=== PATIENT | female | born 1945 | race Caucasian/White ===

== ENCOUNTER 2016-08-14 18:41 | Inpatient (IN) | payer MEDICARE, MEDICAID ==
[~2016-08-14] VITALS: Ht 170.1 cm; Wt 62.3 kg
--- NOTE | ~2016-08-14 | PR ---
[place], [place] PROGRESS NOTE NAME: PRIYANKA NORTON UNIT #: [id number] ROOM: 415 DOCTOR: ANA PAULA FELICIANO MD BIRTHDATE: [birth year] DOS: SUBJECTIVE: The patient examined. The patient had the device interrogated and ICD is functioning fine. The patient is getting dobutamine setup to have 5 mcg for 4 hours 2 times a week. Her CHF appears to be well compensated. She is 100% paced. PHYSICAL EXAMINATION: NECK: Supple and normal JVD. LUNGS: Diminished breath sounds. HEART: Sounds are regular. ABDOMEN: Soft, nontender. NEUROLOGIC: Stable. LABORATORY DATA: Reviewed. Underlying rhythm is atrial fibrillation. IMPRESSION: Severe dilated cardiomyopathy, nonischemic compensated. The patient is getting dobutamine, chronic atrial fibrillation status post atrioventricular node ablation on anticoagulation. PLAN: Continue the present medications. Set up for outpatient dobutamine treatment and followup. ANA PAULA FELICIANO MD CM:PNTRANS 0809 [id number] ANA PAULA FELICIANO MD 08/18/16 0912 interface
--- NOTE | ~2016-08-14 | CON ---
[place], [place] REPORT OF CONSULTATION NAME: PRIYANKA NORTON UNIT #: [id number] ROOM: 415 DOCTOR: KIRILL DSOUZA MD BIRTHDATE: [birth year] DOS: 08/16/2016 HISTORY OF PRESENT ILLNESS: This is a 71-year-old -[place] woman whom I have known for many years. She has had severe nonischemic cardiomyopathy for well over 10 years and previous heart catheterization a couple of years ago and echocardiogram demonstrated EF between 25 and 30% and normal coronary arteries. She had a biventricular AICD implanted in 2016, which improved her functional state. She had atrial fibrillation where a ventricular rate was difficult to control. Therefore, she had AV node ablation at that time of AICD implantation. She also has COPD and quit smoking a couple of years ago. Her main complaint is that of shortness of breath at night and also some chest pain and discomfort at night with some bitter taste in the mouth. She has not had any swelling of the legs, and no loss of consciousness, AICD has not discharged. She is very anxious and quite worried because of inability to be able to do things that she wants to do. HOME MEDICATIONS: Include Xarelto, Protonix, Toprol-XL 50 mg daily, magnesium hydroxide 30 mL p.r.n., lisinopril 5 mg daily, aspirin 81 daily, simvastatin 20 mg daily. Vitamin D 2000 units daily and monthly B12 shots. PHYSICAL EXAMINATION: GENERAL: This patient who is tall, slim, somewhat apprehensive and quiet, which I think is of ramo. She is not anemic. She is not tachypneic. Temperature is normal. There is no thyromegaly, finger clubbing. VITAL SIGNS: Pulse is regular at 76, blood pressure 132/86. NECK: JVP is normal. AJR is negative. There is no carotid bruit. Parasternal heave is present. HEART: Auscultation reveals no obvious murmurs. EXTREMITIES: She has no edema in the lower extremity. RESPIRATORY: Breath sounds are mildly diminished with few adventitious sounds. DIAGNOSTIC STUDIES: An ECG showed atrial fibrillation with ventricular pacing. IMPRESSION: 1. This patient has severe cardiomyopathy, and I believe she has a low cardiac output state, which is causing exertional fatigue and perhaps resting fatigue. 2. She probably had mild cardiac decompensation, which is causing nocturnal symptoms. 3. Chronic atrial fibrillation. She had AV node ablation and is on Xarelto. 4. Hypertension. Blood pressure is little high, I think we need to bring this down little bit more. RECOMMENDATIONS: 1. The 20 mg of furosemide IV while in the hospital and then 20 mg p.o. when she goes home. 2. I think 12 hours of dobutamine treatment intravenously at the rate of 5 mcg per kilogram per minute, which should help, and we should start her on outpatient dobutamine treatment, namely 5 mcg per kilogram per minute in a 4 hour sessions twice a week. [place], [place] REPORT OF CONSULTATION NAME: PRIYANKA NORTON UNIT #: [id number] ROOM: [facility] DOCTOR: LIANNA ESPINOSA,KIRILL BIRTHDATE: [birth year] 3. I also think dose of lisinopril should be decreased because her blood pressure is not adequately controlled, and this may help her exertional symptoms. 4. The patient's condition was discussed with resident looking . KIRILL DSOUZA MD CM:CONSTR:REPORT OF CONSULTATION 1123 08/17/16 0003 interface
--- NOTE | ~2016-08-14 | PR ---
[place], [place] PROGRESS NOTE NAME: PRIYANKA NORTON UNIT #: [id number] ROOM: 415 DOCTOR: KIRILL DSOUZA MD BIRTHDATE: [birth year] DOS: 08/17/2016 SUBJECTIVE: She had the device interrogated, and AICD is functioning fine. She has not had any breathing difficulty at rest. No orthopnea or swelling of the lower extremities. She received dobutamine treatment and had no problem. OBJECTIVE: GENERAL: She looks well. VITAL SIGNS: Fine. Pulse is regular at 76, blood pressure 108/84. NECK: Normal JVP. LUNGS: Breath sounds are diminished. EXTREMITIES: No edema of the lower extremities. Monitor shows AFib with V-pacing. IMPRESSION: 1. Severe dilated cardiomyopathy, i.e., nonischemic with decompensation. She will be receiving dobutamine treatment twice a week. 2. Chronic atrial fibrillation with atrioventricular node ablation. She is on anticoagulation. She needs to have a Mediport, following which she may be discharged home, and I would love to see her in the office in 1 month. KIRILL DSOUZA MD CM:PNTRANS 1214 1402 KIRILL DSOUZA MD 08/17/16 1403 interface
[2016-08-14 18:41] VITALS: BP 166/85
[~2016-08-14 18:41] MED LIST: ACCUNEB 0.0.63 MG/3; ADVAIR 250/501 EA INH; ALBUTEROL0.09 MG/A2 IH; ANUSOL-HC25 MG R; AQUA CARE TP; ASPIRIN CHILDRE81 MG PO; ASPIRIN325 M2 PO; ASPIRIN81 M1 PO; ATARAX25 MG PO; AVPAK AZITHROM250 M1 PO; AYR NASAL GEL22 ML NAS; B12,B-12,B 12500 MC1 PO; B121000 MCG/1 IM; BACTRIM DS 8001 TA1 PO; BENADRYL25 M2 PO; BIAXIN500 MG PO; CARDIZEM CD180 MG PO; CENTRUM1 TA1 PO; CENTRUM1 TAB PO; CEPHALEXIN500 M1 PO; CHOLESTEROL MED; CIPROFLOXACIN500 MG PO; CLARITIN10 MG PO; COMPAZINE10 MG PO; CORGARD20 MG PO; COUMADIN1 MG PO; CYCLOBENZAPRINE10 MG PO; D-1000 185 MG-11 TAB PO; DELTASONE10 MG PO; DELTASONE20 M1 PO; DILTIAZEM HCL180 MG PO; DILTIAZEM HCL240 M1 PO; DILTIAZEM HYDR180 M2 PO; DILTIAZEM HYDR300 MG PO; DOXYCYLINE50 MG PO; DUONEB 3 MG/3 ML3 M1 INH; DUONEB 3ML 3 MG/3 ML INH; ELIQUIS5 M1 PO; Ecotrin325 MG PO; FLONASE 0.05% 121 EA NAS; FLONASE0.05 MG/AC NS; HYCODAN/HYDROMET5 ML PO; HYDROCODONE BIT1 T11 PO; KEFLEX500 M1 PO; KEFLEX500 MG PO; Kenalog 0.5% Cr15 GM T; LANOXIN0.125 MG PO; LEVAQUIN750 M1 PO; LEVOFLOXACIN500 MG PO; LIDEX 0.05% CRE15 GM T; LIDEX0.05% T; LIPITOR20 MG PO; LISINOPRIL2.5 MG PO; LISINOPRIL5 MG PO; MACROBID100 M1 PO; MOBIC15 MG PO; MOTRIN800 MG PO; MUCINEX600 MG PO; MULTIPLE VITAMI1 CAP PO; Metoprolol Succinate PO; NADOLOL20 MG PO; NARDIL; NARDIL PO; NARDIL15 MG PO; NASAL SPRAY 1515 ML NS; NASONEX0.05 MG/AC NS; NORCO 325 MG-51 TAB PO; PERCOCET 325 MG1 TA7 PO; PRAVACHOL20 MG PO; PREDNICOT10 MG PO; PREDNICOT20 MG PO; PREDNISONE10 MG PO; PREDNISONE20 M1 PO; PREDNISONE5 MG PO; PRILOSEC20 M2 PO; PROTONIX TR40 MG PO; PROVENTIL0.09 MG/AC IH; PT DOESN'T KNOW MEDS; SYMBICORT1 AE1 INH; TOPROL XL50 M1 PO; TRAMADOL HCL50 MG PO; TYLENOL325 M1 PO; VIBRAMYCIN100 MG PO; VICODIN ES 7501 TA1 PO; XARE20MG PO; XARELTO20 M1 PO; ZANTAC 150150 MG PO; ZITHROMAX Z PA250 MG PO; ZITHROMAX250 MG PO; ZOFRAN ODT4 MG SL; ZOFRAN4 MG PO; Zofran4 MG PO; [UNRECOGNIZED DRUG - OTHER]; [UNRECOGNIZED DRUG - REMARK]
[2016-08-14] MEDS ORDERED: NATURE'S BLEN2000 IU PO (19:00)
[2016-08-14] MEDS ORDERED: ZESTRIL2.5 MG PO (19:00)
[2016-08-14] MEDS ORDERED: NOVAPLUS V0.09 MG/Ac INH (19:02)
[2016-08-14] MEDS ORDERED: VITAMIN B11000 MCG/M IM (19:02)
[2016-08-14 19:54] LABS: BASO # 0.1 10*3/uL (0.0-0.1); BASO % 1.2 % (0.0-1.0); EOS # 0.3 10*3/uL (0.0-0.4); EOS % 4.9 % (1.0-4.0); HEMATOCRIT 36.8 % (37.0-47.0); HEMOGLOBIN 12.2 g/dl (12.0-16.0); LYMPH # 1.4 10*3/uL (1.3-4.4); LYMPH % 19.9 % (27.0-41.0); MEAN CELL VOLUME 93.9 fl (81.0-99.0); MEAN CORPUSCULAR HGB 31.1 pg (27.0-31.0); MEAN CORPUSCULAR HGB CONC 33.2 g/dl (33.0-37.0); MEAN PLATELET VOLUME 10.7 fl (9.6-12.3); MONO # 0.5 10*3/uL (0.1-1.0); MONO % 7.5 % (3.0-9.0); NEUT # 4.5 10*3/uL (2.3-7.9); NEUT % 66.2 % (47.0-73.0); PLATELET COUNT AUTOMATED 151 10*3/uL (130-400); RED BLOOD COUNT 3.92 10*6/uL (4.10-5.10); RED CELL DISTRI WIDTH 12.6 % (0-14.5); WHITE BLOOD COUNT 6.8 10*3/uL (4.8-10.8)
[2016-08-14 20:14] LABS: ALBUMIN 3.3 gm/dl (3.1-4.5); ALKALINE PHOSPHATASE 65 U/L (45-117); BILIRUBIN, TOTAL 0.3 mg/dl (0.2-1.0); BUN 7 mg/dl (7-24); CARBON DIOXIDE 27 mmol/L (21-32); CHLORIDE 106 mmol/L (98-107); CPK 58 U/L (26-192); EST GLOM FILT AFRICAN AMERICAN > 60 ml/min; GLUCOSE 97 mg/dL (65-99); LDH 176 U/L (84-246); MAGNESIUM 2.2 mg/dL (1.5-2.1); POTASSIUM 3.6 mmol/L (3.5-5.1); SGOT/AST 10 IU/L (3-35); SGPT/ALT 14 U/L (12-78); SODIUM 144 mmol/L (136-145); TOTAL PROTEIN 6.1 gm/dL (6.4-8.2)
[2016-08-14 20:16] LABS: TROPONIN I < 0.015 ng/ml (<0.045)
[2016-08-14 22:57] LABS: BILIRUBIN NEGATIVE (NEGATIVE); BLOOD NEGATIVE (NEGATIVE); CLARITY CLEAR (CLEAR); COLOR YELLOW (YELLOW); GLUCOSE NEGATIVE (NEGATIVE); KETONE NEGATIVE (NEGATIVE); LEUKO ESTERASE 1+ (NEGATIVE); NITRITE NEGATIVE (NEGATIVE); PROTEIN NEGATIVE (NEGATIVE); UROBILINOGEN 0.2 E.U./dl (0.2-1.0)
[2016-08-14 23:17] LABS: RBC 0-2 rbc/hpf (0-2); URINE REFLEX COMMENT YES (NO)
[2016-08-15 02:04] VITALS: BP 152/73
[2016-08-15 06:30] LABS: CKMB 2.2 ng/ml (0.5-3.6); CPK 70 U/L (26-192); TROPONIN I < 0.015 ng/ml (<0.045)
[2016-08-15 08:00] VITALS: BP 146/88
[2016-08-15 12:00] VITALS: BP 156/87
[2016-08-15 12:35] LABS: CKMB 1.8 ng/ml (0.5-3.6); CPK 64 U/L (26-192)
[2016-08-15 12:37] LABS: TROPONIN I < 0.015 ng/ml (<0.045)
[2016-08-15 16:00] VITALS: BP 136/75
[2016-08-15 18:11] LABS: CKMB 1.6 ng/ml (0.5-3.6); CPK 61 U/L (26-192)
[2016-08-15 18:13] LABS: TROPONIN I < 0.015 ng/ml (<0.045)
[2016-08-15 20:00] VITALS: BP 145/82
[2016-08-16] VITALS: BP 126/85
[2016-08-16 06:15] LABS: BASO # 0.1 10*3/uL (0.0-0.1); BASO % 1.5 % (0.0-1.0); EOS # 0.3 10*3/uL (0.0-0.4); HEMOGLOBIN 13.2 g/dl (12.0-16.0); LYMPH # 1.3 10*3/uL (1.3-4.4); LYMPH % 24.1 % (27.0-41.0); MEAN CELL VOLUME 93.7 fl (81.0-99.0); MEAN CORPUSCULAR HGB 30.9 pg (27.0-31.0); MEAN PLATELET VOLUME 10.5 fl (9.6-12.3); MONO # 0.4 10*3/uL (0.1-1.0); MONO % 8.3 % (3.0-9.0); NEUT # 3.2 10*3/uL (2.3-7.9); NEUT % 60.7 % (47.0-73.0); PLATELET COUNT AUTOMATED 155 10*3/uL (130-400); RED BLOOD COUNT 4.27 10*6/uL (4.10-5.10); RED CELL DISTRI WIDTH 12.5 % (0-14.5); WHITE BLOOD COUNT 5.2 10*3/uL (4.8-10.8)
[2016-08-16 06:38] LABS: BUN 9 mg/dl (7-24); CARBON DIOXIDE 27 mmol/L (21-32); CHLORIDE 105 mmol/L (98-107); EST GLOM FILT AFRICAN AMERICAN > 60 ml/min; GLUCOSE 93 mg/dL (65-99); SODIUM 144 mmol/L (136-145)
[2016-08-16 08:00] VITALS: BP 132/86
[2016-08-16 12:00] VITALS: BP 135/87
[2016-08-16 13:43] VITALS: BP 139/56
[2016-08-16 16:00] VITALS: BP 120/65
[2016-08-16 20:00] VITALS: BP 121/82
[2016-08-17] VITALS: BP 94/55
[2016-08-17 06:22] LABS: BUN 13 mg/dl (7-24); CARBON DIOXIDE 29 mmol/L (21-32); CHLORIDE 105 mmol/L (98-107); EST GLOM FILT AFRICAN AMERICAN > 60 ml/min; GLUCOSE 91 mg/dL (65-99); POTASSIUM 4.1 mmol/L (3.5-5.1); SODIUM 144 mmol/L (136-145)
[2016-08-17 08:00] VITALS: BP 108/84
[2016-08-17 16:00] VITALS: BP 139/72
[2016-08-17 20:00] VITALS: BP 121/81
[2016-08-18] VITALS: BP 125/59
[2016-08-18 08:00] VITALS: BP 110/71
[2016-08-18 09:57] VITALS: BP 114/60
[2016-08-18 12:00] VITALS: BP 113/61; BP 142/75
[2016-08-18] MEDS ORDERED: DOBUTAMINE250 MG/250 IV (13:47)
== END 2016-08-18 15:33 | disposition home or self-care (01) | DRG 392 ==
LOC: ED 18:41 → EDHOLD 22:26 → 4E 22:26
PROVIDERS: Internal Medicine; Physician Assistant
PROC: 02HV33Z Insertion of Infusion Device into Superior Vena Cava, Percutaneous Approach (ICD-10-PCS; principal; 2016-08-14)
DX: K21.9 Gastro-esophageal reflux disease without esophagitis (principal); E44.0 Moderate protein-calorie malnutrition; I42.9 Cardiomyopathy, unspecified; I48.2 Chronic atrial fibrillation; E83.41 Hypermagnesemia; J44.9 Chronic obstructive pulmonary disease, unspecified; I50.22 Chronic systolic (congestive) heart failure; I11.0 Hypertensive heart disease with heart failure; R55 Syncope and collapse; I25.118 Atherosclerotic heart disease of native coronary artery with other forms of angina pectoris; I34.1 Nonrheumatic mitral (valve) prolapse; D64.9 Anemia, unspecified; F41.9 Anxiety disorder, unspecified; Z90.710 Acquired absence of both cervix and uterus; Z90.49 Acquired absence of other specified parts of digestive tract; Z95.810 Presence of automatic (implantable) cardiac defibrillator; Z87.891 Personal history of nicotine dependence; Z82.49 Family history of ischemic heart disease and other diseases of the circulatory system; Z80.3 Family history of malignant neoplasm of breast; Z82.3 Family history of stroke; Z79.51 Long term (current) use of inhaled steroids; Z79.82 Long term (current) use of aspirin; Z79.899 Other long term (current) drug therapy; Z68.20 Body mass index [BMI] 20.0-20.9, adult

== ENCOUNTER 2016-08-22 22:28 | Emergency (ER) | payer MEDICARE, MEDICAID ==
[~2016-08-22] VITALS: Ht 175.2 cm; Wt 61.7 kg
--- NOTE | ~2016-08-22 | EKG ---
[place], [place] ELECTROCARDIOGRAM REPORT NAME: PRIYANKA NORTON UNIT #: [id number] ROOM: DOCTOR: KIRILL DSOUZA MD BIRTHDATE: [birth year] DOS: 08/22/2016 TIME: 2246 hours. Underlying rhythm is atrial fibrillation with a ventricular pacing at 77 beats per minute. KIRILL DSOUZA MD CM:EKGRPT:ELECTROCARDIOGRAM REPORT 1150 1402 KIRILL DSOUZA MD
[~2016-08-22 22:28] MED LIST changes: +DOBUTAMINE250 MG/250 IV; +NATURE'S BLEN2000 IU PO; +NOVAPLUS V0.09 MG/Ac INH; +VITAMIN B11000 MCG/M IM; +ZESTRIL2.5 MG PO
[2016-08-22 22:38] VITALS: BP 153/71
[2016-08-22 23:07] LABS: BASO # 0.1 10*3/uL (0.0-0.1); BASO % 1.1 % (0.0-1.0); EOS # 0.3 10*3/uL (0.0-0.4); EOS % 3.2 % (1.0-4.0); HEMATOCRIT 35.6 % (37.0-47.0); LYMPH # 1.5 10*3/uL (1.3-4.4); LYMPH % 19.1 % (27.0-41.0); MEAN CELL VOLUME 93.7 fl (81.0-99.0); MEAN CORPUSCULAR HGB 31.6 pg (27.0-31.0); MEAN CORPUSCULAR HGB CONC 33.7 g/dl (33.0-37.0); MEAN PLATELET VOLUME 10.9 fl (9.6-12.3); MONO # 0.7 10*3/uL (0.1-1.0); MONO % 9.2 % (3.0-9.0); NEUT # 5.3 10*3/uL (2.3-7.9); NEUT % 67.1 % (47.0-73.0); PLATELET COUNT AUTOMATED 144 10*3/uL (130-400); RED CELL DISTRI WIDTH 12.4 % (0-14.5); WHITE BLOOD COUNT 7.9 10*3/uL (4.8-10.8)
[2016-08-22 23:17] LABS: PROTHROMBIN TIME 10.4 SECONDS (9.0-12.4)
[2016-08-22 23:24] LABS: ALBUMIN 3.4 gm/dl (3.1-4.5); ALKALINE PHOSPHATASE 66 U/L (45-117); BILIRUBIN, TOTAL 0.6 mg/dl (0.2-1.0); BUN 12 mg/dl (7-24); CARBON DIOXIDE 31 mmol/L (21-32); CHLORIDE 104 mmol/L (98-107); CPK 49 U/L (26-192); EST GLOM FILT AFRICAN AMERICAN > 60 ml/min; GLUCOSE 98 mg/dL (65-99); POTASSIUM 3.4 mmol/L (3.5-5.1); SGOT/AST 12 IU/L (3-35); SGPT/ALT 15 U/L (12-78); SODIUM 145 mmol/L (136-145); TOTAL PROTEIN 6.4 gm/dL (6.4-8.2)
[2016-08-22 23:25] LABS: CKMB 1.1 ng/ml (0.5-3.6); TROPONIN I < 0.015 ng/ml (<0.045)
== END 2016-08-23 01:55 | disposition home or self-care (01) ==
LOC: ED 22:28
PROVIDERS: Emergency Medicine
DX: J98.11 Atelectasis (principal); F41.9 Anxiety disorder, unspecified; E53.8 Deficiency of other specified B group vitamins; I48.2 Chronic atrial fibrillation; J44.9 Chronic obstructive pulmonary disease, unspecified; I10 Essential (primary) hypertension; I34.1 Nonrheumatic mitral (valve) prolapse; E55.9 Vitamin D deficiency, unspecified; I50.9 Heart failure, unspecified; Z98.890 Other specified postprocedural states; Z90.49 Acquired absence of other specified parts of digestive tract; Z95.0 Presence of cardiac pacemaker; Z90.710 Acquired absence of both cervix and uterus; Z87.891 Personal history of nicotine dependence; Z79.82 Long term (current) use of aspirin; Z79.899 Other long term (current) drug therapy

== ENCOUNTER 2016-09-04 18:06 | Inpatient (IN) | payer MEDICARE, MEDICAID ==
[~2016-09-04] VITALS: Ht 167.6 cm; Wt 67.2 kg
[2016-09-04 18:10] VITALS: BP 144/79
[2016-09-04 18:37] LABS: BASO # 0.1 10*3/uL (0.0-0.1); EOS # 0.2 10*3/uL (0.0-0.4); EOS % 2.9 % (1.0-4.0); HEMATOCRIT 35.4 % (37.0-47.0); HEMOGLOBIN 11.9 g/dl (12.0-16.0); LYMPH # 1.6 10*3/uL (1.3-4.4); LYMPH % 19.6 % (27.0-41.0); MEAN CELL VOLUME 94.7 fl (81.0-99.0); MEAN CORPUSCULAR HGB 31.8 pg (27.0-31.0); MEAN CORPUSCULAR HGB CONC 33.6 g/dl (33.0-37.0); MEAN PLATELET VOLUME 10.5 fl (9.6-12.3); MONO # 0.5 10*3/uL (0.1-1.0); MONO % 6.6 % (3.0-9.0); NEUT # 5.6 10*3/uL (2.3-7.9); NEUT % 69.7 % (47.0-73.0); PLATELET COUNT AUTOMATED 189 10*3/uL (130-400); RED BLOOD COUNT 3.74 10*6/uL (4.10-5.10); RED CELL DISTRI WIDTH 12.7 % (0-14.5)
[2016-09-04 18:49] LABS: PROTHROMBIN TIME 10.1 SECONDS (9.0-12.4)
[2016-09-04 18:54] LABS: ALBUMIN 3.4 gm/dl (3.1-4.5); ALKALINE PHOSPHATASE 76 U/L (45-117); BILIRUBIN, TOTAL 0.6 mg/dl (0.2-1.0); BUN 6 mg/dl (7-24); CARBON DIOXIDE 30 mmol/L (21-32); CHLORIDE 106 mmol/L (98-107); CKMB 1.4 ng/ml (0.5-3.6); CPK 55 U/L (26-192); EST GLOM FILT AFRICAN AMERICAN > 60 ml/min; GLUCOSE 80 mg/dL (65-99); MAGNESIUM 2.2 mg/dL (1.5-2.1); POTASSIUM 3.3 mmol/L (3.5-5.1); SGOT/AST 9 IU/L (3-35); SGPT/ALT 9 U/L (12-78); SODIUM 144 mmol/L (136-145); TOTAL PROTEIN 6.5 gm/dL (6.4-8.2)
[2016-09-04 19:14] LABS: C-REACTIVE PROTEIN < 0.29 MG/DL (0-0.3); TROPONIN I < 0.015 ng/ml (<0.045)
[2016-09-04 19:21] VITALS: BP 145/88
[2016-09-04 19:45] VITALS: BP 138/86
[2016-09-05] VITALS: BP 140/80
[2016-09-05 06:13] LABS: BASO # 0.1 10*3/uL (0.0-0.1); BASO % 1.4 % (0.0-1.0); EOS # 0.4 10*3/uL (0.0-0.4); HEMATOCRIT 35.6 % (37.0-47.0); HEMOGLOBIN 11.8 g/dl (12.0-16.0); LYMPH # 1.2 10*3/uL (1.3-4.4); MEAN CELL VOLUME 95.2 fl (81.0-99.0); MEAN CORPUSCULAR HGB 31.6 pg (27.0-31.0); MEAN CORPUSCULAR HGB CONC 33.1 g/dl (33.0-37.0); MONO # 0.4 10*3/uL (0.1-1.0); MONO % 6.5 % (3.0-9.0); NEUT # 3.8 10*3/uL (2.3-7.9); NEUT % 64.8 % (47.0-73.0); PLATELET COUNT AUTOMATED 169 10*3/uL (130-400); RED BLOOD COUNT 3.74 10*6/uL (4.10-5.10); RED CELL DISTRI WIDTH 12.5 % (0-14.5); WHITE BLOOD COUNT 5.8 10*3/uL (4.8-10.8)
[2016-09-05 06:52] LABS: BUN 6 mg/dl (7-24); CARBON DIOXIDE 30 mmol/L (21-32); CHLORIDE 110 mmol/L (98-107); EST GLOM FILT AFRICAN AMERICAN > 60 ml/min; FREE T4 0.87 ng/dl (0.76-1.46); GLUCOSE 87 mg/dL (65-99); POTASSIUM 3.7 mmol/L (3.5-5.1); SODIUM 144 mmol/L (136-145)
[2016-09-05 08:00] VITALS: BP 150/90
[2016-09-05 12:00] VITALS: BP 113/75
[2016-09-05 16:00] VITALS: BP 163/72
[2016-09-05 20:00] VITALS: BP 121/62
[2016-09-06] VITALS: BP 119/82
[2016-09-06 08:00] VITALS: BP 128/88
[2016-09-06 12:00] VITALS: BP 135/79
[2016-09-06 16:00] VITALS: BP 122/98
[2016-09-06 20:00] VITALS: BP 106/46
[2016-09-07] VITALS: BP 120/90
[2016-09-07 08:00] VITALS: BP 130/82
== END 2016-09-07 12:00 | disposition home or self-care (01) | DRG 206 ==
LOC: ED 18:06 → 5E 20:09 → EDHOLD 20:09 → 5E 20:21
PROVIDERS: Emergency Medicine; Internal Medicine Hospice and Palliative Medicine
DX: M94.0 Chondrocostal junction syndrome [Tietze] (principal); I50.22 Chronic systolic (congestive) heart failure; Z99.81 Dependence on supplemental oxygen; I11.0 Hypertensive heart disease with heart failure; E87.6 Hypokalemia; E83.41 Hypermagnesemia; D72.810 Lymphocytopenia; I48.2 Chronic atrial fibrillation; F41.9 Anxiety disorder, unspecified; J44.9 Chronic obstructive pulmonary disease, unspecified; D64.9 Anemia, unspecified; I25.119 Atherosclerotic heart disease of native coronary artery with unspecified angina pectoris; Z95.0 Presence of cardiac pacemaker; Z90.710 Acquired absence of both cervix and uterus; Z90.49 Acquired absence of other specified parts of digestive tract; Z80.3 Family history of malignant neoplasm of breast; Z82.3 Family history of stroke; Z79.82 Long term (current) use of aspirin; Z79.899 Other long term (current) drug therapy

== ENCOUNTER 2016-10-10 14:20 | Emergency (ER) | payer MEDICARE ==
[~2016-10-10] VITALS: Wt 63.5 kg
--- NOTE | ~2016-10-10 | EKG ---
[place], [place] ELECTROCARDIOGRAM REPORT NAME: PRIYANKA NORTON UNIT #: [id number] ROOM: DOCTOR: KIRILL DSOUZA MD BIRTHDATE: [birth year] DOS: 10/10/2016 TIME: 1449 hours. FINDINGS: 1. Underlying rhythm is atrial fibrillation with ventricular pacing at 75 beats per minute. 2. An abnormal ECG. 3. No previous tracing is available for comparison. KIRILL DSOUZA MD CM:EKGRPT:ELECTROCARDIOGRAM REPORT 1741 1936 KIRILL DSOUZA MD
[2016-10-10 15:03] LABS: BASO % 0.9 % (0.0-1.0); EOS # 0.1 10*3/uL (0.0-0.4); EOS % 2.9 % (1.0-4.0); HEMATOCRIT 37.4 % (37.0-47.0); HEMOGLOBIN 12.3 g/dl (12.0-16.0); LYMPH # 0.8 10*3/uL (1.3-4.4); LYMPH % 18.7 % (27.0-41.0); MEAN CELL VOLUME 94.2 fl (81.0-99.0); MEAN CORPUSCULAR HGB CONC 32.9 g/dl (33.0-37.0); MONO # 0.6 10*3/uL (0.1-1.0); MONO % 12.4 % (3.0-9.0); NEUT # 2.9 10*3/uL (2.3-7.9); NEUT % 64.9 % (47.0-73.0); PLATELET COUNT AUTOMATED 137 10*3/uL (130-400); RED BLOOD COUNT 3.97 10*6/uL (4.10-5.10); RED CELL DISTRI WIDTH 13.2 % (0-14.5); WHITE BLOOD COUNT 4.5 10*3/uL (4.8-10.8)
[2016-10-10 15:12] LABS: PROTHROMBIN TIME 10.7 SECONDS (9.0-12.4)
[2016-10-10 15:21] LABS: ALBUMIN 3.3 gm/dl (3.1-4.5); ALKALINE PHOSPHATASE 79 U/L (45-117); BILIRUBIN, TOTAL 0.6 mg/dl (0.2-1.0); BUN 5 mg/dl (7-24); CARBON DIOXIDE 27 mmol/L (21-32); CHLORIDE 105 mmol/L (98-107); EST GLOM FILT AFRICAN AMERICAN > 60 ml/min; GLUCOSE 93 mg/dL (65-99); POTASSIUM 3.7 mmol/L (3.5-5.1); SGOT/AST 11 IU/L (3-35); SGPT/ALT 10 U/L (12-78); SODIUM 142 mmol/L (136-145); TOTAL PROTEIN 6.3 gm/dL (6.4-8.2)
[2016-10-10 15:23] LABS: TROPONIN I < 0.015 ng/ml (<0.045)
[2016-10-10 16:23] VITALS: BP 136/60
== END 2016-10-10 16:31 | disposition home or self-care (01) ==
LOC: ED 14:20
PROVIDERS: Student in an Organized Health Care Education/Training Program
DX: R06.02 Shortness of breath (principal); F41.9 Anxiety disorder, unspecified; I25.10 Atherosclerotic heart disease of native coronary artery without angina pectoris; J44.9 Chronic obstructive pulmonary disease, unspecified; I10 Essential (primary) hypertension; Z87.891 Personal history of nicotine dependence; Z90.49 Acquired absence of other specified parts of digestive tract; Z99.81 Dependence on supplemental oxygen; Z95.810 Presence of automatic (implantable) cardiac defibrillator; Z79.82 Long term (current) use of aspirin; Z79.899 Other long term (current) drug therapy

== ENCOUNTER 2016-10-13 11:40 | Inpatient (IN) | payer MEDICARE ==
[~2016-10-13] VITALS: Ht 175.3 cm; Wt 64.0 kg
[2016-10-13] VITALS (8 sets, daily range): BP systolic 124–154; BP diastolic 50–99
--- NOTE | ~2016-10-13 | CON ---
[place], [place] REPORT OF CONSULTATION NAME: PRIYANKA NORTON UNIT #: [id number] ROOM: 408 DOCTOR: KIRILL DSOUZA MD BIRTHDATE: [birth year] DOS: 10/13/2016 HISTORY OF PRESENT ILLNESS: This is a 71-year-old -[place] woman with a history of a nonischemic cardiomyopathy diagnosed a very long time ago, and she had a diagnostic heart catheterization a couple of years ago and at that time, she had an LV ejection fraction of 25% and an echocardiogram has had demonstrated similar LV systolic function and normal coronary arteries. She had chronic atrial fibrillation with very rapid ventricular rate, which could not be tamed. For this, she had AV node ablation and at that time, a biventricular AICD device was implanted. Because of deteriorating condition, she was started on outpatient dobutamine therapy twice a week and since then she has been much more functional. She also has significant COPD and at times has bothered her quite a bit. She has never had a cancer, stroke. Does have essential hypertension. She does not have mitral valve prolapse. The patient has been feeling unwell for the last 8-10 days. She has had a cough in the chest that rattles a lot more than usual. She has coughed away little phlegm. She has not had any chest pain except when she coughs and no palpitations. She has not had any loss of consciousness. PAST SURGICAL HISTORY: She has had prior hysterectomy, appendectomy, tonsillectomy, carpal tunnel decompression surgery. SOCIAL HISTORY: She does not smoke now nor does she drink alcoholic beverages. ALLERGIES: She is not allergic to any medications. HOME MEDICATIONS: Include aspirin, cholecalciferol, cyanocobalamin, dobutamine treatment twice a week as outpatient, lisinopril 5 mg daily, metoprolol succinate 50 mg daily, pravastatin 20 mg daily and Xarelto 20 mg daily. PHYSICAL EXAMINATION: GENERAL: This reveals a patient who is alert, oriented. She is slim, she is afebrile. When she coughs, her chest rattles a lot. Pulse is regular at 76, blood pressure 154/84. NECK: Normal JVP. AJR is negative. There is no carotid bruit. HEART: There is no cardiomegaly. No murmurs are present. EXTREMITIES: There is no edema at all in the lower extremities . LUNGS: Breath sounds are moderately diminished with a lot of rhonchi during inspiration and expiration. ABDOMEN: Supple, nontender. LABORATORY DATA: An ECG shows atrial fibrillation with ventricular pacing. Chest x-ray demonstrated no pulmonary infiltrate or pulmonary edema. Labs essentially normal. IMPRESSION: 1. This patient has significant chronic obstructive pulmonary disease, now had [place], [place] REPORT OF CONSULTATION NAME: PRIYANKA NORTON UNIT #: [id number] ROOM: [facility] DOCTOR: KIRILL DSOUZA MD BIRTHDATE: [birth year] exacerbation of this due to an acute chest infection. 2. There is no evidence of cardiac decompensation, i.e., systolic heart failure is well compensated. 3. Severe cardiomyopathy. 4. Current cardiac medications should be continued and stress should be on treating the respiratory infection. KIRILL DSOUZA MD CM:CONSTR:REPORT OF CONSULTATION 57 10/14/161955 interface
--- NOTE | ~2016-10-13 | EKG ---
[place], [place] ELECTROCARDIOGRAM REPORT NAME: PRIYANKA NORTON UNIT #: [id number] ROOM: 408 DOCTOR: KIRILL DSOUZA MD BIRTHDATE: [birth year] DOS: 10/13/2016 TIME: 1201 hours. Underlying rhythm is atrial fibrillation with a ventricular pacing at 77 beats per minute. No previous tracing is available for comparison. KIRILL DSOUZA MD CM:EKGRPT:ELECTROCARDIOGRAM REPORT 41 2140 KIRILL DSOUZA MD
[2016-10-13 12:18] LABS: BASO % 0.7 % (0.0-1.0); EOS # 0.2 10*3/uL (0.0-0.4); EOS % 3.4 % (1.0-4.0); HEMATOCRIT 39.2 % (37.0-47.0); HEMOGLOBIN 13.1 g/dl (12.0-16.0); LYMPH # 1.5 10*3/uL (1.3-4.4); LYMPH % 26.6 % (27.0-41.0); MEAN CELL VOLUME 95.4 fl (81.0-99.0); MEAN CORPUSCULAR HGB 31.9 pg (27.0-31.0); MEAN CORPUSCULAR HGB CONC 33.4 g/dl (33.0-37.0); MONO # 0.3 10*3/uL (0.1-1.0); MONO % 5.3 % (3.0-9.0); NEUT # 3.6 10*3/uL (2.3-7.9); NEUT % 63.8 % (47.0-73.0); PLATELET COUNT AUTOMATED 131 10*3/uL (130-400); RED BLOOD COUNT 4.11 10*6/uL (4.10-5.10); WHITE BLOOD COUNT 5.6 10*3/uL (4.8-10.8)
[2016-10-13 12:27] LABS: INTERNATIONAL NORM RATIO 0.9 (2.0-3.5)
[2016-10-13 12:34] LABS: ALBUMIN 3.5 gm/dl (3.1-4.5); ALKALINE PHOSPHATASE 78 U/L (45-117); BILIRUBIN, TOTAL 0.4 mg/dl (0.2-1.0); BUN 5 mg/dl (7-24); CARBON DIOXIDE 32 mmol/L (21-32); CHLORIDE 107 mmol/L (98-107); CKMB 1.9 ng/ml (0.5-3.6); CPK 85 U/L (26-192); EST GLOM FILT AFRICAN AMERICAN > 60 ml/min; GLUCOSE 99 mg/dL (65-99); POTASSIUM 3.5 mmol/L (3.5-5.1); SGOT/AST 13 IU/L (3-35); SGPT/ALT 13 U/L (12-78); SODIUM 142 mmol/L (136-145); TOTAL PROTEIN 6.9 gm/dL (6.4-8.2)
[2016-10-13 12:36] LABS: C-REACTIVE PROTEIN < 0.29 MG/DL (0-0.3); TROPONIN I < 0.015 ng/ml (<0.045)
[2016-10-13] MEDS ORDERED: ZESTRIL5 MG PO (14:57)
[2016-10-13 15:27] LABS: CPK 89 U/L (26-192); FREE T4 0.86 ng/dl (0.76-1.46)
[2016-10-13 15:28] LABS: TROPONIN I < 0.015 ng/ml (<0.045)
[2016-10-13] MEDS ORDERED: XARE20MG PO (15:32)
[2016-10-13 16:12] LABS: VITAMIN D, 25-HYDROXY 4.7 ng/mL (30-100)
[2016-10-13 16:13] LABS: FOLIC ACID 11.16 ng/mL (>5.38)
[2016-10-13 18:26] LABS: CKMB 2.4 ng/ml (0.5-3.6); CPK 104 U/L (26-192)
[2016-10-13 18:28] LABS: TROPONIN I < 0.015 ng/ml (<0.045)
[2016-10-14] VITALS: BP 111/84
[2016-10-14 06:46] LABS: HEMATOCRIT 38.6 % (37.0-47.0); HEMOGLOBIN 12.8 g/dl (12.0-16.0); MEAN CELL VOLUME 94.4 fl (81.0-99.0); MEAN CORPUSCULAR HGB 31.3 pg (27.0-31.0); MEAN CORPUSCULAR HGB CONC 33.2 g/dl (33.0-37.0); MEAN PLATELET VOLUME 11.6 fl (9.6-12.3); PLATELET COUNT AUTOMATED 151 10*3/uL (130-400); RED BLOOD COUNT 4.09 10*6/uL (4.10-5.10); RED CELL DISTRI WIDTH 12.8 % (0-14.5); WHITE BLOOD COUNT 7.2 10*3/uL (4.8-10.8)
[2016-10-14 07:11] LABS: ATYPICAL LYMPHS 1 % (0-0); EOSINOPHIL # 0.1 10*3/uL (0-0.4); EOSINOPHILS 1 % (1-4); LYMPHOCYTE # 0.4 10*3/uL (1.3-4.4); NEUTROPHIL # 6.7 10*3/uL (2.3-7.9); NEUTROPHILS 93 % (47-73); PLATELET SUFFICIENCY NORMAL (NORMAL); TOTAL CELLS COUNTED 100 #CELLS
[2016-10-14 07:26] LABS: BUN 9 mg/dl (7-24); CARBON DIOXIDE 29 mmol/L (21-32); CHLORIDE 108 mmol/L (98-107); GLUCOSE 140 mg/dL (65-99); SODIUM 141 mmol/L (136-145)
[2016-10-14 07:27] LABS: EST GLOM FILT AFRICAN AMERICAN > 60 ml/min
[2016-10-14 08:00] VITALS: BP 139/76
[2016-10-14 12:00] VITALS: BP 143/71
[2016-10-14 16:00] VITALS: BP 112/78; BP 137/48
[2016-10-14 20:00] VITALS: BP 112/59
[2016-10-15] VITALS: BP 120/58
[2016-10-15 08:00] VITALS: BP 136/76
[2016-10-15] MEDS ORDERED: DOXYCYCLINE100 M3 PO (11:32)
[2016-10-15] MEDS ORDERED: PREDNISONE10 MG PO (11:32)
[2016-10-15 12:00] VITALS: BP 129/72
== END 2016-10-15 12:21 | disposition home or self-care (01) | DRG 280 ==
LOC: ED 11:40 → EDHOLD 13:32 → 4E 13:32
PROVIDERS: Emergency Medicine; Internal Medicine Hospice and Palliative Medicine
DX: I21.3 ST elevation (STEMI) myocardial infarction of unspecified site (principal); J18.9 Pneumonia, unspecified organism; J96.11 Chronic respiratory failure with hypoxia; I11.0 Hypertensive heart disease with heart failure; I42.9 Cardiomyopathy, unspecified; D68.59 Other primary thrombophilia; J44.0 Chronic obstructive pulmonary disease with (acute) lower respiratory infection; I50.22 Chronic systolic (congestive) heart failure; J44.1 Chronic obstructive pulmonary disease with (acute) exacerbation; Z99.81 Dependence on supplemental oxygen; R07.9 Chest pain, unspecified; F41.9 Anxiety disorder, unspecified; I25.10 Atherosclerotic heart disease of native coronary artery without angina pectoris; Z95.810 Presence of automatic (implantable) cardiac defibrillator; Z82.3 Family history of stroke; I48.2 Chronic atrial fibrillation; E55.9 Vitamin D deficiency, unspecified; E53.8 Deficiency of other specified B group vitamins; L40.9 Psoriasis, unspecified

== ENCOUNTER 2016-11-21 19:36 | Inpatient (IN) | payer MEDICARE ==
[2016-11-21] VITALS (7 sets, daily range): BP systolic 107–137; BP diastolic 69–96
[~2016-11-21] VITALS: Ht 175.2 cm; Wt 65.1 kg
--- NOTE | ~2016-11-21 | CON ---
[place], [place] REPORT OF CONSULTATION NAME: PRIYANKA NORTON UNIT #: [id number] ROOM: 512 DOCTOR: KIRILL DSOUZA MD BIRTHDATE: [birth year] DOS: 11/23/2016 HISTORY OF PRESENT ILLNESS: This is a 71-year-old -[place] woman with a history of severe nonischemic cardiomyopathy. She had a heart cath done a couple of years ago and had normal coronary arteries and an EF of 25%. Subsequent echocardiogram has shown EF of around 30-35%. She had chronic atrial fibrillation with rapid ventricular rate, which could not be controlled; therefore, AV node ablation was performed and biventricular AICD was implanted. She has been doing fairly well. She was in this hospital about a month ago with some breathing problems. She does have significant COPD. On the day of this admission, she had broken into a cold sweat couple of times. At the same time had quite intense nausea along with a spinning sensation. She had to keep her head still. She has had acute vertigo in the past. Since she has been in the hospital, she has to hold on to the side rails to walk because of unsteady gait. She has not had any localized weakness. No chest pain or palpitations. She has exertional shortness of breath. No swelling of the legs. MEDICATIONS: Reviewed and are pravastatin, Xarelto, metoprolol succinate, lisinopril and dobutamine intravenously twice a week, and aspirin. PHYSICAL EXAMINATION: GENERAL: The patient is very quiet, pleasant, alert. She is not in any distress. Her complexion is fine. She is not diaphoretic. Temperature is normal. VITAL SIGNS: Pulse is irregular. NECK: JVP is normal. AJR is negative. No murmurs. RESPIRATORY: Breath sounds are mildly diminished bilaterally with a few adventitious sounds. EXTREMITIES: No edema in lower extremities. When I asked her to turn her head from side to side and look up and down, she developed vertigo. IMPRESSION: 1. This patient had episodes of acute vertigo, which caused sweating, nausea and problem with balance. 2. Nonischemic cardiomyopathy, well compensated. An echocardiogram showed ejection fraction pretty much same as previously known. 3. Chronic obstructive pulmonary disease. This is under reasonable control. From a cardiac standpoint, she may be discharged home. [place], [place] REPORT OF CONSULTATION NAME: PRIYANKA NORTON UNIT #: [id number] ROOM: 512 DOCTOR: KIRILL DSOUZA MD BIRTHDATE: [birth year] KIRILL DSOUZA MD CM:CONSTR:REPORT OF CONSULTATION 1810 11/24/16 0118 interface
--- NOTE | ~2016-11-21 | EKG ---
[place], [place] ELECTROCARDIOGRAM REPORT NAME: PRIYANKA NORTON UNIT #: [id number] ROOM: 512 DOCTOR: KIRILL DSOUZA MD BIRTHDATE: [birth year] DOS: 11/21/2016 TIME: 1938 hours. Underlying rhythm is atrial fibrillation with ventricular pacing at 77 beats per minute. An abnormal ECG. No previous tracing is available for comparison. KIRILL DSOUZA MD CM:EKGRPT:ELECTROCARDIOGRAM REPORT 1653 1747 KIRILL DSOUZA MD
--- NOTE | ~2016-11-21 | WRIGHTHP ---
[place], [place] PATIENT HISTORY AND PHYSICAL EXAM [id number] UNIT #: [id number] ROOM: 512 DOCTOR: LORETTA HILLMAN MD BIRTHDATE: [birth year] DOS: HISTORY OF PRESENT ILLNESS: The patient is a 71-year-old female who has been admitted to the hospital last night with chest pain and shortness of breath and she was feeling weak and diaphoretic. She is having these symptoms increasing gradually for the last 4-5 days and last night it became worse and she was feeling very weak and came to the Emergency Department from where she was admitted to the hospital with the chest pain and shortness of breath. The patient has a known case of ASHD, systolic congestive heart failure, COPD, pneumonitis, congestive heart failure, chronic atrial fibrillation, essential hypertension and coronary heart disease. The patient was only discharged from the hospital last month on 10/15/2016 and at that time she was admitted almost with the similar complaint and was seen by Dr. Lynch, stock handler floorperson and she had been put on dobutamine intravenous twice a week and she was feeling fairly good until she started getting little bad for the last 1 week, progressively getting worse. The patient's last chest x-ray did not show any acute cardiopulmonary problem. MEDICATIONS: The patient is supposed to be taking metoprolol 50 mg daily, pravastatin 20 mg daily, aspirin 81 mg daily, vitamin D 2000 units daily, cyanocobalamin (B12) 1000 units every month and aerosol treatment with DuoNeb every 6 hours and oxygen for her COPD and she is also taking dobutamine twice a week ____ mg IV, lisinopril 5 mg daily, Xarelto 20 mg daily. The patient is not very compliant, she had stopped taking her medication before her last admission. PAST SURGICAL HISTORY: Cardiac radiofrequency ablation, carpal tunnel repair, foot surgery, nasoplasty, hysterectomy, placement of internal cardiac defibrillation, appendectomy and tonsillectomy. SOCIAL HISTORY: The patient does not drink, does not smoke, does not use any drugs, but she is a former smoker. FAMILY HISTORY: Father at age 89 of head trauma. Mother of breast cancer. ALLERGIES: There is no known allergy. PHYSICAL EXAMINATION: GENERAL: At present, the patient is conscious, alert, does not seem to be in any distress. VITAL SIGNS: She is 5 feet 9 inches tall, weighing 143 pounds. Her temperature is 98.4, respirations 18 per minute, pulse is 75 and blood pressure is 132/81. HEENT: Unremarkable. No glandular enlargement. NECK: Trachea is central. HEART: Somewhat irregular due to atrial fibrillation. LUNGS: Having increased expiration. No crepitation. ABDOMEN: Soft. Liver and spleen not palpable. No area of tenderness. No mass palpable. EXTREMITIES: No edema of legs. CENTRAL NERVOUS SYSTEM: No neurological deficit observed. [place], [place] PATIENT HISTORY AND PHYSICAL EXAM NAME: PRIYANKA NORTON UNIT #: [id number] ROOM: 512 DOCTOR: LORETTA HILLMAN MD BIRTHDATE: [birth year] LABORATORY DATA: CK-MB and troponin level done on 3 different occasions is not showing any evidence of myocardial infarction. Her chest x-ray showed small bilateral pleural effusion with basilar atelectasis, possibly due to congestive heart failure. Comprehensive metabolic profile is fairly normal. Protime is 10.3. CBC is showing slight hypochromic anemia, otherwise no acute changes. DIAGNOSES: Atherosclerotic heart disease with congestive heart failure with chronic obstructive pulmonary disease, emphysema, history of hypoxia in the past, systolic congestive heart failure, chronic atrial fibrillation, hypertension, vitamin D deficiency. B12 deficiency, psoriasis, oxygen dependent chronic obstructive pulmonary disease, chronic respiratory failure with hypoxia and hypercoagulability state. PLAN OF TREATMENT: The patient will be started on her home medication as stated above and dictated by me and we will consult Dr. Lynch and follow his further advise. LORETTA HILLMAN MD CM:HISPHYS:PATIENT HISTORY AND PHYSICAL EXAMINATION 07 43 LORETTA HILLMAN MD 11/22/162141 interface
[~2016-11-21 19:36] MED LIST changes: +DOXYCYCLINE100 M3 PO; +ZESTRIL5 MG PO
[2016-11-21 19:59] LABS: BASO # 0.1 10*3/uL (0.0-0.1); BASO % 1.1 % (0.0-1.0); EOS # 0.2 10*3/uL (0.0-0.4); EOS % 2.9 % (1.0-4.0); HEMATOCRIT 36.6 % (37.0-47.0); HEMOGLOBIN 12.5 g/dl (12.0-16.0); LYMPH # 1.6 10*3/uL (1.3-4.4); LYMPH % 22.9 % (27.0-41.0); MEAN CELL VOLUME 94.1 fl (81.0-99.0); MEAN CORPUSCULAR HGB 32.1 pg (27.0-31.0); MEAN CORPUSCULAR HGB CONC 34.2 g/dl (33.0-37.0); MEAN PLATELET VOLUME 10.7 fl (9.6-12.3); MONO # 0.5 10*3/uL (0.1-1.0); MONO % 6.7 % (3.0-9.0); NEUT # 4.6 10*3/uL (2.3-7.9); NEUT % 66.1 % (47.0-73.0); PLATELET COUNT AUTOMATED 164 10*3/uL (130-400); RED BLOOD COUNT 3.89 10*6/uL (4.10-5.10); RED CELL DISTRI WIDTH 13.1 % (0-14.5)
[2016-11-21 20:10] LABS: PROTHROMBIN TIME 10.3 SECONDS (9.0-12.4)
[2016-11-21 20:16] LABS: ALBUMIN 3.4 gm/dl (3.1-4.5); ALKALINE PHOSPHATASE 73 U/L (45-117); BILIRUBIN, TOTAL 0.8 mg/dl (0.2-1.0); BUN 6 mg/dl (7-24); CARBON DIOXIDE 26 mmol/L (21-32); CHLORIDE 106 mmol/L (98-107); EST GLOM FILT AFRICAN AMERICAN > 60 ml/min; GLUCOSE 91 mg/dL (65-99); POTASSIUM 3.6 mmol/L (3.5-5.1); SGOT/AST 13 IU/L (3-35); SGPT/ALT 12 U/L (12-78); SODIUM 142 mmol/L (136-145); TOTAL PROTEIN 6.2 gm/dL (6.4-8.2)
[2016-11-21 20:17] LABS: TROPONIN I < 0.015 ng/ml (<0.045)
[2016-11-22] VITALS: BP 113/96
[2016-11-22 07:45] LABS: CKMB 1.5 ng/ml (0.5-3.6); CPK 62 U/L (26-192)
[2016-11-22 07:46] LABS: TROPONIN I < 0.015 ng/ml (<0.045)
[2016-11-22 08:00] VITALS: BP 132/82
[2016-11-22 12:00] VITALS: BP 122/88
[2016-11-22 13:51] LABS: CKMB 1.5 ng/ml (0.5-3.6); CPK 57 U/L (26-192)
[2016-11-22 13:53] LABS: TROPONIN I < 0.015 ng/ml (<0.045)
[2016-11-22 16:00] VITALS: BP 118/78
[2016-11-22 20:00] VITALS: BP 109/66
[2016-11-23] VITALS: BP 122/75
[2016-11-23 08:00] VITALS: BP 121/76
[2016-11-23 12:00] VITALS: BP 130/78
[2016-11-23 16:28] VITALS: BP 116/71
[2016-11-23 20:00] VITALS: BP 120/76
[2016-11-24] VITALS: BP 118/72
[2016-11-24 07:50] VITALS: BP 125/86
== END 2016-11-24 15:02 | disposition home or self-care (01) | DRG 392 ==
LOC: ED 19:36 → EDHOLD 20:42 → 5E 20:42
PROVIDERS: Emergency Medicine Emergency Medical Services; Internal Medicine
DX: K21.9 Gastro-esophageal reflux disease without esophagitis (principal); J96.11 Chronic respiratory failure with hypoxia; D68.59 Other primary thrombophilia; I11.0 Hypertensive heart disease with heart failure; J43.9 Emphysema, unspecified; I50.20 Unspecified systolic (congestive) heart failure; I42.9 Cardiomyopathy, unspecified; I25.10 Atherosclerotic heart disease of native coronary artery without angina pectoris; F41.9 Anxiety disorder, unspecified; I48.2 Chronic atrial fibrillation; E53.8 Deficiency of other specified B group vitamins; E55.9 Vitamin D deficiency, unspecified; L40.9 Psoriasis, unspecified; Z99.81 Dependence on supplemental oxygen; Z87.891 Personal history of nicotine dependence; Z87.01 Personal history of pneumonia (recurrent); Z90.710 Acquired absence of both cervix and uterus; Z95.810 Presence of automatic (implantable) cardiac defibrillator; Z82.3 Family history of stroke; Z80.3 Family history of malignant neoplasm of breast; Z83.3 Family history of diabetes mellitus; Z82.49 Family history of ischemic heart disease and other diseases of the circulatory system

== ENCOUNTER 2016-12-17 20:43 | Emergency (ER) | payer MEDICARE, MEDICAID ==
[~2016-12-17] VITALS: Ht 175.2 cm; Wt 64.9 kg
[2016-12-17 21:02] LABS: BASO # 0.1 10*3/uL (0.0-0.1); BASO % 0.8 % (0.0-1.0); EOS # 0.4 10*3/uL (0.0-0.4); EOS % 5.1 % (1.0-4.0); HEMATOCRIT 36.8 % (37.0-47.0); HEMOGLOBIN 12.6 g/dl (12.0-16.0); LYMPH # 1.4 10*3/uL (1.3-4.4); LYMPH % 19.1 % (27.0-41.0); MEAN CELL VOLUME 93.4 fl (81.0-99.0); MEAN CORPUSCULAR HGB CONC 34.2 g/dl (33.0-37.0); MEAN PLATELET VOLUME 10.7 fl (9.6-12.3); MONO # 0.5 10*3/uL (0.1-1.0); MONO % 6.9 % (3.0-9.0); NEUT # 5.1 10*3/uL (2.3-7.9); NEUT % 67.8 % (47.0-73.0); PLATELET COUNT AUTOMATED 143 10*3/uL (130-400); RED BLOOD COUNT 3.94 10*6/uL (4.10-5.10); RED CELL DISTRI WIDTH 12.7 % (0-14.5); WHITE BLOOD COUNT 7.5 10*3/uL (4.8-10.8)
[2016-12-17 21:13] LABS: PROTHROMBIN TIME 10.4 SECONDS (9.0-12.4)
[2016-12-17 21:18] LABS: ALBUMIN 3.5 gm/dl (3.1-4.5); ALKALINE PHOSPHATASE 72 U/L (45-117); BILIRUBIN, TOTAL 0.7 mg/dl (0.2-1.0); BUN 6 mg/dl (7-24); CARBON DIOXIDE 27 mmol/L (21-32); CHLORIDE 105 mmol/L (98-107); EST GLOM FILT AFRICAN AMERICAN > 60 ml/min; GLUCOSE 97 mg/dL (65-99); MAGNESIUM 1.9 mg/dL (1.5-2.1); POTASSIUM 3.3 mmol/L (3.5-5.1); SGOT/AST 12 IU/L (3-35); SGPT/ALT 9 U/L (12-78); SODIUM 141 mmol/L (136-145); TOTAL PROTEIN 6.4 gm/dL (6.4-8.2)
[2016-12-17 21:19] LABS: TROPONIN I < 0.015 ng/ml (<0.045)
[2016-12-17 21:26] VITALS: BP 137/82
== END 2016-12-18 00:29 | disposition home or self-care (01) ==
LOC: ED 20:43
PROVIDERS: Student in an Organized Health Care Education/Training Program
DX: R07.89 Other chest pain (principal); Z87.891 Personal history of nicotine dependence; Z90.49 Acquired absence of other specified parts of digestive tract; Z95.0 Presence of cardiac pacemaker; F41.9 Anxiety disorder, unspecified; I25.10 Atherosclerotic heart disease of native coronary artery without angina pectoris; J44.9 Chronic obstructive pulmonary disease, unspecified; I10 Essential (primary) hypertension; Z79.899 Other long term (current) drug therapy

== ENCOUNTER 2016-12-18 08:13 | Inpatient (IN) | payer MEDICARE, MEDICAID ==
[2016-12-18] VITALS (8 sets, daily range): BP systolic 101–172; BP diastolic 62–103
[~2016-12-18] VITALS: Ht 175.3 cm; Wt 64.6 kg
--- NOTE | ~2016-12-18 | PR ---
[place], [place] PROGRESS NOTE NAME: PRIYANKA NORTON UNIT #: [id number] ROOM: 505 DOCTOR: ANA PAULA FELICIANO MD BIRTHDATE: [birth year] DOS: SUBJECTIVE: A 24-hour events noted. The patient was seen by Dr. Lynch yesterday. The patient is sleeping comfortably. OBJECTIVE: VITAL SIGNS: Blood pressure today is 96/62, heart rate is very well controlled at 72. HEENT: Elevated JVD. Pupils are equally reactive to light and accommodation. LUNGS: Have few coarse rhonchi. HEART: Sounds are regular. ABDOMEN: Soft. NEUROLOGIC: Stable. LABORATORY DATA: Hemoglobin 12.7, hematocrit 38.2. Electrolytes are normal. Creatinine is normal. Chest x-ray done showed AICD patient. IMPRESSION: The patient with probable bronchitis, chronic obstructive pulmonary disease exacerbation, history of severe left ventricular dysfunction with automatic implantable cardioverter-defibrillator. RECOMMENDATIONS: Continue the present medications. The patient is already on inhaler, simvastatin, Xarelto, Zestril, and if needed use gentle diuresis and we will follow up. ANA PAULA FELICIANO MD CM:PNTRANS 0710 ANA PAULA FELICIANO MD 12/22/16 0837 interface
--- NOTE | ~2016-12-18 | CON ---
[place], [place] REPORT OF CONSULTATION NAME: PRIYANKA NORTON UNIT #: [id number] ROOM: 505 DOCTOR: JODIE ESPINOSAANA PAULA BIRTHDATE: [birth year] DOS: HISTORY OF PRESENT ILLNESS: I am covering for Dr. Lynch. A 71-year-old female with known history of severe cardiomyopathy with an ejection fraction of 20% with an ICD, outpatient dobutamine, with multiple hospital admissions, complaining of significant coughing and pleuritic chest discomfort. The patient states that she is coughing a lot, unable to bring anything out. No acute EKG changes suggestive of myocardial infarction or injury. Cardiac status appears to be stable, but appears to be significantly congested and not able to bring out any sputum. The patient states that she is hurting and it is more of pleuritic in nature. The patient gets outpatient dobutamine treatment twice a week. PAST MEDICAL HISTORY: Anxiety, atypical chest pain, chronic atrial fibrillation, COPD, hypercoagulable state, mitral valve prolapse, nonischemic cardiomyopathy, oxygen dependent. PAST SURGICAL HISTORY: Radiofrequency ablation, AICD, appendectomy, tonsillectomy. SOCIAL HISTORY: Does not drink alcohol. Former smoker. ALLERGIES: None. HOME MEDICATIONS: Aspirin, dobutamine, lisinopril, metoprolol, pravastatin and rivaroxaban. REVIEW OF SYSTEMS: CONSTITUTIONAL: No fever. No chills. HEENT: No visual disturbances. CARDIOVASCULAR: Has chest discomfort which is pleuritic. RESPIRATORY: Shortness of breath. GASTROINTESTINAL: No nausea. No vomiting. GENITOURINARY: No dysuria. NEUROLOGIC: No syncope. SKIN: No rashes. PHYSICAL EXAMINATION: VITAL SIGNS: Blood pressure is 140/90. HEENT: Unremarkable. NECK: Supple. No JVD. LUNGS: Diminished breath sounds. HEART: Sounds are regular. There is mild wheezing present. ABDOMEN: Soft. NEUROLOGIC: Stable. DIAGNOSTIC DATA: Intermittent paced rhythm on EKG. LABORATORY DATA: Sodium 144, potassium 3.1. INR is normal. Hemoglobin is 12.3, hematocrit 36.3. Chest x-ray showed no significant acute process. [place], [place] REPORT OF CONSULTATION NAME: PRIYANKA NORTON UNIT #: [id number] ROOM: 505 DOCTOR: ANA PAULA FELICIANO MD BIRTHDATE: [birth year] IMPRESSION: Atypical chest discomfort, severe left ventricular dysfunction, automatic implantable cardioverter-defibrillator, systolic congestive heart failure, nonischemic cardiomyopathy, chronic respiratory failure with hypoxia, hypokalemia, chronic obstructive pulmonary disease. RECOMMENDATIONS: Continue the present medications. Continue the dobutamine. Continue the LUCY inhibitors. Strict I's and O's. Use a small dose of IV diuretics if needed and we will follow up. ANA PAULA FELICIANO MD CM:CONSTR:REPORT OF CONSULTATION 0748 12/19/16 1323 interface
--- NOTE | ~2016-12-18 | EKG ---
[place], [place] ELECTROCARDIOGRAM REPORT NAME: PRIYANKA NORTON UNIT #: [id number] ROOM: 505 DOCTOR: KIRILL DSOUZA MD BIRTHDATE: [birth year] DOS: 12/18/2016 TIME: 0845 hours. Underlying rhythm is atrial fibrillation with a ventricular pacing at 75 beats per minute. An abnormal ECG. No significant change from the ECG of the previous day. TIME: 2105 hours. Underlying rhythm. Rhythm is atrial fibrillation with ventricular pacing at 75 beats per minute. An abnormal ECG. No previous tracing is available for comparison. KIRILL DSOUZA MD CM:EKGRPT:ELECTROCARDIOGRAM REPORT 1735 KIRILL DSOUZA MD
--- NOTE | ~2016-12-18 | PR ---
[place], [place] PROGRESS NOTE NAME: PRIYANKA NORTON UNIT #: [id number] ROOM: 505 DOCTOR: KIRILL DSOUZA MD BIRTHDATE: [birth year] DOS: 12/21/2016 SUBJECTIVE: She came here a few days ago with some chest pain. She has been coughing quite a bit as well. She is not expectorating much, although her chest sounds are rather harsh and pain comes and goes. She has no fever or chills. She has not walked much. OBJECTIVE: GENERAL: She looks reasonably well. Complexion is fine. VITAL SIGNS: Pulse is regular. Blood pressure is 122/79. NECK: JVP is normal. AJR is negative. CARDIOVASCULAR: Clear to auscultation. No murmurs. LUNGS: She has expiratory and inspiratory wheezes and quite a few crackles in both lungs. EXTREMITIES: No edema in the lower extremities. IMPRESSION: 1. This patient has chronic atrial fibrillation with controlled rate. 2. She has severe dilated non-ischemic cardiomyopathy and receives dobutamine treatment as outpatient twice a week. 3. Chest pain, this is noncardiac. She had normal coronary arteries 2 years ago. No new recommendations. KIRILL DSOUZA MD CM:PNTRANS 1816 99 KIRILL DSOUZA MD 12/21/16 230 interface
--- NOTE | ~2016-12-18 | PR ---
[place], [place] PROGRESS NOTE NAME: PRIYANKA NORTON UNIT #: [id number] ROOM: 505 DOCTOR: LORETTA HILLMAN MD BIRTHDATE: [birth year] DOS: The patient has been admitted to the hospital with chest pain, but she is not showing any evidence of myocardial infarction. Cardiac enzymes are normal, but she is having some cough and has history of COPD and she is getting ____ treatment right now and there is no nausea or vomiting. There is no fever or chills. The patient slept comfortably last night. The patient was seen by Dr. Roberts yesterday and according to him, the patient is having atypical chest discomfort, severe left ventricle dysfunction, automatic implantable cardio converter defibrillator systolic congestive heart failure, nonischemic cardiomyopathy, chronic respiratory failure with hypoxia, hypokalemia, chronic obstructive pulmonary disease and his recommendation is to continue patient on dobutamine, continue LUCY inhibitor and strict input and output fluid, use a small dose of IV diuretic if needed. He does not think there is any evidence of any acute myocardial infarction. Her vitamin B12 level is 190, which is slightly lower. Folic acid 7.4, which is normal. Vitamin D is 15.8, which is low. Her blood pressure 129/72, pulse 77, respirations 18, temperature 98.8, and she is already taking vitamin D, which will be increased from 2000 units to 4000 units daily and she will be started on B12 shot 1000 mg every 2 weeks. Discussion to follow. LORETTA HILLMAN MD CM:PNTRANS 8 0748 LORETTA HILLMAN MD 12/21/162051 interface
--- NOTE | ~2016-12-18 | PR ---
[place], [place] PROGRESS NOTE NAME: PRIYANKA NORTON UNIT #: [id number] ROOM: 505 DOCTOR: LORETTA HILLMAN MD BIRTHDATE: [birth year] DOS: 12/19/2016 SUBJECTIVE: The patient has been admitted to the hospital with the chest pain and shortness of breath. She is lying comfortably, does not seem to be in any distress, had a comfortable night. She has slight cough with small amount of sputum, but she does not experience any difficulty in breathing right now. The patient has past history of atypical chest pain, bilateral pleural effusions, CAD, chronic atrial fibrillation, chronic respiratory failure, COPD, essential hypertension, mitral valve prolapse, normally functioning cardiac pacemaker in position, normocytic anemia and hypoxia. The patient also has past history of cardiac radiofrequency ablation, carpal tunnel syndrome and foot surgery. The patient is feeling quite stable now, not in any distress. Her troponin level on 3 different occasions is normal. Chest x-ray does not show any acute change. There are some interstitial changes throughout both lungs, which is stable, possibly due to her cardiomyopathy and her CBC is fairly normal. Hemoglobin A1c is 5.5. OBJECTIVE: VITAL SIGNS: Blood pressure 109/63, pulse 77, respirations 20, temperature 97.9. LORETTA HILLMAN MD CM:PNTRANS [id number] [id number] LORETTA HILLMAN MD 12/19/16 1526 interface
[2016-12-18 08:41] LABS: BASO % 0.6 % (0.0-1.0); EOS # 0.2 10*3/uL (0.0-0.4); EOS % 3.8 % (1.0-4.0); HEMATOCRIT 36.3 % (37.0-47.0); HEMOGLOBIN 12.3 g/dl (12.0-16.0); LYMPH # 0.6 10*3/uL (1.3-4.4); LYMPH % 10.2 % (27.0-41.0); MEAN CELL VOLUME 95.3 fl (81.0-99.0); MEAN CORPUSCULAR HGB 32.3 pg (27.0-31.0); MEAN CORPUSCULAR HGB CONC 33.9 g/dl (33.0-37.0); MEAN PLATELET VOLUME 10.6 fl (9.6-12.3); MONO # 0.4 10*3/uL (0.1-1.0); MONO % 6.4 % (3.0-9.0); NEUT % 78.7 % (47.0-73.0); PLATELET COUNT AUTOMATED 131 10*3/uL (130-400); RED BLOOD COUNT 3.81 10*6/uL (4.10-5.10); WHITE BLOOD COUNT 6.3 10*3/uL (4.8-10.8)
[2016-12-18 08:54] LABS: PROTHROMBIN TIME 10.3 SECONDS (9.0-12.4)
[2016-12-18 08:57] LABS: BUN 6 mg/dl (7-24); CARBON DIOXIDE 28 mmol/L (21-32); CHLORIDE 108 mmol/L (98-107); EST GLOM FILT AFRICAN AMERICAN > 60 ml/min; GLUCOSE 109 mg/dL (65-99); POTASSIUM 3.1 mmol/L (3.5-5.1); SODIUM 144 mmol/L (136-145)
[2016-12-18 08:58] LABS: TROPONIN I < 0.015 ng/ml (<0.045)
[2016-12-19] VITALS: BP 109/63
[2016-12-19 06:45] LABS: BASO # 0.1 10*3/uL (0.0-0.1); BASO % 0.7 % (0.0-1.0); EOS # 0.4 10*3/uL (0.0-0.4); HEMATOCRIT 37.4 % (37.0-47.0); HEMOGLOBIN 12.5 g/dl (12.0-16.0); LYMPH # 0.8 10*3/uL (1.3-4.4); LYMPH % 11.8 % (27.0-41.0); MEAN CELL VOLUME 96.6 fl (81.0-99.0); MEAN CORPUSCULAR HGB 32.3 pg (27.0-31.0); MEAN CORPUSCULAR HGB CONC 33.4 g/dl (33.0-37.0); MEAN PLATELET VOLUME 11.4 fl (9.6-12.3); MONO # 0.5 10*3/uL (0.1-1.0); MONO % 7.3 % (3.0-9.0); NEUT # 5.2 10*3/uL (2.3-7.9); NEUT % 73.9 % (47.0-73.0); PLATELET COUNT AUTOMATED 138 10*3/uL (130-400); RED BLOOD COUNT 3.87 10*6/uL (4.10-5.10)
[2016-12-19 07:02] LABS: HEMOGLOBIN A1c 5.5 % (4.8-5.6)
[2016-12-19 07:32] LABS: VITAMIN D, 25-HYDROXY 15.8 ng/mL (30-100)
[2016-12-19 07:33] LABS: FOLIC ACID 7.47 ng/mL (>5.38)
[2016-12-19 07:37] LABS: ALBUMIN 3.1 gm/dl (3.1-4.5); BUN 8 mg/dl (7-24); CARBON DIOXIDE 27 mmol/L (21-32); CHLORIDE 108 mmol/L (98-107); CHOLESTEROL 152 mg/dL (<200); GLUCOSE 88 mg/dL (65-99); MAGNESIUM 2.2 mg/dL (1.5-2.1); SODIUM 143 mmol/L (136-145)
[2016-12-19 07:49] LABS: ALKALINE PHOSPHATASE 72 U/L (45-117); BILIRUBIN, TOTAL 0.9 mg/dl (0.2-1.0); EST GLOM FILT AFRICAN AMERICAN > 60 ml/min; HDL CHOLESTEROL 74 mg/dl (40-60); LDL CHOLESTEROL 64 mg/dL (9-159); PHOSPHOROUS 3.3 mg/dL (2.5-4.9); SGOT/AST 11 IU/L (3-35); SGPT/ALT 10 U/L (12-78); TOTAL PROTEIN 6.3 gm/dL (6.4-8.2); TRIGLYCERIDES 70 mg/dl (<150); VLDL CHOLESTEROL 14 mg/dL (6-40)
[2016-12-19 08:00] VITALS: BP 132/80
[2016-12-19 08:04] LABS: POTASSIUM 4.3 mmol/L (3.5-5.1)
[2016-12-19 12:00] VITALS: BP 129/81
[2016-12-19 16:00] VITALS: BP 116/98
[2016-12-19 20:00] VITALS: BP 134/73
[2016-12-20] VITALS: BP 129/72
[2016-12-20 08:00] VITALS: BP 130/86
[2016-12-20 12:00] VITALS: BP 129/79
[2016-12-20 16:00] VITALS: BP 142/86
[2016-12-20 20:00] VITALS: BP 159/89
[2016-12-21] VITALS: BP 112/63
[2016-12-21 08:00] VITALS: BP 123/65
[2016-12-21 12:00] VITALS: BP 113/70
[2016-12-21 16:00] VITALS: BP 122/79
[2016-12-21 20:26] VITALS: BP 122/76
[2016-12-22] VITALS: BP 96/62
[2016-12-22 06:28] LABS: BUN 13 mg/dl (7-24); CARBON DIOXIDE 31 mmol/L (21-32); CHLORIDE 104 mmol/L (98-107); EST GLOM FILT AFRICAN AMERICAN > 60 ml/min; GLUCOSE 87 mg/dL (65-99); POTASSIUM 4.3 mmol/L (3.5-5.1); SODIUM 142 mmol/L (136-145)
[2016-12-22 06:31] LABS: BASO # 0.1 10*3/uL (0.0-0.1); BASO % 1.3 % (0.0-1.0); EOS # 0.4 10*3/uL (0.0-0.4); EOS % 7.2 % (1.0-4.0); HEMATOCRIT 38.2 % (37.0-47.0); HEMOGLOBIN 12.7 g/dl (12.0-16.0); LYMPH # 1.5 10*3/uL (1.3-4.4); LYMPH % 26.4 % (27.0-41.0); MEAN CORPUSCULAR HGB 31.9 pg (27.0-31.0); MEAN CORPUSCULAR HGB CONC 33.2 g/dl (33.0-37.0); MEAN PLATELET VOLUME 11.6 fl (9.6-12.3); MONO # 0.5 10*3/uL (0.1-1.0); NEUT # 3.1 10*3/uL (2.3-7.9); NEUT % 55.9 % (47.0-73.0); PLATELET COUNT AUTOMATED 150 10*3/uL (130-400); RED BLOOD COUNT 3.98 10*6/uL (4.10-5.10); RED CELL DISTRI WIDTH 12.7 % (0-14.5); WHITE BLOOD COUNT 5.6 10*3/uL (4.8-10.8)
[2016-12-22 08:00] VITALS: BP 114/71
[2016-12-22 12:00] VITALS: BP 128/90
[2016-12-22 16:00] VITALS: BP 121/87
[2016-12-22] MEDS ORDERED: VITAMIN D5000 I3 PO (16:46)
[2016-12-22] MEDS ORDERED: VENTOLIN H0.09 MG/AC INH (16:46)
[2016-12-22] MEDS ORDERED: GOOD NEIGHBOR L10 MG PO (16:46)
[2016-12-22] MEDS ORDERED: FLUTICASON0.05 MG/AC NAS (16:46)
[2016-12-22] MEDS ORDERED: AUGMENTIN 875875 MG PO (16:46)
[2016-12-22] MEDS ORDERED: LOSARTAN POTASS25 M1 PO (16:46)
[2016-12-22] MEDS ORDERED: Isordil20 MG PO (16:57)
[2016-12-22] MEDS ORDERED: APRESOLINE25 MG PO (16:57)
== END 2016-12-22 18:48 | disposition home or self-care (01) | DRG 313 ==
LOC: ED 08:13 → 5E 09:29 → EDHOLD 09:29 → 5E 09:38
PROVIDERS: Emergency Medicine; Internal Medicine
DX: R07.89 Other chest pain (principal); I25.118 Atherosclerotic heart disease of native coronary artery with other forms of angina pectoris; J96.11 Chronic respiratory failure with hypoxia; D68.59 Other primary thrombophilia; I42.9 Cardiomyopathy, unspecified; I50.22 Chronic systolic (congestive) heart failure; I11.0 Hypertensive heart disease with heart failure; E87.8 Other disorders of electrolyte and fluid balance, not elsewhere classified; J44.1 Chronic obstructive pulmonary disease with (acute) exacerbation; I16.1 Hypertensive emergency; T88.7XXA Unspecified adverse effect of drug or medicament, initial encounter; I48.2 Chronic atrial fibrillation; J01.00 Acute maxillary sinusitis, unspecified; F41.9 Anxiety disorder, unspecified; I34.1 Nonrheumatic mitral (valve) prolapse; E53.8 Deficiency of other specified B group vitamins; L40.9 Psoriasis, unspecified; E87.6 Hypokalemia; M89.511 Osteolysis, right shoulder; R73.9 Hyperglycemia, unspecified; E83.51 Hypocalcemia; D72.825 Bandemia; Z90.49 Acquired absence of other specified parts of digestive tract; Z90.710 Acquired absence of both cervix and uterus; Z95.810 Presence of automatic (implantable) cardiac defibrillator; Z87.891 Personal history of nicotine dependence; Z99.81 Dependence on supplemental oxygen; Z82.3 Family history of stroke; Z80.3 Family history of malignant neoplasm of breast; Z79.82 Long term (current) use of aspirin; Z79.899 Other long term (current) drug therapy; Z79.2 Long term (current) use of antibiotics; Y92.89 Other specified places as the place of occurrence of the external cause

== ENCOUNTER 2017-01-01 08:18 | Emergency (ER) | payer MEDICARE, MEDICAID ==
[~2017-01-01] VITALS: Ht 175.2 cm; Wt 64.4 kg
--- NOTE | ~2017-01-01 | EKG ---
[place], [place] ELECTROCARDIOGRAM REPORT NAME: PRIYANKA NORTON UNIT #: [id number] ROOM: DOCTOR: KIRILL DSOUZA MD BIRTHDATE: [birth year] DOS: 01/01/2017 TIME: 0840 hours. Underlying rhythm is atrial fibrillation with ventricular pacing at 75 beats per minute. An abnormal ECG. No previous tracing is available for comparison. KIRILL DSOUZA MD CM:EKGRPT:ELECTROCARDIOGRAM REPORT 1731 KIRILL DSOUZA MD
[~2017-01-01 08:18] MED LIST changes: +APRESOLINE25 MG PO; +AUGMENTIN 875875 MG PO; +FLUTICASON0.05 MG/AC NAS; +GOOD NEIGHBOR L10 MG PO; +Isordil20 MG PO; +LOSARTAN POTASS25 M1 PO; +VENTOLIN H0.09 MG/AC INH; +VITAMIN D5000 I3 PO
[2017-01-01 08:23] VITALS: BP 164/96
[2017-01-01 08:43] LABS: BASO # 0.1 10*3/uL (0.0-0.1); BASO % 0.8 % (0.0-1.0); EOS # 0.3 10*3/uL (0.0-0.4); EOS % 3.7 % (1.0-4.0); HEMATOCRIT 37.9 % (37.0-47.0); HEMOGLOBIN 12.7 g/dl (12.0-16.0); LYMPH # 1.3 10*3/uL (1.3-4.4); LYMPH % 15.8 % (27.0-41.0); MEAN CORPUSCULAR HGB 31.8 pg (27.0-31.0); MEAN CORPUSCULAR HGB CONC 33.5 g/dl (33.0-37.0); MEAN PLATELET VOLUME 10.4 fl (9.6-12.3); MONO # 0.5 10*3/uL (0.1-1.0); MONO % 6.2 % (3.0-9.0); NEUT # 6.1 10*3/uL (2.3-7.9); NEUT % 73.3 % (47.0-73.0); PLATELET COUNT AUTOMATED 167 10*3/uL (130-400); RED BLOOD COUNT 3.99 10*6/uL (4.10-5.10); WHITE BLOOD COUNT 8.4 10*3/uL (4.8-10.8)
[2017-01-01 08:52] LABS: INTERNATIONAL NORM RATIO 0.9 (2.0-3.5)
[2017-01-01 08:58] LABS: ALBUMIN 3.3 gm/dl (3.1-4.5); ALKALINE PHOSPHATASE 71 U/L (45-117); BILIRUBIN, TOTAL 0.5 mg/dl (0.2-1.0); BUN 6 mg/dl (7-24); CARBON DIOXIDE 28 mmol/L (21-32); CHLORIDE 108 mmol/L (98-107); EST GLOM FILT AFRICAN AMERICAN > 60 ml/min; GLUCOSE 105 mg/dL (65-99); MAGNESIUM 2.1 mg/dL (1.5-2.1); POTASSIUM 3.7 mmol/L (3.5-5.1); SGOT/AST 13 IU/L (3-35); SGPT/ALT 13 U/L (12-78); SODIUM 141 mmol/L (136-145); TOTAL PROTEIN 6.4 gm/dL (6.4-8.2)
[2017-01-01 09:03] LABS: C-REACTIVE PROTEIN < 0.29 MG/DL (0-0.3); TROPONIN I < 0.015 ng/ml (<0.045)
[2017-01-01] MEDS ORDERED: PREDNISONE50 MG PO (11:03)
== END 2017-01-01 11:22 | disposition home or self-care (01) ==
LOC: ED 08:18
PROVIDERS: Student in an Organized Health Care Education/Training Program
DX: R05 Cough (principal); R07.89 Other chest pain; I25.10 Atherosclerotic heart disease of native coronary artery without angina pectoris; J44.9 Chronic obstructive pulmonary disease, unspecified; I10 Essential (primary) hypertension; I34.1 Nonrheumatic mitral (valve) prolapse; E55.9 Vitamin D deficiency, unspecified; Z87.891 Personal history of nicotine dependence; Z90.710 Acquired absence of both cervix and uterus; Z90.49 Acquired absence of other specified parts of digestive tract; Z98.890 Other specified postprocedural states; Z95.0 Presence of cardiac pacemaker; Z79.82 Long term (current) use of aspirin; Z79.899 Other long term (current) drug therapy

== ENCOUNTER 2017-01-08 10:09 | Inpatient (IN) | payer MEDICARE, MEDICAID ==
[~2017-01-08] VITALS: Ht 175.2 cm; Wt 65.4 kg
--- NOTE | ~2017-01-08 | CON ---
[place], [place] REPORT OF CONSULTATION NAME: PRIYANKA NORTON UNIT #: [id number] ROOM: 424 DOCTOR: JODIE ESPINOSAANA PAULA BIRTHDATE: [birth year] DOS: 01/10/2017 HISTORY OF PRESENT ILLNESS: A 71-year-old female with past history of congestive heart failure with multiple hospital admissions, apparently on outpatient dobutamine therapy because of systolic heart failure, covering for Dr. Lynch. The patient apparently did not take her outpatient treatment for few weeks and she came in with chest heaviness and tightness. The patient has been here multiple admissions for the same problems, appears to be very noncompliant. Denies any tobacco abuse, has chronic chest pressure, no obvious pain. No acute EKG changes, suggestion of myocardial injury or infarction. PAST MEDICAL HISTORY: Coronary artery, left ventricular dysfunction, chronic atrial fibrillation, hypertension, mitral valve prolapse, nonischemic cardiomyopathy, oxygen dependency, systolic heart failure. SURGICAL HISTORY: Radiofrequency ablations, nasal surgery, hysterectomy, placement of an ICD, appendectomy, tonsillectomy. SOCIAL HISTORY: Denies any alcohol or drug abuse or tobacco abuse. FAMILY HISTORY: Positive for coronary artery disease. SOCIAL HISTORY: As mentioned. ALLERGIES: None. HOME MEDICATIONS: Aspirin, dobutamine treatments, metoprolol, pravastatin, and Rivaroxaban and aspirin. REVIEW OF SYSTEMS: CONSTITUTIONAL: No fever, no chills. HEENT: Denies any visual disturbances or hearing problems. CARDIOVASCULAR: Does have chronic chest discomfort, more of a pressure type. RESPIRATORY: Does have significant chronic shortness of breath. GASTROINTESTINAL: No nausea, no vomiting. GENITOURINARY: No dysuria, hematuria. ENDOCRINE: Intact. PHYSICAL EXAMINATION: VITAL SIGNS: Blood pressure 150/90. The patient is 100% paced rhythm. NECK: Supple, elevated JVD. LUNGS: Diminished breath sounds. HEART: Sounds are regular. ABDOMEN: Soft, nontender. NEUROLOGICAL: Stable. LABORATORY DATA: Sodium 142, potassium 3.7, creatinine is normal. CPK-MB is negative. Troponin is negative. INR is 0.9. Hemoglobin 12.8, hematocrit 39. Chest x-ray shows stable cardiomegaly, no CHF. [place], [place] REPORT OF CONSULTATION NAME: PRIYANKA NORTON UNIT #: [id number] ROOM: 424 DOCTOR: ANA PAULA FELICIANO MD BIRTHDATE: [birth year] IMPRESSION: Dyspnea on exertion, noncompliance, cardiomyopathy, AICD, chronic obstructive pulmonary disease. RECOMMENDATIONS: Continue the present medications. The last ejection fraction was about 35% with moderate mitral regurgitation. Continue outpatient dobutamine as ordered by Dr. Lynch. Continue metoprolol 50 mg daily, Rivaroxaban as already ordered, aspirin, Zocor, add a very small dose of LUCY inhibitors, lisinopril 2.5 mg. If she is already not on it because her creatinine is okay and she has cardiomyopathy or an ARB, losartan 25 mg because of the chronic cough and we will follow up. ANA PAULA FELICIANO MD CM:CONSTR:REPORT OF CONSULTATION 0800 01/10/17 2349 interface
[~2017-01-08 10:09] MED LIST changes: +PREDNISONE50 MG PO
[2017-01-08 10:20] VITALS: BP 130/78
[2017-01-08 10:32] LABS: BASO # 0.1 10*3/uL (0.0-0.1); EOS # 0.3 10*3/uL (0.0-0.4); EOS % 3.7 % (1.0-4.0); HEMOGLOBIN 12.8 g/dl (12.0-16.0); LYMPH # 1.2 10*3/uL (1.3-4.4); LYMPH % 16.3 % (27.0-41.0); MEAN CELL VOLUME 96.5 fl (81.0-99.0); MEAN CORPUSCULAR HGB 31.7 pg (27.0-31.0); MEAN CORPUSCULAR HGB CONC 32.8 g/dl (33.0-37.0); MEAN PLATELET VOLUME 10.4 fl (9.6-12.3); MONO # 0.4 10*3/uL (0.1-1.0); MONO % 5.3 % (3.0-9.0); NEUT # 5.3 10*3/uL (2.3-7.9); NEUT % 73.4 % (47.0-73.0); PLATELET COUNT AUTOMATED 170 10*3/uL (130-400); RED BLOOD COUNT 4.04 10*6/uL (4.10-5.10); RED CELL DISTRI WIDTH 12.9 % (0-14.5); WHITE BLOOD COUNT 7.2 10*3/uL (4.8-10.8)
[2017-01-08 10:42] LABS: INTERNATIONAL NORM RATIO 0.9 (2.0-3.5); PROTHROMBIN TIME 9.8 SECONDS (9.0-12.4)
[2017-01-08 10:49] LABS: ALBUMIN 3.3 gm/dl (3.1-4.5); ALKALINE PHOSPHATASE 77 U/L (45-117); BILIRUBIN, TOTAL 0.3 mg/dl (0.2-1.0); BUN 7 mg/dl (7-24); C-REACTIVE PROTEIN < 0.29 MG/DL (0-0.3); CARBON DIOXIDE 29 mmol/L (21-32); CHLORIDE 107 mmol/L (98-107); CKMB 1.1 ng/ml (0.5-3.6); CPK 49 U/L (26-192); EST GLOM FILT AFRICAN AMERICAN > 60 ml/min; GLUCOSE 131 mg/dL (65-99); POTASSIUM 3.7 mmol/L (3.5-5.1); SGOT/AST 16 IU/L (3-35); SGPT/ALT 14 U/L (12-78); SODIUM 142 mmol/L (136-145); TOTAL PROTEIN 6.4 gm/dL (6.4-8.2); TROPONIN I < 0.015 ng/ml (<0.045)
[2017-01-08 12:50] VITALS: BP 136/72
[2017-01-08 14:00] VITALS: BP 157/95
[2017-01-08 16:00] VITALS: BP 154/88
[2017-01-08 20:00] VITALS: BP 127/75
[2017-01-09] VITALS: BP 115/68
[2017-01-09 06:39] LABS: BASO # 0.1 10*3/uL (0.0-0.1); BASO % 1.3 % (0.0-1.0); EOS # 0.5 10*3/uL (0.0-0.4); EOS % 7.7 % (1.0-4.0); HEMATOCRIT 42.3 % (37.0-47.0); LYMPH # 1.5 10*3/uL (1.3-4.4); LYMPH % 23.1 % (27.0-41.0); MEAN CELL VOLUME 97.2 fl (81.0-99.0); MEAN CORPUSCULAR HGB 32.2 pg (27.0-31.0); MEAN CORPUSCULAR HGB CONC 33.1 g/dl (33.0-37.0); MEAN PLATELET VOLUME 10.9 fl (9.6-12.3); MONO # 0.4 10*3/uL (0.1-1.0); MONO % 6.9 % (3.0-9.0); NEUT # 3.9 10*3/uL (2.3-7.9); NEUT % 60.8 % (47.0-73.0); PLATELET COUNT AUTOMATED 181 10*3/uL (130-400); RED BLOOD COUNT 4.35 10*6/uL (4.10-5.10); WHITE BLOOD COUNT 6.4 10*3/uL (4.8-10.8)
[2017-01-09 07:08] LABS: INTERNATIONAL NORM RATIO 0.9 (2.0-3.5); PROTHROMBIN TIME 9.9 SECONDS (9.0-12.4)
[2017-01-09 07:13] LABS: ALBUMIN 3.6 gm/dl (3.1-4.5); ALKALINE PHOSPHATASE 74 U/L (45-117); BILIRUBIN, TOTAL 0.6 mg/dl (0.2-1.0); BUN 7 mg/dl (7-24); CARBON DIOXIDE 34 mmol/L (21-32); CHLORIDE 102 mmol/L (98-107); CHOLESTEROL 205 mg/dL (<200); EST GLOM FILT AFRICAN AMERICAN > 60 ml/min; GLUCOSE 98 mg/dL (65-99); MAGNESIUM 2.1 mg/dL (1.5-2.1); PHOSPHOROUS 4.8 mg/dL (2.5-4.9); POTASSIUM 4.2 mmol/L (3.5-5.1); SGOT/AST 18 IU/L (3-35); SGPT/ALT 14 U/L (12-78); SODIUM 141 mmol/L (136-145); TOTAL PROTEIN 6.7 gm/dL (6.4-8.2); TRIGLYCERIDES 111 mg/dl (<150); VLDL CHOLESTEROL 22 mg/dL (6-40)
[2017-01-09 07:20] LABS: HDL CHOLESTEROL 84 mg/dl (40-60); LDL CHOLESTEROL 99 mg/dL (9-159)
[2017-01-09 08:00] VITALS: BP 127/80
[2017-01-09 12:00] VITALS: BP 118/71
[2017-01-09 16:00] VITALS: BP 122/84
[2017-01-09 20:00] VITALS: BP 98/83
[2017-01-10] VITALS: BP 141/84
[2017-01-10 08:00] VITALS: BP 124/70
== END 2017-01-10 10:45 | disposition home or self-care (01) | DRG 312 ==
LOC: ED 10:09 → 4E 12:59 → EDHOLD 12:59 → 4E 13:15
PROVIDERS: Emergency Medicine; Family Medicine
DX: R55 Syncope and collapse (principal); J96.11 Chronic respiratory failure with hypoxia; I42.9 Cardiomyopathy, unspecified; I11.0 Hypertensive heart disease with heart failure; I50.22 Chronic systolic (congestive) heart failure; F41.9 Anxiety disorder, unspecified; I48.2 Chronic atrial fibrillation; L40.9 Psoriasis, unspecified; I25.118 Atherosclerotic heart disease of native coronary artery with other forms of angina pectoris; D64.9 Anemia, unspecified; E55.9 Vitamin D deficiency, unspecified; R07.89 Other chest pain; J44.9 Chronic obstructive pulmonary disease, unspecified; Z95.0 Presence of cardiac pacemaker; Z99.81 Dependence on supplemental oxygen; Z90.710 Acquired absence of both cervix and uterus; Z90.49 Acquired absence of other specified parts of digestive tract; Z87.891 Personal history of nicotine dependence; Z79.899 Other long term (current) drug therapy; Z82.3 Family history of stroke; Z80.3 Family history of malignant neoplasm of breast; Z83.3 Family history of diabetes mellitus; Z82.49 Family history of ischemic heart disease and other diseases of the circulatory system; Z79.82 Long term (current) use of aspirin; Z91.14 Patient's other noncompliance with medication regimen

== ENCOUNTER 2017-02-17 17:50 | Inpatient (IN) | payer MEDICARE, MEDICAID ==
[~2017-02-17] VITALS: Ht 175.2 cm; Wt 66.8 kg
--- NOTE | ~2017-02-17 | CON ---
[place], [place] REPORT OF CONSULTATION NAME: PRIYANKA NORTON UNIT #: [id number] ROOM: 502 DOCTOR: KIRILL DSOUZA MD BIRTHDATE: [birth year] DOS: 02/19/2017 HISTORY OF PRESENT ILLNESS: This is a 71-year-old -Malag[place] woman whom I have known for a few years now. She has a nonischemic slightly dilated cardiomyopathy and diagnostic heart catheterization showed normal coronary artery disease a couple of years ago and at that time, EF was 25% and did not change significantly and she had a single chamber AICD implanted. She has chronic atrial fibrillation as well and because the rate could not be controlled, AV node was ablated at the time of biventricular AICD implantation. Recently, she had become more decompensated and a dobutamine therapy twice a week was started and apparently this had made much difference to her ability to ambulate and be somewhat less symptomatic. She has never had a stroke. She came to the hospital because of a sharp pain that went from left to right and right to the left side of the chest that would last only for a short time and she also had the left lateral pain, which she still has. When she takes a deep breath, the pains seemed to get worse. She has not had any palpitation, dizziness or loss of consciousness. She has walked in the hallways and has been feeling much better now. She has not had any PND, orthopnea, or swelling of the lower extremities. She has very little cough. PAST MEDICAL HISTORY: Severe COPD, non-dilated cardiomyopathy, chronic atrial fibrillation. PHYSICAL EXAMINATION: GENERAL: This reveals a patient who is alert and oriented. VITAL SIGNS: Pulse 76 and regular. Blood pressure 131/90. NECK: Normal JVP. AJR is negative. HEART: No murmurs are present. There is no edema in the lower extremities. Pedal pulses are palpable. : She is not tachypneic. Percussion note reveals hyperresonance bilaterally and moderately diminished breath sounds with very few adventitious sounds. DIAGNOSTIC STUDIES: An ECG shows ventricular pacing. Troponin I is normal. IMPRESSION: 1. This patient had acute chest pain and this is from the valve. She does not have any reason to believe the underlying coronary artery responsible since she had normal coronary arteries just a couple of years ago. 2. Cardiomyopathy. An echocardiogram today demonstrated an EF of 40% and normal pulmonary artery systolic pressure. 3. Chronic atrial fibrillation. She is pacing in the ventricle since she had AV node ablation. From cardiac standpoint, she may be discharged home. [place], [place] REPORT OF CONSULTATION NAME: PRIAYNKA NORTON UNIT #: [id number] ROOM: [facility] DOCTOR: KIRILL DSOUZA MD BIRTHDATE: [birth year] Thank you for this consultation. KIRILL DSOUZA MD CM:CONSTR:REPORT OF CONSULTATION 1528 02/19/17 2328 interface
--- NOTE | ~2017-02-17 | EKG ---
[place], [place] ELECTROCARDIOGRAM REPORT NAME: PRIYANKA NORTON UNIT #: [id number] ROOM: 502 DOCTOR: KIRILL DSOUZA MD BIRTHDATE: [birth year] DOS: 02/17/2017 TIME: 1846 hours. Underlying rhythm is atrial fibrillation and ventricular pacing at 77 beats per minute. An abnormal ECG. No previous tracing is available for comparison. KIRILL DSOUZA MD CM:EKGRPT:ELECTROCARDIOGRAM REPORT 1513 1549 KIRILL DSOUZA MD
[2017-02-17 18:12] VITALS: BP 148/82
[2017-02-17 19:04] LABS: BASO # 0.1 10*3/uL (0.0-0.1); EOS # 0.4 10*3/uL (0.0-0.4); EOS % 5.8 % (1.0-4.0); HEMATOCRIT 37.5 % (37.0-47.0); HEMOGLOBIN 12.6 g/dl (12.0-16.0); LYMPH # 1.5 10*3/uL (1.3-4.4); LYMPH % 24.2 % (27.0-41.0); MEAN CELL VOLUME 95.4 fl (81.0-99.0); MEAN CORPUSCULAR HGB 32.1 pg (27.0-31.0); MEAN CORPUSCULAR HGB CONC 33.6 g/dl (33.0-37.0); MONO # 0.4 10*3/uL (0.1-1.0); MONO % 6.9 % (3.0-9.0); NEUT # 3.9 10*3/uL (2.3-7.9); NEUT % 61.8 % (47.0-73.0); PLATELET COUNT AUTOMATED 147 10*3/uL (130-400); RED BLOOD COUNT 3.93 10*6/uL (4.10-5.10); RED CELL DISTRI WIDTH 12.7 % (0-14.5); WHITE BLOOD COUNT 6.2 10*3/uL (4.8-10.8)
[2017-02-17 19:24] LABS: ALBUMIN 3.5 gm/dl (3.1-4.5); ALKALINE PHOSPHATASE 68 U/L (45-117); BUN 7 mg/dl (7-24); CHLORIDE 106 mmol/L (98-107); CREATININE 0.68 mg/dL (0.55-1.02); MAGNESIUM 2.2 mg/dL (1.5-2.1); POTASSIUM 3.7 mmol/L (3.5-5.1); SGOT/AST 13 IU/L (3-35); SGPT/ALT 12 U/L (12-78); SODIUM 141 mmol/L (136-145); TOTAL PROTEIN 6.5 gm/dL (6.4-8.2)
[2017-02-17 19:26] LABS: TROPONIN I < 0.015 ng/ml (<0.045)
[2017-02-17 20:50] VITALS: BP 163/88
--- NOTE | 2017-02-17 20:50 | NUR ---
A 71YR OLD FEMALE, admitted to 5E, under the services of RUBEN Cole MD with a diagnosis of DYSPNEA ON EXERTION,CP,R/O AMI. Chief complaint is CHRONIC SOB AND CHEST DISCOMFORT. Patient arrived via stretcher from ER. Monitor applied. Initial assessment completed. Vital signs taken and recorded. RUBEN COLE MD notified of admission to the unit. Orders received. See assessment for past medical history, medications and allergies. Patient and/or family oriented to unit 5E. visitation policy reviewed. Clothing/patient valuable form completed. HERBER KEYS
[2017-02-18] VITALS: BP 140/82
--- NOTE | 2017-02-18 01:10 | NUR ---
24 HR chart check completed.
[2017-02-18 06:16] LABS: BASO # 0.1 10*3/uL (0.0-0.1); BASO % 1.4 % (0.0-1.0); EOS # 0.4 10*3/uL (0.0-0.4); EOS % 7.8 % (1.0-4.0); HEMATOCRIT 37.8 % (37.0-47.0); HEMOGLOBIN 12.7 g/dl (12.0-16.0); LYMPH # 1.2 10*3/uL (1.3-4.4); LYMPH % 23.6 % (27.0-41.0); MEAN CELL VOLUME 96.4 fl (81.0-99.0); MEAN CORPUSCULAR HGB 32.4 pg (27.0-31.0); MEAN CORPUSCULAR HGB CONC 33.6 g/dl (33.0-37.0); MEAN PLATELET VOLUME 10.8 fl (9.6-12.3); MONO # 0.3 10*3/uL (0.1-1.0); MONO % 6.4 % (3.0-9.0); NEUT # 3.1 10*3/uL (2.3-7.9); NEUT % 60.6 % (47.0-73.0); PLATELET COUNT AUTOMATED 146 10*3/uL (130-400); RED BLOOD COUNT 3.92 10*6/uL (4.10-5.10); RED CELL DISTRI WIDTH 12.6 % (0-14.5); WHITE BLOOD COUNT 5.2 10*3/uL (4.8-10.8)
[2017-02-18 06:27] LABS: ALBUMIN 3.1 gm/dl (3.1-4.5); ALKALINE PHOSPHATASE 63 U/L (45-117); BUN 7 mg/dl (7-24); CHLORIDE 109 mmol/L (98-107); CHOLESTEROL 157 mg/dL (<200); CREATININE 0.59 mg/dL (0.55-1.02); FREE T4 0.75 ng/dl (0.76-1.46); HDL CHOLESTEROL 79 mg/dl (40-60); LDL CHOLESTEROL 62 mg/dL (9-159); MAGNESIUM 2.2 mg/dL (1.5-2.1); PHOSPHOROUS 4.4 mg/dL (2.5-4.9); POTASSIUM 3.9 mmol/L (3.5-5.1); SGOT/AST 14 IU/L (3-35); SGPT/ALT 12 U/L (12-78); SODIUM 144 mmol/L (136-145); TOTAL PROTEIN 5.8 gm/dL (6.4-8.2); TRIGLYCERIDES 78 mg/dl (<150); VLDL CHOLESTEROL 16 mg/dL (6-40)
[2017-02-18 06:28] LABS: ACT PARTIAL THROMBO TIME 24.8 SECONDS (20.8-31.5)
[2017-02-18 07:31] LABS: VITAMIN D, 25-HYDROXY 19.1 ng/mL (30-100)
[2017-02-18 08:00] VITALS: BP 142/70
--- NOTE | 2017-02-18 08:00 | NUR ---
SLEEPING, AROUSES EASILY. PT ADMITS TO LEFT UPPER BREST AREA DISCOMFORT DURING RELAXATION, DENIES DISCOMFORT WITH MOVEMENT. DENIES ANY CHEST DISCOMFORT. EASY RESPIRATIONS, SKIN WARM AND DRY. CALL LIGHT SYSTEM REINFORCED. SEE SHIFT ASSESSMENT.
--- NOTE | 2017-02-18 09:00 | NUR ---
Bench Technician in to talk to patient. Patient states lives at home with alone. There are few steps in the home. Physician: zuri fregoso [facility]acy[facility] Home health services: none Patient's level of ADLs: INDEPENDENT Patient has working utilities: all working DME: Follow-up physician's appointment after d/c: patient will make her own appointment when discharge Does patient want to access PORTAL?: no Discharge plan discussed with patient, patient states she will be going back home when able and denies any home needs. ZION MELTON
--- NOTE | 2017-02-18 11:43 | NUR ---
REASSESSED PTS PAIN LEVEL. PT REPORTS 0 OF 10 PAIN AT THIS TIME.
[2017-02-18 12:00] VITALS: BP 140/84
--- NOTE | 2017-02-18 12:09 | NUR ---
TALKED TO CARMELA AT DR. DSOUZA'S OFFICE REGARDING CONSULT.
--- NOTE | 2017-02-18 15:59 | NUR ---
DR. DSOUZA NOTIFIED OF CONSULT. NO NEW ORDERS AT THIS TIME.
[2017-02-18 16:00] VITALS: BP 131/79; BP 142/74
--- NOTE | 2017-02-18 17:50 | NUR ---
PT AMBULATORY. UP WALKING HALLS.
--- NOTE | 2017-02-18 17:59 | NUR ---
PT DECLINES FLU VACCINE AT THIS TIME.
--- NOTE | 2017-02-18 19:06 | NUR ---
NO OBVIOUS CHANGES NOTED THIS SHIFT.
[2017-02-18 20:00] VITALS: BP 99/74
--- NOTE | 2017-02-18 23:53 | NUR ---
24 HR chart check completed.
[2017-02-19] VITALS: BP 128/78
[2017-02-19 04:00] VITALS: BP 132/74
[2017-02-19 06:27] LABS: BASO # 0.1 10*3/uL (0.0-0.1); BASO % 1.4 % (0.0-1.0); EOS # 0.3 10*3/uL (0.0-0.4); EOS % 6.5 % (1.0-4.0); HEMATOCRIT 38.3 % (37.0-47.0); HEMOGLOBIN 12.5 g/dl (12.0-16.0); LYMPH # 1.3 10*3/uL (1.3-4.4); LYMPH % 26.9 % (27.0-41.0); MEAN CELL VOLUME 96.2 fl (81.0-99.0); MEAN CORPUSCULAR HGB 31.4 pg (27.0-31.0); MEAN CORPUSCULAR HGB CONC 32.6 g/dl (33.0-37.0); MEAN PLATELET VOLUME 11.6 fl (9.6-12.3); MONO # 0.4 10*3/uL (0.1-1.0); MONO % 8.2 % (3.0-9.0); NEUT # 2.8 10*3/uL (2.3-7.9); NEUT % 56.8 % (47.0-73.0); PLATELET COUNT AUTOMATED 150 10*3/uL (130-400); RED BLOOD COUNT 3.98 10*6/uL (4.10-5.10); RED CELL DISTRI WIDTH 12.5 % (0-14.5); WHITE BLOOD COUNT 4.9 10*3/uL (4.8-10.8)
[2017-02-19 06:41] LABS: BUN 14 mg/dl (7-24); CHLORIDE 107 mmol/L (98-107); POTASSIUM 4.1 mmol/L (3.5-5.1); SODIUM 141 mmol/L (136-145)
[2017-02-19 08:00] VITALS: BP 108/82
--- NOTE | 2017-02-19 09:00 | NUR ---
case management visits with patient, patient denies any home needs
[2017-02-19 12:00] VITALS: BP 131/90
[2017-02-19 16:00] VITALS: BP 92/69
--- NOTE | 2017-02-19 17:53 | NUR ---
Discharge instructions reviewed with patient/family. Patient receptive and verbalizes understanding. Follow-up care arranged. Written instructions given to patient/family. ALFA QUEZADA
[2017-02-23] MEDS ORDERED: LASIX20 MG PO (11:12)
== END 2017-02-19 17:53 | disposition home or self-care (01) | DRG 313 ==
LOC: ED 17:50 → 5E 19:41 → EDHOLD 19:41 → 5E 20:17
PROVIDERS: Hospitalist; Internal Medicine; Nurse Practitioner Family; ADMIT Internal Medicine
DX: R07.89 Other chest pain (principal); I25.10 Atherosclerotic heart disease of native coronary artery without angina pectoris; J96.11 Chronic respiratory failure with hypoxia; D68.59 Other primary thrombophilia; I11.0 Hypertensive heart disease with heart failure; I50.22 Chronic systolic (congestive) heart failure; I42.0 Dilated cardiomyopathy; E87.8 Other disorders of electrolyte and fluid balance, not elsewhere classified; E53.8 Deficiency of other specified B group vitamins; E83.41 Hypermagnesemia; J44.9 Chronic obstructive pulmonary disease, unspecified; R73.03 Prediabetes; D72.810 Lymphocytopenia; I48.2 Chronic atrial fibrillation; E55.9 Vitamin D deficiency, unspecified; L40.9 Psoriasis, unspecified; E78.5 Hyperlipidemia, unspecified; I08.3 Combined rheumatic disorders of mitral, aortic and tricuspid valves; Z99.81 Dependence on supplemental oxygen; Z90.49 Acquired absence of other specified parts of digestive tract; Z95.810 Presence of automatic (implantable) cardiac defibrillator; Z90.710 Acquired absence of both cervix and uterus; Z80.3 Family history of malignant neoplasm of breast; Z82.3 Family history of stroke; Z79.82 Long term (current) use of aspirin; Z79.899 Other long term (current) drug therapy

== ENCOUNTER → 2017-02-23 | Day surgery (SDC) | payer MEDICARE, MEDICAID ==
[~2017-02-23] MED LIST changes: +LASIX20 MG PO
[2017-02-23 11:11] VITALS: BP 119/59
--- NOTE | 2017-02-23 13:59 | NUR ---
ATTEMPTS TO PUT PICC LINE IN RIGHT AND LEFT ARM UNSUCESSFUL. RIGHT PICC LINE COILED ON SELF. INTERVENTION RADIOLOGY CALLED. TO REPOSTION PICC LINE UNDER FLORO. PT INFORMED OF PLAN. JUANY MAY RN
[2017-02-23 15:35] VITALS: BP 152/90
== END | disposition home or self-care (01) ==
LOC: SDC 10:53
DX: I42.0 Dilated cardiomyopathy (principal)

== ENCOUNTER 2017-03-26 16:02 | Emergency (ER) | payer OTHER ==
[~2017-03-26] VITALS: Ht 167.6 cm; Wt 54.4 kg
--- NOTE | ~2017-03-26 | EKG ---
[place], [place] ELECTROCARDIOGRAM REPORT NAME: PRIYANKA NORTON UNIT #: [id number] ROOM: DOCTOR: KIRILL DSOUZA MD BIRTHDATE: [birth year] DOS: 03/26/2017 TIME: 1615 hours. Underlying rhythm is atrial fibrillation and ventricular pacing at 76 beats per minute. An abnormal ECG. No previous tracing is available for comparison. KIRILL DSOUZA MD CM:EKGRPT:ELECTROCARDIOGRAM REPORT 1138 1204 KIRILL DSOUZA MD
[2017-03-26 16:14] VITALS: BP 146/118
[2017-03-26 16:39] LABS: BASO # 0.1 10*3/uL (0.0-0.1); BASO % 0.9 % (0.0-1.0); EOS # 0.8 10*3/uL (0.0-0.4); EOS % 10.2 % (1.0-4.0); HEMATOCRIT 37.4 % (37.0-47.0); HEMOGLOBIN 12.4 g/dl (12.0-16.0); LYMPH # 0.9 10*3/uL (1.3-4.4); LYMPH % 12.3 % (27.0-41.0); MEAN CELL VOLUME 94.7 fl (81.0-99.0); MEAN CORPUSCULAR HGB 31.4 pg (27.0-31.0); MEAN CORPUSCULAR HGB CONC 33.2 g/dl (33.0-37.0); MEAN PLATELET VOLUME 10.8 fl (9.6-12.3); MONO # 0.5 10*3/uL (0.1-1.0); MONO % 6.3 % (3.0-9.0); NEUT # 5.3 10*3/uL (2.3-7.9); NEUT % 69.9 % (47.0-73.0); PLATELET COUNT AUTOMATED 140 10*3/uL (130-400); RED BLOOD COUNT 3.95 10*6/uL (4.10-5.10); RED CELL DISTRI WIDTH 12.7 % (0-14.5); WHITE BLOOD COUNT 7.6 10*3/uL (4.8-10.8)
[2017-03-26 16:54] VITALS: BP 136/82
--- NOTE | 2017-03-26 16:55 | NUR ---
PT UNABLE TO PRODUCE URINE SPECIMEN AT THIS TIME
[2017-03-26 16:59] LABS: ALBUMIN 3.3 gm/dl (3.1-4.5); ALKALINE PHOSPHATASE 81 U/L (45-117); BUN 6 mg/dl (7-24); CHLORIDE 103 mmol/L (98-107); CREATININE 0.65 mg/dL (0.55-1.02); POTASSIUM 3.3 mmol/L (3.5-5.1); SGOT/AST 8 IU/L (3-35); SGPT/ALT 13 U/L (12-78); SODIUM 142 mmol/L (136-145); TOTAL PROTEIN 6.6 gm/dL (6.4-8.2)
[2017-03-26 17:03] LABS: ACT PARTIAL THROMBO TIME 24.6 SECONDS (20.8-31.5)
[2017-03-26 17:06] LABS: TROPONIN I < 0.015 ng/ml (<0.045)
== END 2017-03-26 18:29 | disposition home or self-care (01) ==
LOC: ED 16:02 → EDHOLD 16:37 → 5E 16:49 → EDHOLD 16:49 → 5E 16:49 → 4E 16:58 → 5E 16:58 → ED 18:29
PROVIDERS: Emergency Medicine
DX: R06.02 Shortness of breath (principal); Z87.891 Personal history of nicotine dependence; I25.10 Atherosclerotic heart disease of native coronary artery without angina pectoris; I48.2 Chronic atrial fibrillation; I42.0 Dilated cardiomyopathy; Z95.810 Presence of automatic (implantable) cardiac defibrillator

== ENCOUNTER 2017-04-02 09:52 | Inpatient (IN) | payer OTHER ==
[~2017-04-02] VITALS: Ht 175.2 cm; Wt 64.9 kg
--- NOTE | ~2017-04-02 | CON ---
[place], [place] REPORT OF CONSULTATION NAME: PRIYANKA NORTON UNIT #: [id number] ROOM: 506 DOCTOR: KIRILL DSOUZA MD BIRTHDATE: [birth year] DOS: 04/05/2017 HISTORY OF PRESENT ILLNESS: This is a 72-year-old [place] woman who comes into the hospital very frequently. She has severe nonischemic/dilated cardiomyopathy and also has severe COPD. She does not have coronary artery disease. Heart catheterization was done a few years ago when her EF was found to be persistently very low. She has had a very low ejection fraction for over 10 years. She has not had any cardiac decompensation recently. She has chronic atrial fibrillation and the rate was rather difficult to control, therefore she had AV node ablation and a biventricular AICD device implanted. It has not discharged. Because of her weak heart, she was also given dobutamine treatment as outpatient twice a week and this has helped her quite a bit. She has never had a stroke and she quit smoking few years ago. She came to this hospital many days ago and was assessed in the Emergency Department and was discharged home only to come back a few days later because of increasing shortness of breath. She did not have any obvious chest pain or palpitations. She had no dizziness. She had slight swelling in the legs, which has since disappeared. She had been coughing without much expectoration. She has been receiving IV antibiotics and aerosol treatments for her COPD. PHYSICAL EXAMINATION: GENERAL: Reveals a patient who is alert, oriented. She has oxygen by nasal cannula. Complexion is fine. No thyromegaly, finger clubbing. There is no jaundice. VITAL SIGNS: Pulse is 76 and regular, blood pressure 142/86. NECK: JVP is normal. AJR is negative. No bruit in the neck. CARDIOVASCULAR: There is no parasternal heave present. Auscultation did not reveal any obvious murmurs and no rub was present. EXTREMITIES: She has no edema at all in the lower extremities. RESPIRATORY: She is mildly tachypneic, bilateral resonance is noted and auscultation reveals severely reduced breath sounds with very few adventitious sounds now. ABDOMEN: Supple, nontender. Liver is not enlarged. There is no abdominal bruit. LABORATORY DATA: BUN was 9, creatinine 0.58, sodium 142, potassium 4.2, hemoglobin was 11.2 g/dL. Chest x-ray did not demonstrate any acute process such as pneumonia or pulmonary edema. An echocardiogram in November and also September of this year had demonstrated an LV ejection fraction of 25% with a moderately dilated LV cavity, normal pulmonary artery systolic pressure and moderate right atrial enlargement. IMPRESSION: 1. Acute exacerbation of chronic obstructive pulmonary disease, is being treated, which has helped her enormously. 2. There is no clinical or radiographic evidence of cardiac decompensation. 3. She has severe dilated/nonischemic cardiomyopathy. 4. Chronic atrial fibrillation with biventricular pacing. [place], [place] REPORT OF CONSULTATION NAME: PRIYANKA NORTON UNIT #: [id number] ROOM: 506 DOCTOR: KIRILL DSOUZA MD BIRTHDATE: [birth year] Her cardiac medications, namely furosemide, metoprolol, Xarelto and simvastatin should be continued. I would prefer her to be on an LUCY inhibitor and a small dose of this should be attempted. I would also recommend chronic use of spironolactone 25 mg daily. I thank you for this consult. KIRILL DSOUZA MD CM:CONSTR:REPORT OF CONSULTATION 1145 04/05/17 8555 interface
--- NOTE | ~2017-04-02 | PR ---
[place], [place] PROGRESS NOTE NAME: PRIYANKA NORTON UNIT #: [id number] ROOM: 506 DOCTOR: LORETTA HILLMAN MD BIRTHDATE: [birth year] DOS: SUBJECTIVE: The patient has been admitted to hospital with COPD with emphysema, hypoxia and shortness of breath with acute bronchitis, has been slowly improving. She is still having difficulty in breathing and uses aerosol treatment many times in a day and having some cough also and otherwise she is slowly improving and there is no chest pain, no nausea, no vomiting. Her CBC yesterday showed WBC 11,400, hemoglobin 11.2, hematocrit 34.2, 1% lymphocytes, 11% neutrophils. OBJECTIVE: VITAL SIGNS: Her blood pressure is 128/66, pulse 68, respirations 18, temperature 98.4. CHEST: Few rhonchi. No crepitation. HEART: Regular. ABDOMEN: Soft. LORETTA HILLMAN MD CM:PNTRANS [id number] LORETTA HILLMAN MD 04/04/17 1629 interface
--- NOTE | ~2017-04-02 | PR ---
[place], [place] PROGRESS NOTE [id number] #: [id number] ROOM: 506 DOCTOR: LORETTA HILLMAN MD BIRTHDATE: [birth year] DOS: SUBJECTIVE: The patient has been admitted to the hospital with the chest pain, shortness of breath, and was feeling very bad when she was brought to Emergency Department and was diagnosed to be having pneumonia and the patient is feeling somewhat better today. She is breathing better. The patient has past history of aortic valve stenosis, B12 deficiency, CAD, chest pain, chronic atrial fibrillation, chronic respiratory failure with COPD and dyspnea, hypertension, hyperlipidemia, left ventricular hypertrophy, and mitral regurgitation and mitral valve prolapse. The patient is feeling better today, but still got some shortness of breath wheezing. She states she is 50% better than before. OBJECTIVE: VITAL SIGNS: Her blood pressure 120/64, pulse normal, respirations 20, temperature 97.1. LABORATORY DATA: Her CBC today showed white count 11,400; hemoglobin 11.2; hematocrit 34.2. Basic metabolic profile is essentially normal. Her chest x-ray done in the Emergency did not show any pneumonic infiltration. LORETTA HILLMAN MD CM:EVON 0821 [id number] LORETTA HILLMAN MD 04/12/17 0718 interface
--- NOTE | ~2017-04-02 | PR ---
[place], [place] PROGRESS NOTE NAME: PRIYANKA NORTON UNIT #: [id number] ROOM: 506 DOCTOR: ANA PAULA FELICIANO MD BIRTHDATE: [birth year] DOS: 04/06/2017 SUBJECTIVE: I am seeing the patient on behalf of Dr. Lynch. The patient was seen by Dr. Lynch yesterday. The patient is comfortably sleeping, hemodynamically appears to be stable. OBJECTIVE: VITAL SIGNS: Blood pressure today is 140/80. I's and O's: the patient is negative 1200. Hemodynamically much more stable. NECK: Supple, no JVD. LUNGS: Diminished breath sounds. Shortness of breath is much better. HEART: Heart sounds are regular. NEUROLOGIC: Appears to be stable. GASTROINTESTINAL: No nausea, no vomiting. IMPRESSION: Chronic obstructive pulmonary disease exacerbation with respiratory failure, chronic compensated systolic heart failure, mitral valve regurgitation, AICD, and atrial fibrillation. RECOMMENDATIONS: Continue the present care. Add a small dose of LUCY inhibitors if feasible and we will follow up. ANA PAULA FELICIANO MD CM:PNTRANS [id number] [phone] ANA PAULA FELICIANO MD 04/06/17 0532 interface
[2017-04-02 10:13] VITALS: BP 155/88
[2017-04-02 10:47] LABS: BASO # 0.1 10*3/uL (0.0-0.1); BASO % 0.9 % (0.0-1.0); EOS # 0.7 10*3/uL (0.0-0.4); EOS % 11.3 % (1.0-4.0); HEMATOCRIT 36.8 % (37.0-47.0); HEMOGLOBIN 12.1 g/dl (12.0-16.0); LYMPH # 1.3 10*3/uL (1.3-4.4); LYMPH % 19.6 % (27.0-41.0); MEAN CELL VOLUME 95.8 fl (81.0-99.0); MEAN CORPUSCULAR HGB 31.5 pg (27.0-31.0); MEAN CORPUSCULAR HGB CONC 32.9 g/dl (33.0-37.0); MEAN PLATELET VOLUME 10.6 fl (9.6-12.3); MONO # 0.4 10*3/uL (0.1-1.0); MONO % 6.3 % (3.0-9.0); NEUT % 61.6 % (47.0-73.0); PLATELET COUNT AUTOMATED 164 10*3/uL (130-400); RED BLOOD COUNT 3.84 10*6/uL (4.10-5.10); RED CELL DISTRI WIDTH 12.6 % (0-14.5); WHITE BLOOD COUNT 6.5 10*3/uL (4.8-10.8)
[2017-04-02 11:02] LABS: ALBUMIN 3.5 gm/dl (3.1-4.5); ALKALINE PHOSPHATASE 72 U/L (45-117); BUN 7 mg/dl (7-24); CHLORIDE 104 mmol/L (98-107); CREATININE 0.65 mg/dL (0.55-1.02); SGOT/AST 15 IU/L (3-35); SGPT/ALT 16 U/L (12-78); SODIUM 141 mmol/L (136-145); TOTAL PROTEIN 6.9 gm/dL (6.4-8.2)
[2017-04-02 11:07] LABS: TROPONIN I < 0.015 ng/ml (<0.045)
[2017-04-02 12:00] VITALS: BP 101/68
[2017-04-02 14:00] VITALS: BP 101/68
--- NOTE | 2017-04-02 15:27 | NUR ---
dr. keating called and notified of consult. the dr stated that the pt is fine and has no acute cardiac troubles at this time. he stated the pt is in no need of cardiac consult and to let him know if the pt's condition changes and if he would be needed.
[2017-04-02 16:00] VITALS: BP 138/52
[2017-04-02 20:00] VITALS: BP 110/58
--- NOTE | 2017-04-02 21:00 | NUR ---
RESTING IN BED WATCHING TV, NO DISTRESS NOTED. RESPIRATIONS EASY. LUNGS DIMINISHED WITH EXP WHEEZES. PULSE OX 94% RA. NON-PRODUCTIVE COUGH. TRACE BLE EDEMA. PICC LINE NOTED TO RIGHT ARM, DRESSING CHANGED AND DATED. CALL LIGHT WITHIN REACH. NO VOICED COMPLAINTS
[2017-04-03] VITALS: BP 115/85
--- NOTE | 2017-04-03 | NUR ---
SLEEPING, NO DISTRESS NOTED. RESPIRATIONS EASY. VSS. CALL LIGHT WITHIN REACH
--- NOTE | 2017-04-03 02:58 | NUR ---
CONTINUES TO SLEEP WITH NO DISTRESS NOTED. RESPIRATIONS EASY. CALL LIGHT WITHIN REACH
--- NOTE | 2017-04-03 06:00 | NUR ---
SLEPT THROUGHOUT NIGHT WITH NO DISTRESS NOTED. RESPIRATIONS EASY. CALL LIGHT WITHIN REACH. NO VOICED COMPLAINTS THIS SHIFT
[2017-04-03 06:06] LABS: HEMATOCRIT 34.2 % (37.0-47.0); HEMOGLOBIN 11.2 g/dl (12.0-16.0); MEAN CELL VOLUME 95.3 fl (81.0-99.0); MEAN CORPUSCULAR HGB 31.2 pg (27.0-31.0); MEAN CORPUSCULAR HGB CONC 32.7 g/dl (33.0-37.0); MEAN PLATELET VOLUME 11.1 fl (9.6-12.3); PLATELET COUNT AUTOMATED 158 10*3/uL (130-400); RED BLOOD COUNT 3.59 10*6/uL (4.10-5.10); RED CELL DISTRI WIDTH 12.7 % (0-14.5); WHITE BLOOD COUNT 11.4 10*3/uL (4.8-10.8)
[2017-04-03 06:32] LABS: BUN 9 mg/dl (7-24); CHLORIDE 107 mmol/L (98-107); CREATININE 0.58 mg/dL (0.55-1.02); POTASSIUM 4.2 mmol/L (3.5-5.1); SODIUM 142 mmol/L (136-145)
[2017-04-03 06:44] LABS: PLATELET SUFFICIENCY NORMAL (NORMAL); TOTAL CELLS COUNTED 100 #CELLS
[2017-04-03 08:00] VITALS: BP 120/64
[2017-04-03 12:00] VITALS: BP 129/70
[2017-04-03 16:00] VITALS: BP 126/61
[2017-04-03 20:00] VITALS: BP 127/78
--- NOTE | 2017-04-03 23:50 | NUR ---
24 HR chart check completed.
[2017-04-04] VITALS: BP 132/65
[2017-04-04 04:00] VITALS: BP 128/66
[2017-04-04 08:00] VITALS: BP 126/64
--- NOTE | 2017-04-04 08:11 | NUR ---
DR HILLMAN IN TO SEE PT.
--- NOTE | 2017-04-04 12:09 | NUR ---
AMBULATORY IN HALLS.
[2017-04-04 12:32] VITALS: BP 151/80
[2017-04-04 16:00] VITALS: BP 124/64
--- NOTE | 2017-04-04 17:30 | NUR ---
LATE ENTRY--UNABLE TO VERIFY MEDS, PHARMACY CLOSED.
[2017-04-04 20:00] VITALS: BP 138/75
--- NOTE | 2017-04-04 21:22 | NUR ---
IN BED AWAKE ALERT AND ORIENTED X3, SEEMS TO BE FORGETFUL AT TIMES. NO S/S OF DISTRESS. SEE ASSESS. WILL CONT TO MONITOR. CALL LIGHT IN REACH.
[2017-04-05] VITALS: BP 137/89
--- NOTE | 2017-04-05 | NUR ---
PATIENT RESTING IN BED. NO SXS OF DISTRESS. SHE IS ALERT AND ORIENTED X3 WITH SOME PERIODS OF FORGETFULNESS. COOPERATIVE WITH CARE. SEE ASSESSMENT. CALL LIGHT IS IN REACH. WILL MONITOR.
[2017-04-05 08:00] VITALS: BP 142/86
--- NOTE | 2017-04-05 08:00 | NUR ---
Skein Mercerizing Machine Operator in to talk to patient. Patient states lives at HOME ALONE AT [facility] with . There are 0 steps in the home. Physician: DR PAK Pharmacy: [facility] Home health services: NONE Patient's level of ADLs: INDEPENDENT Patient has working utilities: YES DME: NEB/O2 FROM [facility] Follow-up physician's appointment after d/c: PREFERS TO MAKE HWE OWN APPT Does patient want to access PORTAL?: Discharge plan HOME. LELAND GOLDMAN PT COMES TO [facility] FOR OUTPT [facility]
--- NOTE | 2017-04-05 10:52 | NUR ---
Patient resting quietly with no c/o discomfort. Respirations easy and regular. Vital signs stable. No overt distress. MARIS VANG
--- NOTE | 2017-04-05 11:35 | NUR ---
DR DSOUZA ROUNDED AND ORDERS RECIEVED.
[2017-04-05 12:00] VITALS: BP 148/86
--- NOTE | 2017-04-05 13:02 | NUR ---
PT UP AN AMBULATING HALLWAYS, TOLERATING WELL. NO S/S DISTRESS NOTED.
[2017-04-05 16:00] VITALS: BP 113/118
[2017-04-05 20:00] VITALS: BP 143/81
--- NOTE | 2017-04-05 20:30 | NUR ---
PATIENT RESTING IN BED. ALERT TO PERSON PLACE AND TIME. ARROUSES EASILY. BED IN LOWEST POSITION, CALL LIGHT IN REACH
--- NOTE | 2017-04-05 23:58 | NUR ---
24 HR chart check completed.
[2017-04-06] VITALS: BP 145/80
--- NOTE | 2017-04-06 01:03 | NUR ---
PATIENT RESTING IN BED WITH NO S/S OF DISTRESS. BED IN LOWEST POSITION, CALL AIMEE DORMAN
--- NOTE | 2017-04-06 05:55 | NUR ---
DR FELICIANO IN TO SEE PATIENT
[2017-04-06 06:40] LABS: HEMATOCRIT 38.1 % (37.0-47.0); HEMOGLOBIN 12.7 g/dl (12.0-16.0); MEAN CELL VOLUME 93.8 fl (81.0-99.0); MEAN CORPUSCULAR HGB 31.3 pg (27.0-31.0); MEAN CORPUSCULAR HGB CONC 33.3 g/dl (33.0-37.0); MEAN PLATELET VOLUME 10.9 fl (9.6-12.3); PLATELET COUNT AUTOMATED 185 10*3/uL (130-400); RED BLOOD COUNT 4.06 10*6/uL (4.10-5.10); RED CELL DISTRI WIDTH 12.4 % (0-14.5); WHITE BLOOD COUNT 12.3 10*3/uL (4.8-10.8)
[2017-04-06 06:49] LABS: BUN 16 mg/dl (7-24); CHLORIDE 104 mmol/L (98-107); CREATININE 0.56 mg/dL (0.55-1.02); POTASSIUM 3.7 mmol/L (3.5-5.1); SODIUM 141 mmol/L (136-145)
[2017-04-06 07:14] LABS: PLATELET SUFFICIENCY NORMAL (NORMAL); TOTAL CELLS COUNTED 100 #CELLS
[2017-04-06 08:00] VITALS: BP 146/80
--- NOTE | 2017-04-06 08:04 | NUR ---
Shift chart check completed.
--- NOTE | 2017-04-06 09:55 | NUR ---
PT REQUESTED PRN COUGH SYRUP, GIVEN SEE JUL.
[2017-04-06 12:00] VITALS: BP 130/66
[2017-04-06] MEDS ORDERED: AVPAK AZITHROM250 M1 PO (14:29)
[2017-04-06] MEDS ORDERED: PREDNISONE10 MG PO (14:29)
[2017-04-06] MEDS ORDERED: PRINIVIL10 MG PO (14:33)
--- NOTE | 2017-04-06 15:07 | NUR ---
Discharge instructions reviewed with patient. Patient receptive and verbalizes understanding. Follow-up care understood. Written instructions given to patient. pt understands new rx sent to pharmacy. picc line in right upper arm. flushed with heparin and sent home with picc. pt receives iv infusions two times a week. PAYAM HEARD
== END 2017-04-06 15:07 | disposition home or self-care (01) | DRG 189 ==
LOC: ED 09:52 → 5E 13:20 → EDHOLD 13:20 → 5E 13:28
PROVIDERS: Emergency Medicine; Internal Medicine; ADMIT Internal Medicine
DX: J96.21 Acute and chronic respiratory failure with hypoxia (principal); J18.9 Pneumonia, unspecified organism; D68.59 Other primary thrombophilia; I42.0 Dilated cardiomyopathy; I11.0 Hypertensive heart disease with heart failure; I42.8 Other cardiomyopathies; I50.22 Chronic systolic (congestive) heart failure; I48.2 Chronic atrial fibrillation; J44.1 Chronic obstructive pulmonary disease with (acute) exacerbation; J44.0 Chronic obstructive pulmonary disease with (acute) lower respiratory infection; E53.8 Deficiency of other specified B group vitamins; J20.9 Acute bronchitis, unspecified; E55.9 Vitamin D deficiency, unspecified; I25.10 Atherosclerotic heart disease of native coronary artery without angina pectoris; E78.5 Hyperlipidemia, unspecified; L40.9 Psoriasis, unspecified; D64.9 Anemia, unspecified; I34.0 Nonrheumatic mitral (valve) insufficiency; I34.1 Nonrheumatic mitral (valve) prolapse; R91.1 Solitary pulmonary nodule; Z86.79 Personal history of other diseases of the circulatory system; Z95.810 Presence of automatic (implantable) cardiac defibrillator; Z99.81 Dependence on supplemental oxygen; Z79.899 Other long term (current) drug therapy; Z79.01 Long term (current) use of anticoagulants; Z79.82 Long term (current) use of aspirin; Z90.710 Acquired absence of both cervix and uterus; Z90.49 Acquired absence of other specified parts of digestive tract; Z87.891 Personal history of nicotine dependence; Z82.3 Family history of stroke; Z83.3 Family history of diabetes mellitus; Z80.3 Family history of malignant neoplasm of breast; Z82.49 Family history of ischemic heart disease and other diseases of the circulatory system

== ENCOUNTER → 2017-05-27 | Outpatient (CLI) | payer OTHER ==
[~2017-05-27] MED LIST changes: +PRINIVIL10 MG PO
== END | disposition home or self-care (01) ==
LOC: PICC 05-19 01:21
DX: Z45.2 Encounter for adjustment and management of vascular access device (principal)

== ENCOUNTER → 2017-06-18 | Day surgery (SDC) | payer OTHER ==
[2017-06-17 11:21] LABS: BASO # 0.1 10*3/uL (0.0-0.1); BASO % 1.2 % (0.0-1.0); EOS # 0.5 10*3/uL (0.0-0.4); EOS % 7.4 % (1.0-4.0); HEMOGLOBIN 13.3 g/dl (12.0-16.0); LYMPH # 1.2 10*3/uL (1.3-4.4); LYMPH % 19.3 % (27.0-41.0); MEAN CELL VOLUME 93.7 fl (81.0-99.0); MEAN CORPUSCULAR HGB 31.1 pg (27.0-31.0); MEAN CORPUSCULAR HGB CONC 33.3 g/dl (33.0-37.0); MEAN PLATELET VOLUME 11.5 fl (9.6-12.3); MONO # 0.4 10*3/uL (0.1-1.0); MONO % 6.1 % (3.0-9.0); NEUT % 65.8 % (47.0-73.0); PLATELET COUNT AUTOMATED 159 10*3/uL (130-400); RED BLOOD COUNT 4.27 10*6/uL (4.10-5.10); RED CELL DISTRI WIDTH 13.2 % (0-14.5); WHITE BLOOD COUNT 6.1 10*3/uL (4.8-10.8)
[2017-06-17 11:31] LABS: ACT PARTIAL THROMBO TIME 23.9 SECONDS (20.8-31.5); INTERNATIONAL NORM RATIO 0.9 (2.0-3.5)
[2017-06-17 11:42] LABS: BUN 7 mg/dl (7-24); CHLORIDE 106 mmol/L (98-107); CREATININE 0.66 mg/dL (0.55-1.02); POTASSIUM 3.8 mmol/L (3.5-5.1); SODIUM 141 mmol/L (136-145)
[~2017-06-18] VITALS: Ht 175.2 cm; Wt 69.9 kg
--- NOTE | ~2017-06-18 | PROC NOTE ---
[place], [place] PROCEDURE NOTE NAME: PRIYANKA NORTON UNIT #: [id number] ROOM: DOCTOR: CHEPE ERNANDEZ MD BIRTHDATE: [birth year] DOS: 06/18/2017 PREOPERATIVE DIAGNOSES: Poor IV access, severe dilated cardiomegaly. POSTOPERATIVE DIAGNOSES: Poor IV access, severe dilated cardiomegaly. PROCEDURE: Right internal jugular MediPort placement. SURGEON: Chepe Ernandez MD ROOM DESIGNER: MARLENA. ANESTHESIA: MAC with local. INDICATIONS: This is a 72-year-old lady who is here for placement of a MediPort for poor IV access. Procedure and its complications were explained to the patient in detail preoperatively. Complications that were discussed included but were not limited to, bleeding, hemothorax, pneumothorax, damage to underlying vital structures and infection. She agreed to proceed. DESCRIPTION OF PROCEDURE: After identifying the patient, the patient was brought to the operating suite and laid in the supine position. After the prep, the patient was appropriately positioned, IV sedation was administered and the parts were then painted and draped in the usual sterile fashion. A time-out procedure was called. With the help of an ultrasound and Seldinger technique, the right internal jugular vein was accessed and it was confirmed on fluoroscopy. Thereafter, a pocket was created on the anterior chest wall by injecting local in the skin and the subcutaneous area in the right chest 2 cm below the right clavicle. After the pocket was created, the catheter was passed over the introducer to the site of the neck where the internal jugular vein was accessed. The sheath and the dilator were passed over the wire and the catheter was placed through the sheath into the right superior vena cava and this was confirmed to be in good position with fluoroscopy. The catheter was cut to size and the port was attached to the end of the catheter. Heparin was injected and was found to have good flow and there was good flow of blood on the other direction as well. Thereafter, the port was fixed to the underlying fascia with the help of 3-0 Prolene in an interrupted fashion. Thereafter, the subcutaneous tissue was approximated with the help of 3-0 Vicryl and the skin edges were approximated with 4-0 Vicryl in a subcuticular fashion. Neck incision also was closed with the help of a single 4-0 Vicryl stitch. Dressing was placed. Prior to this, the port was accessed again with epinephrine and was found to have good flow and also good blood return. The patient tolerated the procedure well and was taken to the recovery room in a stable fashion where a chest x-ray was ordered for confirmation of placement and to evaluate for pneumothorax. Dr. Chepe Ernandez, the attending surgeon, was present throughout the operating case. [place], [place] PROCEDURE NOTE NAME: PRIYANKA NORTON UNIT #: [id number] ROOM: DOCTOR: CHEPE ERNANDEZ MD BIRTHDATE: [birth year] Chepe Ernandez MD CM:PROCNOTE:PROCEDURE NOTE 1053 1125 CHEPE ERNANDEZ MD
[2017-06-18 08:00] VITALS: BP 137/59
[2017-06-18 10:56] VITALS: BP 103/44
[2017-06-18 11:15] VITALS: BP 118/51
[2017-06-18 11:30] VITALS: BP 123/57
[2017-06-18 11:45] VITALS: BP 128/57
[2017-06-18 12:00] VITALS: BP 127/68
== END ==
LOC: SDC 06-17 10:15
PROVIDERS: Surgery
DX: I51.7 Cardiomegaly (principal); F41.9 Anxiety disorder, unspecified; J44.9 Chronic obstructive pulmonary disease, unspecified; Z95.0 Presence of cardiac pacemaker; I48.0 Paroxysmal atrial fibrillation; Z90.710 Acquired absence of both cervix and uterus; Z90.49 Acquired absence of other specified parts of digestive tract; Z82.49 Family history of ischemic heart disease and other diseases of the circulatory system

== ENCOUNTER 2017-06-24 15:32 | Emergency (ER) | payer OTHER ==
[~2017-06-24] VITALS: Ht 175.2 cm; Wt 69.9 kg
--- NOTE | ~2017-06-24 | EKG ---
[place], [place] ELECTROCARDIOGRAM REPORT NAME: PRIYANKA NORTON UNIT #: [id number] ROOM: DOCTOR: KIRILL DSOUZA MD BIRTHDATE: [birth year] DOS: 06/24/2017 TIME: 1632 hours. Atrial fibrillation with vent, pacing at 78 beats per minute. No previous tracing is available for comparison. KIRILL DSOUZA MD CM:EKGRPT:ELECTROCARDIOGRAM REPORT 1653 2125 KIRILL DSOUZA MD
[2017-06-24 16:39] LABS: BASO # 0.1 10*3/uL (0.0-0.1); BASO % 1.4 % (0.0-1.0); EOS # 0.6 10*3/uL (0.0-0.4); EOS % 11.2 % (1.0-4.0); HEMOGLOBIN 12.7 g/dl (12.0-16.0); LYMPH # 1.2 10*3/uL (1.3-4.4); LYMPH % 21.2 % (27.0-41.0); MEAN CELL VOLUME 92.7 fl (81.0-99.0); MEAN CORPUSCULAR HGB CONC 33.4 g/dl (33.0-37.0); MEAN PLATELET VOLUME 11.4 fl (9.6-12.3); MONO # 0.4 10*3/uL (0.1-1.0); MONO % 7.1 % (3.0-9.0); NEUT # 3.3 10*3/uL (2.3-7.9); NEUT % 58.9 % (47.0-73.0); PLATELET COUNT AUTOMATED 180 10*3/uL (130-400); RED CELL DISTRI WIDTH 13.1 % (0-14.5); WHITE BLOOD COUNT 5.7 10*3/uL (4.8-10.8)
[2017-06-24 16:47] LABS: ACT PARTIAL THROMBO TIME 24.5 SECONDS (20.8-31.5); INTERNATIONAL NORM RATIO 0.9 (2.0-3.5)
[2017-06-24 16:55] LABS: ALBUMIN 3.6 gm/dl (3.1-4.5); ALKALINE PHOSPHATASE 65 U/L (45-117); BUN 6 mg/dl (7-24); CHLORIDE 107 mmol/L (98-107); POTASSIUM 3.9 mmol/L (3.5-5.1); SGOT/AST 17 IU/L (3-35); SGPT/ALT 14 U/L (12-78); SODIUM 143 mmol/L (136-145); TOTAL PROTEIN 6.7 gm/dL (6.4-8.2)
[2017-06-24 17:38] VITALS: BP 143/82
== END 2017-06-24 18:47 | disposition home or self-care (01) ==
LOC: ED 15:32
PROVIDERS: Internal Medicine
DX: R55 Syncope and collapse (principal); I25.10 Atherosclerotic heart disease of native coronary artery without angina pectoris; I48.2 Chronic atrial fibrillation; J44.9 Chronic obstructive pulmonary disease, unspecified; E78.5 Hyperlipidemia, unspecified; E78.00 Pure hypercholesterolemia, unspecified; E11.9 Type 2 diabetes mellitus without complications; I11.0 Hypertensive heart disease with heart failure; I50.9 Heart failure, unspecified; Z99.81 Dependence on supplemental oxygen; Z98.890 Other specified postprocedural states; Z90.710 Acquired absence of both cervix and uterus; Z90.49 Acquired absence of other specified parts of digestive tract; Z87.891 Personal history of nicotine dependence; Z79.82 Long term (current) use of aspirin; Z79.899 Other long term (current) drug therapy

== ENCOUNTER 2017-07-20 11:10 | Emergency (ER) | payer OTHER ==
[~2017-07-20] VITALS: Wt 68.9 kg
[2017-07-20 11:35] LABS: BASO # 0.1 10*3/uL (0.0-0.1); BASO % 0.9 % (0.0-1.0); EOS # 0.3 10*3/uL (0.0-0.4); EOS % 4.9 % (1.0-4.0); HEMATOCRIT 38.2 % (37.0-47.0); HEMOGLOBIN 12.8 g/dl (12.0-16.0); LYMPH % 17.1 % (27.0-41.0); MEAN CELL VOLUME 93.6 fl (81.0-99.0); MEAN CORPUSCULAR HGB 31.4 pg (27.0-31.0); MEAN CORPUSCULAR HGB CONC 33.5 g/dl (33.0-37.0); MEAN PLATELET VOLUME 10.6 fl (9.6-12.3); MONO # 0.4 10*3/uL (0.1-1.0); MONO % 7.2 % (3.0-9.0); NEUT # 3.9 10*3/uL (2.3-7.9); NEUT % 69.7 % (47.0-73.0); PLATELET COUNT AUTOMATED 144 10*3/uL (130-400); RED BLOOD COUNT 4.08 10*6/uL (4.10-5.10); RED CELL DISTRI WIDTH 12.8 % (0-14.5); WHITE BLOOD COUNT 5.6 10*3/uL (4.8-10.8)
[2017-07-20 11:44] LABS: ACT PARTIAL THROMBO TIME 25.1 SECONDS (20.8-31.5); INTERNATIONAL NORM RATIO 0.9 (2.0-3.5)
[2017-07-20 11:50] LABS: ALBUMIN 3.5 gm/dl (3.1-4.5); ALKALINE PHOSPHATASE 66 U/L (45-117); BUN 11 mg/dl (7-24); CHLORIDE 108 mmol/L (98-107); CREATININE 0.66 mg/dL (0.55-1.02); POTASSIUM 3.4 mmol/L (3.5-5.1); SGOT/AST 13 IU/L (3-35); SGPT/ALT 18 U/L (12-78); SODIUM 143 mmol/L (136-145); TOTAL PROTEIN 6.6 gm/dL (6.4-8.2)
[2017-07-20 11:51] LABS: TROPONIN I < 0.015 ng/ml (<0.045)
[2017-07-20 13:01] VITALS: BP 130/80
== END 2017-07-20 13:38 | disposition home or self-care (01) ==
LOC: ED 11:10
PROVIDERS: Emergency Medicine
DX: R07.89 Other chest pain (principal); Z79.899 Other long term (current) drug therapy; Z79.82 Long term (current) use of aspirin; Z87.891 Personal history of nicotine dependence

== ENCOUNTER 2017-08-09 07:58 | Inpatient (IN) | payer OTHER ==
[~2017-08-09] VITALS: Ht 175.3 cm; Wt 52.2 kg
[2017-08-09 07:58] VITALS: BP 168/92
[2017-08-09 08:14] LABS: BASO # 0.1 10*3/uL (0.0-0.1); EOS # 0.4 10*3/uL (0.0-0.4); EOS % 6.8 % (1.0-4.0); HEMATOCRIT 39.1 % (37.0-47.0); HEMOGLOBIN 13.3 g/dl (12.0-16.0); LYMPH # 0.8 10*3/uL (1.3-4.4); LYMPH % 12.4 % (27.0-41.0); MEAN CELL VOLUME 92.9 fl (81.0-99.0); MEAN CORPUSCULAR HGB 31.6 pg (27.0-31.0); MEAN PLATELET VOLUME 10.8 fl (9.6-12.3); MONO # 0.4 10*3/uL (0.1-1.0); MONO % 5.9 % (3.0-9.0); NEUT # 4.6 10*3/uL (2.3-7.9); NEUT % 73.7 % (47.0-73.0); PLATELET COUNT AUTOMATED 159 10*3/uL (130-400); RED BLOOD COUNT 4.21 10*6/uL (4.10-5.10); RED CELL DISTRI WIDTH 12.7 % (0-14.5); WHITE BLOOD COUNT 6.2 10*3/uL (4.8-10.8)
[2017-08-09 08:22] LABS: ACT PARTIAL THROMBO TIME 23.3 SECONDS (20.8-31.5); INTERNATIONAL NORM RATIO 0.9 (2.0-3.5)
[2017-08-09 08:32] LABS: ALBUMIN 3.7 gm/dl (3.1-4.5); ALKALINE PHOSPHATASE 67 U/L (45-117); BUN 10 mg/dl (7-24); CHLORIDE 105 mmol/L (98-107); CREATININE 0.67 mg/dL (0.55-1.02); SGOT/AST 13 IU/L (3-35); SGPT/ALT 18 U/L (12-78); SODIUM 139 mmol/L (136-145); TOTAL PROTEIN 6.8 gm/dL (6.4-8.2); TROPONIN I < 0.015 ng/ml (<0.045)
[2017-08-09 08:59] VITALS: BP 161/97
[2017-08-09 12:00] VITALS: BP 152/89
[2017-08-13] MEDS ORDERED: LASIX80 MG PO (09:50)
[2017-08-13] MEDS ORDERED: TOPROL XL25 MG PO (09:52)
[2017-08-13] MEDS ORDERED: LISINOPRIL2.5 MG PO (09:53)
== END 2017-08-09 16:15 | disposition short-term general hospital (02) | DRG 309 ==
LOC: ED 07:58 → EDHOLD 08:12 → 5E 08:12
PROVIDERS: Emergency Medicine
PROC: 4B02XTZ Measurement of Cardiac Defibrillator, External Approach (ICD-10-PCS; principal; 2017-08-09)
DX: T82.110A Breakdown (mechanical) of cardiac electrode, initial encounter (principal); J96.11 Chronic respiratory failure with hypoxia; D72.1 Eosinophilia; I42.0 Dilated cardiomyopathy; E83.41 Hypermagnesemia; I11.0 Hypertensive heart disease with heart failure; I50.22 Chronic systolic (congestive) heart failure; Z99.81 Dependence on supplemental oxygen; I48.2 Chronic atrial fibrillation; J44.9 Chronic obstructive pulmonary disease, unspecified; I25.5 Ischemic cardiomyopathy; I25.10 Atherosclerotic heart disease of native coronary artery without angina pectoris; E78.5 Hyperlipidemia, unspecified; L40.9 Psoriasis, unspecified; D72.9 Disorder of white blood cells, unspecified; D72.810 Lymphocytopenia; R73.9 Hyperglycemia, unspecified; E53.8 Deficiency of other specified B group vitamins; R91.1 Solitary pulmonary nodule; I34.0 Nonrheumatic mitral (valve) insufficiency; Y83.8 Other surgical procedures as the cause of abnormal reaction of the patient, or of later complication, without mention of misadventure at the time of the procedure; Z79.899 Other long term (current) drug therapy; Z79.82 Long term (current) use of aspirin; Z90.710 Acquired absence of both cervix and uterus; Z90.49 Acquired absence of other specified parts of digestive tract; Z90.89 Acquired absence of other organs; Z95.810 Presence of automatic (implantable) cardiac defibrillator; Z88.9 Allergy status to unspecified drugs, medicaments and biological substances; Z87.891 Personal history of nicotine dependence; Z82.3 Family history of stroke; Z83.3 Family history of diabetes mellitus; Z82.49 Family history of ischemic heart disease and other diseases of the circulatory system; Z80.3 Family history of malignant neoplasm of breast; Y92.89 Other specified places as the place of occurrence of the external cause

== ENCOUNTER 2017-08-27 14:03 | Inpatient (IN) | payer OTHER ==
[~2017-08-27] VITALS: Ht 175.3 cm; Wt 69.1 kg
--- NOTE | ~2017-08-27 | EKG ---
[place], [place] ELECTROCARDIOGRAM REPORT NAME: PRIYANKA NORTON UNIT #: [id number] ROOM: 404 DOCTOR: KIRILL DSOUZA MD BIRTHDATE: [birth year] DOS: 08/27/2017 TIME: 2012 hours. FINDINGS: 1. Atrial fibrillation with ventricular pacing at 76 beats per minute. 2. An abnormal ECG. 3. No significant change from an ECG done about 2 hours earlier. KIRILL DSOUZA MD CM:EKGRPT:ELECTROCARDIOGRAM REPORT 1653 1829 KIRILL DSOUZA MD
--- NOTE | ~2017-08-27 | EKG ---
[place], [place] ELECTROCARDIOGRAM REPORT NAME: PRIYANKA NORTON UNIT #: [id number] ROOM: 404 DOCTOR: KIRILL DSOUZA MD BIRTHDATE: [birth year] DOS: 08/27/2017 TIME: 1410 hours. FINDINGS: 1. Atrial fibrillation with a ventricular rate of 77 beats per minute. 2. Underlying ventricular pacing is present. 3. An abnormal ECG. 4. No previous tracing is available for comparison. KIRILL DSOUZA MD CM:EKGRPT:ELECTROCARDIOGRAM REPORT 1653 1826 KIRILL DSOUZA MD
--- NOTE | ~2017-08-27 | EKG ---
[place], [place] ELECTROCARDIOGRAM REPORT NAME: PRIYANKA NORTON UNIT #: [id number] ROOM: 404 DOCTOR: KIRILL DSOUZA MD BIRTHDATE: [birth year] DOS: 08/27/2017 TIME: 1746 hours. FINDINGS: 1. Atrial fibrillation with ventricular pacing at 77 beats per minute. 2. An abnormal ECG. 3. No significant change from an ECG done about 3 hours earlier. KIRILL DSOUZA MD CM:EKGRPT:ELECTROCARDIOGRAM REPORT 1653 1827 KIRILL DSOUZA MD
[~2017-08-27 14:03] MED LIST changes: +LASIX80 MG PO; +TOPROL XL25 MG PO
[2017-08-27 14:08] VITALS: BP 169/87
[2017-08-27] MEDS ORDERED: XARE20MG PO (14:19)
[2017-08-27 14:35] LABS: BASO # 0.1 10*3/uL (0.0-0.1); BASO % 1.4 % (0.0-1.0); EOS # 0.5 10*3/uL (0.0-0.4); EOS % 8.5 % (1.0-4.0); HEMATOCRIT 38.3 % (37.0-47.0); HEMOGLOBIN 12.8 g/dl (12.0-16.0); LYMPH # 1.2 10*3/uL (1.3-4.4); LYMPH % 19.6 % (27.0-41.0); MEAN CELL VOLUME 93.9 fl (81.0-99.0); MEAN CORPUSCULAR HGB 31.4 pg (27.0-31.0); MEAN CORPUSCULAR HGB CONC 33.4 g/dl (33.0-37.0); MONO # 0.4 10*3/uL (0.1-1.0); MONO % 7.5 % (3.0-9.0); NEUT # 3.7 10*3/uL (2.3-7.9); NEUT % 62.8 % (47.0-73.0); PLATELET COUNT AUTOMATED 149 10*3/uL (130-400); RED BLOOD COUNT 4.08 10*6/uL (4.10-5.10); RED CELL DISTRI WIDTH 12.7 % (0-14.5); WHITE BLOOD COUNT 5.9 10*3/uL (4.8-10.8)
[2017-08-27 14:37] VITALS: BP 159/86
[2017-08-27 14:46] LABS: ACT PARTIAL THROMBO TIME 22.8 SECONDS (20.8-31.5); INTERNATIONAL NORM RATIO 0.9 (2.0-3.5)
[2017-08-27 14:52] LABS: ALBUMIN 3.7 gm/dl (3.1-4.5); ALKALINE PHOSPHATASE 70 U/L (45-117); BUN 7 mg/dl (7-24); CHLORIDE 105 mmol/L (98-107); CREATININE 0.68 mg/dL (0.55-1.02); SGOT/AST 13 IU/L (3-35); SGPT/ALT 14 U/L (12-78); SODIUM 141 mmol/L (136-145); TOTAL PROTEIN 6.7 gm/dL (6.4-8.2)
[2017-08-27 14:56] LABS: TROPONIN I < 0.015 ng/ml (<0.045)
[2017-08-27 16:00] VITALS: BP 158/88
[2017-08-27 18:53] VITALS: BP 143/71
[2017-08-27 20:00] VITALS: BP 125/69
[2017-08-27 22:00] VITALS: BP 124/62
[2017-08-28] VITALS: BP 124/70
[2017-08-28 06:10] LABS: BASO # 0.1 10*3/uL (0.0-0.1); BASO % 1.1 % (0.0-1.0); EOS # 0.7 10*3/uL (0.0-0.4); EOS % 12.5 % (1.0-4.0); HEMATOCRIT 38.6 % (37.0-47.0); HEMOGLOBIN 12.5 g/dl (12.0-16.0); LYMPH % 17.8 % (27.0-41.0); MEAN CELL VOLUME 94.4 fl (81.0-99.0); MEAN CORPUSCULAR HGB 30.6 pg (27.0-31.0); MEAN CORPUSCULAR HGB CONC 32.4 g/dl (33.0-37.0); MONO # 0.3 10*3/uL (0.1-1.0); MONO % 5.8 % (3.0-9.0); NEUT # 3.3 10*3/uL (2.3-7.9); NEUT % 62.6 % (47.0-73.0); PLATELET COUNT AUTOMATED 162 10*3/uL (130-400); RED BLOOD COUNT 4.09 10*6/uL (4.10-5.10); RED CELL DISTRI WIDTH 12.9 % (0-14.5); WHITE BLOOD COUNT 5.3 10*3/uL (4.8-10.8)
[2017-08-28 06:43] LABS: ALBUMIN 3.1 gm/dl (3.1-4.5); BUN 8 mg/dl (7-24); CHLORIDE 106 mmol/L (98-107); CHOLESTEROL 153 mg/dL (<200); CREATININE 0.64 mg/dL (0.55-1.02); PHOSPHOROUS 4.2 mg/dL (2.5-4.9); POTASSIUM 4.2 mmol/L (3.5-5.1); SGOT/AST 12 IU/L (3-35); SGPT/ALT 13 U/L (12-78); SODIUM 142 mmol/L (136-145); TRIGLYCERIDES 63 mg/dl (<150); VLDL CHOLESTEROL 13 mg/dL (6-40)
[2017-08-28 06:53] LABS: ALKALINE PHOSPHATASE 66 U/L (45-117); HDL CHOLESTEROL 71 mg/dl (40-60); LDL CHOLESTEROL 69 mg/dL (9-159); TOTAL PROTEIN 5.9 gm/dL (6.4-8.2)
[2017-08-28 07:30] LABS: VITAMIN D, 25-HYDROXY 11.7 ng/mL (30-100)
[2017-08-28 08:00] VITALS: BP 123/69
[2017-08-28] MEDS ORDERED: VITAMIN D-32000 UNIT PO (11:27)
[2017-08-28 12:00] VITALS: BP 121/71
== END 2017-08-28 13:45 | disposition home or self-care (01) | DRG 313 ==
LOC: ED 14:03 → EDHOLD 14:45 → 4E 15:05
PROVIDERS: Internal Medicine Hospice and Palliative Medicine; Physician Assistant
PROC: 4B02XTZ Measurement of Cardiac Defibrillator, External Approach (ICD-10-PCS; principal; 2017-08-27)
DX: R07.9 Chest pain, unspecified (principal); I25.10 Atherosclerotic heart disease of native coronary artery without angina pectoris; J96.11 Chronic respiratory failure with hypoxia; D68.59 Other primary thrombophilia; I11.0 Hypertensive heart disease with heart failure; I50.22 Chronic systolic (congestive) heart failure; J44.9 Chronic obstructive pulmonary disease, unspecified; I42.9 Cardiomyopathy, unspecified; I48.2 Chronic atrial fibrillation; D72.810 Lymphocytopenia; R73.9 Hyperglycemia, unspecified; Z95.810 Presence of automatic (implantable) cardiac defibrillator; E53.8 Deficiency of other specified B group vitamins; E55.9 Vitamin D deficiency, unspecified; E78.5 Hyperlipidemia, unspecified; Z90.89 Acquired absence of other organs; Z79.899 Other long term (current) drug therapy; Z90.49 Acquired absence of other specified parts of digestive tract; Z90.710 Acquired absence of both cervix and uterus; Z80.3 Family history of malignant neoplasm of breast; Z82.3 Family history of stroke; Z79.52 Long term (current) use of systemic steroids

== ENCOUNTER 2017-09-06 15:17 | Emergency (ER) | payer OTHER ==
[~2017-09-06] VITALS: Wt 81.6 kg
[~2017-09-06 15:17] MED LIST changes: +VITAMIN D-32000 UNIT PO
[2017-09-06 15:25] VITALS: BP 168/83
[2017-09-06 15:52] LABS: BASO # 0.1 10*3/uL (0.0-0.1); BASO % 1.3 % (0.0-1.0); EOS # 0.5 10*3/uL (0.0-0.4); EOS % 7.5 % (1.0-4.0); HEMATOCRIT 39.7 % (37.0-47.0); HEMOGLOBIN 13.2 g/dl (12.0-16.0); LYMPH # 1.1 10*3/uL (1.3-4.4); LYMPH % 15.3 % (27.0-41.0); MEAN CELL VOLUME 92.8 fl (81.0-99.0); MEAN CORPUSCULAR HGB 30.8 pg (27.0-31.0); MEAN CORPUSCULAR HGB CONC 33.2 g/dl (33.0-37.0); MEAN PLATELET VOLUME 10.3 fl (9.6-12.3); MONO # 0.5 10*3/uL (0.1-1.0); MONO % 7.1 % (3.0-9.0); NEUT # 4.9 10*3/uL (2.3-7.9); NEUT % 68.5 % (47.0-73.0); PLATELET COUNT AUTOMATED 149 10*3/uL (130-400); RED BLOOD COUNT 4.28 10*6/uL (4.10-5.10); RED CELL DISTRI WIDTH 12.6 % (0-14.5); WHITE BLOOD COUNT 7.1 10*3/uL (4.8-10.8)
[2017-09-06 16:01] LABS: ACT PARTIAL THROMBO TIME 23.4 SECONDS (20.8-31.5); INTERNATIONAL NORM RATIO 0.9 (2.0-3.5)
[2017-09-06 16:08] LABS: ALBUMIN 3.7 gm/dl (3.1-4.5); ALKALINE PHOSPHATASE 66 U/L (45-117); BUN 8 mg/dl (7-24); CHLORIDE 106 mmol/L (98-107); CREATININE 0.66 mg/dL (0.55-1.02); POTASSIUM 3.9 mmol/L (3.5-5.1); SGOT/AST 17 IU/L (3-35); SGPT/ALT 12 U/L (12-78); SODIUM 141 mmol/L (136-145); TOTAL PROTEIN 6.7 gm/dL (6.4-8.2)
[2017-09-06 16:11] LABS: TROPONIN I < 0.015 ng/ml (<0.045)
== END 2017-09-06 18:39 | disposition home or self-care (01) ==
LOC: ED 15:17
PROVIDERS: Emergency Medicine
DX: R07.89 Other chest pain (principal); I25.10 Atherosclerotic heart disease of native coronary artery without angina pectoris; I48.2 Chronic atrial fibrillation; J44.9 Chronic obstructive pulmonary disease, unspecified; I10 Essential (primary) hypertension; E78.5 Hyperlipidemia, unspecified; Z99.81 Dependence on supplemental oxygen; Z87.891 Personal history of nicotine dependence; Z90.710 Acquired absence of both cervix and uterus; Z98.890 Other specified postprocedural states; Z90.49 Acquired absence of other specified parts of digestive tract; Z79.899 Other long term (current) drug therapy

== ENCOUNTER 2017-09-24 06:58 | Inpatient (IN) | payer OTHER ==
[~2017-09-24] VITALS: Ht 175.2 cm; Wt 68.2 kg
[2017-09-24] VITALS (8 sets, daily range): BP systolic 112–192; BP diastolic 74–96
--- NOTE | ~2017-09-24 | CON ---
[place], [place] REPORT OF CONSULTATION NAME: PRIYANKA NORTON UNIT #: [id number] ROOM: 512 DOCTOR: KIRILL DSOUZA MD BIRTHDATE: [birth year] DOS: 09/24/2017 HISTORY OF PRESENT ILLNESS: This is a 72-year-old -Mexican woman with a history of dilated cardiomyopathy with an EF that has been very low for over a decade. She has had chronic systolic heart failure with occasional exacerbation. She gets dobutamine treatment twice a week at [facility] [place]. She has chronic atrial fibrillation and had AV node ablation and an AICD was implanted in October 2015. She has significant COPD, quit smoking some time ago. She has mild carotid artery stenosis as well. Diagnostic heart catheterization in 2015 demonstrated no coronary artery disease. She has had several admissions to the hospital because of chest pain and it is almost always has been coming from the chest wall. She came to the hospital because for the last day or two, she has had some strange feeling that feels like something moving up and down in the chest, but she cannot clearly say if these are palpitations. There is no accompanying dizziness with this, but she was a little more short of breath. No loss of consciousness. She has not had any orthopnea or swelling of the lower extremities. She has no cough or fever. HOME MEDICATIONS: Have been aspirin, furosemide, lisinopril, metoprolol, spironolactone, and pravastatin and dobutamine twice a week as outpatient at the [facility] [place]. PHYSICAL EXAMINATION: GENERAL: This revealed the patient is very pleasant, alert. She is oriented. She is not tachypneic. Her complexion is normal. VITAL SIGNS: Pulse is regular at 72, blood pressure has been 98/70. NECK: JVP is normal. AJR is negative. LUNGS: There is no edema in the lower extremities. CARDIOVASCULAR: Cardiac auscultation reveals no murmurs. There is no rub. RESPIRATORY: She has oxygen on and is not tachypneic. Hyperresonance is present bilaterally and auscultation reveals at least moderately diminished breath sounds with adventitious sounds. DIAGNOSTIC DATA: Monitor shows AFib with ventricular pacing. IMPRESSION: 1. This patient has some strange feeling in the chest, which may represent some kind of dysrhythmia, but nothing has shown up on the monitor. 2. Severe nonischemic cardiomyopathy is well compensated. 3. Chronic atrial fibrillation, with atrioventricular node ablation. RECOMMENDATIONS: To interrogate the AICD device and see if there have been any dysrhythmias in the last couple of days. Otherwise same cardiac medications should be continued. I thank for this consult. [place], [place] REPORT OF CONSULTATION NAME: PRIYANKA NORTON UNIT #: [id number] ROOM: 512 DOCTOR: KIRILL DSOUZA MD BIRTHDATE: [birth year] KIRILL DSOUZA MD CM:CONSTR:REPORT OF CONSULTATION 1151 09/24/17 1704 interface
--- NOTE | ~2017-09-24 | PR ---
[place], [place] PROGRESS NOTE NAME: PRIYANKA NORTON UNIT #: [id number] ROOM: 512 DOCTOR: LORETTA HILLMAN MD BIRTHDATE: [birth year] DOS: SUBJECTIVE: The patient has been admitted to the hospital with chest pain and she is also having ASHD, hypertension, hyperlipidemia and having pacemaker in position. She is complaining of some chest pain often today and her blood pressure is also staying down, it is 90/55 today. Her temperature is 98.6, pulse 74, respirations 18 and her heart is regular. Chest is clear. Abdomen is soft, but patient is feeling sort of weak and she does not feel like going home, so we will keep her 1 day more in the hospital. LORETTA HILLMAN MD CM:PNTRANS 53 [phone] LORETTA HILLMAN MD 09/26/171958 interface
--- NOTE | ~2017-09-24 | DS ---
[place], [place] DISCHARGE SUMMARY NAME: PRIYANKA NORTON UNIT #: [id number] ROOM: 512 DOCTOR: LORETTA HILLMAN MD BIRTHDATE: [birth year] DOS: 09/25/2017 HOSPITAL COURSE: The patient has been admitted to the hospital with chest pain due to acute bronchitis with COPD with emphysema and tobacco abuse and she was treated with antibiotic and Solu-Medrol and ____ treatment. Today she is feeling fine. She denies any chest pain. No difficulty in breathing. No nausea. No vomiting. Her chest is clear. Heart is regular. Abdomen is soft. Her chest x-ray was normal and there was no evidence of any myocardial infarction. The patient is very strongly advised to stop smoking. She is being discharged on amoxicillin 500 mg every 8 hour for 1 week and Claritin 10 mg daily for 1 month and Solu-Medrol ____ 1 puff twice daily. She is very, very strongly advised to stop smoking and come to the office for followup. LORETTA HILLMAN MD CM:DISCHJOSE [id number] LORETTA HILLMAN MD 09/27/17 1534 DARCY [email or web address].R
--- NOTE | ~2017-09-24 | PR ---
[place], [place] PROGRESS NOTE NAME: PRIYANKA NORTON UNIT #: [id number] ROOM: 512 DOCTOR: KIRILL DSOUZA MD BIRTHDATE: [birth year] DOS: 09/27/2017 SUBJECTIVE: She does not have any shortness of breath and has not had any PND during hospital stay. She gets lightheaded and little off balance when she gets up and walks. AICD has not shocked. OBJECTIVE: GENERAL: She looks well. Color is fine. She is not tachypneic. Comfortable. VITAL SIGNS: Pulse is 76 and regular, blood pressure 129/81. NECK: JVP is normal. AJR is negative. LUNGS: Breath sounds are [id number] diminished with some adventitious sounds. EXTREMITIES: No edema in the lower extremities. IMPRESSION: 1. This patient has severe nonischemic cardiomyopathy that appears well compensated. She gets dobutamine treatment twice a week and is due for one tomorrow. 2. Chronic atrial fibrillation with ventricular pacing. 3. She has an AICD that has been functioning fine. 4. Chronic obstructive pulmonary disease is significant and that probably is causing exertional shortness of breath. When she goes home, she should be on a loop diuretic; I believe she was on one when she came into the hospital. KIRILL DSOUZA MD CM:PNTRANS 1713 [id number] KIRILL DSOUZA MD 09/28/17 0139 interface
--- NOTE | ~2017-09-24 | PR ---
[place], [place] PROGRESS NOTE NAME: PRIYANKA NORTON UNIT #: [id number] ROOM: 512 DOCTOR: ANA PAULA FELICIANO MD BIRTHDATE: [birth year] DOS: 09/28/2017 SUBJECTIVE: The patient examined. The patient was seen by Dr. Lynch yesterday. Appears to be hemodynamically stable. Blood pressure is stable. Heart rate is very well controlled. OBJECTIVE: VITAL SIGNS: Blood pressure is 103/70, heart rate is 77. I and O's, negative 990. NECK: Supple, no JVD. LUNGS: Clear. HEART: Sounds are regular. ABDOMEN: Soft, nontender. NEUROLOGIC: Stable. REVIEW OF SYSTEMS: A 6-8 systems reviewed. LABORATORY DATA: Reviewed, showed a hemoglobin 13 and hematocrit 39.4. Electrolytes are pending. IMPRESSION: The patient with nonischemic cardiomyopathy, chronic atrial fibrillation, automatic implantable cardioverter defibrillator, and chronic obstructive pulmonary disease. PLAN: Cardiac status appears to be stable. Continue the present care. Continue oral diuretics and will follow up. ANA PAULA FELICIANO MD CM:PNTRANS 0727 0933 ANA PAULA FELICIANO MD 09/28/17 0931 interface
--- NOTE | ~2017-09-24 | EKG ---
[place], [place] ELECTROCARDIOGRAM REPORT NAME: PRIYANKA NORTON UNIT #: [id number] ROOM: 512 DOCTOR: KIRILL DSOUZA MD BIRTHDATE: [birth year] DOS: 09/24/2017 TIME: 0710 hours. FINDINGS: 1. Underlying rhythm is atrial fibrillation and ventricular pacing at 75 beats per minute. 2. The tracing is abnormal. 3. No previous tracing is available for comparison. KIRILL DSOUZA MD CM:EKGRPT:ELECTROCARDIOGRAM REPORT 1637 1837 KIRILL DSOUZA MD
[2017-09-24 07:47] LABS: BASO # 0.1 10*3/uL (0.0-0.1); BASO % 1.2 % (0.0-1.0); EOS # 0.4 10*3/uL (0.0-0.4); EOS % 5.9 % (1.0-4.0); HEMOGLOBIN 12.6 g/dl (12.0-16.0); LYMPH # 0.8 10*3/uL (1.3-4.4); LYMPH % 13.9 % (27.0-41.0); MEAN CELL VOLUME 92.7 fl (81.0-99.0); MEAN CORPUSCULAR HGB 31.6 pg (27.0-31.0); MEAN CORPUSCULAR HGB CONC 34.1 g/dl (33.0-37.0); MEAN PLATELET VOLUME 11.1 fl (9.6-12.3); MONO # 0.4 10*3/uL (0.1-1.0); MONO % 7.2 % (3.0-9.0); NEUT # 4.3 10*3/uL (2.3-7.9); NEUT % 71.5 % (47.0-73.0); PLATELET COUNT AUTOMATED 147 10*3/uL (130-400); RED BLOOD COUNT 3.99 10*6/uL (4.10-5.10)
[2017-09-24 08:03] LABS: ALBUMIN 3.5 gm/dl (3.1-4.5); ALKALINE PHOSPHATASE 64 U/L (45-117); BUN 10 mg/dl (7-24); CHLORIDE 107 mmol/L (98-107); CREATININE 0.64 mg/dL (0.55-1.02); POTASSIUM 3.2 mmol/L (3.5-5.1); SGOT/AST 10 IU/L (3-35); SGPT/ALT 11 U/L (12-78); SODIUM 142 mmol/L (136-145); TOTAL PROTEIN 6.4 gm/dL (6.4-8.2)
[2017-09-24 08:06] LABS: TROPONIN I < 0.015 ng/ml (<0.045)
[2017-09-25 00:14] VITALS: BP 102/61
[2017-09-25 08:00] VITALS: BP 101/66
[2017-09-25 12:00] VITALS: BP 93/70
[2017-09-25 16:00] VITALS: BP 99/54
[2017-09-25 20:00] VITALS: BP 89/67
[2017-09-26] VITALS: BP 109/61
[2017-09-26 08:00] VITALS: BP 94/71
[2017-09-26 12:00] VITALS: BP 106/72
[2017-09-26 16:00] VITALS: BP 128/86
[2017-09-26 20:00] VITALS: BP 106/71
[2017-09-27] VITALS: BP 98/58
[2017-09-27 08:00] VITALS: BP 101/57
[2017-09-27 12:00] VITALS: BP 120/77
[2017-09-27 16:00] VITALS: BP 129/81
[2017-09-27 20:00] VITALS: BP 119/72
[2017-09-28] VITALS: BP 103/74
[2017-09-28 06:52] LABS: BASO # 0.1 10*3/uL (0.0-0.1); BASO % 1.3 % (0.0-1.0); EOS # 0.4 10*3/uL (0.0-0.4); EOS % 8.3 % (1.0-4.0); HEMATOCRIT 39.4 % (37.0-47.0); LYMPH # 0.9 10*3/uL (1.3-4.4); LYMPH % 18.1 % (27.0-41.0); MEAN CELL VOLUME 93.4 fl (81.0-99.0); MEAN CORPUSCULAR HGB 30.8 pg (27.0-31.0); MEAN PLATELET VOLUME 11.3 fl (9.6-12.3); MONO # 0.4 10*3/uL (0.1-1.0); MONO % 6.9 % (3.0-9.0); NEUT # 3.4 10*3/uL (2.3-7.9); NEUT % 65.2 % (47.0-73.0); PLATELET COUNT AUTOMATED 136 10*3/uL (130-400); RED BLOOD COUNT 4.22 10*6/uL (4.10-5.10); RED CELL DISTRI WIDTH 12.3 % (0-14.5); WHITE BLOOD COUNT 5.2 10*3/uL (4.8-10.8)
[2017-09-28 07:36] LABS: ALBUMIN 3.2 gm/dl (3.1-4.5); ALKALINE PHOSPHATASE 62 U/L (45-117); BUN 14 mg/dl (7-24); CHLORIDE 107 mmol/L (98-107); CREATININE 0.68 mg/dL (0.55-1.02); POTASSIUM 3.9 mmol/L (3.5-5.1); SGOT/AST 11 IU/L (3-35); SGPT/ALT 13 U/L (12-78); SODIUM 143 mmol/L (136-145); TOTAL PROTEIN 6.2 gm/dL (6.4-8.2)
[2017-09-28 08:00] VITALS: BP 108/58
== END 2017-09-28 13:02 | disposition home or self-care (01) | DRG 311 ==
LOC: ED 06:58 → 5E 09:13 → EDHOLD 09:13 → 5E 09:29
PROVIDERS: Emergency Medicine; Internal Medicine
PROC: 4B02XTZ Measurement of Cardiac Defibrillator, External Approach (ICD-10-PCS; principal; 2017-09-24)
DX: I24.8 Other forms of acute ischemic heart disease (principal); J96.11 Chronic respiratory failure with hypoxia; I42.8 Other cardiomyopathies; I50.20 Unspecified systolic (congestive) heart failure; I11.0 Hypertensive heart disease with heart failure; I48.2 Chronic atrial fibrillation; I34.1 Nonrheumatic mitral (valve) prolapse; I49.8 Other specified cardiac arrhythmias; E53.8 Deficiency of other specified B group vitamins; I25.10 Atherosclerotic heart disease of native coronary artery without angina pectoris; R73.03 Prediabetes; E55.9 Vitamin D deficiency, unspecified; J44.9 Chronic obstructive pulmonary disease, unspecified; E78.5 Hyperlipidemia, unspecified; L40.9 Psoriasis, unspecified; Z83.3 Family history of diabetes mellitus; Z86.79 Personal history of other diseases of the circulatory system; Z90.49 Acquired absence of other specified parts of digestive tract; Z95.810 Presence of automatic (implantable) cardiac defibrillator; Z79.899 Other long term (current) drug therapy; Z99.81 Dependence on supplemental oxygen; Z82.49 Family history of ischemic heart disease and other diseases of the circulatory system; Z82.3 Family history of stroke; Z80.3 Family history of malignant neoplasm of breast

== ENCOUNTER 2017-10-25 19:07 | Inpatient (IN) | payer MEDICARE, MEDICAID ==
[~2017-10-25] VITALS: Ht 175.2 cm; Wt 69.1 kg
--- NOTE | ~2017-10-25 | EKG ---
[place], [place] ELECTROCARDIOGRAM REPORT NAME: PRIYANKA NORTON UNIT #: [id number] ROOM: 403 DOCTOR: KIRILL DSOUZA MD BIRTHDATE: [birth year] DOS: 10/26/2017 TIME: 0324 hours FINDINGS: 1. Atrial fibrillation with ventricular pacing at 75 beats per minute. 2. An abnormal ECG. 3. No significant change from an ECG done about 3 hours earlier. KIRILL DSOUZA MD CM:EKGRPT:ELECTROCARDIOGRAM REPORT 1658 2216 KIRILL DSOUZA MD
--- NOTE | ~2017-10-25 | EKG ---
[place], [place] ELECTROCARDIOGRAM REPORT NAME: PRIYANKA NORTON UNIT #: [id number] ROOM: 403 DOCTOR: KIRILL DSOUZA MD BIRTHDATE: [birth year] DOS: 10/26/2017 TIME: 0038 hours FINDINGS: 1. Underlying rhythm is atrial fibrillation with ventricular pacing at 75 beats per minute. 2. An abnormal ECG. 3. No previous tracing is available for comparison. KIRILL DSOUZA MD CM:EKGRPT:ELECTROCARDIOGRAM REPORT 1658 2213 KIRILL DSOUZA MD
--- NOTE | ~2017-10-25 | PR ---
[place], [place] PROGRESS NOTE NAME: PRIYANKA NORTON UNIT #: [id number] ROOM: 403 DOCTOR: KIRILL DSOUZA MD BIRTHDATE: [birth year] DOS: 10/29/2017 SUBJECTIVE: Dr. Jeremías Sigala discussed her condition with me and the issue was since her LV ejection fraction appeared to have improved from her previous echos whether dobutamine treatment is still useful for her and we decided that we will forego this for the next 4 weeks or so until I see her in the office and if necessary, we will resume it. She feels fine now . She is lying flat without any shortness of breath. She had no PND, orthopnea. Does not have any cough. She is comfortable. OBJECTIVE: VITAL SIGNS: Pulse is 76 regular, blood pressure is 120/80. NECK: JVP is normal. AJR is negative. LUNGS: Breath sounds are fairly decent bilaterally. EXTREMITIES: No edema at all in the lower extremities. ECG has shown AFib with ventricular pacing. IMPRESSION: 1. This patient has dilated/nonischemic cardiomyopathy and this appears well compensated at this time and ejection fraction seems to have increased to about 40%. 2. Chronic atrial fibrillation. She had AV node ablation and a biventricular AICD implanted quite a while that is functioning normally. From cardiac standpoint, she may be discharged home. KIRILL DSOUZA MD CM:PNTRANS 0631 2349 KIRILL DSOUZA MD 10/29/17 2348 interface
--- NOTE | ~2017-10-25 | PR ---
[place], [place] PROGRESS NOTE NAME: PRIYANKA NORTON UNIT #: [id number] ROOM: 403 DOCTOR: KIRILL DSOUZA MD BIRTHDATE: [birth year] DOS: 10/28/2017 SUBJECTIVE: This patient has a nonischemic cardiomyopathy and has had chronic systolic heart failure and perhaps a diastolic component with it too. She has no significant coronary artery disease and does have chronic atrial fibrillation and has an AICD. She has been in and out of the hospital frequently. Previously, she has had episodes of vertigo. She was admitted to the hospital because of dizziness. Her vision went dark and she sweated a little, was nauseated, but did not pass out. She also stated when she moved her head and looked around, she would get more dizziness. She had no palpitations or chest pain. Her breathing has been as usual, i.e., exertional shortness of breath. Dr. Roberts saw her just a couple of days ago. She feels better now. She has no palpitations. Breathing is fine and has not had any dizziness. OBJECTIVE: VITAL SIGNS: Pulse is 74 regular, blood pressure has varied from 95 systolic to 134 mmHg. NECK: JVP is normal. AJR is negative. LUNGS: Breath sounds are fairly decent bilaterally with a very few adventitious sounds. EXTREMITIES: There is no edema in the lower extremities. LABORATORY DATA: Monitor shows atrial fibrillation with ventricular pacing. She had an AICD generator change recently and interrogation showed that it is functioning normally. IMPRESSION: 1. This patient had dizziness and lightheadedness. I think that it may be a component of low blood pressure and vertigo. These things have calmed down very nicely. 2. She had no dilated cardiomyopathy with chronic heart failure, which is well compensated and an echocardiogram done yesterday demonstrated an EF of about 40%, which is a little better than previously documented. She should stay on current medications and I would like to follow her in the office in the next 3-4 weeks. [place], [place] PROGRESS NOTE NAME: CHARLOTTE NORTONY UNIT #: [id number] ROOM: 403 DOCTOR: KIRILL DSOUZA MD BIRTHDATE: [birth year] KIRILL DSOUZA MD CM:PNAYLEEN 0711 1147 KIRILL DSOUZA MD 11/10/17 0751 interface
--- NOTE | ~2017-10-25 | EKG ---
[place], [place] ELECTROCARDIOGRAM REPORT NAME: PRIYANKA NORTON UNIT #: [id number] ROOM: 403 DOCTOR: KIRILL DSOUZA MD BIRTHDATE: [birth year] DOS: 10/26/2017 TIME: 0038 hours FINDINGS: 1. Atrial fibrillation with ventricular pacing at 75 beats per minute. 2. No significant change from an ECG done on the previous day. KIRILL DSOUZA MD CM:EKGRPT:ELECTROCARDIOGRAM REPORT 0558 0923 KIRILL DSOUZA MD
--- NOTE | ~2017-10-25 | EKG ---
[place], [place] ELECTROCARDIOGRAM REPORT NAME: PRIYANKA NORTON UNIT #: [id number] ROOM: 403 DOCTOR: KIRILL DSOUZA MD BIRTHDATE: [birth year] DOS: 10/26/2017 Time: 0324 hours. FINDINGS: 1. Atrial fibrillation with ventricular pacing at 75 beats per minute. 2. An abnormal ECG. 3. No significant change from an ECG done earlier in the day. KIRILL DSOUZA MD CM:EKGRPT:ELECTROCARDIOGRAM REPORT 0558 0925 KIRILL DSOUZA MD
--- NOTE | ~2017-10-25 | EKG ---
[place], [place] ELECTROCARDIOGRAM REPORT NAME: PRIYANKA NORTON UNIT #: [id number] ROOM: 403 DOCTOR: KIRILL DSOUZA MD BIRTHDATE: [birth year] DOS: 10/25/2017 TIME: 1912 hours FINDINGS: 1. Atrial fibrillation with ventricular pacing at 76 beats per minute. 2. An abnormal ECG. KIRILL DSOUZA MD CM:EKGRPT:ELECTROCARDIOGRAM REPORT 1658 2219 KIRILL DSOUZA MD
--- NOTE | ~2017-10-25 | EKG ---
[place], [place] ELECTROCARDIOGRAM REPORT NAME: PRIYANKA NORTON UNIT #: [id number] ROOM: 403 DOCTOR: KIRILL DSOUZA MD BIRTHDATE: [birth year] DOS: 10/25/2017 ECG #1. TIME: 1912 hours FINDINGS: 1. Atrial fibrillation with ventricular pacing at 76 beats per minute. 2. No previous tracing is available for comparison. KIRILL DSOUZA MD CM:EKGRPT:ELECTROCARDIOGRAM REPORT 0558 0919 KIRILL DSOUZA MD
--- NOTE | ~2017-10-25 | CON ---
[place], [place] REPORT OF CONSULTATION NAME: PRIYANKA NORTON UNIT #: [id number] ROOM: 403 DOCTOR: ANA PAULA FELICIANO MD BIRTHDATE: [birth year] DOS: 10/26/2017 I am covering for Dr. Lynch. HISTORY OF PRESENT ILLNESS: A 72-year-old female admitted with increasing shortness of breath and just dull ache. The patient had a recent battery replacement of the AICD about 3-4 weeks ago at [facility]. The patient states that she has been having some shortness of breath and dull ache. No acute EKG changes suggestion of myocardial injury or infarction. The patient gets outpatient dobutamine therapy. PAST MEDICAL HISTORY: Significant for aortic sclerosis, coronary artery disease, chronic AFib, hypertension, hyperlipidemia, AICD, history of congestive heart failure, and tricuspid regurgitation. PAST SURGICAL HISTORY: History of radiofrequency ablation, hysterectomy, cardiac catheterization, and AICD placement. SOCIAL HISTORY: Does not drink or smoke. HOME MEDICATIONS: As reported, lisinopril, metoprolol, pravastatin, and Xarelto. REVIEW OF SYSTEMS: CONSTITUTIONAL: No fever, no chills. HEENT: No visual disturbances, hearing problems. CARDIOVASCULAR: As per HPI. GASTROINTESTINAL: No nausea, no vomiting. GENITOURINARY: No dysuria. NEUROLOGICAL: Stable. PHYSICAL EXAMINATION: VITAL SIGNS: Blood pressure is 130/80. She is in atrial fibrillation underlying with a paced rhythm. NECK: Elevated JVD. LUNGS: Diminished breath sounds. HEART: Sounds are regular. ABDOMEN: Soft, nontender. EXTREMITIES: Intact pulses. No cyanosis, no edema. NEUROLOGIC: Intact. LABORATORY DATA: Sodium 142 and potassium 3.6. BUN and creatinine within normal limits. GFR is normal. Alkaline phosphatase normal. BNP is 702, which is elevated. Troponins are all negative. Hemoglobin 13.1, hematocrit 39.4. Chest x-ray showed cardiomegaly, no active pulmonary disease. IMPRESSION: Atypical chest discomfort, probable worsening of acute on chronic systolic heart failure, chronic atrial fibrillation, hypertension, and automatic implantable cardioverter defibrillator, recent placement. [place], [place] REPORT OF CONSULTATION NAME: PRIYANKA NORTON UNIT #: [id number] ROOM: 403 DOCTOR: ANA PAULA FELICIANO MD BIRTHDATE: [birth year] RECOMMENDATIONS: Agree with Xarelto. Agree with IV diuretics. Consideration should be continued outpatient dobutamine. Have the AICD interrogated and we will follow up. Strict I's and O's. ANA PAULA FELICIANO MD CM:CONSTR:REPORT OF CONSULTATION 0722 11/02/17 0745 interface
[2017-10-25 19:22] VITALS: BP 117/67
[2017-10-25 19:43] LABS: BASO # 0.1 10*3/uL (0.0-0.1); BASO % 1.1 % (0.0-1.0); EOS # 0.3 10*3/uL (0.0-0.4); EOS % 5.2 % (1.0-4.0); HEMATOCRIT 39.8 % (37.0-47.0); HEMOGLOBIN 13.1 g/dl (12.0-16.0); LYMPH # 1.1 10*3/uL (1.3-4.4); LYMPH % 16.2 % (27.0-41.0); MEAN CELL VOLUME 94.1 fl (81.0-99.0); MEAN CORPUSCULAR HGB CONC 32.9 g/dl (33.0-37.0); MEAN PLATELET VOLUME 11.5 fl (9.6-12.3); MONO # 0.4 10*3/uL (0.1-1.0); MONO % 5.5 % (3.0-9.0); NEUT # 4.7 10*3/uL (2.3-7.9); NEUT % 71.7 % (47.0-73.0); PLATELET COUNT AUTOMATED 137 10*3/uL (130-400); RED BLOOD COUNT 4.23 10*6/uL (4.10-5.10); WHITE BLOOD COUNT 6.5 10*3/uL (4.8-10.8)
[2017-10-25 19:52] LABS: INTERNATIONAL NORM RATIO 0.9 (2.0-3.5)
[2017-10-25 20:00] LABS: ALBUMIN 3.6 gm/dl (3.1-4.5); ALKALINE PHOSPHATASE 59 U/L (45-117); BUN 13 mg/dl (7-24); CHLORIDE 109 mmol/L (98-107); CREATININE 0.77 mg/dL (0.55-1.02); POTASSIUM 3.6 mmol/L (3.5-5.1); SGOT/AST 16 IU/L (3-35); SGPT/ALT 15 U/L (12-78); SODIUM 142 mmol/L (136-145); TOTAL PROTEIN 6.7 gm/dL (6.4-8.2); TROPONIN I < 0.015 ng/ml (<0.045)
[2017-10-25 20:01] VITALS: BP 119/72
[2017-10-25 20:15] LABS: BILIRUBIN 1+ (NEGATIVE); BLOOD NEGATIVE (NEGATIVE); CLARITY SL CLOUDY (CLEAR); COLOR YELLOW (YELLOW); GLUCOSE NEGATIVE (NEGATIVE); KETONE TRACE (NEGATIVE); LEUKO ESTERASE NEGATIVE (NEGATIVE); NITRITE NEGATIVE (NEGATIVE); PH 5.5 (5.0-9.0); SPECIFIC GRAVITY >= 1.030 (1.005-1.030)
[2017-10-25 20:28] LABS: BACTERIA 2+; MUCOUS TRACE; RBC 0-2 rbc/hpf (0-2)
[2017-10-25 20:46] VITALS: BP 133/81
[2017-10-25 21:45] VITALS: BP 149/81
[2017-10-26] VITALS: BP 138/82
[2017-10-26 06:58] LABS: BASO # 0.1 10*3/uL (0.0-0.1); BASO % 1.2 % (0.0-1.0); EOS # 0.5 10*3/uL (0.0-0.4); EOS % 9.2 % (1.0-4.0); HEMATOCRIT 38.9 % (37.0-47.0); HEMOGLOBIN 12.9 g/dl (12.0-16.0); LYMPH # 1.1 10*3/uL (1.3-4.4); LYMPH % 21.8 % (27.0-41.0); MEAN CELL VOLUME 94.9 fl (81.0-99.0); MEAN CORPUSCULAR HGB 31.5 pg (27.0-31.0); MEAN CORPUSCULAR HGB CONC 33.2 g/dl (33.0-37.0); MEAN PLATELET VOLUME 11.3 fl (9.6-12.3); MONO # 0.4 10*3/uL (0.1-1.0); MONO % 7.6 % (3.0-9.0); NEUT # 2.9 10*3/uL (2.3-7.9); PLATELET COUNT AUTOMATED 135 10*3/uL (130-400); RED CELL DISTRI WIDTH 12.8 % (0-14.5); WHITE BLOOD COUNT 4.9 10*3/uL (4.8-10.8)
[2017-10-26 07:14] LABS: ALBUMIN 3.2 gm/dl (3.1-4.5); ALKALINE PHOSPHATASE 57 U/L (45-117); BUN 11 mg/dl (7-24); CHLORIDE 112 mmol/L (98-107); CREATININE 0.64 mg/dL (0.55-1.02); PHOSPHOROUS 3.6 mg/dL (2.5-4.9); POTASSIUM 3.9 mmol/L (3.5-5.1); SGOT/AST 12 IU/L (3-35); SGPT/ALT 12 U/L (12-78); SODIUM 142 mmol/L (136-145); TOTAL PROTEIN 6.1 gm/dL (6.4-8.2)
[2017-10-26 08:00] VITALS: BP 110/69
[2017-10-26] MEDS ORDERED: ASPIRIN FOR CHI81 MG PO (09:22)
[2017-10-26 09:34] LABS: VITAMIN D, 25-HYDROXY 16.2 ng/mL (30-100)
[2017-10-26 12:00] VITALS: BP 120/72
[2017-10-26 16:00] VITALS: BP 103/59
[2017-10-26 17:56] VITALS: BP 110/50
[2017-10-26 20:00] VITALS: BP 103/60
[2017-10-27 00:04] VITALS: BP 105/62
[2017-10-27 06:36] LABS: BUN 14 mg/dl (7-24); CHLORIDE 108 mmol/L (98-107); CREATININE 0.68 mg/dL (0.55-1.02); PHOSPHOROUS 3.9 mg/dL (2.5-4.9); SODIUM 143 mmol/L (136-145)
[2017-10-27 08:00] VITALS: BP 102/68
[2017-10-27 12:00] VITALS: BP 114/70
[2017-10-27 16:00] VITALS: BP 134/74
[2017-10-27 20:00] VITALS: BP 114/79
[2017-10-28] VITALS: BP 95/54
[2017-10-28 06:17] LABS: BUN 13 mg/dl (7-24); CHLORIDE 107 mmol/L (98-107); CREATININE 0.62 mg/dL (0.55-1.02); SODIUM 142 mmol/L (136-145)
[2017-10-28] MEDS ORDERED: DOBUTAMINE250 MG/250 IV (07:48)
[2017-10-28 08:00] VITALS: BP 114/76
[2017-10-28 12:00] VITALS: BP 111/69
[2017-10-28 16:00] VITALS: BP 127/75
[2017-10-28 20:00] VITALS: BP 120/87
[2017-10-29 00:24] VITALS: BP 101/74; BP 128/80
[2017-10-29 08:00] VITALS: BP 111/72
[2017-10-29 12:00] VITALS: BP 113/56
[2017-10-29] MEDS ORDERED: XARE20MG PO (13:05)
[2017-10-29] MEDS ORDERED: VITAMIN D-32000 UNIT PO (13:05)
[2017-12-07] MEDS ORDERED: ASPIRIN325 M2 PO (07:38)
== END 2017-10-29 13:25 | disposition home or self-care (01) | DRG 313 ==
LOC: ED 19:07 → 4E 21:14 → EDHOLD 21:14 → 4E 21:27
PROVIDERS: Emergency Medicine; Internal Medicine; Internal Medicine Hospice and Palliative Medicine
PROC: 4B02XTZ Measurement of Cardiac Defibrillator, External Approach (ICD-10-PCS; principal; 2017-10-26)
DX: R07.89 Other chest pain (principal); I25.10 Atherosclerotic heart disease of native coronary artery without angina pectoris; I50.23 Acute on chronic systolic (congestive) heart failure; E44.0 Moderate protein-calorie malnutrition; J96.11 Chronic respiratory failure with hypoxia; R82.2 Biliuria; I42.0 Dilated cardiomyopathy; E87.8 Other disorders of electrolyte and fluid balance, not elsewhere classified; I42.8 Other cardiomyopathies; I42.9 Cardiomyopathy, unspecified; I48.2 Chronic atrial fibrillation; E83.41 Hypermagnesemia; E53.8 Deficiency of other specified B group vitamins; E78.5 Hyperlipidemia, unspecified; J44.9 Chronic obstructive pulmonary disease, unspecified; I49.8 Other specified cardiac arrhythmias; R91.1 Solitary pulmonary nodule; I34.0 Nonrheumatic mitral (valve) insufficiency; D72.824 Basophilia; R82.71 Bacteriuria; I95.1 Orthostatic hypotension; E86.0 Dehydration; I11.0 Hypertensive heart disease with heart failure; L40.9 Psoriasis, unspecified; Z90.710 Acquired absence of both cervix and uterus; Z90.89 Acquired absence of other organs; Z87.891 Personal history of nicotine dependence; Z82.3 Family history of stroke; Z80.3 Family history of malignant neoplasm of breast; Z99.81 Dependence on supplemental oxygen; Z68.21 Body mass index [BMI] 21.0-21.9, adult; Z84.89 Family history of other specified conditions; Z79.82 Long term (current) use of aspirin; Z79.899 Other long term (current) drug therapy; Z95.810 Presence of automatic (implantable) cardiac defibrillator; Z82.49 Family history of ischemic heart disease and other diseases of the circulatory system; Z83.3 Family history of diabetes mellitus

== ENCOUNTER 2017-11-22 10:18 | Inpatient (IN) | payer MEDICARE, MEDICAID ==
[~2017-11-22] VITALS: Ht 175.2 cm; Wt 69.4 kg
--- NOTE | ~2017-11-22 | EKG ---
[place], [place] ELECTROCARDIOGRAM REPORT NAME: PRIYANKA NORTON UNIT #: [id number] ROOM: 406 DOCTOR: KIRILL DSOUZA MD BIRTHDATE: [birth year] DOS: 11/22/2017 TIME: 1045 hours. Underlying rhythm is atrial fibrillation with ventricular pacing at 75 beats per minute. No previous tracing is available for comparison. KIRILL DSOUZA MD CM:EKGRPT:ELECTROCARDIOGRAM REPORT 1748 0007 KIRILL DSOUZA MD
--- NOTE | ~2017-11-22 | CON ---
[place], [place] REPORT OF CONSULTATION NAME: PRIYANKA NORTON UNIT #: [id number] ROOM: 406 DOCTOR: JODIE ESPINOSAANA PAULA BIRTHDATE: [birth year] DOS: I am seeing this patient on behalf of Dr. Lynch. HISTORY OF PRESENT ILLNESS: A 72-year-old female who has been admitted multiple times in the past. The patient reported she has been short of breath, since not getting dobutamine. Apparently, the dobutamine was stopped by Dr. Lynch. The patient also reports associated nausea, dizziness, edema in her legs. No chest discomfort, no acute EKG changes suggestion of myocardial injury or infarction. CT scan of the head showed mild chronic ischemic degenerative changes. Chest x-ray showed no acute cardiopulmonary process. PAST MEDICAL HISTORY: Significant for chronic atrial fibrillation, COPD, left ventricular hypertrophy, mitral regurgitation, oxygen dependency, systolic congestive heart failure, and cardiomyopathy. PAST SURGICAL HISTORY: Radiofrequency ablation, history of permanent AICD, appendectomy and tonsillectomy. SOCIAL HISTORY: Does not smoke, drink or use drugs. FAMILY HISTORY: Noncontributory. HOME MEDICATIONS: Aspirin, lisinopril, Entresto and Xarelto. REVIEW OF SYSTEMS: CONSTITUTIONAL: No fever, no chills. HEENT: No visual disturbance or hearing problems. CARDIOVASCULAR: Reports lower extremity edema. No chest discomfort. RESPIRATORY: Reports shortness of breath. GASTROINTESTINAL: No nausea, no vomiting. NEUROLOGIC: Intact. PHYSICAL EXAMINATION: VITAL SIGNS: Blood pressure is 130/70. The patient is paced rhythm. HEENT: Mildly elevated JVD. LUNGS: Diminished breath sounds. HEART: Sounds are paced. NEUROLOGIC: Stable. LUNGS: No wheezing, no stridor. Few bilateral basal crackles. EXTREMITIES: About 2+ edema. LABORATORY DATA: Sodium 144, potassium 3.6 and creatinine is 0.7. Troponins have been negative. Hemoglobin 11.9, hematocrit 36.1. CT scan as mentioned. Chest x-ray showed no CHF. IMPRESSION: The patient with a known history of systolic heart failure with mild exacerbation, hypertension, hyperlipidemia, and mitral regurgitation. RECOMMENDATIONS: Continue IV Lasix as ordered. Put her on 1500 mL fluid [place], [place] REPORT OF CONSULTATION NAME: PRIYANKA NORTON UNIT #: [id number] ROOM: [facility] DOCTOR: ANA PAULA FELICIANO MD BIRTHDATE: [birth year] restriction. We will discuss with Dr. Lynch about the dobutamine and we will follow up. ANA PAULA FELICIANO MD CM:CONSTR:REPORT OF CONSULTATION 0706 11/23/17 0744 interface
[~2017-11-22 10:18] MED LIST changes: +ASPIRIN FOR CHI81 MG PO
[2017-11-22 10:21] VITALS: BP 152/80
[2017-11-22 10:55] LABS: BASO # 0.1 10*3/uL (0.0-0.1); EOS # 0.3 10*3/uL (0.0-0.4); EOS % 4.9 % (1.0-4.0); HEMATOCRIT 36.1 % (37.0-47.0); HEMOGLOBIN 11.9 g/dl (12.0-16.0); LYMPH # 1.1 10*3/uL (1.3-4.4); LYMPH % 16.6 % (27.0-41.0); MEAN CELL VOLUME 95.3 fl (81.0-99.0); MEAN CORPUSCULAR HGB 31.4 pg (27.0-31.0); MEAN PLATELET VOLUME 11.2 fl (9.6-12.3); MONO # 0.4 10*3/uL (0.1-1.0); MONO % 6.3 % (3.0-9.0); NEUT # 4.7 10*3/uL (2.3-7.9); NEUT % 70.8 % (47.0-73.0); PLATELET COUNT AUTOMATED 147 10*3/uL (130-400); RED BLOOD COUNT 3.79 10*6/uL (4.10-5.10); RED CELL DISTRI WIDTH 13.2 % (0-14.5); WHITE BLOOD COUNT 6.7 10*3/uL (4.8-10.8)
[2017-11-22 11:11] LABS: ALBUMIN 3.6 gm/dl (3.1-4.5); ALKALINE PHOSPHATASE 60 U/L (45-117); BUN 9 mg/dl (7-24); CHLORIDE 107 mmol/L (98-107); CREATININE 0.75 mg/dL (0.55-1.02); POTASSIUM 3.6 mmol/L (3.5-5.1); SGOT/AST 8 IU/L (3-35); SGPT/ALT 14 U/L (12-78); SODIUM 144 mmol/L (136-145); TOTAL PROTEIN 6.3 gm/dL (6.4-8.2)
[2017-11-22 11:13] LABS: TROPONIN I < 0.015 ng/ml (<0.045)
[2017-11-22 11:36] VITALS: BP 144/80
[2017-11-22 12:18] VITALS: BP 138/78
[2017-11-22 13:10] VITALS: BP 135/71
[2017-11-22] MEDS ORDERED: ENTRESTO 24 MG1 EACH PO (13:20)
[2017-11-22 16:00] VITALS: BP 128/81
[2017-11-22 20:00] VITALS: BP 118/64; BP 158/84
[2017-11-23] VITALS: BP 120/49; BP 148/71
[2017-11-23 07:49] LABS: BASO % 0.1 % (0.0-1.0); HEMATOCRIT 41.7 % (37.0-47.0); LYMPH # 0.8 10*3/uL (1.3-4.4); LYMPH % 5.2 % (27.0-41.0); MEAN CELL VOLUME 94.6 fl (81.0-99.0); MEAN CORPUSCULAR HGB 31.7 pg (27.0-31.0); MEAN CORPUSCULAR HGB CONC 33.6 g/dl (33.0-37.0); MEAN PLATELET VOLUME 11.6 fl (9.6-12.3); MONO # 0.9 10*3/uL (0.1-1.0); MONO % 5.5 % (3.0-9.0); NEUT % 88.8 % (47.0-73.0); PLATELET COUNT AUTOMATED 176 10*3/uL (130-400); RED BLOOD COUNT 4.41 10*6/uL (4.10-5.10); RED CELL DISTRI WIDTH 12.9 % (0-14.5); WHITE BLOOD COUNT 15.7 10*3/uL (4.8-10.8)
[2017-11-23 07:54] LABS: ACT PARTIAL THROMBO TIME 24.4 SECONDS (20.8-31.5)
[2017-11-23 07:59] LABS: ALKALINE PHOSPHATASE 72 U/L (45-117); BUN 17 mg/dl (7-24); CHLORIDE 100 mmol/L (98-107); CREATININE 0.88 mg/dL (0.55-1.02); PHOSPHOROUS 4.2 mg/dL (2.5-4.9); POTASSIUM 3.7 mmol/L (3.5-5.1); SGOT/AST 7 IU/L (3-35); SGPT/ALT 16 U/L (12-78); SODIUM 142 mmol/L (136-145); TOTAL PROTEIN 7.7 gm/dL (6.4-8.2)
[2017-11-23 08:00] VITALS: BP 135/75
[2017-11-23 08:04] LABS: FREE T4 0.81 ng/dl (0.76-1.46)
[2017-11-23 12:00] VITALS: BP 117/78
[2017-11-23 16:00] VITALS: BP 94/55
[2017-11-23 18:00] VITALS: BP 96/72
[2017-11-23 20:00] VITALS: BP 123/77; BP 136/77
[2017-11-24] VITALS: BP 109/64
[2017-11-24 08:00] VITALS: BP 100/63
[2017-11-24] MEDS ORDERED: DOBUTAMINE250 MG/250 IV (11:04)
[2017-12-07] MEDS ORDERED: ASPIRIN325 M2 PO (07:38)
[2018-01-03] MEDS ORDERED: DOBUTAMINE250 MG/250 IV (04:34)
[2018-01-07] MEDS ORDERED: ASPIRIN325 M2 PO (11:18)
[2018-01-11] MEDS ORDERED: LASIX20 MG PO (07:33)
[2018-01-11] MEDS ORDERED: XARELTO20 M1 PO (07:42)
[2018-01-21] MEDS ORDERED: ASPIRIN ADULT L81 M1 PO (08:52)
== END 2017-11-24 12:00 | disposition home or self-care (01) | DRG 291 ==
LOC: ED 10:18 → 4E 12:26 → EDHOLD 12:26 → 4E 13:16
PROVIDERS: Family Medicine; Internal Medicine
DX: I11.0 Hypertensive heart disease with heart failure (principal); J18.9 Pneumonia, unspecified organism; J96.11 Chronic respiratory failure with hypoxia; D68.59 Other primary thrombophilia; I42.8 Other cardiomyopathies; I07.1 Rheumatic tricuspid insufficiency; J44.0 Chronic obstructive pulmonary disease with (acute) lower respiratory infection; I48.2 Chronic atrial fibrillation; Z99.81 Dependence on supplemental oxygen; I50.23 Acute on chronic systolic (congestive) heart failure; D64.9 Anemia, unspecified; I34.0 Nonrheumatic mitral (valve) insufficiency; I35.8 Other nonrheumatic aortic valve disorders; R73.9 Hyperglycemia, unspecified; E53.8 Deficiency of other specified B group vitamins; R91.1 Solitary pulmonary nodule; E55.9 Vitamin D deficiency, unspecified; I25.10 Atherosclerotic heart disease of native coronary artery without angina pectoris; E78.5 Hyperlipidemia, unspecified; F41.9 Anxiety disorder, unspecified; Z90.710 Acquired absence of both cervix and uterus; Z90.49 Acquired absence of other specified parts of digestive tract; Z95.810 Presence of automatic (implantable) cardiac defibrillator; Z87.891 Personal history of nicotine dependence; Z79.899 Other long term (current) drug therapy; Z80.3 Family history of malignant neoplasm of breast; Z82.3 Family history of stroke; Z79.82 Long term (current) use of aspirin

== ENCOUNTER 2017-11-24 19:15 | Inpatient (IN) | payer MEDICARE, MEDICAID ==
[~2017-11-24] VITALS: Ht 175.2 cm; Wt 67.4 kg
--- NOTE | ~2017-11-24 | EKG ---
[place], [place] ELECTROCARDIOGRAM REPORT NAME: PRIYANKA NORTON UNIT #: [id number] ROOM: 520 DOCTOR: KIRILL SDOUZA MD BIRTHDATE: [birth year] DOS: 11/24/2017 TIME: 2004 hours. FINDINGS: 1. Underlying rhythm is atrial fibrillation with ventricular pacing at 75 beats per minute. 2. An abnormal ECG. 3. No previous tracing is available for comparison. KIRILL DSOUZA MD CM:EKGRPT:ELECTROCARDIOGRAM REPORT 0922 1256 KIRILL DSOUZA MD
--- NOTE | ~2017-11-24 | CON ---
[place], [place] REPORT OF CONSULTATION NAME: PRIYANKA NORTON UNIT #: [id number] ROOM: 520 DOCTOR: KIRILL DSOUZA MD BIRTHDATE: [birth year] DOS: 11/25/2017 HISTORY OF PRESENT ILLNESS: This is a 72-year-old -[place] woman with a nonischemic dilated cardiomyopathy with normal coronary arteries in the remote past. She had an AICD and has chronic atrial fibrillation. She has been in the hospital on a very regular basis and was discharged just yesterday. At that time, she did not have any evidence of cardiac decompensation, no edema and her neck veins were normal. Now, she came back a day after discharge because she has some chest pain. Her legs were swollen. She could not breathe. She had a spinning sensation and dizziness. She had something happening to her defibrillator. She has many, many symptoms that were very nonspecific. Examination is unchanged from last 2-3 hospitalizations. DIAGNOSTIC STUDIES: ECG shows atrial fibrillation with ventricular pacing. IMPRESSION: This patient has severe ischemic cardiomyopathy, which is well compensated. There was no edema in the lower extremities over the torso and she went home 2 days ago and there is none now and she feels she was just swollen. AICD is working fine and that has been interrogated many times. RECOMMENDATIONS: This patient I think has depression and anxiety. I think that needs to be readdressed seriously. There are no active cardiac issues going on with her. I thank you for this consult. KIRILL DSOUZA MD CM:CONSTR:REPORT OF CONSULTATION 1031 11/26/17 0011 interface
[2017-11-24 19:15] VITALS: BP 112/82
[~2017-11-24 19:15] MED LIST changes: +ENTRESTO 24 MG1 EACH PO
[2017-11-24 20:12] LABS: BASO # 0.1 10*3/uL (0.0-0.1); BASO % 0.7 % (0.0-1.0); EOS # 0.2 10*3/uL (0.0-0.4); HEMATOCRIT 45.2 % (37.0-47.0); HEMOGLOBIN 15.2 g/dl (12.0-16.0); LYMPH # 0.9 10*3/uL (1.3-4.4); LYMPH % 9.8 % (27.0-41.0); MEAN CORPUSCULAR HGB 31.6 pg (27.0-31.0); MEAN CORPUSCULAR HGB CONC 33.6 g/dl (33.0-37.0); MEAN PLATELET VOLUME 11.3 fl (9.6-12.3); MONO # 0.7 10*3/uL (0.1-1.0); MONO % 7.4 % (3.0-9.0); NEUT # 7.3 10*3/uL (2.3-7.9); NEUT % 79.8 % (47.0-73.0); PLATELET COUNT AUTOMATED 169 10*3/uL (130-400); RED BLOOD COUNT 4.81 10*6/uL (4.10-5.10); WHITE BLOOD COUNT 9.2 10*3/uL (4.8-10.8)
[2017-11-24 20:26] VITALS: BP 105/72
[2017-11-24 20:28] LABS: ALBUMIN 3.9 gm/dl (3.1-4.5); ALKALINE PHOSPHATASE 69 U/L (45-117); BUN 23 mg/dl (7-24); CHLORIDE 100 mmol/L (98-107); CREATININE 0.98 mg/dL (0.55-1.02); POTASSIUM 3.3 mmol/L (3.5-5.1); SGOT/AST 6 IU/L (3-35); SGPT/ALT 15 U/L (12-78); SODIUM 140 mmol/L (136-145); TOTAL PROTEIN 7.3 gm/dL (6.4-8.2)
[2017-11-24 20:30] LABS: TROPONIN I < 0.015 ng/ml (<0.045)
[2017-11-24 21:05] VITALS: BP 114/72
[2017-11-24 21:56] VITALS: BP 103/72
[2017-11-24 22:30] VITALS: BP 104/70
[2017-11-24 23:00] VITALS: BP 126/80
[2017-11-25] VITALS: BP 126/80
[2017-11-25 02:30] LABS: BASO # 0.1 10*3/uL (0.0-0.1); BASO % 1.2 % (0.0-1.0); EOS # 0.2 10*3/uL (0.0-0.4); EOS % 3.1 % (1.0-4.0); HEMATOCRIT 43.2 % (37.0-47.0); HEMOGLOBIN 14.5 g/dl (12.0-16.0); LYMPH # 1.5 10*3/uL (1.3-4.4); LYMPH % 19.7 % (27.0-41.0); MEAN CELL VOLUME 94.3 fl (81.0-99.0); MEAN CORPUSCULAR HGB 31.7 pg (27.0-31.0); MEAN CORPUSCULAR HGB CONC 33.6 g/dl (33.0-37.0); MEAN PLATELET VOLUME 11.4 fl (9.6-12.3); MONO # 0.7 10*3/uL (0.1-1.0); MONO % 8.5 % (3.0-9.0); NEUT # 5.2 10*3/uL (2.3-7.9); NEUT % 67.1 % (47.0-73.0); PLATELET COUNT AUTOMATED 157 10*3/uL (130-400); RED BLOOD COUNT 4.58 10*6/uL (4.10-5.10); RED CELL DISTRI WIDTH 13.2 % (0-14.5); WHITE BLOOD COUNT 7.8 10*3/uL (4.8-10.8)
[2017-11-25 02:45] LABS: ALBUMIN 3.6 gm/dl (3.1-4.5); ALKALINE PHOSPHATASE 64 U/L (45-117); BUN 20 mg/dl (7-24); CHLORIDE 101 mmol/L (98-107); CREATININE 0.82 mg/dL (0.55-1.02); PHOSPHOROUS 4.1 mg/dL (2.5-4.9); POTASSIUM 3.6 mmol/L (3.5-5.1); SGOT/AST 10 IU/L (3-35); SGPT/ALT 12 U/L (12-78); SODIUM 139 mmol/L (136-145); TOTAL PROTEIN 6.6 gm/dL (6.4-8.2)
[2017-11-25 08:00] VITALS: BP 104/76
[2017-11-25 12:00] VITALS: BP 106/62
[2017-12-07] MEDS ORDERED: ASPIRIN325 M2 PO (07:38)
[2018-01-03] MEDS ORDERED: DOBUTAMINE250 MG/250 IV (04:34)
[2018-01-07] MEDS ORDERED: ASPIRIN325 M2 PO (11:18)
[2018-01-11] MEDS ORDERED: LASIX20 MG PO (07:33)
[2018-01-11] MEDS ORDERED: XARELTO20 M1 PO (07:42)
[2018-01-21] MEDS ORDERED: ASPIRIN ADULT L81 M1 PO (08:52)
== END 2017-11-25 15:21 | disposition home or self-care (01) | DRG 312 ==
LOC: ED 19:15 → EDHOLD 22:23 → 5E 22:23
PROVIDERS: Internal Medicine; Nurse Practitioner
PROC: 4B02XTZ Measurement of Cardiac Defibrillator, External Approach (ICD-10-PCS; principal; 2017-11-25)
DX: R55 Syncope and collapse (principal); J96.11 Chronic respiratory failure with hypoxia; I11.0 Hypertensive heart disease with heart failure; I50.22 Chronic systolic (congestive) heart failure; I08.1 Rheumatic disorders of both mitral and tricuspid valves; I42.0 Dilated cardiomyopathy; I48.2 Chronic atrial fibrillation; J44.9 Chronic obstructive pulmonary disease, unspecified; R07.9 Chest pain, unspecified; E87.6 Hypokalemia; H53.8 Other visual disturbances; E78.5 Hyperlipidemia, unspecified; I25.10 Atherosclerotic heart disease of native coronary artery without angina pectoris; L40.9 Psoriasis, unspecified; D72.810 Lymphocytopenia; E55.9 Vitamin D deficiency, unspecified; E53.8 Deficiency of other specified B group vitamins; I25.5 Ischemic cardiomyopathy; Z79.82 Long term (current) use of aspirin; Z79.899 Other long term (current) drug therapy; Z90.710 Acquired absence of both cervix and uterus; Z82.49 Family history of ischemic heart disease and other diseases of the circulatory system; Z83.3 Family history of diabetes mellitus; Z82.3 Family history of stroke; Z79.01 Long term (current) use of anticoagulants; Z80.3 Family history of malignant neoplasm of breast

== ENCOUNTER 2018-02-04 07:14 | Emergency (ER) | payer MEDICARE, MEDICAID ==
[~2018-02-04] VITALS: Ht 175.2 cm; Wt 71.7 kg
--- NOTE | ~2018-02-04 | EKG ---
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
[~2018-02-04 07:14] MED LIST changes: +ASPIRIN ADULT L81 M1 PO
[2018-02-04 08:09] VITALS: BP 150/98
[2018-02-04 08:22] LABS: BASO # 0.1 10*3/uL (0.0-0.1); BASO % 1.1 % (0.0-1.0); EOS # 0.7 10*3/uL (0.0-0.4); EOS % 10.1 % (1.0-4.0); HEMATOCRIT 38.8 % (37.0-47.0); HEMOGLOBIN 12.9 g/dl (12.0-16.0); LYMPH # 0.8 10*3/uL (1.3-4.4); LYMPH % 12.7 % (27.0-41.0); MEAN CORPUSCULAR HGB 32.3 pg (27.0-31.0); MEAN CORPUSCULAR HGB CONC 33.2 g/dl (33.0-37.0); MEAN PLATELET VOLUME 11.4 fl (9.6-12.3); MONO # 0.4 10*3/uL (0.1-1.0); MONO % 5.7 % (3.0-9.0); NEUT # 4.6 10*3/uL (2.3-7.9); NEUT % 70.1 % (47.0-73.0); PLATELET COUNT AUTOMATED 140 10*3/uL (130-400); RED CELL DISTRI WIDTH 12.5 % (0-14.5); WHITE BLOOD COUNT 6.5 10*3/uL (4.8-10.8)
[2018-02-04 08:31] LABS: ACT PARTIAL THROMBO TIME 23.9 SECONDS (20.8-31.5); INTERNATIONAL NORM RATIO 0.9 (2.0-3.5)
[2018-02-04 08:37] LABS: ALBUMIN 3.5 gm/dl (3.1-4.5); ALKALINE PHOSPHATASE 59 U/L (45-117); BUN 7 mg/dl (7-24); CHLORIDE 107 mmol/L (98-107); CREATININE 0.66 mg/dL (0.55-1.02); POTASSIUM 3.9 mmol/L (3.5-5.1); SGOT/AST 11 IU/L (3-35); SGPT/ALT 12 U/L (12-78); SODIUM 143 mmol/L (136-145); TOTAL PROTEIN 6.6 gm/dL (6.4-8.2)
[2018-02-04 08:38] LABS: TROPONIN I < 0.015 ng/ml (<0.045)
== END 2018-02-04 09:19 | disposition home or self-care (01) ==
LOC: ED 07:14
PROVIDERS: Emergency Medicine
DX: R06.02 Shortness of breath (principal); I11.0 Hypertensive heart disease with heart failure; I50.9 Heart failure, unspecified; I25.10 Atherosclerotic heart disease of native coronary artery without angina pectoris; I48.2 Chronic atrial fibrillation; E78.5 Hyperlipidemia, unspecified; E78.00 Pure hypercholesterolemia, unspecified; J44.9 Chronic obstructive pulmonary disease, unspecified; Z79.82 Long term (current) use of aspirin; Z79.899 Other long term (current) drug therapy; Z98.890 Other specified postprocedural states; Z90.710 Acquired absence of both cervix and uterus; Z90.49 Acquired absence of other specified parts of digestive tract; Z95.0 Presence of cardiac pacemaker; Z87.891 Personal history of nicotine dependence; Z79.01 Long term (current) use of anticoagulants

== ENCOUNTER 2018-02-16 18:19 | Inpatient (IN) | payer MEDICARE, MEDICAID ==
[~2018-02-16] VITALS: Ht 175.3 cm; Wt 70.4 kg
--- NOTE | ~2018-02-16 | CON ---
[place], [place] REPORT OF CONSULTATION NAME: PRIYANKA NORTON UNIT #: [id number] ROOM: 518 DOCTOR: KIRILL DSOUZA MD BIRTHDATE: [birth year] DOS: 02/17/2018 HISTORY OF PRESENT ILLNESS: This is a 72-year-old -[place]inames[place] woman with nonischemic dilated cardiomyopathy that has been present for over 10 years. She had a diagnostic heart catheterization and coronary arteries were normal and her EF has been hovering around 35%. She also had chronic atrial fibrillation and the rate was a little difficult to control and had AV node ablation and has a biventricular AICD implanted a few years ago. She has been free of any cardiac decompensation for a while now. She does get dobutamine treatment twice a week in this hospital. She also seems to have a major depression and has been in the hospital very frequently many times for minor issues. She has significant COPD. She received her dobutamine treatment yesterday and went home. When she went home, she felt weak and passed out on bed. When she came around, she was not sweating, did not have any incontinence. She was mentally very clear. Apparently, she had taken her medications in the morning, which includes antihypertensive medications as well as a loop diuretic, but had not drank or eaten anything in the morning. She has chronic recurrent chest pain for which she has been admitted to this hospital. She also has more shortness of breath. She tells me that she has to sit up and walk around to ease her breathing at night frequently (when I had her lying down in the bed to see her volume status, she immediately said she was short of breath. I think this may have something due to COPD, but it does not sound like paroxysmal nocturnal dyspnea. She has some feeling that her heart is pounding when she lies on her left side, otherwise she has no palpitation. Has not had any swelling of the legs either. She has not smoked for quite a long time. PHYSICAL EXAMINATION: GENERAL: She seems alert, oriented. She is comfortable. Flat affect, monotonous speech. VITAL SIGNS: Pulse is 76, regular; blood pressure 124/82. NECK: JVP is rather low. Neck veins are flat in the supine position. AJR is negative. No bruit in the neck. HEART: There is no cardiomegaly, no murmurs are present. EXTREMITIES: She has no edema at all in the lower extremities. RESPIRATORY: She is not tachypneic. Percussion note reveals mild hyperresonance and moderately reduced breath sounds with adventitious sounds bilaterally. DIAGNOSTIC STUDIES: Chest x-ray did not demonstrate no pulmonary edema or congestion, only cardiomegaly. Troponin I levels were less than 0.015 x 3. Hemoglobin 13.4 g/dL and renal function is normal. Potassium 3.7. IMPRESSION: 1. This patient had hypotension, may be loss of consciousness due to orthostatic hypotension. 2. She has underlying atrial fibrillation with a functioning AICD i.e. biventricular pacing. The device was interrogated just about a month or two ago [place], [place] REPORT OF CONSULTATION NAME: PRIYANKA NORTON UNIT #: [id number] ROOM: 518 DOCTOR: KIRILL DSOUZA MD BIRTHDATE: [birth year] and was functioning fine. 3. Moderately severe nonischemic cardiomyopathy, is well compensated. 4. Chronic obstructive pulmonary disease. This is very significant. RECOMMENDATIONS: She is on a small dose of furosemide i.e. 20 mg daily. This should be discontinued. I thank you for this consult. KIRILL DSOUZA MD CM:CONSTR:REPORT OF CONSULTATION 1209 02/17/18 9850 interface
--- NOTE | ~2018-02-16 | EKG ---
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
[2018-02-16 18:20] VITALS: BP 142/83
[2018-02-16 19:34] LABS: BASO # 0.1 10*3/uL (0.0-0.1); BASO % 1.4 % (0.0-1.0); EOS # 0.5 10*3/uL (0.0-0.4); EOS % 9.3 % (1.0-4.0); HEMATOCRIT 37.3 % (37.0-47.0); HEMOGLOBIN 12.7 g/dl (12.0-16.0); LYMPH # 1.2 10*3/uL (1.3-4.4); LYMPH % 21.2 % (27.0-41.0); MEAN CELL VOLUME 95.4 fl (81.0-99.0); MEAN CORPUSCULAR HGB 32.5 pg (27.0-31.0); MEAN PLATELET VOLUME 10.9 fl (9.6-12.3); MONO # 0.4 10*3/uL (0.1-1.0); MONO % 7.5 % (3.0-9.0); NEUT # 3.4 10*3/uL (2.3-7.9); NEUT % 60.4 % (47.0-73.0); PLATELET COUNT AUTOMATED 151 10*3/uL (130-400); RED BLOOD COUNT 3.91 10*6/uL (4.10-5.10); RED CELL DISTRI WIDTH 12.6 % (0-14.5); WHITE BLOOD COUNT 5.6 10*3/uL (4.8-10.8)
[2018-02-16 19:45] LABS: ACT PARTIAL THROMBO TIME 22.8 SECONDS (20.8-31.5); INTERNATIONAL NORM RATIO 0.9 (2.0-3.5)
[2018-02-16 19:50] LABS: ALBUMIN 3.3 gm/dl (3.1-4.5); ALKALINE PHOSPHATASE 64 U/L (45-117); BUN 7 mg/dl (7-24); CHLORIDE 108 mmol/L (98-107); CREATININE 0.73 mg/dL (0.55-1.02); LIPASE 163 U/L (73-393); POTASSIUM 3.6 mmol/L (3.5-5.1); SGOT/AST 8 IU/L (3-35); SGPT/ALT 11 U/L (12-78); SODIUM 142 mmol/L (136-145); TOTAL PROTEIN 6.3 gm/dL (6.4-8.2)
[2018-02-16 19:57] LABS: TROPONIN I < 0.015 ng/ml (<0.045)
[2018-02-16 20:02] LABS: BILIRUBIN 1+ (NEGATIVE); BLOOD NEGATIVE (NEGATIVE); CLARITY CLEAR (CLEAR); COLOR YELLOW (YELLOW); GLUCOSE NEGATIVE (NEGATIVE); KETONE TRACE (NEGATIVE); LEUKO ESTERASE TRACE (NEGATIVE); NITRITE NEGATIVE (NEGATIVE); PH 5.5 (5.0-9.0); SPECIFIC GRAVITY 1.025 (1.005-1.030)
[2018-02-16 20:31] LABS: BACTERIA 2+; RBC 0-2 rbc/hpf (0-2)
[2018-02-16 20:32] LABS: MUCOUS TRACE
[2018-02-16 21:15] VITALS: BP 140/98
[2018-02-16 21:16] VITALS: BP 140/80
[2018-02-17] VITALS: BP 124/82
[2018-02-17 02:57] LABS: VITAMIN D, 25-HYDROXY 14.5 ng/mL (30-100)
[2018-02-17 06:23] LABS: BASO # 0.1 10*3/uL (0.0-0.1); BASO % 1.6 % (0.0-1.0); EOS # 0.5 10*3/uL (0.0-0.4); EOS % 9.7 % (1.0-4.0); HEMOGLOBIN 13.7 g/dl (12.0-16.0); LYMPH # 0.9 10*3/uL (1.3-4.4); LYMPH % 18.6 % (27.0-41.0); MEAN CELL VOLUME 95.5 fl (81.0-99.0); MEAN CORPUSCULAR HGB 32.7 pg (27.0-31.0); MEAN CORPUSCULAR HGB CONC 34.3 g/dl (33.0-37.0); MONO # 0.4 10*3/uL (0.1-1.0); MONO % 7.9 % (3.0-9.0); NEUT # 3.1 10*3/uL (2.3-7.9); PLATELET COUNT AUTOMATED 149 10*3/uL (130-400); RED BLOOD COUNT 4.19 10*6/uL (4.10-5.10); RED CELL DISTRI WIDTH 12.7 % (0-14.5); WHITE BLOOD COUNT 5.1 10*3/uL (4.8-10.8)
[2018-02-17 06:50] LABS: ACT PARTIAL THROMBO TIME 23.1 SECONDS (20.8-31.5); INTERNATIONAL NORM RATIO 0.9 (2.0-3.5)
[2018-02-17 06:51] LABS: ALBUMIN 3.5 gm/dl (3.1-4.5); BUN 7 mg/dl (7-24); CHLORIDE 105 mmol/L (98-107); CREATININE 0.65 mg/dL (0.55-1.02); FREE T4 0.87 ng/dl (0.76-1.46); PHOSPHOROUS 4.5 mg/dL (2.5-4.9); POTASSIUM 3.7 mmol/L (3.5-5.1); SGOT/AST 16 IU/L (3-35); SODIUM 143 mmol/L (136-145)
[2018-02-17 06:56] LABS: ALKALINE PHOSPHATASE 62 U/L (45-117); SGPT/ALT 11 U/L (12-78); TOTAL PROTEIN 6.5 gm/dL (6.4-8.2)
[2018-02-17 12:00] VITALS: BP 134/83
[2018-02-17] MEDS ORDERED: B12,B-12,B 12500 MC1 PO (13:01)
== END 2018-02-17 15:30 | disposition home or self-care (01) | DRG 312 ==
LOC: ED 18:19 → EDHOLD 20:35 → 5E 20:35
PROVIDERS: Internal Medicine; Physician Assistant
DX: I95.1 Orthostatic hypotension (principal); E44.1 Mild protein-calorie malnutrition; D68.59 Other primary thrombophilia; I42.8 Other cardiomyopathies; I50.22 Chronic systolic (congestive) heart failure; J96.11 Chronic respiratory failure with hypoxia; I25.10 Atherosclerotic heart disease of native coronary artery without angina pectoris; J44.9 Chronic obstructive pulmonary disease, unspecified; D72.810 Lymphocytopenia; E87.8 Other disorders of electrolyte and fluid balance, not elsewhere classified; R73.9 Hyperglycemia, unspecified; R82.71 Bacteriuria; E53.8 Deficiency of other specified B group vitamins; R91.1 Solitary pulmonary nodule; I08.3 Combined rheumatic disorders of mitral, aortic and tricuspid valves; R73.03 Prediabetes; E55.9 Vitamin D deficiency, unspecified; E78.5 Hyperlipidemia, unspecified; I48.2 Chronic atrial fibrillation; I11.0 Hypertensive heart disease with heart failure; L40.9 Psoriasis, unspecified; F32.9 Major depressive disorder, single episode, unspecified; F43.10 Post-traumatic stress disorder, unspecified; Z95.810 Presence of automatic (implantable) cardiac defibrillator; Z90.710 Acquired absence of both cervix and uterus; Z90.49 Acquired absence of other specified parts of digestive tract; Z82.49 Family history of ischemic heart disease and other diseases of the circulatory system; Z83.3 Family history of diabetes mellitus; Z82.3 Family history of stroke; Z80.3 Family history of malignant neoplasm of breast; Z79.899 Other long term (current) drug therapy; Z68.22 Body mass index [BMI] 22.0-22.9, adult

== ENCOUNTER 2018-03-16 16:27 | Emergency (ER) | payer MEDICARE, MEDICAID ==
[~2018-03-16] VITALS: Ht 175.2 cm; Wt 68.9 kg
--- NOTE | ~2018-03-16 | EKG ---
[place], [place] ELECTROCARDIOGRAM REPORT NAME: PRIYANKA NORTON UNIT #: [id number] ROOM: DOCTOR: EPIPHANY DRAFT REPORT BIRTHDATE: [birth year] [facility] Test Date: 2018-03-16 Test Time: 17:25:35 Pat Name: PRIYANKA NORTON Department: Room: Gender: F Administrative Technician: SS RESP : 1945 Requested By: HOPE HOWE PA-C Order Number: [id number] Reading MD: Jeremías Sigala MD Measurements Intervals [place] Rate: 75 P: [place]: QRS: -65 QRSD: 156 T: 90 QT: 430 QTc: 481 Interpretive Statements Afib/flutter and ventricular-paced rhythm No further analysis attempted due to paced rhythm Compared to ECG 02/16/2018 19:09:33 No significant changes Electronically Signed On 03-17-2018 8:19:11 PDT by Jeremías Sigala MD CM:EKGRPT:ELECTROCARDIOGRAM REPORT 1725 0819 HOPE HOWE PA-C EPIPHASHELY DRAFT REPORT HOPE HOWE PA-C
[2018-03-16 17:18] LABS: BASO # 0.1 10*3/uL (0.0-0.1); BASO % 1.4 % (0.0-1.0); EOS # 0.3 10*3/uL (0.0-0.4); EOS % 6.6 % (1.0-4.0); HEMATOCRIT 38.1 % (37.0-47.0); HEMOGLOBIN 12.8 g/dl (12.0-16.0); LYMPH # 0.9 10*3/uL (1.3-4.4); LYMPH % 19.4 % (27.0-41.0); MEAN CELL VOLUME 95.7 fl (81.0-99.0); MEAN CORPUSCULAR HGB 32.2 pg (27.0-31.0); MEAN CORPUSCULAR HGB CONC 33.6 g/dl (33.0-37.0); MEAN PLATELET VOLUME 10.9 fl (9.6-12.3); MONO # 0.4 10*3/uL (0.1-1.0); MONO % 7.8 % (3.0-9.0); NEUT # 3.1 10*3/uL (2.3-7.9); NEUT % 64.6 % (47.0-73.0); PLATELET COUNT AUTOMATED 157 10*3/uL (130-400); RED BLOOD COUNT 3.98 10*6/uL (4.10-5.10); RED CELL DISTRI WIDTH 12.6 % (0-14.5); WHITE BLOOD COUNT 4.9 10*3/uL (4.8-10.8)
[2018-03-16 17:25] LABS: INTERNATIONAL NORM RATIO 0.9 (2.0-3.5)
[2018-03-16 17:34] LABS: ALBUMIN 3.6 gm/dl (3.1-4.5); ALKALINE PHOSPHATASE 65 U/L (45-117); BUN 10 mg/dl (7-24); CHLORIDE 105 mmol/L (98-107); CREATININE 0.67 mg/dL (0.55-1.02); POTASSIUM 3.9 mmol/L (3.5-5.1); SGOT/AST 12 IU/L (3-35); SGPT/ALT 13 U/L (12-78); SODIUM 141 mmol/L (136-145); TOTAL PROTEIN 6.3 gm/dL (6.4-8.2)
[2018-03-16 17:35] LABS: TROPONIN I < 0.015 ng/ml (<0.045)
[2018-03-16 18:09] VITALS: BP 140/80
[2018-03-16] MEDS ORDERED: VIBRAMYCIN100 MG PO (20:21)
== END 2018-03-16 20:45 | disposition home or self-care (01) ==
LOC: ED 16:27
PROVIDERS: Physician Assistant
DX: J44.1 Chronic obstructive pulmonary disease with (acute) exacerbation (principal); Z87.891 Personal history of nicotine dependence; Z90.710 Acquired absence of both cervix and uterus; Z90.89 Acquired absence of other organs; Z90.49 Acquired absence of other specified parts of digestive tract

== ENCOUNTER 2018-04-06 14:03 | Emergency (ER) | payer MEDICARE, MEDICAID ==
[~2018-04-06] VITALS: Ht 175.2 cm; Wt 70.8 kg
[2018-04-06 14:21] LABS: BASO # 0.1 10*3/uL (0.0-0.1); BASO % 1.1 % (0.0-1.0); EOS # 0.4 10*3/uL (0.0-0.4); EOS % 6.2 % (1.0-4.0); HEMOGLOBIN 13.1 g/dl (12.0-16.0); LYMPH # 1.2 10*3/uL (1.3-4.4); LYMPH % 18.5 % (27.0-41.0); MEAN CELL VOLUME 95.6 fl (81.0-99.0); MEAN CORPUSCULAR HGB 32.1 pg (27.0-31.0); MEAN CORPUSCULAR HGB CONC 33.6 g/dl (33.0-37.0); MEAN PLATELET VOLUME 11.2 fl (9.6-12.3); MONO # 0.4 10*3/uL (0.1-1.0); MONO % 6.5 % (3.0-9.0); NEUT # 4.3 10*3/uL (2.3-7.9); NEUT % 67.4 % (47.0-73.0); PLATELET COUNT AUTOMATED 144 10*3/uL (130-400); RED BLOOD COUNT 4.08 10*6/uL (4.10-5.10); RED CELL DISTRI WIDTH 12.6 % (0-14.5); WHITE BLOOD COUNT 6.3 10*3/uL (4.8-10.8)
[2018-04-06 14:29] LABS: INTERNATIONAL NORM RATIO 0.9 (2.0-3.5)
[2018-04-06 14:37] LABS: ALBUMIN 3.5 gm/dl (3.1-4.5); ALKALINE PHOSPHATASE 66 U/L (45-117); BUN 5 mg/dl (7-24); CHLORIDE 105 mmol/L (98-107); CREATININE 0.66 mg/dL (0.55-1.02); POTASSIUM 3.8 mmol/L (3.5-5.1); SGOT/AST 12 IU/L (3-35); SGPT/ALT 14 U/L (12-78); SODIUM 142 mmol/L (136-145); TOTAL PROTEIN 6.7 gm/dL (6.4-8.2)
[2018-04-06 14:43] LABS: TROPONIN I < 0.015 ng/ml (<0.045)
[2018-04-06 15:26] VITALS: BP 161/91
== END 2018-04-06 15:44 | disposition home or self-care (01) ==
LOC: ED 14:03
PROVIDERS: Emergency Medicine
DX: R11.10 Vomiting, unspecified (principal); R07.89 Other chest pain; R42 Dizziness and giddiness; J44.1 Chronic obstructive pulmonary disease with (acute) exacerbation; J96.11 Chronic respiratory failure with hypoxia; I10 Essential (primary) hypertension; I25.10 Atherosclerotic heart disease of native coronary artery without angina pectoris; I48.2 Chronic atrial fibrillation; E78.00 Pure hypercholesterolemia, unspecified; Z90.89 Acquired absence of other organs; Z90.710 Acquired absence of both cervix and uterus

== ENCOUNTER 2018-04-24 13:47 | Inpatient (IN) | payer MEDICARE, MEDICAID ==
[~2018-04-24] VITALS: Ht 175.2 cm; Wt 69.9 kg
--- NOTE | ~2018-04-24 | CON ---
[place], [place] REPORT OF CONSULTATION NAME: PRIYANKA NORTON UNIT #: [id number] ROOM: 530 DOCTOR: KIRILL DSOUZA MD BIRTHDATE: [birth year] DOS: 04/25/2018 HISTORY OF PRESENT ILLNESS: This is a 73-year-old -L[place] woman whom I saw this hospital 2 months ago. She has a dilated/nonischemic cardiomyopathy with an EF of about 30% or so. This had been present for a very long time and she had an AICD implanted a few years ago following a diagnostic heart catheterization, which did not demonstrate any coronary artery stenosis. She had atrial fibrillation with very rapid ventricular rate, so therefore AV node was ablated and Bi-V AICD was implanted at that time. Since then, her EF had increased slightly, but decreased again. She has had recurrent congestive heart failure and does have chronic since systolic heart failure and then gets a dobutamine treatment couple of times a week in this hospital. She also has major depression and has had several admissions to the hospital for vague symptoms including lightheaded and dizziness. She was admitted to the hospital now because she was dizzy, had feeling of spinning sensation, mild nausea, but no sweating. She did not pass out and came to the Emergency Department. She also complained of left-sided chest pain which has been her complaint previously as well. PHYSICAL EXAMINATION: GENERAL: Reveals the patient who is rather quiet, alert, calm, not in any distress. Complexion is fine. VITAL SIGNS: Pulse is 76 and regular, blood pressure 115/59. NECK: Normal JVP. LUNGS: Breath sounds are mildly diminished with very few adventitious sounds. EXTREMITIES: No edema in the lower extremities. LABORATORY DATA: Monitor shows ventricular pacing and the troponin levels have been normal. IMPRESSION: 1. Left-sided chest pain is coming from the wall. Her left chest, anterior and lateral, is very tender. I think this is a chronically swollen. 2. She probably had an episode of vertigo, which caused her some spinning sensation, dizziness and some nausea, which has resolved. 3. Major depression also present. 4. Severe dilated cardiomyopathy is well compensated. I do not have any particular recommendations for her. She should continue with her cardiac medications and from cardiac standpoint, she can be discharged home. I thank you for this consult. [place], [place] REPORT OF CONSULTATION NAME: PRIYANKA NORTON UNIT #: [id number] ROOM: 530 DOCTOR: KIRILL DSOUZA MD BIRTHDATE: [birth year] KIRILL DSOUZA MD CM:CONSTR:REPORT OF CONSULTATION 50 04/25/18 220 interface
--- NOTE | ~2018-04-24 | PR ---
[place], [place] PROGRESS NOTE NAME: PRIYANKA NORTON UNIT #: [id number] ROOM: 530 DOCTOR: ANA PAULA FELICIANO MD BIRTHDATE: [birth year] DOS: 04/26/2018 SUBJECTIVE: 24-hour events noted. The patient was seen by Dr. Lynch, licensing specialist, and I am covering for him. Cardiac status appears to be stable. Blood pressure is 130/70, heart rate is 75. She still has chronic chest discomfort, more reproducible in nature. No shortness of breath. No GI or issues. Blood pressure is as mentioned. She is in sinus rhythm. OBJECTIVE: NECK: Supple. No JVD. LUNGS: Diminished breath sounds. HEART: Heart sounds are regular. NEUROLOGIC: Stable. I's and O's positive 200. LABORATORY DATA: Shows hemoglobin 12.3, hematocrit 36.5. Electrolytes are normal. Creatinine is 0.6. IMPRESSION: 1. Severely dilated cardiomyopathy. She was on outpatient dobutamine therapy also. 2. Major depression. 3. Atypical chest discomfort, more reproducible, chronically swollen. Plan: Continue the present recommendations as ordered by Dr. Lynch and we will follow up. ANA PAULA FELICIANO MD CM:PNTRANS 0729 ANA PAULA FELICIANO MD 04/26/18 0933 interface
--- NOTE | ~2018-04-24 | EKG ---
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
[2018-04-24 13:48] VITALS: BP 144/92
[2018-04-24 14:06] LABS: BASO # 0.1 10*3/uL (0.0-0.1); BASO % 1.3 % (0.0-1.0); EOS # 0.3 10*3/uL (0.0-0.4); EOS % 4.6 % (1.0-4.0); HEMATOCRIT 38.1 % (37.0-47.0); HEMOGLOBIN 13.2 g/dl (12.0-16.0); LYMPH # 1.1 10*3/uL (1.3-4.4); LYMPH % 17.7 % (27.0-41.0); MEAN CELL VOLUME 94.5 fl (81.0-99.0); MEAN CORPUSCULAR HGB 32.8 pg (27.0-31.0); MEAN CORPUSCULAR HGB CONC 34.6 g/dl (33.0-37.0); MEAN PLATELET VOLUME 10.8 fl (9.6-12.3); MONO # 0.4 10*3/uL (0.1-1.0); MONO % 7.1 % (3.0-9.0); NEUT # 4.2 10*3/uL (2.3-7.9); NEUT % 69.1 % (47.0-73.0); PLATELET COUNT AUTOMATED 159 10*3/uL (130-400); RED BLOOD COUNT 4.03 10*6/uL (4.10-5.10); RED CELL DISTRI WIDTH 12.5 % (0-14.5); WHITE BLOOD COUNT 6.1 10*3/uL (4.8-10.8)
[2018-04-24 14:17] LABS: ACT PARTIAL THROMBO TIME 22.7 SECONDS (20.8-31.5); INTERNATIONAL NORM RATIO 0.9 (2.0-3.5)
[2018-04-24 14:28] LABS: ALBUMIN 3.6 gm/dl (3.1-4.5); ALKALINE PHOSPHATASE 62 U/L (45-117); BUN 9 mg/dl (7-24); CHLORIDE 106 mmol/L (98-107); CREATININE 0.69 mg/dL (0.55-1.02); LIPASE 178 U/L (73-393); POTASSIUM 3.6 mmol/L (3.5-5.1); SGOT/AST 12 IU/L (3-35); SGPT/ALT 13 U/L (12-78); SODIUM 141 mmol/L (136-145); TOTAL PROTEIN 6.5 gm/dL (6.4-8.2)
[2018-04-24 14:29] LABS: BILIRUBIN NEGATIVE (NEGATIVE); BLOOD NEGATIVE (NEGATIVE); CLARITY SL CLOUDY (CLEAR); COLOR YELLOW (YELLOW); GLUCOSE NEGATIVE (NEGATIVE); KETONE NEGATIVE (NEGATIVE); LEUKO ESTERASE NEGATIVE (NEGATIVE); NITRITE NEGATIVE (NEGATIVE); PH 5.5 (5.0-9.0); SPECIFIC GRAVITY >= 1.030 (1.005-1.030); UROBILINOGEN 0.2 E.U./dl (0.2-1.0)
[2018-04-24 14:30] LABS: TROPONIN I < 0.015 ng/ml (<0.045)
[2018-04-24 14:54] LABS: BACTERIA 2+; MUCOUS 4+
[2018-04-24 17:20] VITALS: BP 170/98
[2018-04-24] MEDS ORDERED: LASIX20 MG PO (18:03)
[2018-04-25] VITALS: BP 126/72
[2018-04-25 08:00] VITALS: BP 148/84; BP 154/88
[2018-04-25 12:00] VITALS: BP 121/81
[2018-04-25 16:00] VITALS: BP 115/59
[2018-04-25 20:00] VITALS: BP 123/84
[2018-04-26] VITALS: BP 133/78
[2018-04-26 06:42] LABS: BASO # 0.1 10*3/uL (0.0-0.1); BASO % 1.6 % (0.0-1.0); EOS # 0.3 10*3/uL (0.0-0.4); EOS % 5.9 % (1.0-4.0); HEMATOCRIT 36.7 % (37.0-47.0); HEMOGLOBIN 12.3 g/dl (12.0-16.0); LYMPH % 19.3 % (27.0-41.0); MEAN CELL VOLUME 95.6 fl (81.0-99.0); MEAN CORPUSCULAR HGB CONC 33.5 g/dl (33.0-37.0); MEAN PLATELET VOLUME 11.5 fl (9.6-12.3); MONO # 0.4 10*3/uL (0.1-1.0); MONO % 8.1 % (3.0-9.0); NEUT # 3.2 10*3/uL (2.3-7.9); NEUT % 64.9 % (47.0-73.0); PLATELET COUNT AUTOMATED 147 10*3/uL (130-400); RED BLOOD COUNT 3.84 10*6/uL (4.10-5.10); RED CELL DISTRI WIDTH 12.4 % (0-14.5); WHITE BLOOD COUNT 4.9 10*3/uL (4.8-10.8)
[2018-04-26 06:55] LABS: BUN 11 mg/dl (7-24); CHLORIDE 107 mmol/L (98-107); CREATININE 0.65 mg/dL (0.55-1.02); SODIUM 142 mmol/L (136-145)
[2018-04-26 08:00] VITALS: BP 156/101; BP 156/102
[2018-04-26 12:21] VITALS: BP 142/79
[2018-04-26 16:00] VITALS: BP 142/91
[2018-04-26 17:33] VITALS: BP 164/72
[2018-04-26 20:00] VITALS: BP 134/67
[2018-04-27] VITALS: BP 128/76
[2018-04-27 08:00] VITALS: BP 123/88
[2018-04-27 08:25] VITALS: BP 130/78
[2018-04-27 12:00] VITALS: BP 124/65
[2018-04-27] MEDS ORDERED: MUCINEX ER600 MG PO (12:44)
[2018-04-27] MEDS ORDERED: CORT DOME 0.5%30 GM T (12:44)
[2018-04-27] MEDS ORDERED: DOXYCYCLINE100 MG PO (13:48)
== END 2018-04-27 13:42 | disposition home or self-care (01) | DRG 206 ==
LOC: ED 13:47 → 5E 14:49 → EDHOLD 14:49 → 5E 15:15
PROVIDERS: Emergency Medicine; Internal Medicine
DX: M94.0 Chondrocostal junction syndrome [Tietze] (principal); J44.1 Chronic obstructive pulmonary disease with (acute) exacerbation; I50.20 Unspecified systolic (congestive) heart failure; D68.59 Other primary thrombophilia; I50.22 Chronic systolic (congestive) heart failure; I42.0 Dilated cardiomyopathy; J96.11 Chronic respiratory failure with hypoxia; E53.8 Deficiency of other specified B group vitamins; E55.9 Vitamin D deficiency, unspecified; R91.1 Solitary pulmonary nodule; I25.10 Atherosclerotic heart disease of native coronary artery without angina pectoris; L40.9 Psoriasis, unspecified; I11.0 Hypertensive heart disease with heart failure; F32.9 Major depressive disorder, single episode, unspecified; L60.2 Onychogryphosis; I48.2 Chronic atrial fibrillation; J40 Bronchitis, not specified as acute or chronic; E78.5 Hyperlipidemia, unspecified; Z45.02 Encounter for adjustment and management of automatic implantable cardiac defibrillator; Z95.810 Presence of automatic (implantable) cardiac defibrillator; Z90.710 Acquired absence of both cervix and uterus; Z90.49 Acquired absence of other specified parts of digestive tract; Z87.891 Personal history of nicotine dependence; Z80.3 Family history of malignant neoplasm of breast; Z82.3 Family history of stroke; Z79.899 Other long term (current) drug therapy; Q82.8 Other specified congenital malformations of skin

== ENCOUNTER 2018-05-18 16:31 | Inpatient (IN) | payer MEDICARE, MEDICAID ==
[~2018-05-18] VITALS: Ht 175.3 cm; Wt 69.9 kg
--- NOTE | ~2018-05-18 | PR ---
[place], [place] PROGRESS NOTE NAME: PRIYANKA NORTON UNIT #: [id number] ROOM: 403 DOCTOR: LORETTA HILLMAN MD BIRTHDATE: [birth year] DOS: 05/22/2018 SUBJECTIVE: The patient has been admitted to hospital with acute bronchitis, COPD with acute exacerbation. She is gradually getting better. She is still having cough and expectorating small amount of sputum and is having some wheezing, but she is feeling much better than before. OBJECTIVE: VITAL SIGNS: Her blood pressure is 140/78, pulse 77, respirations 19, temperature 97.9. CHEST: Having bilateral wheezing with some crepitation in the lungs. NECK: Neck veins are not distended. HEART: Having regular rhythm. ABDOMEN: Soft. The patient will continue on the present treatment. She is showing slow improving progress. LORETTA HILLMAN MD CM:PNTRANS 1116 1227 LORETTA HILLMAN MD 05/22/18 1226 interface
--- NOTE | ~2018-05-18 | PR ---
[place], [place] PROGRESS NOTE NAME: PRIYANKA NORTON UNIT #: [id number] ROOM: 403 DOCTOR: KIRILL DSOUZA MD BIRTHDATE: [birth year] DOS: 05/28/2018 SUBJECTIVE: She has persistent cough which has settled, but has not been able to expectorate much. She seems to be hung up on this thing so much and is complaining all the time. She has had this cough before she came to the hospital and was short of breath which has improved. She tells me she has been walking in the hallways without much shortness of breath. She has had no swelling in the legs or orthopnea at night. OBJECTIVE: GENERAL: This patient is anxious, alert, oriented. Complexion is fine, in fact it is nice and pink. She is not tachypneic. VITAL SIGNS: Pulse is regular at 75, blood pressure 120/66. NECK: JVP is normal. AJR is negative. No edema in lower extremity. LUNGS: Percussion node reveals hyperresonance. Breath sounds are modestly diminished with rhonchi bilaterally and hardly any crackles are present. IMPRESSION: 1. She has dilated cardiomyopathy. 2. She does not have coronary artery disease. 3. Chronic systolic heart failure, which is well compensated. 4. Chronic obstructive pulmonary disease with exacerbation by acute bronchitis. She seemed to be preoccupied with phlegm that would not come up, but I think this does not seem to be much of a deal. From cardiac standpoint, she can be discharged home. KIRILL DSOUZA MD CM:PNTRANS 0733 0756 KIRILL DSOUZA MD 05/28/18 1941 interface
--- NOTE | ~2018-05-18 | EKG ---
[place], [place] ELECTROCARDIOGRAM REPORT NAME: PRIYANKA NORTON UNIT #: [id number] ROOM: 402 DOCTOR: THERESA DRAFT REPORT BIRTHDATE: [birth year] [facility] Test Date: 2018-05-18 Test Time: 19:30:05 Pat Name: PRIYANKA NORTON Department: Room: 402 Gender: F Activities Assistant: Monique Mojica : 1945 Requested By: KERRY LEBRON Order Number: [id number] Reading MD: Tre oKlb MD Measurements Intervals [place] Rate: 75 P: [place]: QRS: -87 QRSD: 145 T: 105 QT: 425 QTc: 475 Interpretive Statements Afib/flutter and ventricular-paced rhythm No further analysis attempted due to paced rhythm Baseline wander in lead(s) II,III,aVF Compared to ECG 04/24/2018 14:05:29 No significant change Electronically Signed On 05-18-2018 18:32:20 PST by Tre Kolb MD CM:EKGRPT:ELECTROCARDIOGRAM REPORT 29 31 KERRY OBRIEN DRAFT REPORT KERRY LEBRON DO
--- NOTE | ~2018-05-18 | EKG ---
[place], [place] ELECTROCARDIOGRAM REPORT NAME: PRIYANKA NORTON UNIT #: [id number] ROOM: 402 DOCTOR: THERESA DRAFT REPORT BIRTHDATE: [birth year] [facility] Test Date: 2018-05-18 Test Time: 16:36:47 Pat Name: PRIYANKA NORTON Department: Room: 402 Gender: F Genetic Technologist: KRISTA : 1945 Requested By: KERRY LEBRON Order Number: [id number] Reading MD: Tre Kolb MD Measurements Intervals [place] Rate: 76 P: [place]: QRS: 54 QRSD: 160 T: 9 QT: 437 QTc: 492 Interpretive Statements Afib/flutter and ventricular-paced rhythm No further analysis attempted due to paced rhythm Compared to ECG 04/24/2018 14:05:29 No significant change Electronically Signed On 05-19-2018 17:43:49 PST by Tre Kolb MD CM:EKGRPT:ELECTROCARDIOGRAM REPORT 1636 1743 KERRY OBRIEN DRAFT REPORT KERRY LEBRON DO
--- NOTE | ~2018-05-18 | CON ---
[place], [place] REPORT OF CONSULTATION NAME: PRIYANKA NORTON UNIT #: [id number] ROOM: 403 DOCTOR: JUNAID LOZADA MD,NOEL BIRTHDATE: [birth year] DOS: 05/28/2018 The patient has been asked for consultation, but signed against medical advice prior to assessment this morning. NOEL QUIROGA MD CM:CONSTR:REPORT OF CONSULTATION 1647 05/29/18 0338 interface
--- NOTE | ~2018-05-18 | PR ---
[place], [place] PROGRESS NOTE NAME: PRIYANKA NORTON UNIT #: [id number] ROOM: 403 DOCTOR: ANA PAULA FELICIANO MD BIRTHDATE: [birth year] DOS: 05/27/2018 SUBJECTIVE: The patient examined and discussed with the nursing staff. Cardiac status appears to be stable. She has been in the hospital for quite some time with acute bronchitis and exacerbation of COPD. No leg edema. No palpitation. Does have chronic shortness of breath. The patient was seen by Dr. Lynch yesterday. History of chronic atrial fibrillation, dilated cardiomyopathy, biventricular ICD, following AV jay jay ablation. REVIEW OF SYSTEMS: A 6-8 systems reviewed as per HPI. OBJECTIVE: GENERAL: The patient is alert, oriented. She is sleeping, lethargic. Arousable. VITAL SIGNS: Blood pressure is 140/70 paced rhythm. HEENT: Unremarkable. NECK: Supple, no JVD. LUNGS: Clear. HEART: Sounds are regular. ABDOMEN: Soft, nontender. NEUROLOGIC: Stable. LABORATORY DATA: Hemoglobin 12.7, hematocrit 38.6. Electrolytes are normal. Creatinine is 0.6. I's and O's negative 540. IMPRESSION: The patient with a dilated cardiomyopathy, AICD, hypertension and atrial fibrillation, permanent. RECOMMENDATIONS: Continue the present management as ordered. Continue the antibiotics for the bronchitis. Increase activity and will follow up. ANA PAULA FELICIANO MD CM:PNTRANS 09 1126 ANA PAULA FELICIANO MD 05/27/18 1124 interface
--- NOTE | ~2018-05-18 | PR ---
[place], [place] PROGRESS NOTE NAME: PRIYANKA NORTON UNIT #: [id number] ROOM: 403 DOCTOR: LORETTA HILLMAN MD BIRTHDATE: [birth year] DOS: 05/23/2018 SUBJECTIVE: The patient has been admitted to hospital with acute exacerbation of COPD with emphysema with difficulty in breathing and chest pain. She is gradually improving, but she is still complaining that she has difficulty in breathing and bringing a small amount of sputum and her pulse oximetry is 96% on 2 liters and she is still having occasional wheezes with a few crepitations and her heart is paced rhythm. She had an echocardiogram, showed dilated cardiomyopathy, chronic systolic heart failure, is well compensated, chronic atrial fibrillation, AV node ablation, ventricular AICD, diaphragmatic stimulation from pacing since the patient threshold was reduced. OBJECTIVE: VITAL SIGNS: Blood pressure is 150/85, pulse 75, respirations 18, temperature 97.8. LORETTA HILLMAN MD CM:PNTRANS 1008 1021 LORETTA HILLMAN MD 06/14/18 1002 interface
--- NOTE | ~2018-05-18 | PR ---
[place], [place] PROGRESS NOTE NAME: PRIYANKA NORTON UNIT #: [id number] ROOM: 403 DOCTOR: LORETTA HILLMAN MD BIRTHDATE: [birth year] DOS: SUBJECTIVE: The patient is admitted to hospital due to acute excerebration of COPD with emphysema, difficulty in breathing and chest pain and she is gradually improving. Her breathing is better. There is no chest pain and no pain in her abdomen. No nausea, no vomiting. OBJECTIVE: VITAL SIGNS: Her blood pressure is 157/81, pulse 75, respirations 17, temperature 98.4. CHEST: Having occasional wheezes. No crepitation. HEART: Regular. ABDOMEN: Soft. EXTREMITIES: No edema of leg. LORETTA HILLMAN MD CM:PNTRANS 1102 1122 LORETTA HILLMAN MD 05/24/18 2217 interface
--- NOTE | ~2018-05-18 | PR ---
[place], [place] PROGRESS NOTE NAME: PRIYANKA NORTON UNIT #: [id number] ROOM: 403 DOCTOR: KIRILL DSOUZA MD BIRTHDATE: [birth year] DOS: 05/26/2018 SUBJECTIVE: This patient has severe dilated cardiomyopathy, chronic atrial fibrillation, and biventricular AICD following AV node ablation. Her coronary arteries were fine many years ago. She undergoes a dobutamine therapy twice a week. She has been in the hospital for quite some time with acute bronchitis exacerbating COPD. She has not had any swelling of the legs. No palpitations. Her cough is rather harsh, but it is nonproductive. She is eating reasonably well. No fever or chills. PHYSICAL EXAMINATION: GENERAL: This is a patient who was nice and pink. She is not tachypneic. She has a harsh cough with rattling phlegm in the airways. VITAL SIGNS: Pulse is regular. JVP is normal, and blood pressure is 146/69. NECK: JVP is normal. LUNGS: A lot of rhonchi in both lungs with reduced breath sounds. EXTREMITIES: No edema in lower extremities. IMPRESSION: 1. Severe dilated cardiomyopathy. 2. Chronic systolic heart failure, well compensated. 3. Chronic atrial fibrillation with an AV node ablation and pacing in the ventricle. 4. ____ chronic obstructive pulmonary disease with acute bronchitis exacerbating her symptoms. From cardiac standpoint, she may be discharged home. I would like to see her in the office in the next 3 weeks or so. KIRILL DSOUZA MD CM:PNTRANS 0717 0849 KIRILL DSOUZA MD 05/27/18 0342 interface
--- NOTE | ~2018-05-18 | PR ---
[place], [place] PROGRESS NOTE NAME: PRIYANKA NORTON UNIT #: [id number] ROOM: 403 DOCTOR: LORETTA HILLMAN MD BIRTHDATE: [birth year] DOS: 05/21/2018 SUBJECTIVE: The patient was admitted to hospital with acute bronchitis with COPD and acute excerebration of COPD. The patient is gradually getting better, but she is complaining of some difficulty in bringing her sputum, so I am starting her on Mucinex 1 tablet twice daily. Her electrocardiogram shows atrial fibrillation, ventricular paced rhythm. She has been seen by Dr. Lynch and has advised to continue the present treatment. Her hemoglobin is 6, her vitamin B12 is 29, folic acid is 11.67 and vitamin D level 7.4. We will start her on B12 1000, 2 units intramuscular once a month and vitamin D 5000 units daily. OBJECTIVE: VITAL SIGNS: Her blood pressure is 146/63, pulse 75, respirations 18, temperature 98. CHEST: Occasional wheezes. No crepitation. ABDOMEN: Soft. HEART: Somewhat irregular. LORETTA HILLMAN MD CM:PNTRANS 1307 1322 LORETTA HILLMAN MD 05/25/18 1000 interface
--- NOTE | ~2018-05-18 | PR ---
[place], [place] PROGRESS NOTE NAME: PRIYANKA NORTON UNIT #: [id number] ROOM: 403 DOCTOR: KIRILL DSOUZA MD BIRTHDATE: [birth year] DOS: 05/22/2018 SUBJECTIVE: She is alert, oriented. She has a harsh cough without expectoration. Her cough is somewhat settled now. No fever or chills. After she has stopped treatment, she had difficulty swallowing food. No palpitations or dizziness. She has not had any need of diaphragmatic stimulation from the AICD. PHYSICAL EXAMINATION: GENERAL: She is alert, oriented. Complexion is normal. She is not tachypneic. VITAL SIGNS: Temperature 97.9 degrees. Pulse is 72 and regular, blood pressure 140/78. NECK: Normal JVP, no murmurs. EXTREMITIES: No edema at all in the lower extremities. RESPIRATORY: She is not tachypneic. Percussion note reveals hyperresonance and breath sounds are significantly diminished with very few adventitious sounds. IMPRESSION: 1. Dilated cardiomyopathy. 2. Chronic systolic heart failure is well compensated. 3. Chronic atrial fibrillation, AV node ablation and biventricular AICD. 4. Diaphragmatic stimulation from AICD since the pacing threshold was reduced. 5. Acute bronchitis with exacerbation of chronic obstructive pulmonary disease. No new recommendations. KIRILL DSOUZA MD CM:PNTRANS [id number] KIRILL DSOUZA MD 06/21/18 0913 interface
--- NOTE | ~2018-05-18 | PR ---
[place], [place] PROGRESS NOTE NAME: PRIYANKA NORTON UNIT #: [id number] ROOM: 402 DOCTOR: KIRILL DSOUZA MD BIRTHDATE: [birth year] DOS: 05/21/2018 SUBJECTIVE: She has a harsh cough, which has gotten worse since admission. She has not been able to expectorate much and her chest hurts when she coughs, but not otherwise. She had diaphragmatic stimulation from the AICD lead, which may have migrated. The pacing threshold was decreased and she no longer has the feeling. No fever or chills. PHYSICAL EXAMINATION: GENERAL: The patient is very alert. Her complexion is fine. She is not tachypneic, but has oxygen on. VITAL SIGNS: Temperature 98.1 degrees, pulse is 74, blood pressure 138/67. NECK: Normal JVP. LUNGS: Breath sounds are severely diminished with adventitious sounds. EXTREMITIES: No edema of the lower extremities. IMPRESSION: 1. This patient has severe dilated cardiomyopathy. 2. Chronic systolic heart failure that is well compensated. 3. Severe chronic obstructive pulmonary disease with exacerbation. Diaphragmatic stimulation was bothering, reducing threshold has resolved this problem. No new recommendations. KIRILL DSOUZA MD CM:PNTRANS [id number] KIRILL DSOUZA MD 05/21/18 1113 interface
--- NOTE | ~2018-05-18 | CON ---
[place], [place] REPORT OF CONSULTATION NAME: PRIYANKA NORTON UNIT #: [id number] ROOM: 403 DOCTOR: KIRILL DSOUZA MD BIRTHDATE: [birth year] DOS: 05/19/2018 HISTORY OF PRESENT ILLNESS: This is a 73-year-old -[place] woman with a history of a dilated cardiomyopathy with normal coronary arteries many years ago. Her LV function has been depressed for over 10 years and she has had atrial fibrillation and had an AV node ablated because of inability to control ventricular rate and Bi-V AICD was implanted. Has had an LV ejection fraction of around 30% for many times and has chronic systolic heart failure and receives dobutamine treatment twice a week. She has not had a cardiac decompensation for some time now and she has COPD and has had several admissions to the hospital with chest pain, dizziness, lightheadedness. This admission was prompted by a cough that was productive of yellow phlegm and some weakness, but she also noticed some juggling feeling in the left side of the chest. When I asked her if it felt like hiccups, she agreed with my description. She has not had any dizziness, loss of consciousness. No orthopnea or swelling of the lower extremities. She has not passed out and AICD has not discharged. PHYSICAL EXAMINATION: GENERAL: The patient who is alert, oriented, comfortable. She is having some snack. Complexion is fine. JVP is normal. Pulse is 76 beats per minute, blood pressure 116/56. NECK: JVP is normal. AJR is negative. CARDIAC: Auscultation revealed no murmurs. EXTREMITIES: There is no edema in lower extremities. Pedal pulses are okay. RESPIRATORY: She has rhonchi bilaterally with reduced breath sounds. LABORATORY DATA: ECG shows underlying atrial fibrillation with biventricular pacing. Chest x-ray unremarkable. An AICD was interrogated and she was found to have left hand diaphragmatic stimulation, which was causing her some of her symptoms. The AICD Rep called me and stimulation threshold was reduced and this took care of diaphragmatic excitation for the time being at least. Other than treating her chest infection, no other active measured needs to be taken. From cardiac standpoint, she can be discharged anytime. I thank you for this consult. [place], [place] REPORT OF CONSULTATION NAME: PRIYANKA NORTON UNIT #: [id number] ROOM: 403 DOCTOR: LIANNA ESPINOSA,KIRILL BIRTHDATE: [birth year] KIRILL DSOUZA MD CM:CONSTR:REPORT OF CONSULTATION 1843 06/14/18 0959 interface
--- NOTE | ~2018-05-18 | PR ---
[place], [place] PROGRESS NOTE NAME: PRIYANKA NORTON UNIT #: [id number] ROOM: 403 DOCTOR: LORETTA HILLMAN MD BIRTHDATE: [birth year] DOS: The patient has been admitted to the hospital with acute bronchitis with COPD and acute extensive emphysema. She is still complaining of some pain on the right side of chest with some difficulty breathing, though on chest examination does not show too much wheezing or rhonchi and her vital signs are normal. Her pulse oximetry is 96%. Blood pressure 128/68, pulse 74, respirations 20, temperature 98.4 and since she is still complaining of chest pain, I am going to repeat her chest x-ray to see how she is doing. LORETTA HILLMAN MD CM:PNTRANS [id number] LORETTA HILLMAN MD 05/26/18 0608 interface
--- NOTE | ~2018-05-18 | PR ---
[place], [place] PROGRESS NOTE NAME: PRIYANKA NORTON UNIT #: [id number] ROOM: 403 DOCTOR: ANA PAULA FELICIANO MD BIRTHDATE: [birth year] DOS: 05/24/2018 SUBJECTIVE: The patient is comfortably sleeping at this point, I am covering for Dr. Lynch. Cardiac status appears to be stable. OBJECTIVE: VITAL SIGNS: Her blood pressure is 110/70. She is paced rhythm. HEENT: Unremarkable. NECK: Supple, no JVD. LUNGS: Diminished breath sounds. Few coarse rhonchi. HEART: Sounds are regular paced. NEUROLOGIC: Stable. LABORATORY DATA: Hemoglobin 13.7, hematocrit 41.3. Electrolytes are within normal limits. Troponins have been negative. IMPRESSION: The patient with severe cardiomyopathy, atrial fibrillation, status post ablation, permanent pacemaker, AICD, and COPD exacerbation. PLAN: Continue the present medications as ordered and recommended by Dr. Lynch. Cardiac status appears to be stable. She has not had any swelling in her legs. She does not look to be in acute congestive heart failure. Continue the present medications and we will follow up. ANA PAULA FELICIANO MD CM:EVON [phone] ANA PAULA FELICIANO MD 05/24/18 1136 interface
--- NOTE | ~2018-05-18 | PR ---
[place], [place] PROGRESS NOTE NAME: PRIYANKA NORTON UNIT #: [id number] ROOM: 403 DOCTOR: KIRILL DSOUZA MD BIRTHDATE: [birth year] DOS: 05/23/2018 SUBJECTIVE: Her breathing is worse. When she walks to the bathroom, she gets quite short of breath and also has a harsh cough, which has now settled. She is not expectorating much. She has not had any swelling in the legs or orthopnea, but breathing continues to be a problem. PHYSICAL EXAMINATION: GENERAL: This is a patient who is alert, oriented. Complexion is fine. She is nice and pink. She is not tachypneic. VITAL SIGNS: Temperature is normal, pulse is regular at 75 beats per minute, blood pressure 150/86. NECK: JVP is normal. EXTREMITIES: No edema in the lower extremities. CARDIAC: Auscultation with no murmurs. RESPIRATORY: She is not tachypneic, but she has severely reduced breath sounds bilaterally with inspiratory and expiratory rhonchi and wheezing. IMPRESSION: 1. Severe dilated cardiomyopathy is well compensated. 2. Chronic atrial fibrillation with ventricle pacing and that she had arterioventricular node ablation in the remote past. 3. Chronic obstructive pulmonary disease with exacerbation, which is causing her current symptoms. KIRILL DSOUZA MD CM:PNTRANS [id number] KIRILL DSOUZA MD 06/14/18 1000 interface
--- NOTE | ~2018-05-18 | EKG ---
[place], [place] ELECTROCARDIOGRAM REPORT NAME: PRIYANKA NORTON UNIT #: [id number] ROOM: 402 DOCTOR: THERESA DRAFT REPORT BIRTHDATE: [birth year] [facility] Test Date: 2018-05-18 Test Time: 22:07:43 Pat Name: PRIYANKA NORTON Department: Room: 402 Gender: F Butcher Fish: Monique Mojica : 1945 Requested By: KERRY LEBRON Order Number: [id number] Reading MD: Tre Kolb MD Measurements Intervals [place] Rate: 77 P: VA: QRS: -89 QRSD: 157 T: 98 QT: 416 QTc: 471 Interpretive Statements Afib/flutter and ventricular-paced rhythm No further analysis attempted due to paced rhythm Compared to ECG 05/18/2018 19:30:05 No significant changes Electronically Signed On 05-19-2018 17:48:47 PST by Tre Kolb MD CM:EKGRPT:ELECTROCARDIOGRAM REPORT 06 [id number] KERRY OBRIEN DRAFT REPORT KERRY LEBRON DO
[2018-05-18 16:31] VITALS: BP 176/96
[~2018-05-18 16:31] MED LIST changes: +CORT DOME 0.5%30 GM T; +DOXYCYCLINE100 MG PO; +MUCINEX ER600 MG PO
[2018-05-18 16:46] LABS: BASO # 0.1 10*3/uL (0.0-0.1); BASO % 0.8 % (0.0-1.0); EOS # 0.3 10*3/uL (0.0-0.4); EOS % 3.2 % (1.0-4.0); HEMATOCRIT 39.4 % (37.0-47.0); HEMOGLOBIN 12.8 g/dl (12.0-16.0); LYMPH % 11.8 % (27.0-41.0); MEAN CELL VOLUME 95.4 fl (81.0-99.0); MEAN CORPUSCULAR HGB CONC 32.5 g/dl (33.0-37.0); MONO # 0.5 10*3/uL (0.1-1.0); MONO % 5.8 % (3.0-9.0); NEUT # 6.6 10*3/uL (2.3-7.9); PLATELET COUNT AUTOMATED 157 10*3/uL (130-400); RED BLOOD COUNT 4.13 10*6/uL (4.10-5.10); RED CELL DISTRI WIDTH 12.5 % (0-14.5); WHITE BLOOD COUNT 8.4 10*3/uL (4.8-10.8)
[2018-05-18 16:54] LABS: ACT PARTIAL THROMBO TIME 23.9 SECONDS (20.8-31.5)
[2018-05-18 17:03] LABS: ALBUMIN 3.4 gm/dl (3.1-4.5); ALKALINE PHOSPHATASE 70 U/L (45-117); BUN 8 mg/dl (7-24); CHLORIDE 105 mmol/L (98-107); CREATININE 0.82 mg/dL (0.55-1.02); POTASSIUM 3.5 mmol/L (3.5-5.1); SGOT/AST 15 IU/L (3-35); SGPT/ALT 13 U/L (12-78); SODIUM 139 mmol/L (136-145); TOTAL PROTEIN 6.8 gm/dL (6.4-8.2); TROPONIN I < 0.015 ng/ml (<0.045)
[2018-05-18 18:03] VITALS: BP 154/75
[2018-05-18 20:15] VITALS: BP 136/78
--- NOTE | 2018-05-18 20:18 | NUR ---
A 73, admitted to , under the services of RUBEN Cole MD with a diagnosis of dyspnea, acute bronchitis. Chief complaint is cough,congestion, SOB feels like pacemaker is misfiring.. Patient arrived via stretcher from ER. Monitor applied. Initial assessment completed. Vital signs taken and recorded. RUBEN COLE MD notified of admission to the unit. Orders received. See assessment for past medical history, medications and allergies. Patient and/or family oriented to unit. [facility] visitation policy reviewed. Clothing/patient valuable form completed. FINA RYAN
--- NOTE | 2018-05-18 22:48 | NUR ---
DR. REYES ON UNIT AND NOTIFIED HOME MEDICATIONS WERE RECONCILLED.
[2018-05-19] VITALS: BP 127/69
--- NOTE | 2018-05-19 04:08 | NUR ---
24 HR chart check completed.
[2018-05-19 06:39] LABS: HEMATOCRIT 41.3 % (37.0-47.0); HEMOGLOBIN 13.7 g/dl (12.0-16.0); MEAN CELL VOLUME 96.9 fl (81.0-99.0); MEAN CORPUSCULAR HGB 32.2 pg (27.0-31.0); MEAN CORPUSCULAR HGB CONC 33.2 g/dl (33.0-37.0); MEAN PLATELET VOLUME 11.4 fl (9.6-12.3); PLATELET COUNT AUTOMATED 156 10*3/uL (130-400); RED BLOOD COUNT 4.26 10*6/uL (4.10-5.10); RED CELL DISTRI WIDTH 12.5 % (0-14.5); WHITE BLOOD COUNT 7.1 10*3/uL (4.8-10.8)
[2018-05-19 07:04] LABS: TOTAL CELLS COUNTED 100 #CELLS
[2018-05-19 07:05] LABS: PLATELET SUFFICIENCY NORMAL (NORMAL)
[2018-05-19 07:22] LABS: CHLORIDE 106 mmol/L (98-107); SODIUM 139 mmol/L (136-145)
[2018-05-19 07:34] LABS: ALBUMIN 3.4 gm/dl (3.1-4.5); ALKALINE PHOSPHATASE 73 U/L (45-117); BUN 7 mg/dl (7-24); CHOLESTEROL 182 mg/dL (<200); CREATININE 0.71 mg/dL (0.55-1.02); FREE T4 0.85 ng/dl (0.76-1.46); HDL CHOLESTEROL 92 mg/dl (40-60); LDL CHOLESTEROL 81 mg/dL (9-159); PHOSPHOROUS 2.9 mg/dL (2.5-4.9); SGOT/AST 15 IU/L (3-35); SGPT/ALT 14 U/L (12-78); TRIGLYCERIDES 43 mg/dl (<150); VLDL CHOLESTEROL 9 mg/dL (6-40)
[2018-05-19 07:37] LABS: VITAMIN D, 25-HYDROXY 17.4 ng/mL (30-100)
--- NOTE | 2018-05-19 08:11 | NUR ---
SPOKE WITH DR. DSOUZA AT THIS TIME ABOUT NEW CONSULT. NO NEW ORDERS GIVEN AT THIS TIME.
[2018-05-19 08:30] VITALS: BP 101/61
--- NOTE | 2018-05-19 09:30 | NUR ---
ORTHO'S NEGATIVE AT THIS TIME.
--- NOTE | 2018-05-19 10:10 | NUR ---
Acetylene Torch Operator in to talk to patient. Patient states lives at home alone in [facility] apartments with family checking in on her. There are 0 steps in the home. Physician: Dr. Jeremías Sigala [facility]: [facility]: She again states a Acetylene Torch Operator from [facility] stopped by once to see patient but has never stopped again and she is unsure of when/if she will stop again. She states she doesn't need any help at home. Patient's level of ADLs: INDEPENDENT Patient has working utilities: yes DME: nebulizer, O2 prn, portable O2 tanks, O2 supplier BMS Follow-up physician's appointment after d/c: she prefers to make her own follow up appt after discharge Does patient want to access PORTAL?: no Discharge plan discussed with patient. She lives at home alone with family checking in on her. She is independent in her ADLs and ambulation. Discussed home health care services and she denies any home needs at this time. She comes to the hospital on Tuesdays and Fridays for Dobutamine infusions. She either walks or takes a cab. When medically stable she will be discharged to home. ARIADNE PATTERSON
[2018-05-19 11:53] VITALS: BP 106/66
[2018-05-19 16:00] VITALS: BP 116/56
--- NOTE | 2018-05-19 19:50 | NUR ---
INTO SEE PT. ASSUMED CARE. PT RESTING IN BED. ASSESSED AT THIS TIME. PT HAS NO COMPLAINTS. MEDS GIVEN AT THIS TIME.
[2018-05-19 20:00] VITALS: BP 125/59
--- NOTE | 2018-05-19 20:52 | NUR ---
NOTIFIED OF PT'S NAUSEA. ORDERS PENDING AT THIS TIME. WILL CONTINUE TO MONITOR PT
[2018-05-20] VITALS (7 sets, daily range): BP systolic 114–169; BP diastolic 46–68
--- NOTE | 2018-05-20 09:00 | NUR ---
Soft Sugar Operator Head in to see patient. No new needs or request at this time. She is sitting up on the edge of her bed without distress noted. She denies any home needs at this time. When medically stable she will be discharged to home.
--- NOTE | 2018-05-20 12:27 | NUR ---
PATIENT STARTED ON DOBUTAMINE DRIP OUTPATIENT ORDER. 5 MCG/KG/MIN OVER 4 HOURS.
--- NOTE | 2018-05-20 15:27 | NUR ---
OUTPATIENT DOBUTAMINE DRIP ENDED.
--- NOTE | 2018-05-20 20:00 | NUR ---
ASSUSMED CARE OF PT. ASSESSED AT THIS TIME. PT HAS NO COMPLAINTS
[2018-05-21] VITALS: BP 138/67
[2018-05-21 12:00] VITALS: BP 146/63
[2018-05-21 16:00] VITALS: BP 147/72
[2018-05-21 20:00] VITALS: BP 137/72
--- NOTE | 2018-05-21 21:15 | NUR ---
DR EMRINO NOTIFIED OF PT'S C/O NAUSEA AND STATES HE WILL PUT IN ORDERS
--- NOTE | 2018-05-21 22:36 | NUR ---
ZOFRAN GIVEN FOR C/O NAUSEA AND VOMITING
[2018-05-22] VITALS: BP 148/78
[2018-05-22 12:00] VITALS: BP 135/113; BP 139/49
[2018-05-22 16:00] VITALS: BP 163/90
[2018-05-22 20:00] VITALS: BP 143/60
--- NOTE | 2018-05-22 21:20 | NUR ---
PT AWAKE. ROUTINE MEDS WELL TOLERATED. BED LOW
[2018-05-23] VITALS: BP 136/67
--- NOTE | 2018-05-23 02:10 | NUR ---
24 HR CHART CHECK COMPLETE
[2018-05-23 08:00] VITALS: BP 150/86
--- NOTE | 2018-05-23 08:30 | NUR ---
Clinical Sciences Professor in to see patient. No new needs or request at this time. She denies any home needs at this time. When medically stable she will be discharged to home.
[2018-05-23 12:00] VITALS: BP 148/86
[2018-05-23 14:00] VITALS: BP 148/86
--- NOTE | 2018-05-23 15:00 | NUR ---
RECIEVED PATIENT FROM ANYI-RN. PATIENT IS LAYING IN BED, RESTIN COMFORTABLY. AWAKE/ALERT, PATIENT VOICED NO COMPLAINTS. NO S&S OF DISTRESS NOTED, RESP ARE ERND ON ROOM AIR. BED ISLOCKED IN LOWEST POSITION, CALL LIGHT LEFT WITHIN REACH.
[2018-05-23 16:00] VITALS: BP 150/85
[2018-05-23 20:00] VITALS: BP 140/74
[2018-05-24] VITALS: BP 157/81
--- NOTE | 2018-05-24 00:12 | NUR ---
24 HR chart check completed.
--- NOTE | 2018-05-24 03:00 | NUR ---
PATIENT RESTING COMFORTABLY IN HER BED AT THIS TIME. NO S/S OF DISTRESS. CALL LIGHT WITHIN REACH.
--- NOTE | 2018-05-24 11:24 | NUR ---
SPOKE TO DR. HILLMAN ABOUT PATIENTS DOBUTAMINE GTT THAT SHE RECEIVES TWICE A WEEK AN OUTPATIENT AND HE SAID TO LET CARDIOLOGY ORDER IT HOWEVER THEY WANT IT. WILL WAIT FOR CARDIOLOGY TO ROUND AND ASK THEM TODAY. PER PATIENT SHE WAS TO RECEIVE HER SCHEDULED DOSE TOMORROW 05/25/18
[2018-05-24 12:00] VITALS: BP 124/90
[2018-05-24 16:00] VITALS: BP 142/60
[2018-05-24 19:40] VITALS: BP 148/82
[2018-05-24 20:00] VITALS: BP 149/101
--- NOTE | 2018-05-24 20:00 | NUR ---
PT RESTING IN BED. RESPS EASY AND REG. NO ACUTE DISTRESS NOTED CURRENTLY. NO COMPLAINTS NOTED AT THIS TIME. CALL LIGHT IN REACH.
[2018-05-25] VITALS: BP 129/67
--- NOTE | 2018-05-25 00:08 | NUR ---
PATIENT AT THIS TIME STATES THAT SHE WOULD LIKE TO HOLD OFF ON HER NEXT RESPIRATORY TREATMENT. RESPIRATORY MADE AWARE
--- NOTE | 2018-05-25 01:40 | NUR ---
24 HR chart check completed.
[2018-05-25 08:00] VITALS: BP 128/68
--- NOTE | 2018-05-25 08:59 | NUR ---
PT STATES STATES NO NEEDS AT THIS TIME
[2018-05-25 12:00] VITALS: BP 133/88
--- NOTE | 2018-05-25 12:11 | NUR ---
SPOKE TO DR. DSOUZA, PT TO RECEIVE DOBUTAMINE TREATMENT TODAY AND NEXT TREATMENT WILL BE NEXT WEEK AN OUTPATIENT
--- NOTE | 2018-05-25 13:23 | NUR ---
DOBUTAMINE GTT STARTED. PT IS TO RECEIVE TREATMENT FOR 4 HOURS. PT STATES NO NEEDS AT THIS TIME
[2018-05-25 16:00] VITALS: BP 187/75
--- NOTE | 2018-05-25 19:58 | NUR ---
AWAKE/ALERT FOR SHIFT ASSESSMENT. RESPIRATIONS EASY/REG ON RA AT THIS TIME. ABX INFUSING ORDERED INTO RIGHT MEDIPORT . C/O SOB GETTING WORSE AND SHE THINKS THE ABX AND BREATHING TX ARE MAKING HER WORSE. EDUCATED PATIENT ON PURPOSE OF MEDICATIONS. VOICED UNDERSTANDING. BED IN LOW POSITION, WHEELS LOCKED, CALL LIGHT IN REACH.
[2018-05-25 20:00] VITALS: BP 122/71
--- NOTE | 2018-05-25 20:49 | NUR ---
PATIENT STATES HER AZITHROMYCIN IS MAKING HER SICK AND SHE "CANT HANDLE IT ANYMORE" OFFERED PATIENT ZOFRAN AND SHE STATED "OH NO THAT MAKES IT WORSE." PATIENT HAS 2100 ROCEPHIN DUE AND REFUSING THAT WELL, ALSO STATES "THAT ONE IS WORSE." DR REYES NOTIFIED. AGREED TO A CAN OF ALESIA GERMAN TO HELP EASE NAUSEA.
--- NOTE | 2018-05-25 21:00 | NUR ---
DR REYES ON FLOOR TO SEE PATIENT. STATED SHE IS STILL REFUSING ALL IV ABX AT THIS TIME.
--- NOTE | 2018-05-25 21:39 | NUR ---
PATIENT TOOK 2200 MUCINEX WITHOUT ISSUE. STATES THE ALESIA GERMAN HELPED HER NAUSEA A LITTLE BIT BUT STILL REFUSING ALL IV ABX AT THIS TIME.
[2018-05-26] VITALS: BP 146/69
--- NOTE | 2018-05-26 03:28 | NUR ---
PATIENT SLEEPING. NO S/S OF DISTRESS NOTED. RESPIRATIONS EASY/REG. CALL LIGHT IN REACH
--- NOTE | 2018-05-26 07:15 | NUR ---
IN TO SEE PATIENT.
--- NOTE | 2018-05-26 07:44 | NUR ---
PATIENT RESTING QUIETLY IN BED. RESPIRATIONS EASY, REGULAR ON RA. DENIES ANY SOB AT THIS TIME. PT STATES SHE IS GOING HOME TODAY. WILL CONTINUE TO MONITOR. VSS. CALL LIGHT WITHIN REACH.
[2018-05-26 08:00] VITALS: BP 140/83
--- NOTE | 2018-05-26 10:09 | NUR ---
IN TO SEE PATIENT.
--- NOTE | 2018-05-26 11:47 | NUR ---
Hand Funnel Coater in to see patient. Discussed short term SNF and she refuses. Discussed home health care services and she refuses stating "I don't need a nurse to come out." meeting/event planner notified.
[2018-05-26 12:00] VITALS: BP 152/85
[2018-05-26 16:00] VITALS: BP 146/83; BP 154/79
[2018-05-26 20:00] VITALS: BP 135/84
--- NOTE | 2018-05-26 20:32 | NUR ---
AWAKE/ALERT FOR SHIFT ASSESSMENT. RESPIRATIONS EASY/REG ON RA. PATIENT STATES SHE FEELS A LOT BETTER TONIGHT AND IS READY TO GO HOME TOMORROW. CHEST PAIN HAS DECREASED AND HER BREATHING IS GETTING BETTER PER PT. NO VOICED COMPLAINTS AT THIS TIME. BED IN LOW POSITION, WHEELS LOCKED, CALL LIGHT IN REACH
[2018-05-27] VITALS: BP 139/97
[2018-05-27 07:52] LABS: HEMATOCRIT 38.6 % (37.0-47.0); HEMOGLOBIN 12.7 g/dl (12.0-16.0); MEAN CELL VOLUME 93.5 fl (81.0-99.0); MEAN CORPUSCULAR HGB 30.8 pg (27.0-31.0); MEAN CORPUSCULAR HGB CONC 32.9 g/dl (33.0-37.0); MEAN PLATELET VOLUME 10.7 fl (9.6-12.3); PLATELET COUNT AUTOMATED 176 10*3/uL (130-400); RED BLOOD COUNT 4.13 10*6/uL (4.10-5.10); WHITE BLOOD COUNT 14.8 10*3/uL (4.8-10.8)
[2018-05-27 08:10] LABS: ALBUMIN 2.6 gm/dl (3.1-4.5); ALKALINE PHOSPHATASE 51 U/L (45-117); BUN 15 mg/dl (7-24); CHLORIDE 104 mmol/L (98-107); CREATININE 0.61 mg/dL (0.55-1.02); POTASSIUM 4.2 mmol/L (3.5-5.1); SGOT/AST 11 IU/L (3-35); SGPT/ALT 25 U/L (12-78); SODIUM 140 mmol/L (136-145); TOTAL PROTEIN 5.6 gm/dL (6.4-8.2)
[2018-05-27 08:20] LABS: TOTAL CELLS COUNTED 100 #CELLS
[2018-05-27 08:21] LABS: PLATELET SUFFICIENCY NORMAL (NORMAL)
--- NOTE | 2018-05-27 09:00 | NUR ---
case management visits with patient, patient states she will be going home when able and denies any home needs
[2018-05-27 12:00] VITALS: BP 131/70
[2018-05-27 16:00] VITALS: BP 131/95
--- NOTE | 2018-05-27 19:52 | NUR ---
DR. QUIROGA WAS NOTIFIED OF THE CONSULT ON THIS PATIENT.
[2018-05-27 20:19] VITALS: BP 122/68
--- NOTE | 2018-05-27 23:29 | NUR ---
24 HR chart check complete.
[2018-05-28] VITALS: BP 120/66
[2018-05-28 08:00] VITALS: BP 142/72
--- NOTE | 2018-05-28 09:07 | NUR ---
PATIENT REFUSING TO TAKE ANY HOME MEDICATIONS AT THIS TIME. WANTS AMA PAPERS.
--- NOTE | 2018-05-28 09:07 | NUR ---
Patient signed out AMA. Patient encouraged to stay and advised of possible consequences of premature discharge. Physician and typists supervisor HIRA notified. Patient instructed what to do regarding care post-departure from the hospital; emergency phone numbers provided. Patent was accompanied by SON. HOPE NOBLE
--- NOTE | 2018-05-28 09:18 | NUR ---
PATIENT SIGNED AMA PAPER. MONITOR REMOVED AND MEDIPORT DEACCESSED.
--- NOTE | 2018-05-28 09:38 | NUR ---
STEAM BOILER FIREMAN AWARE THAT PATIENT HAS LEFT AMA.
--- NOTE | 2018-05-28 09:42 | NUR ---
DR PAK CALLED AND MADE AWARE THAT PATIENT SIGNED OUT AMA.
[2018-07-19] MEDS ORDERED: XARELTO10 MG PO (07:25)
[2018-10-11] MEDS ORDERED: VANCOMYCIN2 GM/500 M IV (13:44)
[2018-11-30] MEDS ORDERED: XARE20MG PO (15:43)
[2018-12-21] MEDS ORDERED: LISINOPRIL2.5 MG PO (15:07)
[2018-12-21] MEDS ORDERED: CARVEDILOL6.25 MG PO (15:07)
[2018-12-21] MEDS ORDERED: VITAMIN D32000 UNI1 PO (15:07)
[2018-12-21] MEDS ORDERED: B12,B-12,B 12500 MC1 PO (15:07)
[2018-12-21] MEDS ORDERED: XARE20MG PO (15:07)
== END 2018-05-28 09:38 | disposition left against medical advice (07) | DRG 191 ==
LOC: ED 16:31 → EDHOLD 18:33 → 4E 18:33
PROVIDERS: Emergency Medicine; Internal Medicine; ADMIT Internal Medicine
PROC: 4B02XTZ Measurement of Cardiac Defibrillator, External Approach (ICD-10-PCS; principal; 2018-05-19)
DX: J44.0 Chronic obstructive pulmonary disease with (acute) lower respiratory infection (principal); J44.1 Chronic obstructive pulmonary disease with (acute) exacerbation; J20.9 Acute bronchitis, unspecified; I24.8 Other forms of acute ischemic heart disease; I50.22 Chronic systolic (congestive) heart failure; J96.11 Chronic respiratory failure with hypoxia; I42.0 Dilated cardiomyopathy; I25.119 Atherosclerotic heart disease of native coronary artery with unspecified angina pectoris; R07.9 Chest pain, unspecified; I48.2 Chronic atrial fibrillation; I11.0 Hypertensive heart disease with heart failure; E53.8 Deficiency of other specified B group vitamins; E55.9 Vitamin D deficiency, unspecified; Z53.21 Procedure and treatment not carried out due to patient leaving prior to being seen by health care provider; R10.9 Unspecified abdominal pain; L40.9 Psoriasis, unspecified; E78.00 Pure hypercholesterolemia, unspecified; R73.03 Prediabetes; I08.1 Rheumatic disorders of both mitral and tricuspid valves; Z90.49 Acquired absence of other specified parts of digestive tract; Z90.710 Acquired absence of both cervix and uterus; Z95.810 Presence of automatic (implantable) cardiac defibrillator; Z87.891 Personal history of nicotine dependence; Z80.3 Family history of malignant neoplasm of breast; Z82.3 Family history of stroke; Z82.49 Family history of ischemic heart disease and other diseases of the circulatory system; Z80.9 Family history of malignant neoplasm, unspecified; Z79.899 Other long term (current) drug therapy

== ENCOUNTER 2018-07-04 17:43 | Inpatient (IN) | payer MEDICARE, MEDICAID ==
[~2018-07-04] VITALS: Ht 175.2 cm; Wt 73.3 kg
--- NOTE | ~2018-07-04 | PR ---
[place], [place] PROGRESS NOTE NAME: PRIYANKA NORTON UNIT #: [id number] ROOM: 518 DOCTOR: KIRILL DSOUZA MD BIRTHDATE: [birth year] DOS: 07/07/2018 SUBJECTIVE: She feels well. She has some cough with very little expectoration. No fever or chills. She has not had any breathing difficulty through the night while she was lying flat. OBJECTIVE: VITAL SIGNS: Pulse is 72 and regular, blood pressure 136/84. NECK: Normal JVP. LUNGS: Sounds excellent. EXTREMITIES: No edema of the lower extremities. IMPRESSION AND PLAN: 1. This patient has severe cardiomyopathy, it is nonischemic and is well compensated. 2. Acute chest infection on top of chronic obstructive pulmonary disease. 3. From cardiac standpoint, she is stable and can be discharged. KIRILL DSOUZA MD CM:PNTRANS [id number] KIRILL DSOUZA MD 07/08/18 0435 interface
--- NOTE | ~2018-07-04 | CON ---
[place], [place] REPORT OF CONSULTATION NAME: PRIYANKA NORTON UNIT #: [id number] ROOM: 518 DOCTOR: NOEL HERNANDEZ MD BIRTHDATE: [birth year] DOS: 07/08/2018 PULMONARY CONSULTATION, EVALUATION, AND MANAGEMENT REASON FOR CONSULTATION: To assess the patient for current ongoing symptoms of coughing, now resolving with current maximal medical therapy with exacerbation of COPD. HISTORY OF PRESENT ILLNESS: A 73-year-old white female patient with past history of COPD. The patient presented to the hospital as she has been experiencing increased respiratory symptoms for the last few days. Symptoms have been noted gradually worsened. The patient came to the Emergency Room, where she has been assessed and admitted to the hospital. She has been seen in the Emergency Room on 05/2018 as well, recommended inpatient treatment. The patient was admitted to the hospital in 04/2018 and signed against medical advice later and did not continue to complete her treatment. The patient denies any symptoms of chest pain. Denies symptoms of hemoptysis. She has been noted with history of chronic systolic dysfunction, congestive heart failure, treated with intravenous dobutamine treatment twice a week as well. She stated that she has been noted severe cough and able to cough the sputum up, but could not bring it out. She could bring the sputum up to the mid chest and then it goes down again. She could not expectorate sputum. She denies symptoms of fever or chills. She denies symptoms of wheezing. She denies any symptoms of chest pain. She does have symptoms of wheezing at times. PAST MEDICAL HISTORY: Reported as: 1. History of chronic obstructive pulmonary disease. 2. The patient with systolic dysfunction, cardiomyopathy, with IV dobutamine administration twice a week as well. 3. Aortic valve stenosis. 4. Chronic hypoxic respiratory failure. 5. Essential hypertension. 6. Hyperlipidemia. 7. Hypercoagulable status. 8. Mitral valve regurgitation and prolapse history. 9. History of vasovagal syncope. PAST SURGICAL HISTORY: 1. Radiofrequency ablation of the tract. 2. Carpal tunnel repeat release. 3. Surgery of feet. 4. Septoplasty. 5. Cardiac catheterization. 6. AICD insertion. 7. Appendectomy. 8. Tonsillectomy. HOME MEDICATIONS: Home medications listed on admission is IV dobutamine twice a day, Xarelto 20 mg b.i.d., vitamin D and B12. [place], [place] REPORT OF CONSULTATION NAME: PRIYANKA NORTON UNIT #: [id number] ROOM: 518 DOCTOR: NOEL HERNANDEZ MD BIRTHDATE: [birth year] CURRENT MEDICATIONS: Current medications administered on this hospitalization were noted as administration of IV dobutamine twice a day, Xarelto 20 mg b.i.d., vitamin D 2000 units daily, Mucinex 1200 mg p.o. daily, DuoNeb q.4 hours. Solu-Medrol 40 mg b.i.d., and other p.r.n. medications. DRUG ALLERGIES: Noted with known drug allergies. SOCIAL HISTORY: The patient has known tobacco use previously, smoked a pack or less of cigarettes per day in the past, which has been discontinued several years ago. She denies history of alcohol use or illicit drug use. FAMILY HISTORY: The patient's father at age 90-years from complication of head trauma. The mother from complication related to CVA and also reported with history of breast cancer. REVIEW OF SYSTEMS: CONSTITUTIONAL SYMPTOMS: Fatigue and tiredness noted without any symptoms of fever or chills. EYES: Denies any burning, redness, or tenderness. EARS, NOSE, AND THROAT SYMPTOMS: No sore throat, hoarseness, otalgia, postnasal drainage, or epistaxis. CARDIOVASCULAR SYSTEM: Denies angina pain, edema, or pain of the lower extremities. GASTROINTESTINAL SYMPTOMS: No dysphagia, nausea, vomiting, diarrhea, abdominal pain, hematemesis, melena, or hematochezia. GENITOURINARY SYMPTOMS: Denies dysuria, suprapubic pain, or hematuria. MUSCULOSKELETAL SYMPTOMS: No acute joint pain, redness, or tenderness. Remaining systems were reviewed and they were noted all negative. PHYSICAL EXAMINATION: GENERAL: This is a 73-year-old female patient, who has been noted currently awake and alert without any acute distress this morning of assessment. Height of 5 feet 9 inches, weight of 157 pounds, and BMI of 23. VITAL SIGNS: Normal temperature since admission, respiratory rate of 18-20, heart rate of 79-75, blood pressure of 120/52-158/82. Pulse oxygen saturation recorded as 97% saturation on room air. HEENT: On examination, head was atraumatic. Eyes nonicterus. NECK: Supple. CARDIOVASCULAR SYSTEM: S1, S2 audible. LUNGS: Noted moderate decreased breath sounds in the lungs bilaterally. ABDOMEN: Soft, nontender. Bowel sounds present. EXTREMITIES: Without any edema. MUSCULOSKELETAL: Without any acute deformities. CENTRAL NERVOUS SYSTEM: Cranial nerves 2-12 intact. LABORATORY DATA: CMP that was done this morning, normal BUN and creatinine, glucose of 127. Remaining CMP was completely normal. PT and PTT of the patient on 07/05/2018 noted as normal. Troponin 3 sets on 07/04/2018 were normal. CBC on 07/04/2018, 4.2% eosinophils at that time with WBC count of 6.4. [place], [place] REPORT OF CONSULTATION NAME: PRIYANKA NORTON UNIT #: [id number] ROOM: 518 DOCTOR: SUSHMA HERNANDEZ MDM BIRTHDATE: [birth year] IMAGING DATA: Chest x-ray was noted with cardiomegaly, AICD in place without any acute pulmonary infiltration or other abnormalities. She had a CT scan of the chest that was completed as well on the date of 07/06/2018 was reviewed, shows 5 mm nodule was noted in the right upper lobe with additional tiny nodule, couple of them surrounded in the right upper lobe, changes of centrilobular emphysema noted in both lungs consistent with past history of tobacco use. Lack of the IV contrast does limit the assessment of the mediastinal structures; however, grossly this appears to be significant pathological lymphadenopathy. IMPRESSION: 1. The patient has been currently admitted to the hospital noted with acute exacerbation of chronic obstructive pulmonary disease with progressive respiratory symptom. The patient is not responding to current treatment with severe nonproductive cough with intermittent wheezing and shortness of breath. History of known dilated ischemic cardiomyopathy, treated with IV dobutamine as an outpatient twice a week. 2. The patient with chronic anticoagulation with the heavy dose noted as 20 mg b.i.d. as well. 3. Past history of tobacco use as well. 4. Incidental finding of 5 mm nodule in the right upper lobe, at this time significance was unknown. PLAN OF MANAGEMENT: Therapeutic bronchoscopy was planned to be done on Wednesday. The patient has been getting IV dobutamine to be continued. Consider reducing the dose of Xarelto to 20 mg daily, intermediate maintenance unless given for acute thromboembolic management. The pulmonary nodule need to be assessed as an outpatient with followup CT scan could be done between 3-6 months as well. Bronchodilators to be continued. Continuation of the other maximal medical management including the corticosteroids use. The DuoNeb could be changed to the albuterol sulfate because of the COPD exacerbation. Other therapy, plan of management, care, and changes will be recommended based on the progression of her illness. She is already getting high dose of Mucinex 1200 mg p.o. b.i.d. to help expectorate sputum, has already been ordered as the flutter valve not used frequently by the patient and more frequently help clear of secretion from the endobronchial tree. Continue future abstinence of tobacco use as well. Other therapy, plan of management, and treatment has ongoing will be continued without any changes. Thanks for allowing me to participate in the care of this patient. [place], [place] REPORT OF CONSULTATION NAME: PRIYANKA NORTON UNIT #: [id number] ROOM: 518 DOCTOR: NOEL HERNANDEZ MD BIRTHDATE: [birth year] NOEL QUIROGA MD CM:CONSTR:REPORT OF CONSULTATION 1209 07/21/18 0958 interface
--- NOTE | ~2018-07-04 | PR ---
[place], [place] PROGRESS NOTE NAME: PRIYANKA NORTON UNIT #: [id number] ROOM: 518 DOCTOR: KIRILL DSOUZA MD BIRTHDATE: [birth year] DOS: 07/11/2018 SUBJECTIVE: She had a bronchoscopic study today and the airways were lavaged. She feels a little better. She still has a harsh cough. She is not short of breath at rest. No chest pain or palpitations. PHYSICAL EXAMINATION: GENERAL: The patient is very pleasant and alert, says she is walking around. Complexion is fine. VITAL SIGNS: Pulse is regular at 76 beats per minute, blood pressure 151/90. NECK: JVP is normal. CHEST: She has reduced breath sounds with rhonchi and crackles in both lungs 1+. EXTREMITIES: No edema in the lower extremity. IMPRESSION: 1. This patient has moderately severe nonischemic/dilated cardiomyopathy that appears to be well compensated. She received dobutamine treatment twice a week and without this, she had deteriorated. 2. Chronic obstructive pulmonary disease. She had a bronchiolar lavage today and she is doing somewhat better. 3. Chronic atrial fibrillation with ventricular pacing. No new recommendations. KIRILL DSOUZA MD CM:PNTRANS [id number] KIRILL DSOUZA MD 07/12/18 0712 interface
--- NOTE | ~2018-07-04 | PR ---
[place], [place] PROGRESS NOTE NAME: PRIYANKA NORTON UNIT #: [id number] ROOM: 518 DOCTOR: KIRILL DSOUZA MD BIRTHDATE: [birth year] DOS: 07/06/2018 SUBJECTIVE: She has a cough with some expectoration. She has no chest pain, no palpitations, has not had any swelling in the legs. Her appetite is fine. Mood is fairly decent. Often, she is very depressed. PHYSICAL EXAMINATION: GENERAL: The patient's complexion is nice and pink. She is comfortable. She is not tachypneic. VITAL SIGNS: Temperature is normal, pulse is 76 and regular, blood pressure 123/60. NECK: Normal JVP. AJR is negative. EXTREMITIES: No edema in lower extremities. HEART: No murmurs are present. LUNGS: Breath sounds are moderately diminished with some rhonchi, no wheezing. IMPRESSION: 1. This patient has acute exacerbation of chronic obstructive pulmonary disease that is being treated. 2. She has chronic systolic heart failure that is well compensated and she receives dobutamine treatment twice a week in this hospital. No new recommendations. KIRILL DSOUZA MD CM:PNTRANS [phone] KIRILL DSOUZA MD 07/07/18 0601 interface
--- NOTE | ~2018-07-04 | PR ---
[place], [place] PROGRESS NOTE NAME: PRIYANKA NORTON UNIT #: [id number] ROOM: 518 DOCTOR: JUNAID LOZADA MD,NOEL BIRTHDATE: [birth year] DOS: 07/10/2018 SUBJECTIVE: The patient noted comfortable at this time, resting in the bed, still noted with significant severe cough. The patient without any sputum expectoration. Denies symptoms of fever, chills or hemoptysis. Denies symptoms of nausea, vomiting, diarrhea or any abdominal pain. OBJECTIVE: VITAL SIGNS: For the patient which has been recorded showed normal temperature, respiratory rate 20, heart rate 77, blood pressure 162/99-132/80. Pulse oxygen saturation recorded as 98% saturation at rest on room air. HEENT: Examination shows head was atraumatic. Eyes: No icterus. NECK: Supple. CARDIOVASCULAR: S1, S2 audible. LUNGS: With decreased breath sounds, expiratory wheezing, no crackles. ABDOMEN: Soft, nontender, bowel sounds present. EXTREMITIES: No acute change. IMPRESSION: Ongoing acute exacerbation of chronic obstructive pulmonary disease, persistent severe cough remained nonproductive. Bronchoscopy to be done tomorrow. PLAN OF MANAGEMENT: No changes in the plan of care at this time. Continue bronchodilators, oxygen supplementation, corticosteroids. The Xarelto for the patient remains on hold at the present time until the completion of bronchoscopy tomorrow. No other changes in her treatment will be needed. NOEL QUIROGA MD CM:PNTRANS [id number] NOEL LOZADA MD 07/11/18 0408 interface
--- NOTE | ~2018-07-04 | PR ---
[place], [place] PROGRESS NOTE NAME: PRIYANKA NORTON UNIT #: [id number] ROOM: 518 DOCTOR: KIRILL DSOUZA MD BIRTHDATE: [birth year] DOS: 07/10/2018 SUBJECTIVE: She has some shortness of breath. Her cough is very harsh and the chest rattles enormously from secretions, but she has not been able to expectorate anything. No fever or chills. Her breathing is really at baseline and she has not had any swelling of the lower extremities. Her sleeping has been a little tough. She has been eating okay. PHYSICAL EXAMINATION: GENERAL: This revealed the patient who is alert, oriented. Her complexion is fine. VITAL SIGNS: Temperature is 98.2 degrees, pulse is 96 and regular, blood pressure 132/80. NECK: JVP is normal. LUNGS: She has a lot of rhonchi in both lungs with reduced breath sounds. EXTREMITIES: There is no edema in the lower extremities. LABORATORY DATA: No lab was done today. Renal function yesterday was normal. IMPRESSION: 1. The patient has severe dilated cardiomyopathy. This is well compensated. 2. She has chronic atrial fibrillation with underlying ventricular pacing. 3. Severe chronic obstructive pulmonary disease exacerbated by the acute chest infection. She is to undergo a therapeutic bronchoscopy tomorrow. No new recommendations. KIRILL DSOUZA MD CM:PNTRANS [phone] KIRILL DSOUZA MD 07/11/18 0158 interface
--- NOTE | ~2018-07-04 | CON ---
[place], [place] REPORT OF CONSULTATION NAME: PRIYANKA NORTON UNIT #: [id number] ROOM: 518 DOCTOR: JODIE ESPINOSAANA PAULA BIRTHDATE: [birth year] DOS: 07/05/2018 I am covering for Dr. Lynch. HISTORY OF PRESENT ILLNESS: The patient has been admitted multiple times in the hospital, 73-year-old female with nonischemic cardiomyopathy. The patient has been admitted multiple times. The patient is seen by Dr. Moore also, admitted with shortness of breath, though she is readmitted with increasing shortness of breath and possible congestive heart failure. She has chronic CHF, systolic. PAST MEDICAL HISTORY: Significant for coronary artery disease, chronic AFib, COPD, AICD, cardiomyopathy, pulmonary nodule. PAST SURGICAL HISTORY: Radiofrequency ablation, permanent pacemaker defibrillator, cardiac catheterization, appendectomy, tonsillectomy. SOCIAL HISTORY: Denies any drug abuse. Former smoker. FAMILY HISTORY: Noncontributory. HOME MEDICATIONS: She is on outpatient dobutamine therapy, rivaroxaban. REVIEW OF SYSTEMS: CONSTITUTIONAL: No fever, no chills. HEENT: No visual disturbance or hearing problems. CARDIOVASCULAR: As per HPI. GASTROINTESTINAL: No nausea, no vomiting. GENITOURINARY: No dysuria. Hemodynamically stable. PHYSICAL EXAMINATION: VITAL SIGNS: Blood pressure is 130/80 paced rhythm. HEENT: Elevated JVD. LUNGS: Diminished breath sounds. HEART: Sounds are paced. ABDOMEN: Soft, nontender. EXTREMITIES: About 2+ edema. NEUROLOGICAL: Stable. LABORATORY DATA: Sodium 143, potassium 3.6 and creatinine is okay. Liver functions are normal. Troponins have been negative. BNP is 962, which is very chronically elevated. Hemoglobin 12.8, hematocrit within normal limits. Chest x-ray showed no CHF. IMPRESSION: Chronic obstructive pulmonary disease exacerbation, not obvious in congestive heart failure, chronic congestive systolic failure, which is compensated, hypertension, hyperlipidemia, left ventricular hypertrophy, noncompliance. RECOMMENDATIONS: Agree with starting the patient on Solu-Medrol, continue on the other medications of Xarelto, add a very small dose of LUCY inhibitors [place], [place] REPORT OF CONSULTATION NAME: PRIYANKA NORTON UNIT #: [id number] ROOM: 518 DOCTOR: JODIE ESPINOSA,ANA PAULA BIRTHDATE: [birth year] because of the history of nonischemic cardiomyopathy. Creatinine is stable. Monitor the blood pressure and to increase activity. The patient is already on antibiotics at this point, the patient is already on Lasix at this point. Strict I's and O's and we will follow up. ANA PAULA FELICIANO MD CM:CONSTR:REPORT OF CONSULTATION 0720 07/05/18 1123 interface
--- NOTE | ~2018-07-04 | EKG ---
[place], [place] ELECTROCARDIOGRAM REPORT NAME: PRIYANKA NORTON UNIT #: [id number] ROOM: 518 DOCTOR: THERESA DRAFT REPORT BIRTHDATE: [birth year] [facility] Test Date: 2018-07-04 Test Time: 22:58:56 Pat Name: PRIYANKA NORTON Department: Room: 518 1 Gender: F Manager [employer]: Monique Mojica : 1945 Requested By: TERESITA HELMS Order Number: [id number] Reading MD: Anya Lynch MD Measurements Intervals [place] Rate: 77 P: MS: QRS: 34 QRSD: 161 T: 74 QT: 447 QTc: 506 Interpretive Statements Afib/flutter and ventricular-paced rhythm No further analysis attempted due to paced rhythm Compared to ECG 05/18/2018 22:07:43 No significant changes Electronically Signed On 07-06-2018 8:22:24 PST by Anya Lynch MD CM:EKGRPT:ELECTROCARDIOGRAM REPORT [id number] 0822 TERESITA OBRIEN DRAFT REPORT TERESITA HELMS DO
--- NOTE | ~2018-07-04 | PROC NOTE ---
[place], [place] PROCEDURE NOTE NAME: PRIYANKA NORTON UNIT #: [id number] ROOM: 518 DOCTOR: JUNAID LOZADA MD,NOEL BIRTHDATE: [birth year] DOS: 07/11/2018 PREOPERATIVE DIAGNOSES: Severe nonresolving cough with symptoms of wheezing intermittently. The patient without any resolution. Maximum medical therapy for the past several days. POSTOPERATIVE DIAGNOSES: Removal of moderate impaction of mucus from endobronchial tree bilaterally and finding of tracheobronchitis. PROCEDURE DESCRIPTION: Informed consent obtained for the patient. She was brought to the OR and placed in supine position. Conscious sedation administered by Anesthesia Department. After that, airway introduced into the mouth. Bronchoscope was advanced to the airway into laryngeal area. Epiglottis and vocal cords were seen. The vocal cords moving symmetrical movement. Bronchoscope was advanced to the vocal cord and tracheal lumen. The tracheal lumen was noted with moderate amount of thick mucus secretion suctioned out at marina level. Right upper, right lower, left upper, lingula, and lower lobe bronchi all examined. The impaction of the mucus cleared from endobronchial tree bilaterally without any difficulty. Postoperative findings will be discussed with the patient once the patient recovered the effects of acute sedation. No immediate changes in the treatment at this time will be recommended. NOEL QUIROGA MD CM:PROCNOTE:PROCEDURE NOTE 1121 2313 NOEL LOZADA MD
--- NOTE | ~2018-07-04 | EKG ---
[place], [place] ELECTROCARDIOGRAM REPORT NAME: PRIYANKA NORTON UNIT #: [id number] ROOM: 518 DOCTOR: THERESA DRAFT REPORT BIRTHDATE: [birth year] [facility] Test Date: 2018-07-08 Test Time: 10:53:09 Pat Name: PRIYANKA NORTON Department: Room: 518 1 Gender: F Respiratory Clinician: Vandana Mccullough : 1945 Requested By: NOEL LOZADA Order Number: [id number] Reading MD: Noel Moore MD Measurements Intervals [place] Rate: 77 P: IN: QRS: 68 QRSD: 163 T: 87 QT: 435 QTc: 493 Interpretive Statements Afib/flutter and ventricular-paced rhythm No further analysis attempted due to paced rhythm Compared to ECG 07/05/2018 01:01:40javascript:perform('study_confirm'); No significant changes Electronically Signed On 07-09-2018 10:08:18 PST by Noel Moore MD CM:EKGRPT:ELECTROCARDIOGRAM REPORT 1053 1008 NOEL CARDENAS DRAFT REPORT NOEL LOZADA MD
--- NOTE | ~2018-07-04 | EKG ---
[place], [place] ELECTROCARDIOGRAM REPORT NAME: PRIYANKA NORTON UNIT #: [id number] ROOM: 518 DOCTOR: THERESA DRAFT REPORT BIRTHDATE: [birth year] [facility] [place] Test Date: 2018-07-05 Test Time: 01:01:40 Pat Name: PRIYANKA NORTON Department: Room: 518 1 Gender: F Law [employer] Administrator: Monique Mojica : 1945 Requested By: TERESITA HELMS Order Number: [id number] Reading MD: Anya Lynch MD Measurements Intervals [place] Rate: 79 P: -47 AR: 65 QRS: -77 QRSD: 167 T: 98 QT: 458 QTc: 526 Interpretive Statements Ventricular-paced rhythm; underlying a fib No further analysis attempted due to paced rhythm Compared to ECG 05/18/2018 22:07:43 Atrial fibrillation no longer present Electronically Signed On 07-06-2018 8:23:33 PST by Anya Lynch MD CM:EKGRPT:ELECTROCARDIOGRAM REPORT 0 0823 TERESITA OBRIEN DRAFT REPORT TERESITA HELMS DO
--- NOTE | ~2018-07-04 | PR ---
[place], [place] PROGRESS NOTE NAME: PRIYANKA NORTON UNIT #: [id number] ROOM: 518 DOCTOR: JUNAID LOZADA MD,NOEL BIRTHDATE: [birth year] DOS: 07/09/2018 SUBJECTIVE: She continued to have similar symptoms. Coughing remains in control. Denies symptoms of chest pain, fever or chills. The patient does have symptoms of shortness breath with exertion, not at rest. Wheezing was reported intermittently. OBJECTIVE: VITAL SIGNS: For the patient which were recorded showed the temperature noted as normal. The respiratory rate of the patient recorded as 20, heart rate of 80, and blood pressure 146/78. Pulse oxygen saturation on room air 95% saturation. HEENT: Examination shows head was atraumatic. Eyes nonicterus. NECK: Supple. CARDIOVASCULAR: S1, S2 audible. LUNGS: The patient with expiratory wheezing, no crackles. ABDOMEN: Soft and nontender. Bowel sounds present. EXTREMITIES: Without any acute edema. LABORATORY DATA: BMP today, normal BUN and creatinine. IMPRESSION: 1. Acute exacerbation of chronic obstructive pulmonary disease, acute bronchitis, nonproductive cough. 2. Cardiomyopathy. 3. A 5 mm nodule in right upper lobe. It was an incidental finding. PLAN OF MANAGEMENT: No changes in plan of care at this time. Continuation of current plan of management as previously. Usual care, other supportive plan of management therapy and care. NOEL QUIROGA MD CM:PNTRANS 1231 12 NOEL LOZADA MD 07/09/182113 interface
--- NOTE | ~2018-07-04 | PR ---
[place], [place] PROGRESS NOTE NAME: PRIYANKA NORTON UNIT #: [id number] ROOM: 518 DOCTOR: JUNAID LOZADA MD,NOEL BIRTHDATE: [birth year] DOS: 07/12/2018 SUBJECTIVE: 07/12/2018. The patient has a bronchoscopy done yesterday with significant reduction in the cough is noted. Sputum expectoration has been noted at this time. The patient is able to expectorate some sputum. There were no symptoms of fever or chills. Shortness of breath is resolving. There were no symptoms of chest pain. OBJECTIVE: VITAL SIGNS: Normal temperature, respiratory rate 20, heart rate 75, blood pressure 150/90. The pulse ox saturation was noted on room air 97% saturation. HEENT: Examination shows head was atraumatic. Eyes nonicterus. NECK: Supple. CARDIOVASCULAR: S1, S2 is audible. LUNGS: The patient without any wheeze or crackles today. ABDOMEN: Soft, nontender, bowel sounds present. EXTREMITIES: No acute edema. LABORATORY DATA: Culture of the sputum has been noted as normal ti at this time. IMPRESSION: The patient with acute tracheobronchitis status post bronchoscopy, removal of the mucus impaction of the major airways as well as exacerbation of chronic obstructive pulmonary disease. PLAN OF TREATMENT: The patient could be considered for home discharge at this time. Continuation of the bronchodilator with oxygen supplementation, other plan of management. Upon discharge, the patient will receive the oral antibiotics and tapering prednisone. The discharge planning per primary care physician. NOEL QUIROGA MD CM:PNTRANS 1126 1423 NOEL LOZADA MD 07/12/18 1423 interface
--- NOTE | ~2018-07-04 | PR ---
[place], [place] PROGRESS NOTE NAME: PRIYANKA NORTON UNIT #: [id number] ROOM: 518 DOCTOR: KIRILL DSOUZA MD BIRTHDATE: [birth year] DOS: 07/09/2018 SUBJECTIVE: She has a cough that is rather harsh. She is not coughing up any phlegm, but is short of breath. She walked in the hallways. She has not had any chest pain or palpitation. PHYSICAL EXAMINATION: GENERAL: This patient's complexion is normal. She is comfortable, quiet. She is not tachypneic. VITAL SIGNS: Temperature is normal, pulse is regular at 76 beats per minute, blood pressure is 146/78. NECK: JVP is normal. AJR is negative. LUNGS: Breath sounds are diminished with adventitious sounds. EXTREMITIES: No edema in the lower extremities. IMPRESSION: 1. Severe dilated cardiomyopathy. 2. Chronic systolic heart failure is well compensated. 3. Chronic atrial fibrillation with ventricle pacing. 4. Acute exacerbation of chronic obstructive pulmonary disease. 5. Hypertension. This needs better control. Carvedilol and lisinopril will be added, which she had been taking previously. KIRILL DSOUZA MD CM:PNTRANS 1339 1406 KIRILL DSOUZA MD 07/09/18 1407 interface
--- NOTE | ~2018-07-04 | PR ---
[place], [place] PROGRESS NOTE NAME: PRIYANKA NORTON UNIT #: [id number] ROOM: 518 DOCTOR: KIRILL DSOUZA MD BIRTHDATE: [birth year] DOS: 07/12/2018 SUBJECTIVE: She is still has a harsh cough, which is little worse than yesterday, but she is walking in the hallways with very little shortness of breath, no palpitations, has not had any chest pain and no swelling of the legs. Her appetite is fairly well. Mood is pretty good. PHYSICAL EXAMINATION: GENERAL: This was a patient who is nice and pink in color. She is afebrile with a temperature of 97.9 degrees. VITAL SIGNS: Her pulse is 76, blood pressure regular, blood pressure 150/90. Previous blood pressure was much lower. NECK: JVP is normal. LUNGS: Breath sounds are diminished with quite a few rhonchi bilaterally with some crackles. EXTREMITIES: No edema of the lower extremities. IMPRESSION: 1. This patient has known dilated cardiomyopathy with ejection fraction around 20-30% or so. 2. Chronic systolic heart failure is well compensated. 3. Chronic atrial fibrillation with underlying ventricular pacing. 4. Automatic implantable cardioverter-defibrillator is functioning normally. 5. Chronic obstructive pulmonary disease with exacerbation being addressed by Dr. Moore. KIRILL DSOUZA MD CM:PNTRANS [id number] KIRILL DSOUZA MD 07/12/18 1425 interface
--- NOTE | ~2018-07-04 | PR ---
[place], [place] PROGRESS NOTE NAME: PRIYANKA NORTON UNIT #: [id number] ROOM: 518 DOCTOR: NOEL HERNANDEZ MD BIRTHDATE: [birth year] DOS: 07/11/2018 PULMONARY PROGRESS NOTE SUBJECTIVE: The patient has been noted with persistent severe cough, which is noted with excessive chest congestion not resolved. There were no changes noted in the last 24 hours in the cough. She does have symptoms of wheezing with that intermittently as well as shortness of breath with exertional activities. Denies symptoms of chest pain. There were no symptoms of hemoptysis, edema or pain of the lower extremities, headache or diplopia. Remaining systems were noted as negative. The patient is n.p.o. past midnight for bronchoscopy that is planned for today. OBJECTIVE: VITAL SIGNS: Which have been recorded showed temperature noted as normal, respiratory rate of 15, heart rate 86, blood pressure 127/72, pulse oxygen saturation on room air was 98% saturation. HEENT: Showed no acute change. NECK: Supple. CARDIOVASCULAR: S1 and S2 audible. LUNGS: The patient was noted without any crackles. Decreased breath sounds with expiratory wheezing. ABDOMEN: Flat, soft, nontender. EXTREMITIES: No edema. MUSCULOSKELETAL: Without any acute deformities. CENTRAL NERVOUS SYSTEM: The patient's cranial nerves 2-12 were intact. LABORATORY DATA: Respiratory virus panel, which was obtained on 07/07/2018 showed no abnormal virus detection. Urine for legionella antigen was negative. CMP this morning with normal BUN and creatinine, CO2 33. CBC this morning was noted as normal CBC. IMPRESSION: Ongoing acute exacerbation of chronic obstructive pulmonary disease with persistent severe cough, nonresolving, intermittent wheezing, shortness of breath with maximal medical therapy, preop for bronchoscopy today. PLAN OF TREATMENT: Proceed with the bronchoscopy. No changes in the previous treatment at this time will be necessary. Any modification in treatment or changes necessary will be ordered after bronchoscopy. Continuation of the patient's other plan of management at the present time. No change in treatment otherwise is needed to be made. Continue current other plan of management and therapies. [place], [place] PROGRESS NOTE NAME: PRIYANKA NORTON UNIT #: [id number] ROOM: 518 DOCTOR: NOEL HERNANDEZ MD BIRTHDATE: [birth year] NOEL QUIROGA MD CM:PNTRANS [id number] NOEL LOZADA MD 07/11/18 2304 interface
--- NOTE | ~2018-07-04 | PR ---
[place], [place] PROGRESS NOTE NAME: PRIYANKA NORTON UNIT #: [id number] ROOM: 518 DOCTOR: JUNAID LOZADA MD,NOEL BIRTHDATE: [birth year] DOS: 07/13/2018 PULMONARY PROGRESS NOTE SUBJECTIVE: The patient noted comfortable at this time, resting on the bed without any acute distress. She has not been reported symptoms of fever, chills, coughing, or any sputum expectoration. OBJECTIVE: VITAL SIGNS: The vital signs of the patient, which were recorded showed the temperature is recorded as normal, respiratory rate is 16, heart rate is 76, and blood pressure is 135/89. The pulse oxygen saturation is recorded as 99% on room air. HEENT: On examination, no acute change. NECK: Supple. CARDIOVASCULAR SYSTEM: S1, S2 audible. LUNGS: Clear of any wheezing today. ABDOMEN: Soft, nontender. Bowel sounds present. EXTREMITIES: Without acute edema. LABORATORY DATA: Culture of the bronchial washing noted as normal ti. IMPRESSION: Progressive and gradual resolution of acute exacerbation of chronic obstructive pulmonary disease with acute bronchitis including cough. PLAN OF MANAGEMENT: No changes in plan of management. Discharge planning from primary care physician. Continue other therapy, plan of management, care plan, treatment, and therapies. NOEL QUIROGA MD CM:PNTRANS 1345 NOEL LOZADA MD 07/14/1830 interface
[2018-07-04 17:44] VITALS: BP 155/82
[2018-07-04 18:22] LABS: BASO # 0.1 10*3/uL (0.0-0.1); BASO % 0.9 % (0.0-1.0); EOS # 0.3 10*3/uL (0.0-0.4); EOS % 4.2 % (1.0-4.0); HEMATOCRIT 37.9 % (37.0-47.0); HEMOGLOBIN 12.8 g/dl (12.0-16.0); LYMPH # 1.1 10*3/uL (1.3-4.4); LYMPH % 17.1 % (27.0-41.0); MEAN CELL VOLUME 95.9 fl (81.0-99.0); MEAN CORPUSCULAR HGB 32.4 pg (27.0-31.0); MEAN CORPUSCULAR HGB CONC 33.8 g/dl (33.0-37.0); MEAN PLATELET VOLUME 11.3 fl (9.6-12.3); MONO # 0.5 10*3/uL (0.1-1.0); NEUT # 4.5 10*3/uL (2.3-7.9); NEUT % 70.5 % (47.0-73.0); PLATELET COUNT AUTOMATED 165 10*3/uL (130-400); RED BLOOD COUNT 3.95 10*6/uL (4.10-5.10); RED CELL DISTRI WIDTH 13.1 % (0-14.5); WHITE BLOOD COUNT 6.4 10*3/uL (4.8-10.8)
[2018-07-04 18:41] LABS: ALBUMIN 3.3 gm/dl (3.1-4.5); ALKALINE PHOSPHATASE 78 U/L (45-117); BUN 4 mg/dl (7-24); CHLORIDE 108 mmol/L (98-107); CREATININE 0.66 mg/dL (0.55-1.02); POTASSIUM 3.6 mmol/L (3.5-5.1); SGOT/AST 14 IU/L (3-35); SGPT/ALT 14 U/L (12-78); SODIUM 143 mmol/L (136-145); TOTAL PROTEIN 6.7 gm/dL (6.4-8.2)
[2018-07-04 18:46] LABS: TROPONIN I < 0.015 ng/ml (<0.045)
--- NOTE | 2018-07-04 19:43 | NUR ---
REPORT FROM Victor Hugo BRANDON RN. PATIENT IN ROOM AT THIS TIME IN NO DISTRESS. AWAITNG ADDITIONAL LABORATORY RESULTS. CALL LIGHT IN REACH.
[2018-07-04 21:09] VITALS: BP 132/85
[2018-07-04 22:00] VITALS: BP 142/84
--- NOTE | 2018-07-04 22:00 | NUR ---
Time: 2199 A 73 year old FEMALE admitted to 5E under services of DR. MELLISA ESPINOSA,RUBEN. Pt. arrived via bed from ER. Chief complaint: CHF EXACERBATION, SHORTNESS OF BREATH. REPORT RECIEVED FROM ASSEMBLER ERECTOR. PT VOICES NO COMPLAINTS AT THIS TIME. SHE DENIES SOB ON ROOM AIR. HEALTHY LIFESTYLES GUIDELINE REVIEWED. ASSESSMENT COMPLETE, SEE INPATIENT ASSESSMENT SCREEN. ALL BELONGINGS ACCOUNTED FOR. RAMÓN ROACH
--- NOTE | 2018-07-04 23:49 | NUR ---
DR. HELMS NOTIFIED MED REC IS UP TO DATE.
[2018-07-05] VITALS: BP 140/70
--- NOTE | 2018-07-05 01:26 | NUR ---
DR. DSOUZA NOTIFIED OF CONSULT. HE STATES DR. FELICIANO WILL BE IN TO SEE HER IN THE MORNING. NO NEW ORDERS GIVEN.
[2018-07-05 07:47] LABS: HEMATOCRIT 40.2 % (37.0-47.0); HEMOGLOBIN 13.5 g/dl (12.0-16.0); MEAN CELL VOLUME 95.5 fl (81.0-99.0); MEAN CORPUSCULAR HGB 32.1 pg (27.0-31.0); MEAN CORPUSCULAR HGB CONC 33.6 g/dl (33.0-37.0); MEAN PLATELET VOLUME 11.4 fl (9.6-12.3); PLATELET COUNT AUTOMATED 172 10*3/uL (130-400); RED BLOOD COUNT 4.21 10*6/uL (4.10-5.10); RED CELL DISTRI WIDTH 13.1 % (0-14.5); WHITE BLOOD COUNT 4.9 10*3/uL (4.8-10.8)
[2018-07-05 07:53] LABS: INTERNATIONAL NORM RATIO 0.9 (2.0-3.5)
[2018-07-05 07:55] LABS: ALBUMIN 3.5 gm/dl (3.1-4.5); ALKALINE PHOSPHATASE 86 U/L (45-117); BUN 7 mg/dl (7-24); CHLORIDE 106 mmol/L (98-107); CREATININE 0.72 mg/dL (0.55-1.02); PHOSPHOROUS 2.8 mg/dL (2.5-4.9); POTASSIUM 3.4 mmol/L (3.5-5.1); SGOT/AST 15 IU/L (3-35); SGPT/ALT 14 U/L (12-78); SODIUM 142 mmol/L (136-145); TOTAL PROTEIN 7.3 gm/dL (6.4-8.2)
[2018-07-05 08:03] LABS: ATYPICAL LYMPHS 1 % (0-0); BASOPHILS 1 % (0-1); PLATELET SUFFICIENCY NORMAL (NORMAL); TOTAL CELLS COUNTED 100 #CELLS
--- NOTE | 2018-07-05 09:00 | NUR ---
Application Design Engineer in to talk to patient. Patient states lives at home alone in [facility] apartments with family checking in on her. There are 0 steps in the home. Physician: Dr. Jeremías Sigala [facility] Home health services: none Patient's level of ADLs: INDEPENDENT Patient has working utilities: yes DME: nebulizer, O2 prn, portable O2 tanks, O2 supplier BMS Follow-up physician's appointment after d/c: she prefers to make her own follow up appt after discharge Does patient want to access PORTAL?: no Discharge plan discussed with patient. She lives at home alone with family checking in on her. She is independent in her ADLs and ambulation. Discussed home health care services and she denies any home needs at this time. She comes to the hospital on Tuesdays and Fridays for Dobutamine infusions. She either walks or takes a cab. When medically stable she will be discharged to home. ARIADNE PATTERSON
[2018-07-05 11:15] VITALS: BP 124/69
--- NOTE | 2018-07-05 12:43 | NUR ---
Occupational Therapy referral received and screen completed. Patient insists that she is independent in self care and mobility and does not require OT at this time. Patient plans to return home alone at prior level. D/C OT referral per patient's request. Lore Ramos OTR/l
--- NOTE | 2018-07-05 12:55 | NUR ---
PHYSICAL THERAPY PAtient reports she is 100 % (I) all functional mobility. PAtient has no PT needs/skills. Will d/c PT at this time, patient agrees. Thank you for this referral. Lavinia York,PT
[2018-07-05 16:00] VITALS: BP 122/72
--- NOTE | 2018-07-05 19:50 | NUR ---
BEDSIDE REPORT OBTAINED FROM RN. PT IS RESTING IN BED AT THIS TIME WITH NO COMPLAINTS. SHE DENIES ANY PAIN OR DISCOMFORT. DOBUTAMINE INFUSION IS RUNNING INTO RT CHEST MEDIPORT AT THIS TIME CURRENTLY GOING AT 21 mL/HR. SHE IS 100% PACED ON THE MONITOR, HEART RATE IS CURRENTLY 75. WILL CONTINUE TO MONITOR PT.
[2018-07-05 20:00] VITALS: BP 141/54
[2018-07-06] VITALS: BP 101/63
--- NOTE | 2018-07-06 03:43 | NUR ---
PT IS ASLEEP IN BED AT THIS TIME WITH NO OBVIOUS S/S OF PAIN OR DISCOMFORT. RESPIRATIONS ARE EASY AND UNLABORED. SHE IS 100% PACED ON THE MONITOR WITH A HEART RATE OF 75. CALL LIGHT IS WITHIN REACH AND THE BED IS IN LOWEST POSITION. WILL CONTINUE TO MONITOR PT
[2018-07-06 07:00] VITALS: BP 123/60
[2018-07-06 07:18] LABS: ALBUMIN 3.2 gm/dl (3.1-4.5); ALKALINE PHOSPHATASE 70 U/L (45-117); BUN 16 mg/dl (7-24); CHLORIDE 108 mmol/L (98-107); CREATININE 0.74 mg/dL (0.55-1.02); SGOT/AST 9 IU/L (3-35); SGPT/ALT 12 U/L (12-78); SODIUM 142 mmol/L (136-145); TOTAL PROTEIN 6.5 gm/dL (6.4-8.2)
[2018-07-06 07:40] LABS: POTASSIUM 4.6 mmol/L (3.5-5.1)
[2018-07-06 11:43] VITALS: BP 127/74
[2018-07-06 16:00] VITALS: BP 109/74
[2018-07-06 20:00] VITALS: BP 149/77
[2018-07-07] VITALS: BP 136/84
[2018-07-07 07:02] LABS: ALBUMIN 3.1 gm/dl (3.1-4.5); ALKALINE PHOSPHATASE 62 U/L (45-117); BUN 15 mg/dl (7-24); CHLORIDE 109 mmol/L (98-107); CREATININE 0.62 mg/dL (0.55-1.02); POTASSIUM 4.4 mmol/L (3.5-5.1); SGOT/AST 7 IU/L (3-35); SGPT/ALT 13 U/L (12-78); SODIUM 142 mmol/L (136-145); TOTAL PROTEIN 6.2 gm/dL (6.4-8.2)
[2018-07-07 08:00] VITALS: BP 134/98
--- NOTE | 2018-07-07 10:55 | NUR ---
C/O N/V GIVEN ZOFRAN IV AT THIS TIME. WILL CONT TO MONITOR. CALL LIGHT IN REACH.
--- NOTE | 2018-07-07 11:55 | NUR ---
IV ZOFRAN EFF FOR NAUSEA. WILL CONT TO MONITOR. CALL LIGHT IN REACH.
[2018-07-07 12:00] VITALS: BP 164/89
--- NOTE | 2018-07-07 12:04 | NUR ---
PHYSICIAN WAS NOTIFIED OF DR. JUNAID CALLES. RESPONSE OF NOTIFICATION WAS OK THANK YOU. MARIO MCCLELLAN
[2018-07-07 16:00] VITALS: BP 125/75
[2018-07-07 20:00] VITALS: BP 136/62
[2018-07-08] VITALS: BP 120/52
--- NOTE | 2018-07-08 00:01 | NUR ---
PATIENT RESTING IN BED WITH EYES CLOSED. DENIES COMPLAINTS OF PAIN OR DISCOMFORT. RESPIRATIONS REGULAR AND NON-LABORED. WILL CONTINUE TO MONITOR. CALL LIGHT IN REACH.
--- NOTE | 2018-07-08 06:01 | NUR ---
24 HR chart check completed.
[2018-07-08 07:22] LABS: ALBUMIN 3.2 gm/dl (3.1-4.5); ALKALINE PHOSPHATASE 61 U/L (45-117); BUN 11 mg/dl (7-24); CHLORIDE 105 mmol/L (98-107); POTASSIUM 4.2 mmol/L (3.5-5.1); SGOT/AST 9 IU/L (3-35); SGPT/ALT 16 U/L (12-78); SODIUM 142 mmol/L (136-145); TOTAL PROTEIN 6.4 gm/dL (6.4-8.2)
[2018-07-08 08:00] VITALS: BP 158/82
[2018-07-08 12:00] VITALS: BP 158/80
[2018-07-08 16:00] VITALS: BP 151/80
[2018-07-08 20:00] VITALS: BP 157/63
--- NOTE | 2018-07-08 20:57 | NUR ---
24 HR chart check completed.
[2018-07-09] VITALS: BP 144/78
[2018-07-09 07:02] LABS: ALBUMIN 3.1 gm/dl (3.1-4.5); BUN 13 mg/dl (7-24); CHLORIDE 105 mmol/L (98-107); CREATININE 0.64 mg/dL (0.55-1.02); POTASSIUM 4.6 mmol/L (3.5-5.1); SGOT/AST 7 IU/L (3-35); SGPT/ALT 19 U/L (12-78); SODIUM 141 mmol/L (136-145)
[2018-07-09 07:04] LABS: ALKALINE PHOSPHATASE 62 U/L (45-117); TOTAL PROTEIN 6.1 gm/dL (6.4-8.2)
[2018-07-09 08:00] VITALS: BP 146/78
--- NOTE | 2018-07-09 10:32 | NUR ---
VERIFIED DR QUIROGA'S HOLD ORDER FOR XARELTO. PT STATED "HE WANTED IT HELD TODAY TO". HOLD PLACED FOR 07/10, PRIOR TO BRONCH ON 07/11 AND WILL RESTART ON 07/11,PER DR QUIROGA.
--- NOTE | 2018-07-09 11:23 | NUR ---
PT C/O LARGE LOOSE STOOL. PT STATESD SHE "HAD STOMACH CRAMPING AND A LARGE" LOOSE BM. PT STATES SHE FEELS MUCH BETTER AND DENIES ANY CRAMPING AND/OR NAUSEA.ADVISED PT THAT DR PAK WAS ROUNDING AND WE WOULD SPEAK TO HIM ABOUT IT.
[2018-07-09 12:00] VITALS: BP 156/88
--- NOTE | 2018-07-09 13:45 | NUR ---
AMBULATING HALLWAYS WITHOUT DIFFICULTY. NO DISTRESS NOTED. DENIES SON WITH EXERTION.PT TOLERATING WELL.
[2018-07-09 16:00] VITALS: BP 142/75
--- NOTE | 2018-07-09 17:45 | NUR ---
PT AMBULATING UP AND DOWN HALLWAYS WITHOUT DIFFICULTY. NO DISTRESS NOTED. TOLERATING WELL.
--- NOTE | 2018-07-09 18:48 | NUR ---
Patient resting quietly with no c/o discomfort. Respirations easy and regular. Vital signs stable. No overt distress. MARIS VANG
[2018-07-09 20:00] VITALS: BP 141/86
--- NOTE | 2018-07-09 20:48 | NUR ---
24 HR chart check completed.
[2018-07-09 22:10] LABS: ADENOVIRUS Negative (Negative); INFLUENZA A Negative (Negative); INFLUENZA B Negative (Negative); METAPNEUMOVIRUS Negative (Negative); PARAINFLUENZA 1 Negative (Negative); PARAINFLUENZA 2 Negative (Negative); PARAINFLUENZA 3 Negative (Negative); RHINOVIRUS Negative (Negative); RSV A Negative (Negative); RSV B Negative (Negative)
[2018-07-10] VITALS: BP 124/70
--- NOTE | 2018-07-10 07:17 | NUR ---
24 HR chart check completed.
[2018-07-10 08:00] VITALS: BP 132/80
[2018-07-10 12:00] VITALS: BP 162/99
--- NOTE | 2018-07-10 13:18 | NUR ---
DR MARTE ROUNDED AND SEEN PT.
[2018-07-10 16:00] VITALS: BP 135/78
--- NOTE | 2018-07-10 17:26 | NUR ---
PT UP AND AMBULATING HALLWAYS WITHOUT DIFFICULTY.NO DISTRESS NOTED.DENIES ANY DISCOMFORT.DENIES SHORTNESS OF BREATH.RESPS EASY ON RA.
--- NOTE | 2018-07-10 18:15 | NUR ---
Patient resting quietly with no c/o discomfort. Respirations easy and regular. Vital signs stable. No overt distress. MARIS VANG
[2018-07-10 20:00] VITALS: BP 113/60
[2018-07-11] VITALS (8 sets, daily range): BP systolic 116–166; BP diastolic 70–104
--- NOTE | 2018-07-11 02:02 | NUR ---
24 HR chart check completed.
--- NOTE | 2018-07-11 03:28 | NUR ---
PT IS RESTING IN BED AT THIS TIME WITH NO S/S OF PAIN OR DISCOMFORT. SHE IS 100% PACED ON THE MONITOR WITH A HEART RATE IN THE 70'S. RESPIRATIONS ARE EASY AND UNLABORED ON ROOM AIR. PT IS AWARE OF NPO STATUS FOR SCHEDULED BRONCH THIS MORNING. BED IS LOCKED AND IN LOWETS POSITION, CALL LIGHT IS WITHIN REACH. WILL CONTINUE TO MONITOR PT.
[2018-07-11 06:29] LABS: BASO % 0.1 % (0.0-1.0); HEMATOCRIT 41.2 % (37.0-47.0); HEMOGLOBIN 13.5 g/dl (12.0-16.0); LYMPH # 0.7 10*3/uL (1.3-4.4); LYMPH % 6.6 % (27.0-41.0); MEAN CELL VOLUME 96.7 fl (81.0-99.0); MEAN CORPUSCULAR HGB 31.7 pg (27.0-31.0); MEAN CORPUSCULAR HGB CONC 32.8 g/dl (33.0-37.0); MEAN PLATELET VOLUME 11.1 fl (9.6-12.3); MONO # 0.3 10*3/uL (0.1-1.0); NEUT % 89.4 % (47.0-73.0); PLATELET COUNT AUTOMATED 179 10*3/uL (130-400); RED BLOOD COUNT 4.26 10*6/uL (4.10-5.10); RED CELL DISTRI WIDTH 12.5 % (0-14.5)
[2018-07-11 06:57] LABS: ALBUMIN 3.1 gm/dl (3.1-4.5); BUN 20 mg/dl (7-24); CHLORIDE 101 mmol/L (98-107); POTASSIUM 4.2 mmol/L (3.5-5.1); SODIUM 139 mmol/L (136-145)
[2018-07-11 07:01] LABS: ALKALINE PHOSPHATASE 66 U/L (45-117); CREATININE 0.66 mg/dL (0.55-1.02); SGOT/AST 9 IU/L (3-35); SGPT/ALT 22 U/L (12-78); TOTAL PROTEIN 6.4 gm/dL (6.4-8.2)
[2018-07-12] VITALS: BP 105/54
--- NOTE | 2018-07-12 04:51 | NUR ---
PT IS RESTING IN BED AT THIS TIME WITH NO S/S OF PAIN OR DISCOMFORT. SHE IS 100% PACED ON THE MONITOR WITH A HEART RATE IN THE 70'S. RESPIRATIONS ARE EASY AND NONLABORED ON ROOM AIR. BED IS LOCKED AND IN THE LOWEST POSITION. CALL LIGHT IS WITHIN REACH. WILL CONTINUE TO MONITOR PT
[2018-07-12 07:26] LABS: ALBUMIN 2.8 gm/dl (3.1-4.5); BUN 18 mg/dl (7-24); CHLORIDE 105 mmol/L (98-107); POTASSIUM 4.5 mmol/L (3.5-5.1); SGOT/AST 10 IU/L (3-35); SGPT/ALT 20 U/L (12-78); SODIUM 141 mmol/L (136-145)
[2018-07-12 07:29] LABS: ALKALINE PHOSPHATASE 57 U/L (45-117); CREATININE 0.67 mg/dL (0.55-1.02); TOTAL PROTEIN 5.7 gm/dL (6.4-8.2)
--- NOTE | 2018-07-12 07:30 | NUR ---
Patient resting quietly with no c/o discomfort. Respirations easy and regular. Vital signs stable. No overt distress. MELODY HONG
[2018-07-12 08:00] VITALS: BP 150/90
--- NOTE | 2018-07-12 09:00 | NUR ---
PT UP IN HALLS.
--- NOTE | 2018-07-12 09:00 | NUR ---
Dental Biller in to see patient. No new needs or request at this time. She denies any home needs. When medically stable she will be discharged to home.
--- NOTE | 2018-07-12 10:04 | NUR ---
duing 0700 satx rounds...flutter valve was found in garbage
--- NOTE | 2018-07-12 10:36 | NUR ---
24 HR chart check completed.
[2018-07-12 12:00] VITALS: BP 142/92
[2018-07-12 15:06] LABS: ACID FAST SPEC PROCESSING Concentration (.)
[2018-07-12 16:00] VITALS: BP 129/75
--- NOTE | 2018-07-12 16:00 | NUR ---
Patient resting quietly with no c/o discomfort. Respirations easy and regular. Vital signs stable. No overt distress. MELODY HONG
[2018-07-12 20:00] VITALS: BP 144/75
--- NOTE | 2018-07-12 20:03 | NUR ---
DOBUTAMINE INFUSION COMPLETE. PATIENT IS 100% PACED ON THE MONITOR WITH A HEART RATE IN THE 70'S. MEDIPORT FLUSHED. BP IS CURRENTLY STABLE AT 134/82 MANUALLY. PT VOICES NO COMPLAINTS AT THIS TIME. WILL CONTINUE TO MONITOR
[2018-07-13] VITALS: BP 104/56
--- NOTE | 2018-07-13 04:30 | NUR ---
PT IS RESTING COMFORTABLY IN BED AT THIS TIME WITH NO S/S OF PAIN OR DISTRESS. RESPIRATIONS ARE EASY AND NONLABORED ON ROOM AIR. SHE IS 100% PACED ON THE MONITOR WITH A HEART RATE IN THE 70'S. BED IS LOCKED AND IN THE LOWEST POSITION, CALL LIGHT IS WITHIN REACH. WILL CONTINUE TO MONITOR PT
--- NOTE | 2018-07-13 07:30 | NUR ---
Patient resting quietly with no c/o discomfort. Respirations easy and regular. Vital signs stable. No overt distress. MELODY HONG
[2018-07-13 07:58] VITALS: BP 154/96
--- NOTE | 2018-07-13 08:30 | NUR ---
Bag Loader Machine Operator in to see patient. No new needs or request at this time. She denies any home needs. When medically stable she will be discharged to home.
[2018-07-13 12:00] VITALS: BP 135/89
--- NOTE | 2018-07-13 12:33 | NUR ---
24 HR chart check completed.
--- NOTE | 2018-07-13 13:40 | NUR ---
HOME O2 ASSESSMENT: PRE BP 135/89, HR 80, RR 18, PULSE OX 99% ON ROOM AIR AT REST. AMBULATED PATIENT IN HALLWAY, PULSE OX 96%-98% ON ROOM AIR THROUGHOUT AMBULATION. POST BP: 136/79, HR 87, RR 18, PULSE OX 98% ON ROOM AIR AT REST. RN NOTIFIED.
[2018-07-13] MEDS ORDERED: CARVEDILOL6.25 MG PO (13:59)
[2018-07-13] MEDS ORDERED: XARE20MG PO (13:59)
[2018-07-13] MEDS ORDERED: LISINOPRIL2.5 MG PO (13:59)
[2018-07-13] MEDS ORDERED: PREDNISONE10 MG PO (13:59)
[2018-07-13] MEDS ORDERED: LEVAQUIN500 M2 PO (14:04)
--- NOTE | 2018-07-13 14:44 | NUR ---
Discharge instructions reviewed with patient. Patient receptive and verbalizes understanding. Follow-up care understood. Written instructions given to patient. pt left without written rx for levaquin, called in rx to pharmacy. pt has no questions on d/c instructions. discharge by wheelPAYAM Marshall
[2018-07-19] MEDS ORDERED: XARELTO10 MG PO (07:25)
[2018-08-24 11:05] LABS: ACID FAST CULTURE Negative (.)
[2018-10-11] MEDS ORDERED: VANCOMYCIN2 GM/500 M IV (13:44)
[2018-11-30] MEDS ORDERED: XARE20MG PO (15:43)
[2018-12-21] MEDS ORDERED: B12,B-12,B 12500 MC1 PO (15:07)
[2018-12-21] MEDS ORDERED: LISINOPRIL2.5 MG PO (15:07)
[2018-12-21] MEDS ORDERED: CARVEDILOL6.25 MG PO (15:07)
[2018-12-21] MEDS ORDERED: XARE20MG PO (15:07)
[2018-12-21] MEDS ORDERED: VITAMIN D32000 UNI1 PO (15:07)
== END 2018-07-13 14:34 | disposition home or self-care (01) | DRG 190 ==
LOC: ED 17:43 → EDHOLD 20:36 → 5E 20:36
PROVIDERS: Emergency Medicine; Family Medicine; Internal Medicine Critical Care Medicine; Internal Medicine Nephrology; Student in an Organized Health Care Education/Training Program; ADMIT Internal Medicine
PROC: 0BDM8ZX Extraction of Bilateral Lungs, Via Natural or Artificial Opening Endoscopic, Diagnostic (ICD-10-PCS; principal; 2018-07-11)
PROC: 0BC58ZZ Extirpation of Matter from Right Middle Lobe Bronchus, Via Natural or Artificial Opening Endoscopic (ICD-10-PCS; principal; 2018-07-11)
PROC: 0BC98ZZ Extirpation of Matter from Lingula Bronchus, Via Natural or Artificial Opening Endoscopic (ICD-10-PCS; principal; 2018-07-11)
PROC: 0BC88ZZ Extirpation of Matter from Left Upper Lobe Bronchus, Via Natural or Artificial Opening Endoscopic (ICD-10-PCS; principal; 2018-07-11)
PROC: 0BC48ZZ Extirpation of Matter from Right Upper Lobe Bronchus, Via Natural or Artificial Opening Endoscopic (ICD-10-PCS; principal; 2018-07-11)
PROC: 0BCB8ZZ Extirpation of Matter from Left Lower Lobe Bronchus, Via Natural or Artificial Opening Endoscopic (ICD-10-PCS; principal; 2018-07-11)
PROC: 0BC68ZZ Extirpation of Matter from Right Lower Lobe Bronchus, Via Natural or Artificial Opening Endoscopic (ICD-10-PCS; principal; 2018-07-11)
PROC: 0BC18ZZ Extirpation of Matter from Trachea, Via Natural or Artificial Opening Endoscopic (ICD-10-PCS; principal; 2018-07-11)
PROC: 0BC78ZZ Extirpation of Matter from Left Main Bronchus, Via Natural or Artificial Opening Endoscopic (ICD-10-PCS; principal; 2018-07-11)
PROC: 0BC38ZZ Extirpation of Matter from Right Main Bronchus, Via Natural or Artificial Opening Endoscopic (ICD-10-PCS; principal; 2018-07-11)
DX: J44.1 Chronic obstructive pulmonary disease with (acute) exacerbation (principal); I50.23 Acute on chronic systolic (congestive) heart failure; D68.59 Other primary thrombophilia; J96.11 Chronic respiratory failure with hypoxia; I42.0 Dilated cardiomyopathy; I11.0 Hypertensive heart disease with heart failure; J44.0 Chronic obstructive pulmonary disease with (acute) lower respiratory infection; J20.9 Acute bronchitis, unspecified; R91.8 Other nonspecific abnormal finding of lung field; E78.5 Hyperlipidemia, unspecified; I48.2 Chronic atrial fibrillation; E87.8 Other disorders of electrolyte and fluid balance, not elsewhere classified; E53.8 Deficiency of other specified B group vitamins; R79.89 Other specified abnormal findings of blood chemistry; E55.9 Vitamin D deficiency, unspecified; I25.10 Atherosclerotic heart disease of native coronary artery without angina pectoris; L40.9 Psoriasis, unspecified; R73.03 Prediabetes; I08.3 Combined rheumatic disorders of mitral, aortic and tricuspid valves; Z90.49 Acquired absence of other specified parts of digestive tract; Z95.810 Presence of automatic (implantable) cardiac defibrillator; Z90.710 Acquired absence of both cervix and uterus; Z87.891 Personal history of nicotine dependence; Z82.3 Family history of stroke; Z80.3 Family history of malignant neoplasm of breast; Z79.899 Other long term (current) drug therapy; Z91.19 Patient's noncompliance with other medical treatment and regimen; Z83.3 Family history of diabetes mellitus; Z82.49 Family history of ischemic heart disease and other diseases of the circulatory system

== ENCOUNTER 2019-01-11 09:06 | Inpatient (IN) | payer MEDICARE, MEDICAID ==
[~2019-01-11] VITALS: Ht 175.2 cm; Wt 72.6 kg
--- NOTE | ~2019-01-11 | CON ---
[place], [place] REPORT OF CONSULTATION NAME: PRIYANKA NORTON UNIT #: [id number] ROOM: 402 DOCTOR: KIRILL DSOUZA MD BIRTHDATE: [birth year] DOS: 01/12/2019 HISTORY OF PRESENT ILLNESS: The patient is a very frequent visitor to this hospital. She almost is in the hospital a couple of times a week and has done so for the last 2-3 years and nothing really pans out. She has nonischemic/dilated cardiomyopathy for over 10 years and LV function had been as low as 25%. She also has chronic atrial fibrillation, which was very difficult to treat, namely she had a very rapid response to atrial fibrillation. She subsequently had AV node ablation and a Bi-V AICD implanted. She had a transesophageal echocardiogram in July of this year and her LV ejection had increased to about 45%. She had been on dobutamine treatment, which was discontinued last year because of improved LV systolic function and no acute cardiac decompensation. She has essential hypertension, hyperlipidemia, anxiety and probably depression and COPD. She has had appendectomy, hysterectomy and tonsillectomy. Her AICD has been interrogated and function is fine. She came to the residence clinic where she had mentioned something about being dizzy and having some chest pain and was subsequently admitted to the hospital. She has not had any PND, orthopnea or swelling of the lower extremities. She had some fluttering sensation occasionally and she has been complaining of pain around the AICD in the left anterior chest for quite a long time. She also complains of dizziness where she had some spinning sensation and unsteadiness and blood pressure has been fine. HOME MEDICATIONS: Include carvedilol 6.25 mg b.i.d., cholecalciferol 2000 units daily, lisinopril 2.5 mg daily, cyanocobalamin 5000 mcg daily. She should be on anticoagulant as well. PHYSICAL EXAMINATION: GENERAL: Reveals a patient who is alert, oriented, fairly comfortable. Complexion is fine. She is lying in bed comfortably. No thyromegaly or finger clubbing. Temperature is normal. VITAL SIGNS: Pulse is 76 and regular, blood pressure 136/85. NECK: Normal JVP and Negative AJR. No bruit in the neck. HEART: Cardiac auscultation revealed no murmurs or rubs. EXTREMITIES: She has no edema in the lower extremities. Pedal pulses are palpable. RESPIRATORY: Breath sounds are modestly diminished bilaterally with some adventitious sounds, namely some fine crackles. No rub. ABDOMEN: Supple and nontender. No organomegaly. No bruits present. LABORATORY DATA: ECG shows atrial fibrillation with biventricular pacing. Chest x-ray is unremarkable. Blood test is unremarkable as well. IMPRESSION: 1. This patient with normal coronary arteries about 5 years ago, has some [place], [place] REPORT OF CONSULTATION NAME: PRIYANKA NORTON UNIT #: [id number] ROOM: 402 DOCTOR: KIRILL DSOUZA MD BIRTHDATE: [birth year] atypical chest pain which I do not believe is cardiac. She was transferred here from resident followup clinic. 2. She has had chronic lightheaded and dizziness and some spinning sensation for long time, which I believe is most likely of inner ear etiology. 3. I also think she has major depression. I would strongly recommend starting an antidepressant for this woman, which will also help with anxiety. 4. She should also be on an anticoagulant. I thank you for this consult. KIRILL DSOUZA MD CM:CONSTR:REPORT OF CONSULTATION 1219 01/13/19 0322 interface
--- NOTE | ~2019-01-11 | EKG ---
[place], [place] ELECTROCARDIOGRAM REPORT NAME: PRIYANKA NORTON UNIT #: [id number] ROOM: 402 DOCTOR: THERESA DRAFT REPORT BIRTHDATE: [birth year] [facility] Test Date: 2019-01-11 Test Time: 12:43:42 Pat Name: PRIYANKA NORTON Department: Room: 402 Gender: F Pump Press Operator: Vandana Mccullough : 1945 Requested By: IVANA AMBROSIO Order Number: [id number] Reading MD: Miller Camarena MD Measurements Intervals [place] Rate: 77 P: [place]: QRS: 0 QRSD: 165 T: 75 QT: 439 QTc: 497 Interpretive Statements Atrial fibrillation Ventricular paced rhythm Electronically Signed On 01-11-2019 12:54:13 PDT by Miller Camarena MD CM:EKGRPT:ELECTROCARDIOGRAM REPORT 1243 1254 IVANA CARDENAS DRAFT REPORT IVANA AMBROSIO M.D.
--- NOTE | ~2019-01-11 | EKG ---
[place], [place] ELECTROCARDIOGRAM REPORT NAME: PRIYANKA NORTON UNIT #: [id number] ROOM: 402 DOCTOR: THERESA DRAFT REPORT BIRTHDATE: [birth year] [facility] Test Date: 2019-01-11 Test Time: 15:12:33 Pat Name: PRIYANKA NORTON Department: Room: 402 Gender: F Twenty One Dealer: Vandana Mccullough : 1945 Requested By: IVANA AMBROSIO Order Number: [id number] Reading MD: Miller Camarena MD Measurements Intervals [place] Rate: 78 P: [place]: QRS: 88 QRSD: 163 T: 80 QT: 448 QTc: 511 Interpretive Statements Atrial fibrillation Ventricular paced rhythm Electronically Signed On 01-11-2019 12:55:42 PDT by Miller Camarena MD CM:EKGRPT:ELECTROCARDIOGRAM REPORT 1512 1255 IVANA CARDENAS DRAFT REPORT IVANA AMBROSIO M.D.
--- NOTE | ~2019-01-11 | EKG ---
[place], [place] ELECTROCARDIOGRAM REPORT NAME: PRIYANKA NORTON UNIT #: [id number] ROOM: 402 DOCTOR: THERESA DRAFT REPORT BIRTHDATE: [birth year] [facility] Test Date: 2019-01-11 Test Time: 09:07:24 Pat Name: PRIYANKA NORTON Department: Room: 402 Gender: F Hourly Sales Staff: : 1945 Requested By: IVANA AMBROSIO Order Number: [id number] Reading MD: Miller Camarena MD Measurements Intervals [place] Rate: 76 P: [place]: QRS: 251 QRSD: 153 T: 49 QT: 430 QTc: 484 Interpretive Statements Atrial fibrillation Ventricular-paced rhythm Compared to ECG 12/18/2018 21:39:35 No significant changes Electronically Signed On 01-11-2019 12:46:29 PDT by Miller Camarena MD CM:EKGRPT:ELECTROCARDIOGRAM REPORT 1246 IVANA CARDENAS DRAFT REPORT IVANA AMBROSIO M.D.
[~2019-01-11 09:06] MED LIST changes: +CARVEDILOL6.25 MG PO; +LEVAQUIN500 M2 PO; +VANCOMYCIN2 GM/500 M IV; +VITAMIN D32000 UNI1 PO; +XARELTO10 MG PO
[2019-01-11 09:09] VITALS: BP 147/86
[2019-01-11 09:23] LABS: BASO # 0.1 10*3/uL (0.0-0.1); BASO % 1.1 % (0.0-1.0); EOS # 0.2 10*3/uL (0.0-0.4); EOS % 2.3 % (1.0-4.0); HEMATOCRIT 41.2 % (37.0-47.0); HEMOGLOBIN 13.5 g/dl (12.0-16.0); LYMPH # 0.7 10*3/uL (1.3-4.4); LYMPH % 9.5 % (27.0-41.0); MEAN CELL VOLUME 96.3 fl (81.0-99.0); MEAN CORPUSCULAR HGB 31.5 pg (27.0-31.0); MEAN CORPUSCULAR HGB CONC 32.8 g/dl (33.0-37.0); MEAN PLATELET VOLUME 11.3 fl (9.6-12.3); MONO # 0.5 10*3/uL (0.1-1.0); MONO % 6.4 % (3.0-9.0); NEUT # 6.1 10*3/uL (2.3-7.9); NEUT % 80.4 % (47.0-73.0); PLATELET COUNT AUTOMATED 160 10*3/uL (130-400); RED BLOOD COUNT 4.28 10*6/uL (4.10-5.10); RED CELL DISTRI WIDTH 12.9 % (0-14.5); WHITE BLOOD COUNT 7.6 10*3/uL (4.8-10.8)
[2019-01-11 09:35] LABS: ACT PARTIAL THROMBO TIME 24.9 SECONDS (20.0-32.1); INTERNATIONAL NORM RATIO 0.9 (2.0-3.5)
[2019-01-11 09:42] LABS: ALBUMIN 3.7 gm/dl (3.1-4.5); BUN 10 mg/dl (7-24); CHLORIDE 107 mmol/L (98-107); CREATININE 0.81 mg/dL (0.55-1.02); POTASSIUM 4.1 mmol/L (3.5-5.1); SGOT/AST 8 IU/L (3-35); SGPT/ALT 13 U/L (12-78); SODIUM 140 mmol/L (136-145)
[2019-01-11 09:43] LABS: ALKALINE PHOSPHATASE 72 U/L (45-117)
[2019-01-11 09:45] LABS: TROPONIN I < 0.015 ng/ml (<0.045)
[2019-01-11 10:30] VITALS: BP 140/83
[2019-01-11 11:56] VITALS: BP 144/82
[2019-01-11 12:15] VITALS: BP 161/83
--- NOTE | 2019-01-11 12:15 | NUR ---
[facility] 73, admitted to , under the services of RUBEN Cole MD with a diagnosis of CHEST PAIN. Chief complaint is CHEST PAIN, SOB, DIZZINESS. Patient arrived via ambulatory from ER. Monitor applied. Initial assessment completed. Vital signs taken and recorded. RUBEN COLE MD notified of admission to the unit. Orders received. See assessment for past medical history, medications and allergies. Patient and/or family oriented to unit. [address] visitation policy reviewed. Clothing/patient valuable form completed. SAMIRA VELÁSQUEZ.
--- NOTE | 2019-01-11 12:49 | NUR ---
NOTIFIED OF CONSULT AND WILL SEE PATIENT TOMORROW.
--- NOTE | 2019-01-11 13:04 | NUR ---
IN TO SEE PATIENT.
[2019-01-11 16:00] VITALS: BP 135/75
[2019-01-11 17:24] LABS: BILIRUBIN NEGATIVE (NEGATIVE); BLOOD NEGATIVE (NEGATIVE); CLARITY SL CLOUDY (CLEAR); COLOR YELLOW (YELLOW); GLUCOSE NEGATIVE (NEGATIVE); KETONE NEGATIVE (NEGATIVE); LEUKO ESTERASE NEGATIVE (NEGATIVE); NITRITE NEGATIVE (NEGATIVE); PH 5.5 (5.0-9.0); SPECIFIC GRAVITY >= 1.030 (1.005-1.030); UROBILINOGEN 0.2 E.U./dl (0.2-1.0)
[2019-01-11 17:31] LABS: BACTERIA TRACE
[2019-01-11 20:00] VITALS: BP 108/71
--- NOTE | 2019-01-11 21:29 | NUR ---
DR COLON AWARE OF PATIENT'S BLOOD PRESSURE. STATES TO GIVE THE COREG AND NOT GIVE THE LISINOPRIL
[2019-01-12] VITALS: BP 119/68
[2019-01-12 06:02] LABS: BUN 11 mg/dl (7-24); CHLORIDE 108 mmol/L (98-107); CREATININE 0.72 mg/dL (0.55-1.02); POTASSIUM 4.3 mmol/L (3.5-5.1); SODIUM 143 mmol/L (136-145)
[2019-01-12 08:00] VITALS: BP 136/85
--- NOTE | 2019-01-12 08:00 | NUR ---
PATIENT RESTING QUIETLY IN BED. NO DISTRESS NOTED. RESPIRATIONS EASY, REGULAR. DENIES ANY SOB. DENIES ANY CHEST PAIN AT THIS TIME. WILL CONTINUE TO MONITOR. VSS.
--- NOTE | 2019-01-12 09:00 | NUR ---
Warp Drawer in to talk to patient. Patient states lives at home alone in [facility] apartments with family checking in on her. There are 0 steps in the home. Physician: Dr. Jeremías Sigala [facility] Home health services: none Patient's level of ADLs: INDEPENDENT Patient has working utilities: yes DME: nebulizer, O2 @ 2L nc prn, portable O2 tanks, O2 supplier [employer] Follow-up physician's appointment after d/c: she prefers to make her own follow up appt after discharge Does patient want to access PORTAL?: no Discharge plan discussed with patient. She lives at home alone with family checking in on her. She is independent in her ADLs and ambulation. Discussed home health care services and she denies any home needs at this time. When medically stable she will be discharged to home. ARIADNE PATTERSON
[2019-01-12 12:00] VITALS: BP 143/97
--- NOTE | 2019-01-12 12:09 | NUR ---
HERE TO SEE PATIENT.
--- NOTE | 2019-01-12 14:15 | NUR ---
ORTHOS PERFORMED. PT ASYMPTOMATIC. SUPINE BP 106/74. PULSE 75 SITTING BP 110/75. PULSE 80 STANDING BP 115/72. PULSE 79. WILL CONTINUE TO MONITOR.
[2019-01-12 16:00] VITALS: BP 125/71
--- NOTE | 2019-01-12 19:30 | NUR ---
24 HOUR CHART CHECK COMPLETE.
[2019-01-12 20:00] VITALS: BP 126/74
[2019-01-13] VITALS: BP 114/79
[2019-01-13 08:00] VITALS: BP 128/78
--- NOTE | 2019-01-13 08:30 | NUR ---
Patient resting quietly with no c/o discomfort. Respirations easy and regular. Vital signs stable. No overt distress. ANYI GUTIÉRREZ R
--- NOTE | 2019-01-13 08:30 | NUR ---
Supply Chain Planner in to see patient. No new needs or request at this time. She denies any home needs. When medically stable she will be discharged to home.
[2019-01-13 11:47] VITALS: BP 106/63
--- NOTE | 2019-01-13 15:38 | NUR ---
Discharge instructions reviewed with patient/family. Patient receptive and verbalizes understanding. Follow-up care arranged. Written instructions given to patient/family. ANYI GUTIÉRREZ
== END 2019-01-13 15:38 | disposition home or self-care (01) | DRG 313 ==
LOC: ED 09:06 → EDHOLD 11:22 → 4E 11:22
PROVIDERS: Emergency Medicine; ADMIT Internal Medicine
DX: R07.89 Other chest pain (principal); J96.10 Chronic respiratory failure, unspecified whether with hypoxia or hypercapnia; I50.22 Chronic systolic (congestive) heart failure; R55 Syncope and collapse; R79.1 Abnormal coagulation profile; E83.41 Hypermagnesemia; D72.9 Disorder of white blood cells, unspecified; F32.9 Major depressive disorder, single episode, unspecified; Z79.899 Other long term (current) drug therapy; I25.10 Atherosclerotic heart disease of native coronary artery without angina pectoris; I48.2 Chronic atrial fibrillation; E78.5 Hyperlipidemia, unspecified; L40.9 Psoriasis, unspecified; I25.5 Ischemic cardiomyopathy; J44.9 Chronic obstructive pulmonary disease, unspecified; I11.0 Hypertensive heart disease with heart failure; E55.9 Vitamin D deficiency, unspecified; E53.8 Deficiency of other specified B group vitamins; F41.9 Anxiety disorder, unspecified; Z87.440 Personal history of urinary (tract) infections; Z90.710 Acquired absence of both cervix and uterus; Z90.49 Acquired absence of other specified parts of digestive tract; Z90.89 Acquired absence of other organs; Z95.810 Presence of automatic (implantable) cardiac defibrillator; Z87.891 Personal history of nicotine dependence; Z82.49 Family history of ischemic heart disease and other diseases of the circulatory system; Z83.3 Family history of diabetes mellitus; Z82.3 Family history of stroke; Z80.8 Family history of malignant neoplasm of other organs or systems; Z80.3 Family history of malignant neoplasm of breast

== ENCOUNTER 2019-02-20 10:47 | Inpatient (IN) | payer MEDICARE, MEDICAID ==
[~2019-02-20] VITALS: Ht 175.3 cm; Wt 73.5 kg
[2019-02-20 11:11] LABS: BASO # 0.1 10*3/uL (0.0-0.1); BASO % 1.1 % (0.0-1.0); EOS # 0.3 10*3/uL (0.0-0.4); EOS % 4.7 % (1.0-4.0); HEMOGLOBIN 13.1 g/dl (12.0-16.0); LYMPH # 0.9 10*3/uL (1.3-4.4); LYMPH % 12.6 % (27.0-41.0); MEAN CELL VOLUME 95.4 fl (81.0-99.0); MEAN CORPUSCULAR HGB CONC 33.6 g/dl (33.0-37.0); MONO # 0.5 10*3/uL (0.1-1.0); MONO % 6.4 % (3.0-9.0); NEUT # 5.5 10*3/uL (2.3-7.9); NEUT % 74.9 % (47.0-73.0); PLATELET COUNT AUTOMATED 168 10*3/uL (130-400); RED BLOOD COUNT 4.09 10*6/uL (4.10-5.10); WHITE BLOOD COUNT 7.3 10*3/uL (4.8-10.8)
[2019-02-20 11:21] LABS: ACT PARTIAL THROMBO TIME 25.5 SECONDS (20.0-32.1); INTERNATIONAL NORM RATIO 0.9 (2.0-3.5)
[2019-02-20 11:29] LABS: ALBUMIN 3.5 gm/dl (3.1-4.5); ALKALINE PHOSPHATASE 70 U/L (45-117); BUN 5 mg/dl (7-24); CHLORIDE 107 mmol/L (98-107); CREATININE 0.79 mg/dL (0.55-1.02); POTASSIUM 3.7 mmol/L (3.5-5.1); SGOT/AST 9 IU/L (3-35); SGPT/ALT 13 U/L (12-78); SODIUM 139 mmol/L (136-145); TOTAL PROTEIN 6.6 gm/dL (6.4-8.2); TROPONIN I < 0.015 ng/ml (<0.045)
[2019-02-20 11:45] VITALS: BP 132/80
[2019-02-20 11:57] VITALS: BP 139/82
--- NOTE | 2019-02-20 12:22 | NUR ---
Attempted to call report, no nurse available at this time. Will continue to monitor.
--- NOTE | 2019-02-20 13:08 | NUR ---
A 73, admitted to , under the services of RUBEN Cole MD with a diagnosis of CHEST PAIN. Chief complaint is SOB. Patient arrived via bed from ER. Monitor applied. Initial assessment completed. Vital signs taken and recorded. RUBEN COLE MD notified of admission to the unit. Orders received. See assessment for past medical history, medications and allergies. Patient and/or family oriented to unit. [facility] visitation policy reviewed. Clothing/patient valuable form completed. CARMITA GOLDMAN
[2019-02-20] MEDS ORDERED: XARE20MG PO (13:28)
[2019-02-20 13:47] VITALS: BP 111/44
--- NOTE | 2019-02-20 14:21 | NUR ---
DR DSOUZA NOTIFIED OF CONSULT
--- NOTE | 2019-02-20 15:00 | NUR ---
ASSUMED CARE FOR THIS PT AT THIS TIME. PT C/O INTERMITTENT LT SIDE CP 07/10. DENIES NEED FOR PAIN MED. PT ADVISED OF NEED FOR URINE SAMPLE. PT ACKNOWLEDGES. CALL LIGHT IN REACH.
[2019-02-20 16:00] VITALS: BP 133/69
[2019-02-20 19:23] LABS: BILIRUBIN NEGATIVE (NEGATIVE); BLOOD NEGATIVE (NEGATIVE); CLARITY CLEAR (CLEAR); COLOR YELLOW (YELLOW); GLUCOSE NEGATIVE (NEGATIVE); KETONE NEGATIVE (NEGATIVE); LEUKO ESTERASE TRACE (NEGATIVE); NITRITE NEGATIVE (NEGATIVE); UROBILINOGEN 0.2 E.U./dl (0.2-1.0)
[2019-02-20 19:30] LABS: BACTERIA TRACE
[2019-02-20 20:00] VITALS: BP 147/79
--- NOTE | 2019-02-20 21:01 | NUR ---
DR. MERINO NOTIFIED OF PT'S CONGESTION W/COUGH. T.O. RCVD FOR MUCINEX 1200MG PO BID AND CLARITAN 10MG 1 TAB PO DAILY.
[2019-02-21] VITALS: BP 134/85
[2019-02-21 06:15] LABS: BUN 7 mg/dl (7-24); CHLORIDE 109 mmol/L (98-107); CREATININE 0.61 mg/dL (0.55-1.02); PHOSPHOROUS 3.6 mg/dL (2.5-4.9); POTASSIUM 4.1 mmol/L (3.5-5.1); SODIUM 143 mmol/L (136-145)
[2019-02-21 06:26] LABS: BASO # 0.1 10*3/uL (0.0-0.1); BASO % 0.8 % (0.0-1.0); EOS # 0.4 10*3/uL (0.0-0.4); HEMATOCRIT 38.5 % (37.0-47.0); HEMOGLOBIN 12.9 g/dl (12.0-16.0); LYMPH # 0.8 10*3/uL (1.3-4.4); LYMPH % 9.2 % (27.0-41.0); MEAN CELL VOLUME 93.9 fl (81.0-99.0); MEAN CORPUSCULAR HGB 31.5 pg (27.0-31.0); MEAN CORPUSCULAR HGB CONC 33.5 g/dl (33.0-37.0); MEAN PLATELET VOLUME 11.7 fl (9.6-12.3); MONO # 0.6 10*3/uL (0.1-1.0); MONO % 6.8 % (3.0-9.0); NEUT % 78.9 % (47.0-73.0); PLATELET COUNT AUTOMATED 168 10*3/uL (130-400); RED CELL DISTRI WIDTH 13.1 % (0-14.5); WHITE BLOOD COUNT 8.8 10*3/uL (4.8-10.8)
--- NOTE | 2019-02-21 07:40 | NUR ---
DR FELICIANO HERE TO SEE PT
[2019-02-21 07:55] LABS: VITAMIN D, 25-HYDROXY 19.1 ng/mL (30-100)
[2019-02-21 08:00] VITALS: BP 113/61
--- NOTE | 2019-02-21 09:00 | NUR ---
Community Artist in to talk to patient. Patient states lives at home alone in [facility] apartments with family checking in on her. There are 0 steps in the home. Physician: Dr. Jeremías Sigala [facility] Home health services: none Patient's level of ADLs: INDEPENDENT Patient has working utilities: yes DME: nebulizer, O2 @ 2L nc prn, portable O2 tanks, O2 supplier BMS Follow-up physician's appointment after d/c: she prefers to make her own follow up appt after discharge Does patient want to access PORTAL?: no Discharge plan discussed with patient. She lives at home alone with family checking in on her. She is independent in her ADLs and ambulation. Discussed home health care services and she denies any home needs at this time. When medically stable she will be discharged to home. ARIADNE PATTERSON
[2019-02-21 12:00] VITALS: BP 115/72
[2019-02-21 16:00] VITALS: BP 131/73
--- NOTE | 2019-02-21 16:00 | NUR ---
PT RESTING IN BED. NO DISTRESS NOTED. WILL MONITOR
--- NOTE | 2019-02-21 19:50 | NUR ---
PT RESTING IN BED. RESP-EASY AND REGULAR. NO C/O AT THIS TIME. CALL LIGHT IN REACH. SEE SHIFT ASSESSMENT.
[2019-02-21 20:00] VITALS: BP 98/41
--- NOTE | 2019-02-21 22:00 | NUR ---
RESTING IN BED IN RIGHT SIDE. RESP-EASY AND REGULAR. CALL LIGHT IN REACH.
[2019-02-22] VITALS: BP 100/65
--- NOTE | 2019-02-22 00:15 | NUR ---
PT RESTING IN BED. RESP-EASY AND REGULAR. AWAKENS EASILY. CALL LIGHT IN REACH. SEE SHIFT ASSESSMENT.
--- NOTE | 2019-02-22 04:00 | NUR ---
SLEEPING IN BED. RESP-EASY AND REGULAR. CALL LIGHT IN [facility].
--- NOTE | 2019-02-22 05:30 | NUR ---
TOLERATED ROUTINE MED WITH NO PROBLEM. NO C/O AT THIS TIME. CALL LIGHT IN REACH.
[2019-02-22 08:00] VITALS: BP 110/64
--- NOTE | 2019-02-22 09:00 | NUR ---
Administration Vice President in to see patient. No new needs or request at this time. She denies any home needs. When medically stable she will be discharged to home.
[2019-02-22 12:00] VITALS: BP 106/54
--- NOTE | 2019-02-22 14:51 | NUR ---
NOTIFIED OF CONSULT
[2019-02-22 16:00] VITALS: BP 93/62
[2019-02-22 20:00] VITALS: BP 90/51
[2019-02-23] VITALS: BP 122/67
[2019-02-23 08:00] VITALS: BP 152/72
[2019-02-23 12:00] VITALS: BP 146/71
[2019-02-23 16:00] VITALS: BP 129/74
[2019-02-23 20:00] VITALS: BP 139/76
[2019-02-24] VITALS (7 sets, daily range): BP systolic 100–157; BP diastolic 57–89
--- NOTE | 2019-02-24 01:20 | NUR ---
PATIENT WAS BROUGHT BACK TO ROOM BY SECURITY. ACCORDING TO PATIENT, SHE WOKE UP AND THOUGHT SHE WAS LATE TO GO TO THE HOSPITAL FOR SURGERY. PATIENT RE-ORIENTED, BED ALARM AND CHAIR ALARM ON. PATIENT A&OX4 WHEN SHE RETURNED WITH SECURITY.
--- NOTE | 2019-02-24 03:19 | NUR ---
24 HR chart check completed.
--- NOTE | 2019-02-24 07:05 | NUR ---
ARRIVED ON SHIFT, INTRODUCED TO PATIENT, BEDSIDE REPORT RECEIVED, WHITE BOARD UPDATED, NO NEEDS VOICED AT THIS TIME.
--- NOTE | 2019-02-24 10:59 | NUR ---
PHYSICAL THERAPY Physical therapy evaluation attempted. Patient out of room at this time. Plan to attempt PT evaluation at a later date. Thank you. Ewa Shaver,PT,DPT
--- NOTE | 2019-02-24 11:00 | NUR ---
Occupational therapy orders received and chart reviewed. Patient admitted for chest pain with a PMH including COPD and HTN. Patient out of the room at this time. OT will follow up with patient for OT eval when appropriate. Thank you for the referral. Celina Manley OTR/L
--- NOTE | 2019-02-24 15:48 | NUR ---
Shift chart check completed.
--- NOTE | 2019-02-24 19:40 | NUR ---
PT. UPSET THAT BED ALARM IN ON & WANTS TO WALK HOME TO [facility] APARTMENTS. ATTEMPTED TO CALM HER DOWN BUT PATIENT REMAINS FRUSTRATED.
--- NOTE | 2019-02-24 19:45 | NUR ---
SECURITY ON FLOOR DUE TO PATIENT BEING SOMEWHAT CONFUSED & WANTED TO LEAVE. CALLED PATIENT'S SISTER, FLORESITA BUT PATIENT ONLY SPOKE TO HER FOR A SHORT PERIOD OF TIME & HUNG UP ON HER. CALLED NURSING INJECTION MOLDING OPERATOR TO COME & SPEAK TO PATIENT.
--- NOTE | 2019-02-24 19:55 | NUR ---
MARY BETH, NURSING NOC ANALYST HERE TO SPEAK TO PATIENT. PATIENT CALMING DOWN NOW & WILL REMAIN IN HOSPTIAL OVERNIGHT. TOOK BED ALARM OFF AT THIS TIME; PT. ENCOURAGED TO USE CALL LIGHT & VERBALIZED UNDERSTANDING OF USE OF CALL LIGHT. WILL CONTINUE TO MONITOR.
--- NOTE | 2019-02-24 22:00 | NUR ---
RESTING IN BED; VOICES NO C/O AT THIS TIME. CALL LIGHT WITHIN REACH.
--- NOTE | 2019-02-25 04:00 | NUR ---
RESTING IN BED WITH EYES CLOSED. CALL LIGHT WITHIN REACH.
--- NOTE | 2019-02-25 05:58 | NUR ---
RESTING IN BED WITH EYES CLOSED. BED IN LOW LOCKED POSITION & CALL LIGHT WITHIN REACH.
--- NOTE | 2019-02-25 07:40 | NUR ---
ZOFRAN 4MG IV GIVEN PER PATIENT REQUEST FOR NAUSEA.
[2019-02-25 12:00] VITALS: BP 148/78
[2019-02-25 14:06] LABS: ACID FAST SPEC PROCESSING Concentration (.)
[2019-02-25 16:00] VITALS: BP 126/67
[2019-02-25 20:00] VITALS: BP 131/78
--- NOTE | 2019-02-25 21:30 | NUR ---
UP FOR WALK IN HALLWAY WITH ASSISTANCE OF PA.
--- NOTE | 2019-02-25 22:30 | NUR ---
BACK TO BED; PT. VOICES NO C/O AT THIS TIME. COOPERATIVE& CALM. CALL LIGHT WITHIN REACH.
[2019-02-26] VITALS: BP 131/71
--- NOTE | 2019-02-26 06:00 | NUR ---
RESTING IN BED WITH EYES CLOSED. CALL LIGHT WITHIN REACH.
[2019-02-26 08:00] VITALS: BP 150/90
--- NOTE | 2019-02-26 09:00 | NUR ---
PHYSICAL THERAPY PT SEEN TODAY FOR PT SCREEN: SHE IS UP AND (I) IN THE ROOM WITHOUT AD AND STATING SHE DOES NOT NEED PT SERVICES. THANK YOU FOR REFERRAL JODY MANCILLA PT
[2019-02-26 12:00] VITALS: BP 142/88
[2019-02-26 16:00] VITALS: BP 150/79
--- NOTE | 2019-02-26 17:08 | NUR ---
SPUTUM CX D/C'D SINCE COLLECTED IN OR
[2019-02-26 20:00] VITALS: BP 115/78; BP 148/74
[2019-02-27] VITALS: BP 125/78
--- NOTE | 2019-02-27 02:51 | NUR ---
24 HR chart check completed.
--- NOTE | 2019-02-27 03:31 | NUR ---
PATIENT RESTING WITH EYES CLOSED.RESPIRATIONS EASY AND UNLABORED. NO DISTRESS NOTED. CALL LIGHT WITHIN REACH. WILL MONITOR.
[2019-02-27 06:37] LABS: BASO % 0.2 % (0.0-1.0); EOS % 0.1 % (1.0-4.0); HEMATOCRIT 37.8 % (37.0-47.0); HEMOGLOBIN 12.8 g/dl (12.0-16.0); LYMPH # 1.5 10*3/uL (1.3-4.4); LYMPH % 14.4 % (27.0-41.0); MEAN CELL VOLUME 92.9 fl (81.0-99.0); MEAN CORPUSCULAR HGB 31.4 pg (27.0-31.0); MEAN CORPUSCULAR HGB CONC 33.9 g/dl (33.0-37.0); MEAN PLATELET VOLUME 11.4 fl (9.6-12.3); MONO # 0.9 10*3/uL (0.1-1.0); MONO % 8.7 % (3.0-9.0); NEUT # 7.6 10*3/uL (2.3-7.9); NEUT % 75.3 % (47.0-73.0); PLATELET COUNT AUTOMATED 168 10*3/uL (130-400); RED BLOOD COUNT 4.07 10*6/uL (4.10-5.10); RED CELL DISTRI WIDTH 12.4 % (0-14.5); WHITE BLOOD COUNT 10.1 10*3/uL (4.8-10.8)
[2019-02-27 06:45] LABS: BUN 14 mg/dl (7-24); CHLORIDE 105 mmol/L (98-107); CREATININE 0.65 mg/dL (0.55-1.02); POTASSIUM 3.4 mmol/L (3.5-5.1); SODIUM 139 mmol/L (136-145)
[2019-02-27 08:00] VITALS: BP 130/90
--- NOTE | 2019-02-27 11:00 | NUR ---
Fertilizer Loader in to see patient. No new needs or request at this time. She denies any home needs. When medically stable she will be discharged to home. Discussed discharge planning with Dr. Barry. Patient possible discharge today or tomorrow.
[2019-02-27 12:00] VITALS: BP 166/86
--- NOTE | 2019-02-27 13:48 | NUR ---
SPEECH PATHOLOGY Clinical swallowing evaluation completed as per orders to assess swallowing skills due to possible aspiration. Medical hx includes exacerbation of COPD, chronic a-fib, CHF, CAD, HTN. Patient receives a regular diet and thin liquid and denies any chewing or swallowing problem. She was alert, answered questions appropriately and followed commands. Oral [facility] exam completed and WNL. Patient was assessed with thin liquid, coarse solid and while taking meds. Patient displayed no overt oral or pharyngeal swallowing difficulty. She chewed and swallowed solid with no residue, cough or wet vocal quality. She took all medications at once, with water and swallowed them without difficulty. Recommend she remain on present diet with use of universal safe swallow precautions. No follow up is warranted at this time. Results and rodrigo. were shared with patient and her nurse and they verbalized understanding. Refer to report in [facility] for further information. Thank you for this referral. AIME REED MSCCC-PREPARATOR
--- NOTE | 2019-02-27 15:52 | NUR ---
Occupational Therapy evaluation offered this date. Patient politely declined stating that she does all her own ADls and mobility and does not need any therapy. Patient was sitting at window; which was across from her bed and stated that she is independent in mobility and ADLs. Discharge OT referral per patient's request. Thank you. Lore Ramos OTR/leandra
[2019-02-27 16:00] VITALS: BP 137/76
[2019-02-27 20:00] VITALS: BP 144/79
[2019-02-28] VITALS: BP 122/71
--- NOTE | 2019-02-28 00:50 | NUR ---
24 HR chart check completed.
--- NOTE | 2019-02-28 01:06 | NUR ---
Patient resting quietly with no c/o discomfort. Respirations easy and regular. Vital signs stable. No overt distress. Call light within reach. HISSOM,JASMIN
--- NOTE | 2019-02-28 06:43 | NUR ---
PATIENT RESTING IN BED. VOICES NO CONCERNS/NEEDS AT THIS TIME. RESPS EASY/NON LABORERED. CALL LIGHT WITHIN REACH.
[2019-02-28 06:59] LABS: BASO % 0.1 % (0.0-1.0); EOS % 0.1 % (1.0-4.0); HEMATOCRIT 39.9 % (37.0-47.0); HEMOGLOBIN 13.6 g/dl (12.0-16.0); LYMPH # 1.5 10*3/uL (1.3-4.4); LYMPH % 12.9 % (27.0-41.0); MEAN CELL VOLUME 91.7 fl (81.0-99.0); MEAN CORPUSCULAR HGB 31.3 pg (27.0-31.0); MEAN CORPUSCULAR HGB CONC 34.1 g/dl (33.0-37.0); MEAN PLATELET VOLUME 11.2 fl (9.6-12.3); MONO # 0.9 10*3/uL (0.1-1.0); MONO % 8.3 % (3.0-9.0); NEUT # 8.7 10*3/uL (2.3-7.9); NEUT % 77.2 % (47.0-73.0); PLATELET COUNT AUTOMATED 199 10*3/uL (130-400); RED BLOOD COUNT 4.35 10*6/uL (4.10-5.10); RED CELL DISTRI WIDTH 12.4 % (0-14.5); WHITE BLOOD COUNT 11.3 10*3/uL (4.8-10.8)
[2019-02-28 07:30] LABS: BUN 12 mg/dl (7-24); CHLORIDE 107 mmol/L (98-107); CREATININE 0.62 mg/dL (0.55-1.02); POTASSIUM 3.7 mmol/L (3.5-5.1); SODIUM 141 mmol/L (136-145)
[2019-02-28 08:00] VITALS: BP 156/99
[2019-02-28 12:00] VITALS: BP 157/96
[2019-02-28] MEDS ORDERED: MECLIZINE HCL25 M2 PO (14:12)
[2019-02-28] MEDS ORDERED: COMBIVENT RESPIM4 GM INH (14:12)
[2019-02-28] MEDS ORDERED: MUCINEX ER600 MG PO (14:12)
[2019-02-28] MEDS ORDERED: DOXYCYCLINE100 MG PO (14:12)
[2019-02-28 16:00] VITALS: BP 155/88
--- NOTE | 2019-02-28 18:14 | NUR ---
PT DISCHARGED AT THIS TIME. NEEDLE REMOVED FROM PORT AND DRESSING APPLIED. VERBALIZED UNDERSTANDING OF DISCHARGE INSTRUCTIONS. HEART MONITOR RETURNED TO FLOOR.
[2019-04-06 10:07] LABS: ACID FAST CULTURE Negative (.)
== END 2019-02-28 18:14 | disposition home or self-care (01) | DRG 193 ==
LOC: ED 10:47 → 5E 11:48 → EDHOLD 11:48 → 5E 12:14
PROVIDERS: Emergency Medicine; Internal Medicine; Internal Medicine Critical Care Medicine; Internal Medicine Nephrology; Student in an Organized Health Care Education/Training Program; ADMIT Internal Medicine
PROC: 0BC38ZZ Extirpation of Matter from Right Main Bronchus, Via Natural or Artificial Opening Endoscopic (ICD-10-PCS; principal; 2019-02-24)
PROC: 0BC88ZZ Extirpation of Matter from Left Upper Lobe Bronchus, Via Natural or Artificial Opening Endoscopic (ICD-10-PCS; principal; 2019-02-24)
PROC: 0BC48ZZ Extirpation of Matter from Right Upper Lobe Bronchus, Via Natural or Artificial Opening Endoscopic (ICD-10-PCS; principal; 2019-02-24)
PROC: 0BC98ZZ Extirpation of Matter from Lingula Bronchus, Via Natural or Artificial Opening Endoscopic (ICD-10-PCS; principal; 2019-02-24)
PROC: 0BC28ZZ Extirpation of Matter from Carina, Via Natural or Artificial Opening Endoscopic (ICD-10-PCS; principal; 2019-02-24)
PROC: 0BC18ZZ Extirpation of Matter from Trachea, Via Natural or Artificial Opening Endoscopic (ICD-10-PCS; principal; 2019-02-24)
PROC: 0BC78ZZ Extirpation of Matter from Left Main Bronchus, Via Natural or Artificial Opening Endoscopic (ICD-10-PCS; principal; 2019-02-24)
PROC: 0BC68ZZ Extirpation of Matter from Right Lower Lobe Bronchus, Via Natural or Artificial Opening Endoscopic (ICD-10-PCS; principal; 2019-02-24)
PROC: 0BC58ZZ Extirpation of Matter from Right Middle Lobe Bronchus, Via Natural or Artificial Opening Endoscopic (ICD-10-PCS; principal; 2019-02-24)
PROC: 0BCB8ZZ Extirpation of Matter from Left Lower Lobe Bronchus, Via Natural or Artificial Opening Endoscopic (ICD-10-PCS; principal; 2019-02-24)
DX: J18.9 Pneumonia, unspecified organism (principal); I50.23 Acute on chronic systolic (congestive) heart failure; J44.0 Chronic obstructive pulmonary disease with (acute) lower respiratory infection; D68.59 Other primary thrombophilia; I48.92 Unspecified atrial flutter; I42.0 Dilated cardiomyopathy; T17.590A Other foreign object in bronchus causing asphyxiation, initial encounter; J96.10 Chronic respiratory failure, unspecified whether with hypoxia or hypercapnia; R73.9 Hyperglycemia, unspecified; R42 Dizziness and giddiness; R35.0 Frequency of micturition; I25.5 Ischemic cardiomyopathy; J20.9 Acute bronchitis, unspecified; I08.1 Rheumatic disorders of both mitral and tricuspid valves; I48.91 Unspecified atrial fibrillation; E87.6 Hypokalemia; I11.0 Hypertensive heart disease with heart failure; E83.41 Hypermagnesemia; J43.9 Emphysema, unspecified; R41.82 Altered mental status, unspecified; E53.8 Deficiency of other specified B group vitamins; I25.10 Atherosclerotic heart disease of native coronary artery without angina pectoris; E04.1 Nontoxic single thyroid nodule; E78.5 Hyperlipidemia, unspecified; X58.XXXA Exposure to other specified factors, initial encounter; Y93.89 Activity, other specified; Y92.89 Other specified places as the place of occurrence of the external cause; Y99.8 Other external cause status; Z91.19 Patient's noncompliance with other medical treatment and regimen; Z79.01 Long term (current) use of anticoagulants; Z90.710 Acquired absence of both cervix and uterus; Z90.49 Acquired absence of other specified parts of digestive tract; Z95.810 Presence of automatic (implantable) cardiac defibrillator; Z87.891 Personal history of nicotine dependence; Z80.3 Family history of malignant neoplasm of breast; Z82.3 Family history of stroke; Z83.3 Family history of diabetes mellitus; Z82.49 Family history of ischemic heart disease and other diseases of the circulatory system; Z79.899 Other long term (current) drug therapy; Z86.73 Personal history of transient ischemic attack (TIA), and cerebral infarction without residual deficits

== ENCOUNTER 2019-03-11 15:23 | Emergency (ER) | payer MEDICARE, MEDICAID ==
[~2019-03-11] VITALS: Ht 175.2 cm; Wt 72.6 kg
--- NOTE | ~2019-03-11 | EKG ---
[place], [place] ELECTROCARDIOGRAM REPORT NAME: PRIYANKA NORTON UNIT #: [id number] ROOM: DOCTOR: EPIPHANY DRAFT REPORT BIRTHDATE: [birth year] [facility] Test Date: 2019-03-11 Test Time: 15:29:25 Pat Name: PRIYANKA NORTON Department: er Room: Gender: F Gamemaster: : 1945 Requested By: IVANA AMBROSIO Order Number: [id number] Reading MD: Miller Camarena MD Measurements Intervals [place] Rate: 76 P: MI: QRS: 261 QRSD: 145 T: 79 QT: 443 QTc: 499 Interpretive Statements Ventricular-paced rhythm with probably underlying atrial fibrillation Compared to ECG 02/20/2019 16:43:12 No significant changes Electronically Signed On 03-12-2019 7:49:23 PDT by Miller Camarena MD CM:EKGRPT:ELECTROCARDIOGRAM REPORT [id number] IVANA CARDENAS DRAFT REPORT IVANA AMBROSIO M.D.
--- NOTE | ~2019-03-11 | EKG ---
[place], [place] ELECTROCARDIOGRAM REPORT NAME: PRIYANKA NORTON UNIT #: [id number] ROOM: DOCTOR: EPIPHANY DRAFT REPORT BIRTHDATE: [birth year] [facility] Test Date: 2019-03-11 Test Time: 18:41:35 Pat Name: PRIYANKA NORTON Department: er Room: Gender: F Statistical Clerk Advertising: : 1945 Requested By: IVANA AMBROSIO Order Number: [id number] Reading MD: Miller Camarena MD Measurements Intervals [place] Rate: 76 P: 0 WA: 150 QRS: 0 QRSD: 161 T: 73 QT: 461 QTc: 519 Interpretive Statements Ventricular-paced rhythm, probable underlying atrial fibrillation Electronically Signed On 03-12-2019 7:54:16 PDT by Miller Camarena MD CM:EKGRPT:ELECTROCARDIOGRAM REPORT [id number] IVANA CARDENAS DRAFT REPORT IVANA AMBROSIO M.D.
[~2019-03-11 15:23] MED LIST changes: +COMBIVENT RESPIM4 GM INH; +MECLIZINE HCL25 M2 PO
[2019-03-11 16:03] LABS: BASO # 0.1 10*3/uL (0.0-0.1); BASO % 0.8 % (0.0-1.0); EOS # 0.3 10*3/uL (0.0-0.4); EOS % 4.6 % (1.0-4.0); HEMOGLOBIN 12.7 g/dl (12.0-16.0); LYMPH # 1.1 10*3/uL (1.3-4.4); MEAN CELL VOLUME 96.8 fl (81.0-99.0); MEAN CORPUSCULAR HGB 31.5 pg (27.0-31.0); MEAN CORPUSCULAR HGB CONC 32.6 g/dl (33.0-37.0); MEAN PLATELET VOLUME 10.6 fl (9.6-12.3); MONO # 0.5 10*3/uL (0.1-1.0); MONO % 7.9 % (3.0-9.0); NEUT # 4.3 10*3/uL (2.3-7.9); NEUT % 68.4 % (47.0-73.0); PLATELET COUNT AUTOMATED 165 10*3/uL (130-400); RED BLOOD COUNT 4.03 10*6/uL (4.10-5.10); RED CELL DISTRI WIDTH 13.1 % (0-14.5); WHITE BLOOD COUNT 6.3 10*3/uL (4.8-10.8)
[2019-03-11 16:18] LABS: ALBUMIN 3.2 gm/dl (3.1-4.5); ALKALINE PHOSPHATASE 66 U/L (45-117); BUN 7 mg/dl (7-24); CHLORIDE 107 mmol/L (98-107); CREATININE 0.78 mg/dL (0.55-1.02); SGOT/AST 9 IU/L (3-35); SGPT/ALT 15 U/L (12-78); SODIUM 141 mmol/L (136-145); TOTAL PROTEIN 6.3 gm/dL (6.4-8.2)
[2019-03-11 16:22] LABS: TROPONIN I < 0.015 ng/ml (<0.045)
[2019-03-11 16:25] LABS: ACT PARTIAL THROMBO TIME 24.6 SECONDS (20.0-32.1); INTERNATIONAL NORM RATIO 0.9 (2.0-3.5)
[2019-03-11 19:07] VITALS: BP 152/88
== END 2019-03-11 19:19 | disposition home or self-care (01) ==
LOC: ED 15:23
PROVIDERS: Emergency Medicine
DX: J06.9 Acute upper respiratory infection, unspecified (principal); R05 Cough; I48.91 Unspecified atrial fibrillation; I25.10 Atherosclerotic heart disease of native coronary artery without angina pectoris; J44.9 Chronic obstructive pulmonary disease, unspecified; E78.5 Hyperlipidemia, unspecified; I11.0 Hypertensive heart disease with heart failure; I50.9 Heart failure, unspecified; Z98.890 Other specified postprocedural states; Z90.710 Acquired absence of both cervix and uterus; Z90.49 Acquired absence of other specified parts of digestive tract; Z87.891 Personal history of nicotine dependence; Z79.899 Other long term (current) drug therapy

== ENCOUNTER 2019-04-05 14:22 | Emergency (ER) | payer MEDICARE, MEDICAID ==
[~2019-04-05] VITALS: Ht 175.2 cm; Wt 76.7 kg
[2019-04-05 14:50] LABS: BASO # 0.1 10*3/uL (0.0-0.1); BASO % 1.1 % (0.0-1.0); EOS # 0.2 10*3/uL (0.0-0.4); EOS % 2.1 % (1.0-4.0); HEMATOCRIT 38.3 % (37.0-47.0); HEMOGLOBIN 12.8 g/dl (12.0-16.0); LYMPH # 1.1 10*3/uL (1.3-4.4); LYMPH % 16.2 % (27.0-41.0); MEAN CELL VOLUME 94.8 fl (81.0-99.0); MEAN CORPUSCULAR HGB 31.7 pg (27.0-31.0); MEAN CORPUSCULAR HGB CONC 33.4 g/dl (33.0-37.0); MEAN PLATELET VOLUME 11.1 fl (9.6-12.3); MONO # 0.5 10*3/uL (0.1-1.0); MONO % 7.6 % (3.0-9.0); NEUT # 5.1 10*3/uL (2.3-7.9); NEUT % 72.7 % (47.0-73.0); PLATELET COUNT AUTOMATED 168 10*3/uL (130-400); RED BLOOD COUNT 4.04 10*6/uL (4.10-5.10)
[2019-04-05 15:06] LABS: ACT PARTIAL THROMBO TIME 25.8 SECONDS (20.0-32.1); INTERNATIONAL NORM RATIO 0.9 (2.0-3.5)
[2019-04-05 15:13] LABS: ALBUMIN 3.3 gm/dl (3.1-4.5); ALKALINE PHOSPHATASE 69 U/L (45-117); BUN 7 mg/dl (7-24); CHLORIDE 105 mmol/L (98-107); CREATININE 0.68 mg/dL (0.55-1.02); LIPASE 90 U/L (73-393); POTASSIUM 3.5 mmol/L (3.5-5.1); SGOT/AST 9 IU/L (3-35); SGPT/ALT 14 U/L (12-78); SODIUM 140 mmol/L (136-145); TOTAL PROTEIN 6.5 gm/dL (6.4-8.2)
[2019-04-05 15:14] LABS: TROPONIN I < 0.015 ng/ml (<0.045)
[2019-04-05 16:10] LABS: BILIRUBIN NEGATIVE (NEGATIVE); BLOOD NEGATIVE (NEGATIVE); CLARITY CLEAR (CLEAR); COLOR YELLOW (YELLOW); GLUCOSE NEGATIVE (NEGATIVE); KETONE NEGATIVE (NEGATIVE); LEUKO ESTERASE NEGATIVE (NEGATIVE); NITRITE NEGATIVE (NEGATIVE); PH 7.5 (5.0-9.0); UROBILINOGEN 0.2 E.U./dl (0.2-1.0)
[2019-04-05 16:23] LABS: BACTERIA TRACE; RBC 0-2 rbc/hpf (0-2)
[2019-04-05 16:28] VITALS: BP 158/90
[2019-04-05] MEDS ORDERED: ZOFRAN4 MG PO (16:41)
== END 2019-04-05 17:07 | disposition home or self-care (01) ==
LOC: ED 14:22
PROVIDERS: Emergency Medicine
DX: R11.2 Nausea with vomiting, unspecified (principal); R05 Cough; R09.81 Nasal congestion; R06.02 Shortness of breath; R42 Dizziness and giddiness; R79.1 Abnormal coagulation profile; I48.91 Unspecified atrial fibrillation; I25.10 Atherosclerotic heart disease of native coronary artery without angina pectoris; J44.9 Chronic obstructive pulmonary disease, unspecified; I10 Essential (primary) hypertension; E78.5 Hyperlipidemia, unspecified; L40.9 Psoriasis, unspecified; Z90.710 Acquired absence of both cervix and uterus; Z79.2 Long term (current) use of antibiotics; Z79.899 Other long term (current) drug therapy; Z87.891 Personal history of nicotine dependence

== ENCOUNTER 2019-04-14 17:09 | Inpatient (IN) | payer MEDICARE, MEDICAID ==
[~2019-04-14] VITALS: Ht 175.2 cm; Wt 70.8 kg
[2019-04-14 17:15] VITALS: BP 175/98
[2019-04-14 18:08] LABS: BASO # 0.1 10*3/uL (0.0-0.1); BASO % 1.1 % (0.0-1.0); EOS # 0.3 10*3/uL (0.0-0.4); EOS % 3.6 % (1.0-4.0); HEMATOCRIT 38.9 % (37.0-47.0); HEMOGLOBIN 12.8 g/dl (12.0-16.0); LYMPH # 1.1 10*3/uL (1.3-4.4); MEAN CORPUSCULAR HGB 31.6 pg (27.0-31.0); MEAN CORPUSCULAR HGB CONC 32.9 g/dl (33.0-37.0); MEAN PLATELET VOLUME 11.6 fl (9.6-12.3); MONO # 0.5 10*3/uL (0.1-1.0); MONO % 7.6 % (3.0-9.0); NEUT # 5.1 10*3/uL (2.3-7.9); NEUT % 72.3 % (47.0-73.0); PLATELET COUNT AUTOMATED 154 10*3/uL (130-400); RED BLOOD COUNT 4.05 10*6/uL (4.10-5.10)
[2019-04-14 18:21] VITALS: BP 196/88
--- NOTE | 2019-04-14 18:22 | NUR ---
UPDATED AND APPEARS A BIT MORE RELAXED. CONTINUES TO HAVE ACHING IN HER CHEST WITH COUGHING, BUT STATES SHE CANNOT TAKE ASA DUE TO BEING TOLD BY HER DOCTOR'S NOT TO. WARM BLANKET PROVIDED. DENIES ANY OTHER NEEDS. WILL CONTINUE TO MONITOR.
[2019-04-14 18:24] LABS: ALBUMIN 3.3 gm/dl (3.1-4.5); BUN 9 mg/dl (7-24); CHLORIDE 110 mmol/L (98-107); CREATININE 0.74 mg/dL (0.55-1.02); POTASSIUM 3.5 mmol/L (3.5-5.1); SGOT/AST 13 IU/L (3-35); SGPT/ALT 14 U/L (12-78); SODIUM 142 mmol/L (136-145); TOTAL PROTEIN 6.3 gm/dL (6.4-8.2)
[2019-04-14 18:26] LABS: ALKALINE PHOSPHATASE 65 U/L (45-117)
[2019-04-14 18:27] LABS: TROPONIN I < 0.015 ng/ml (<0.045)
--- NOTE | 2019-04-14 19:07 | NUR ---
REPORT TO OLEG REDDY.
[2019-04-14 19:27] VITALS: BP 175/92
[2019-04-14 20:25] VITALS: BP 175/92; BP 176/90
[2019-04-14 20:30] VITALS: BP 170/52
--- NOTE | 2019-04-14 20:30 | NUR ---
A 74 year old female patient, admitted to [facility], under the services of Dr. MELLISA ESPINOSA,[facility] with a diagnosis of chest pain Chief complaint is chest congestion and cough Patient arrived via cart with rn from ER. Monitor applied. Initial assessment completed. Vital signs taken and recorded. See assessment for past medical history, medications and allergies. Patient and/or family oriented to unit. [facility] visitation policy reviewed. Clothing/patient valuable form completed. LAUREANO SHELDON
[2019-04-15] VITALS: BP 111/60
--- NOTE | 2019-04-15 02:45 | NUR ---
patient resting in bed with eyes closed at this time, appears to be sleeping. no signs or symptoms of distress are seen. respirations are quiet and unlabored on room air. call light is within reach. bed low. wheels locked. rn will continue to monitor this patient.
[2019-04-15 06:41] LABS: PHOSPHOROUS 4.3 mg/dL (2.5-4.9)
[2019-04-15 08:00] VITALS: BP 124/68
[2019-04-15 12:00] VITALS: BP 130/78
[2019-04-15 16:00] VITALS: BP 127/75
--- NOTE | 2019-04-15 16:53 | NUR ---
PT GIVEN TYLENOL FOR COMPLAINTS OF RIB PAIN FROM COUGHING. WILL MONITOR FOR EFFECTIVENESS.
[2019-04-15 20:00] VITALS: BP 128/67
[2019-04-16] VITALS: BP 147/67
[2019-04-16 06:28] LABS: HEMOGLOBIN 12.2 g/dl (12.0-16.0); MEAN CELL VOLUME 95.6 fl (81.0-99.0); MEAN CORPUSCULAR HGB 31.5 pg (27.0-31.0); MEAN PLATELET VOLUME 11.5 fl (9.6-12.3); PLATELET COUNT AUTOMATED 156 10*3/uL (130-400); RED BLOOD COUNT 3.87 10*6/uL (4.10-5.10); RED CELL DISTRI WIDTH 12.7 % (0-14.5); WHITE BLOOD COUNT 12.6 10*3/uL (4.8-10.8)
[2019-04-16 06:41] LABS: BUN 12 mg/dl (7-24); CHLORIDE 107 mmol/L (98-107); CREATININE 0.65 mg/dL (0.55-1.02); SODIUM 140 mmol/L (136-145)
[2019-04-16 07:28] LABS: TOTAL CELLS COUNTED 100 #CELLS
[2019-04-16 07:29] LABS: PLATELET SUFFICIENCY NORMAL (NORMAL)
[2019-04-16 08:00] VITALS: BP 136/80
[2019-04-16 12:00] VITALS: BP 149/86
[2019-04-16 16:00] VITALS: BP 150/79
[2019-04-16 20:00] VITALS: BP 146/75
--- NOTE | 2019-04-16 23:56 | NUR ---
24 HR chart check completed.
[2019-04-17] VITALS: BP 160/90
--- NOTE | 2019-04-17 00:30 | NUR ---
THE PA CAME TO THE DESK AND STATED THAT PT WAS VERY FRUSTRATED AND FELT LIKE NOTHING WAS WORKING. PT STATED THAT SHE "THREW UP MULTIPLE TIMES". WENT TO PATIENTS ROOM AND ASKED WHAT WAS GOING ON AND TO EXPRESS HOW SHE WAS FEELING. PT STATED THAT NOTHING WE WERE DOING HERE WAS HELPING AND THAT SHE MIGHT JUST LEAVE. I EXPRESSED AND EDUCATED PT ON THE IMPORTANCE OF STAYING ATLEAST TILL SHE CAN TALK TO IN THE AM. I EXPLAINED AND EDUCATED THE PT ON ROCEPHIN, ZITHROMAX, AND SOLU-MEDROL. 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 I THEN TOLD THE PT THAT SHE THEN SHOULD UNDERSTAND WHY I AM STRESSING THE IMPORTANCE OF STAYING SO THAT WE CAN HELP HER TO THE BEST OF OUR ABILITIES. PT STATED "I NEVER SAID I WAS GOING TO LEAVE, I HAVEN'T DECIDED". I EXPLAINED THAT IT WAS HER RIGHT THE PATIENT BUT I EMPHASIZED ON THE IMPORTANCE OF STAYING ONE LAST TIME. I TOLD THE PATIENT I WOULD GIVE HER SOME TIME TO HOPEFULLY REST. WILL RECHECK IN ON PT IN A LITTLE WHILE.
[2019-04-17 07:09] LABS: HEMATOCRIT 37.9 % (37.0-47.0); HEMOGLOBIN 12.6 g/dl (12.0-16.0); MEAN CELL VOLUME 95.9 fl (81.0-99.0); MEAN CORPUSCULAR HGB 31.9 pg (27.0-31.0); MEAN CORPUSCULAR HGB CONC 33.2 g/dl (33.0-37.0); MEAN PLATELET VOLUME 11.5 fl (9.6-12.3); PLATELET COUNT AUTOMATED 172 10*3/uL (130-400); RED BLOOD COUNT 3.95 10*6/uL (4.10-5.10); RED CELL DISTRI WIDTH 12.8 % (0-14.5); WHITE BLOOD COUNT 16.2 10*3/uL (4.8-10.8)
[2019-04-17 07:31] LABS: BUN 16 mg/dl (7-24); CHLORIDE 108 mmol/L (98-107); CREATININE 0.71 mg/dL (0.55-1.02); POTASSIUM 3.9 mmol/L (3.5-5.1); SODIUM 141 mmol/L (136-145)
[2019-04-17 07:59] LABS: PLATELET SUFFICIENCY NORMAL (NORMAL); TOTAL CELLS COUNTED 100 #CELLS
[2019-04-17 08:00] VITALS: BP 142/76
--- NOTE | 2019-04-17 10:30 | NUR ---
Nut Chopper in to talk to patient. Patient states lives at home alone in [facility] apartments with family checking in on her. There are 0 steps in the home. Physician: Dr. Jeremías Sigala [facility] Home health services: none Patient's level of ADLs: INDEPENDENT Patient has working utilities: yes DME: nebulizer, O2 @ 2L nc prn, portable O2 tanks, O2 supplier [employer]MS Follow-up physician's appointment after d/c: she prefers to make her own follow up appt after discharge Does patient want to access PORTAL?: no Discharge plan discussed with patient. She lives at home alone with family checking in on her. She is independent in her ADLs and ambulation. Discussed home health care services and she denies any home needs at this time. When medically stable she will be discharged to home. She will take a cab or walk home on discharge. ARIADNE PATTERSON
[2019-04-17 12:00] VITALS: BP 169/96
[2019-04-17 16:00] VITALS: BP 159/90
[2019-04-17 20:00] VITALS: BP 154/90
[2019-04-18] VITALS: BP 149/77
--- NOTE | 2019-04-18 00:33 | NUR ---
24 HOUR CHART CHECK COMPLETE.
--- NOTE | 2019-04-18 03:30 | NUR ---
ALERTED THAT PT WAS OFF HER MONITOR. UPOM ENTERING THE ROOM, PT HAD CHANGED ALL OF HER CLOTHES, HAD HER SHOES ON, PURSE IN HAND, AND HEART MONITOR UNPLUGGED AND LAYING ON HER BED. WHEN ASKED WHERE SHE WAS GOING THE PT STATED "SHE WAS HEADED TO [facility]". PT WAS REORIENTED TO HER SURROUNDINGS. I EXPLAINED THAT SHE IS AT [facility] NOW, AND WILL BE HERE UNTIL SHE IS DISCHARGED. I GOT THE PT CHANGED BACK INTO HER HOSPITAL GOWN AND HEART MONITOR REATTACHED. PT WAS EAILY REORIENTED AND SHE WAS RECEPTIVE TO THE INFORMATION I TOLD HER. WILL CONTINUE TO MONITOR AND ORIENT NEEDED.
[2019-04-18 06:55] LABS: HEMATOCRIT 39.6 % (37.0-47.0); HEMOGLOBIN 12.9 g/dl (12.0-16.0); MEAN CELL VOLUME 95.2 fl (81.0-99.0); MEAN CORPUSCULAR HGB CONC 32.6 g/dl (33.0-37.0); MEAN PLATELET VOLUME 11.3 fl (9.6-12.3); PLATELET COUNT AUTOMATED 180 10*3/uL (130-400); RED BLOOD COUNT 4.16 10*6/uL (4.10-5.10); RED CELL DISTRI WIDTH 12.7 % (0-14.5); WHITE BLOOD COUNT 12.6 10*3/uL (4.8-10.8)
[2019-04-18 07:17] LABS: BUN 17 mg/dl (7-24); CHLORIDE 108 mmol/L (98-107); CREATININE 0.68 mg/dL (0.55-1.02); POTASSIUM 3.8 mmol/L (3.5-5.1); SODIUM 141 mmol/L (136-145)
[2019-04-18 07:49] LABS: TOTAL CELLS COUNTED 100 #CELLS
[2019-04-18 07:50] LABS: PLATELET SUFFICIENCY NORMAL (NORMAL)
[2019-04-18 08:00] VITALS: BP 147/77
--- NOTE | 2019-04-18 10:30 | NUR ---
Bolt Threader in to see patient. No new needs or request at this time. She denies any home needs. When medically stable she will be discharged to home. Per multidisciplinary discharge planning meeting waiting on Dr. Lynch's input and treating COPD.
[2019-04-18 12:00] VITALS: BP 143/66
[2019-04-18 20:00] VITALS: BP 128/76
[2019-04-19] VITALS: BP 129/74
--- NOTE | 2019-04-19 03:10 | NUR ---
24 HOUR CHART CHECK COMPLETE.
[2019-04-19 06:37] LABS: BASO % 0.1 % (0.0-1.0); LYMPH # 0.6 10*3/uL (1.3-4.4); LYMPH % 5.1 % (27.0-41.0); MEAN CELL VOLUME 94.7 fl (81.0-99.0); MEAN CORPUSCULAR HGB 31.6 pg (27.0-31.0); MEAN CORPUSCULAR HGB CONC 33.3 g/dl (33.0-37.0); MEAN PLATELET VOLUME 11.5 fl (9.6-12.3); MONO # 0.3 10*3/uL (0.1-1.0); MONO % 2.6 % (3.0-9.0); NEUT % 91.4 % (47.0-73.0); PLATELET COUNT AUTOMATED 175 10*3/uL (130-400); RED BLOOD COUNT 4.12 10*6/uL (4.10-5.10); RED CELL DISTRI WIDTH 12.7 % (0-14.5); WHITE BLOOD COUNT 10.9 10*3/uL (4.8-10.8)
[2019-04-19 06:50] LABS: BUN 19 mg/dl (7-24); CHLORIDE 108 mmol/L (98-107); SODIUM 141 mmol/L (136-145)
[2019-04-19 08:00] VITALS: BP 159/86
[2019-04-19 09:07] LABS: ADENOVIRUS Negative (Negative); INFLUENZA B Negative (Negative); METAPNEUMOVIRUS Negative (Negative); PARAINFLUENZA 1 Negative (Negative); PARAINFLUENZA 2 Negative (Negative); PARAINFLUENZA 3 Negative (Negative); RHINOVIRUS Negative (Negative); RSV A Negative (Negative); RSV B Negative (Negative)
--- NOTE | 2019-04-19 09:30 | NUR ---
Upholstery Bundler in to see patient. No new needs or request at this time. She denies any home needs. When medically stable she will be discharged to home.
[2019-04-19 12:00] VITALS: BP 138/80
--- NOTE | 2019-04-19 14:00 | NUR ---
Notified [facility] nurse, Gwendolyn, of consult.
--- NOTE | 2019-04-19 14:01 | NUR ---
Received Palliative order, faxed to [facility].
--- NOTE | 2019-04-19 15:33 | NUR ---
ZOEY MONTEZ IN TO SEE PATIENT REGARDING CONSULT.
[2019-04-19 16:00] VITALS: BP 136/84
--- NOTE | 2019-04-19 16:53 | NUR ---
IN TO SEE PATIENT AND UPDATED ON PLAN OF CARE.
[2019-04-19 20:00] VITALS: BP 154/81
[2019-04-20] VITALS (9 sets, daily range): BP systolic 121–194; BP diastolic 77–105
[2019-04-20 06:55] LABS: HEMATOCRIT 39.4 % (37.0-47.0); HEMOGLOBIN 12.9 g/dl (12.0-16.0); MEAN CELL VOLUME 95.2 fl (81.0-99.0); MEAN CORPUSCULAR HGB 31.2 pg (27.0-31.0); MEAN CORPUSCULAR HGB CONC 32.7 g/dl (33.0-37.0); MEAN PLATELET VOLUME 11.1 fl (9.6-12.3); PLATELET COUNT AUTOMATED 192 10*3/uL (130-400); RED BLOOD COUNT 4.14 10*6/uL (4.10-5.10); RED CELL DISTRI WIDTH 12.6 % (0-14.5); WHITE BLOOD COUNT 12.5 10*3/uL (4.8-10.8)
[2019-04-20 07:11] LABS: BUN 20 mg/dl (7-24); CHLORIDE 108 mmol/L (98-107); CREATININE 0.67 mg/dL (0.55-1.02); POTASSIUM 3.9 mmol/L (3.5-5.1); SODIUM 141 mmol/L (136-145)
[2019-04-20 07:46] LABS: ATYPICAL LYMPHS 1 % (0-0); PLATELET SUFFICIENCY NORMAL (NORMAL); TOTAL CELLS COUNTED 100 #CELLS
--- NOTE | 2019-04-20 09:00 | NUR ---
Proof Reader in to see patient. No new needs or request at this time. She denies any home needs. When medically stable she will be discharged to home. Patient is scheduled for a bronchoscopy today.
--- NOTE | 2019-04-20 23:41 | NUR ---
24 HR chart check completed.
[2019-04-21] VITALS: BP 120/62
[2019-04-21 06:36] LABS: HEMATOCRIT 40.9 % (37.0-47.0); HEMOGLOBIN 13.5 g/dl (12.0-16.0); MEAN CELL VOLUME 95.8 fl (81.0-99.0); MEAN CORPUSCULAR HGB 31.6 pg (27.0-31.0); PLATELET COUNT AUTOMATED 191 10*3/uL (130-400); RED BLOOD COUNT 4.27 10*6/uL (4.10-5.10); RED CELL DISTRI WIDTH 12.7 % (0-14.5); WHITE BLOOD COUNT 9.3 10*3/uL (4.8-10.8)
[2019-04-21 06:44] LABS: BUN 18 mg/dl (7-24); CHLORIDE 106 mmol/L (98-107); CREATININE 0.75 mg/dL (0.55-1.02); POTASSIUM 4.2 mmol/L (3.5-5.1); SODIUM 141 mmol/L (136-145)
--- NOTE | 2019-04-21 07:20 | NUR ---
DR QUIROGA IN TO SEE PT AT THIS TIME, STATES FROM HIS STANDPOINT PT MAY BE D/C HOME.
[2019-04-21 08:00] VITALS: BP 142/84
[2019-04-21 09:04] LABS: PLATELET SUFFICIENCY NORMAL (NORMAL); TOTAL CELLS COUNTED 100 #CELLS
[2019-04-21 12:00] VITALS: BP 153/78
[2019-04-21] MEDS ORDERED: PREDNISONE10 M1 PO (13:08)
[2019-04-21] MEDS ORDERED: DOXYCYCLINE MO100 M1 PO (13:08)
--- NOTE | 2019-04-21 13:24 | NUR ---
Snack Bar Cashier in to see patient. No new needs or request at this time. She denies any home needs. Discussed home health care services and she refuses. She is scheduled for discharge today.
--- NOTE | 2019-04-21 14:00 | NUR ---
DESCREPENCIES NOTED WHEN ATTEMPTING TO D/C PT, PT WAS BEING DISCHARGED ON ONLY DOXY & PREDNISONE, BUT PT WAS RECEIVING XARELTO WHILE IN HOSPITAL. AFTER DISCUSSING WITH PT, PT SEEMS UNSURE OF MEDS, CALL PALCED TO PT'S PHARMACY, THEY STATE SHE IS PRESCRIBED COREG, LISINOPRIL, XARELTO, BUT STATES SHE HAS NOT PICKED THESE MEDICATIONS UP IN SOME TIME, IN XARELTO NOT SINCE 2014. SPOKE WITH DR PURCELL, WHO REQUESTED THESE MEDICATIONS BE RETURNED TO MED REC PT SHOULD BE TAKING THESE MEDS AT HOME. EXPLAINED THOROUGHLY TO PT.
[2019-04-21] MEDS ORDERED: XARE20MG PO (14:09)
[2019-04-21] MEDS ORDERED: COREG6.25 MG PO (14:10)
[2019-04-21] MEDS ORDERED: LISINOPRIL2.5 MG PO (14:10)
--- NOTE | 2019-04-21 14:29 | NUR ---
MEDICATION COMPLIANCE EXPLAINED THOROUGHLY TO PT, AND THAT HOME HEALTH NURSING CAN HELP HER WITH MED COMPLIANCE- BY ORGANIZING A PILL BOX FOR HER AND SOME PHARMACIES OFFER BLISTER PACKS WITH DAILY MEDICATIONS. PT VERBALIZED UNDERSTANDING.
--- NOTE | 2019-04-21 14:40 | NUR ---
Discharge instructions reviewed with patient/family. Patient receptive and verbalizes understanding. Follow-up care arranged. Written instructions given to patient/family. IV site and front desk monitor removed. ANYI LEWIS
[2019-04-21 18:07] LABS: ACID FAST SPEC PROCESSING Concentration (.)
[2019-04-22 00:06] LABS: INFLUENZA A Negative (Negative)
== END 2019-04-21 14:40 | disposition home or self-care (01) | DRG 190 ==
LOC: ED 17:09 → EDHOLD 19:08 → 5E 19:08
PROVIDERS: Emergency Medicine; Internal Medicine; Internal Medicine Critical Care Medicine; Internal Medicine Nephrology; Student in an Organized Health Care Education/Training Program; ADMIT Internal Medicine
PROC: 0BC58ZZ Extirpation of Matter from Right Middle Lobe Bronchus, Via Natural or Artificial Opening Endoscopic (ICD-10-PCS; principal; 2019-04-20)
PROC: 0BC78ZZ Extirpation of Matter from Left Main Bronchus, Via Natural or Artificial Opening Endoscopic (ICD-10-PCS; principal; 2019-04-20)
PROC: 0BC48ZZ Extirpation of Matter from Right Upper Lobe Bronchus, Via Natural or Artificial Opening Endoscopic (ICD-10-PCS; principal; 2019-04-20)
PROC: 0BCB8ZZ Extirpation of Matter from Left Lower Lobe Bronchus, Via Natural or Artificial Opening Endoscopic (ICD-10-PCS; principal; 2019-04-20)
PROC: 0BC28ZZ Extirpation of Matter from Carina, Via Natural or Artificial Opening Endoscopic (ICD-10-PCS; principal; 2019-04-20)
PROC: 0BC88ZZ Extirpation of Matter from Left Upper Lobe Bronchus, Via Natural or Artificial Opening Endoscopic (ICD-10-PCS; principal; 2019-04-20)
PROC: 0BC98ZZ Extirpation of Matter from Lingula Bronchus, Via Natural or Artificial Opening Endoscopic (ICD-10-PCS; principal; 2019-04-20)
PROC: 0BC18ZZ Extirpation of Matter from Trachea, Via Natural or Artificial Opening Endoscopic (ICD-10-PCS; principal; 2019-04-20)
PROC: 0BC38ZZ Extirpation of Matter from Right Main Bronchus, Via Natural or Artificial Opening Endoscopic (ICD-10-PCS; principal; 2019-04-20)
PROC: 0BC68ZZ Extirpation of Matter from Right Lower Lobe Bronchus, Via Natural or Artificial Opening Endoscopic (ICD-10-PCS; principal; 2019-04-20)
DX: J44.1 Chronic obstructive pulmonary disease with (acute) exacerbation (principal); J18.9 Pneumonia, unspecified organism; I48.19 Other persistent atrial fibrillation; I42.0 Dilated cardiomyopathy; I50.22 Chronic systolic (congestive) heart failure; J96.10 Chronic respiratory failure, unspecified whether with hypoxia or hypercapnia; J44.0 Chronic obstructive pulmonary disease with (acute) lower respiratory infection; J20.9 Acute bronchitis, unspecified; R07.9 Chest pain, unspecified; I11.0 Hypertensive heart disease with heart failure; L40.9 Psoriasis, unspecified; E53.8 Deficiency of other specified B group vitamins; I25.10 Atherosclerotic heart disease of native coronary artery without angina pectoris; E78.5 Hyperlipidemia, unspecified; I08.0 Rheumatic disorders of both mitral and aortic valves; R91.1 Solitary pulmonary nodule; F32.9 Major depressive disorder, single episode, unspecified; F41.9 Anxiety disorder, unspecified; I25.5 Ischemic cardiomyopathy; E55.9 Vitamin D deficiency, unspecified; E87.8 Other disorders of electrolyte and fluid balance, not elsewhere classified; R73.9 Hyperglycemia, unspecified; Z87.891 Personal history of nicotine dependence; Z95.810 Presence of automatic (implantable) cardiac defibrillator; Z87.01 Personal history of pneumonia (recurrent); Z90.49 Acquired absence of other specified parts of digestive tract; Z90.710 Acquired absence of both cervix and uterus; Z82.3 Family history of stroke; Z80.3 Family history of malignant neoplasm of breast; Z83.3 Family history of diabetes mellitus; Z82.49 Family history of ischemic heart disease and other diseases of the circulatory system; Z79.01 Long term (current) use of anticoagulants

== ENCOUNTER 2019-06-05 09:48 | Inpatient (IN) | payer MEDICARE, MEDICAID ==
[~2019-06-05] VITALS: Ht 175.2 cm; Wt 75.0 kg
[~2019-06-05 09:48] MED LIST changes: +COREG6.25 MG PO; +DOXYCYCLINE MO100 M1 PO; +PREDNISONE10 M1 PO
[2019-06-05 09:58] VITALS: BP 176/104
[2019-06-05 10:03] VITALS: BP 177/99
[2019-06-05 10:48] LABS: HEMATOCRIT 39.8 % (37.0-47.0); HEMOGLOBIN 13.3 g/dl (12.0-16.0); MEAN CELL VOLUME 95.4 fl (81.0-99.0); MEAN CORPUSCULAR HGB 31.9 pg (27.0-31.0); MEAN CORPUSCULAR HGB CONC 33.4 g/dl (33.0-37.0); MEAN PLATELET VOLUME 11.4 fl (9.6-12.3); PLATELET COUNT AUTOMATED 161 10*3/uL (130-400); RED BLOOD COUNT 4.17 10*6/uL (4.10-5.10); RED CELL DISTRI WIDTH 12.6 % (0-14.5)
[2019-06-05 10:58] LABS: ACT PARTIAL THROMBO TIME 25.9 SECONDS (20.0-32.1); INTERNATIONAL NORM RATIO 0.9 (2.0-3.5)
[2019-06-05 11:03] LABS: LIPASE 82 U/L (73-393)
[2019-06-05 11:11] LABS: PLATELET SUFFICIENCY NORMAL (NORMAL); TOTAL CELLS COUNTED 100 #CELLS
[2019-06-05 12:01] LABS: ALBUMIN 3.6 gm/dl (3.1-4.5); ALKALINE PHOSPHATASE 78 U/L (45-117); BUN 6 mg/dl (7-24); CHLORIDE 108 mmol/L (98-107); CREATININE 0.71 mg/dL (0.55-1.02); POTASSIUM 3.8 mmol/L (3.5-5.1); SGOT/AST 7 IU/L (3-35); SGPT/ALT 12 U/L (12-78); SODIUM 141 mmol/L (136-145); TOTAL PROTEIN 6.7 gm/dL (6.4-8.2)
[2019-06-05 12:05] LABS: TROPONIN I < 0.015 ng/ml (<0.045)
[2019-06-05 12:53] VITALS: BP 161/90
--- NOTE | 2019-06-05 12:53 | NUR ---
PATIENT SITTING UP IN BED. NO VOICED COMPLAINTS AT THIS TIME. CALL LIGHT WITHIN REACH, BED IN LOW, SIDE RAILS UP X2. VS STABLE.
--- NOTE | 2019-06-05 13:15 | NUR ---
PATIENT MEDICATED SEE EMAR. NO VOICED COMPLAINTS AT THIS TIME. WILL CONTINUE TO MONITOR.
[2019-06-05 15:50] VITALS: BP 168/92
--- NOTE | 2019-06-05 15:50 | NUR ---
A 74, admitted to 4E, under the services of RUBEN Cole MD with a diagnosis of DIZZINESS CHEST PAIN RO ACUTE [place]. Chief complaint is CHEST PAIN. Patient arrived via stretcher from ER. Monitor applied. Initial assessment completed. Vital signs taken and recorded. RUBEN COLE MD notified of admission to the unit. Orders received. See assessment for past medical history, medications and allergies. Patient and/or family oriented to unit. [address] visitation policy reviewed. Clothing/patient valuable form completed. JOI LIU
[2019-06-05 20:00] VITALS: BP 137/84
--- NOTE | 2019-06-05 20:38 | NUR ---
24 HR chart check completed.
--- NOTE | 2019-06-05 21:00 | NUR ---
RESTING WITH EYES CLOSED AND NO DISTRESS NOTED. RESPIRATIONS EASY. LUNGS DIMINISHED, CLEAR. PULSE OX 96% RA. +2 NON-PITTING BLE. CALL LIGHT WITHIN REACH. NO VOICED COMPLAINTS
--- NOTE | 2019-06-05 22:35 | NUR ---
REQUESTED AND RECEIVED TYLENOL AND RESTORIL PER PRN ORDER FOR COMPLAINTS OF GENERALIZED ACHES AND TO ASSIST WITH SLEEP. CALL LIGHT WITHIN REACH. WILL MONITOR
[2019-06-06] VITALS: BP 113/59
--- NOTE | 2019-06-06 | NUR ---
EARLIER MEDS EFFECTIVE. SLEEPING. RESPIRATIONS EASY. VSS. CALL LIGHT WITHIN REACH
--- NOTE | 2019-06-06 03:00 | NUR ---
SLEEPING. CALL LIGHT WITHIN REACH
--- NOTE | 2019-06-06 06:00 | NUR ---
SLEPT THROUGHOUT NIGHT WITH NO DISTRESS NOTED. RESPIRATIONS EASY. CALL LIGHT WITHIN REACH. NO VOICED COMPLAINTS THIS SHIFT
[2019-06-06 08:00] VITALS: BP 118/72
[2019-06-06 08:06] LABS: BASO # 0.1 10*3/uL (0.0-0.1); BASO % 1.5 % (0.0-1.0); EOS # 0.3 10*3/uL (0.0-0.4); EOS % 6.2 % (1.0-4.0); HEMATOCRIT 39.2 % (37.0-47.0); HEMOGLOBIN 13.1 g/dl (12.0-16.0); LYMPH # 0.9 10*3/uL (1.3-4.4); LYMPH % 18.3 % (27.0-41.0); MEAN CELL VOLUME 96.3 fl (81.0-99.0); MEAN CORPUSCULAR HGB 32.2 pg (27.0-31.0); MEAN CORPUSCULAR HGB CONC 33.4 g/dl (33.0-37.0); MEAN PLATELET VOLUME 11.3 fl (9.6-12.3); MONO # 0.3 10*3/uL (0.1-1.0); MONO % 6.8 % (3.0-9.0); NEUT # 3.2 10*3/uL (2.3-7.9); NEUT % 66.8 % (47.0-73.0); PLATELET COUNT AUTOMATED 165 10*3/uL (130-400); RED BLOOD COUNT 4.07 10*6/uL (4.10-5.10); RED CELL DISTRI WIDTH 12.7 % (0-14.5); WHITE BLOOD COUNT 4.8 10*3/uL (4.8-10.8)
[2019-06-06 08:21] LABS: BUN 7 mg/dl (7-24); CHLORIDE 111 mmol/L (98-107); CHOLESTEROL 166 mg/dL (<200); CREATININE 0.79 mg/dL (0.55-1.02); PHOSPHOROUS 3.7 mg/dL (2.5-4.9); SODIUM 143 mmol/L (136-145); TRIGLYCERIDES 84 mg/dl (<150); VLDL CHOLESTEROL 17 mg/dL (6-40)
--- NOTE | 2019-06-06 08:30 | NUR ---
SITTING AT BEDSIDE EATING BREAKFAST AND VISITING WITH ROOM-MATE. NO DISTRESS NOTED. RESPIRATIONS EASY. VSS. LUNGS DIMINISHED, CLEAR. PULSE OX 97% RA. DENIES CHEST PAIN OR OTHER COMPLAINTS. CALL LIGHT WITHIN REACH. NO VOICED COMPLAINTS
[2019-06-06 08:32] LABS: HDL CHOLESTEROL 70 mg/dl (40-60); LDL CHOLESTEROL 79 mg/dL (9-159)
[2019-06-06 09:21] LABS: VITAMIN D, 25-HYDROXY 17.1 ng/mL (30-100)
--- NOTE | 2019-06-06 10:30 | NUR ---
Microchip Specialist in to talk to patient. Patient states lives at home alone in [facility] apartments with family checking in on her. There are 0 steps in the home. Physician: Dr. Jeremías Sigala [facility] Home health services: none Patient's level of ADLs: INDEPENDENT Patient has working utilities: yes DME: nebulizer, O2 @ 2L nc prn, portable O2 tanks, O2 supplier BMS Follow-up physician's appointment after d/c: she prefers to make her own follow up appt after discharge Does patient want to access PORTAL?: no Discharge plan discussed with patient. She lives at home alone with family checking in on her. She is independent in her ADLs and ambulation. Discussed home health care services and she denies any home needs at this time. When medically stable she will be discharged to home. She will take a cab or walk home on discharge. Blood pressure on admission 176/104 now 118/72. ARIADNE PATTERSON
[2019-06-06 12:00] VITALS: BP 122/78
[2019-06-06 16:00] VITALS: BP 132/84
[2019-06-06 20:00] VITALS: BP 101/43
[2019-06-07] VITALS: BP 100/49
--- NOTE | 2019-06-07 01:38 | NUR ---
24 HR chart check completed.
--- NOTE | 2019-06-07 07:44 | NUR ---
PT RESTING IN BED/ NO DISTRESS NOTED. WILL MONITOR
[2019-06-07 08:00] VITALS: BP 108/64
--- NOTE | 2019-06-07 09:00 | NUR ---
Oven Laborer in to see patient. No new needs or request at this time. Discussed home health care services and she denies any home needs. She states she was supposed to have home health nurses in March but they didn't come. When asked what company she was unsure. She is upset about her insurance claims processor coming out one time and then not coming out again from [facility]. Discussed setting up home health care nurses to come out. She would like someone to come out and clean. Explained she could private pay and discussed [employer]. She will think about it. When medically stable she will be discharged to home.
--- NOTE | 2019-06-07 10:59 | NUR ---
DR DSOUZA CALLED AND NOTIFIED OF CONSULT
[2019-06-07 12:00] VITALS: BP 143/80
[2019-06-07 16:00] VITALS: BP 121/74
[2019-06-07 20:00] VITALS: BP 113/61
--- NOTE | 2019-06-07 20:30 | NUR ---
24 HR chart check completed.
--- NOTE | 2019-06-07 21:00 | NUR ---
RESTING IN BED WITH NO ACUTE DISTRESS NOTED. RESPIRATIONS EASY. LUNGS DIMINISHED, CLEAR. PULSE OX 95% RA. TRACE BLE EDEMA. CALL LIGHT WITHIN REACH. NO VOICED COMPLAINTS
--- NOTE | 2019-06-07 21:32 | NUR ---
MEDICATED WITH TYLENOL AND RESTORIL PER PRN ORDER FOR COMPLAINTS OF GENERALIZED ACHES AND TO ASSIST WITH SLEEP. CALL LIGHT WITHIN REACH. WILL MONITOR
--- NOTE | 2019-06-07 23:15 | NUR ---
MEDS EFFECTIVE. SLEEPING. CALL LIGHT WITHIN REACH
--- NOTE | 2019-06-07 23:35 | NUR ---
24 HOUR CHART CHECK COMPLETE
[2019-06-08] VITALS: BP 130/75
--- NOTE | 2019-06-08 07:36 | NUR ---
PT RESTING IN BED. STATES SHES READY TO GO HOME PT STATES SHE WILL WAIT UNTIL DR DSOUZA COMES TODAY THEN SHES LEAVING
[2019-06-08 08:00] VITALS: BP 120/72
--- NOTE | 2019-06-08 09:00 | NUR ---
Concrete Buster Operator in to see patient. No new needs or request at this time. She denies any home needs. When medically stable she will be discharged to home. Awaiting Dr. Lynch's recommendations.
--- NOTE | 2019-06-08 10:00 | NUR ---
Per multidisciplinary discharge planning meeting plan is to discharge patient home today.
[2019-06-08 12:00] VITALS: BP 151/85
[2019-06-08] MEDS ORDERED: COREG6.25 MG PO (13:54)
[2019-06-08] MEDS ORDERED: VITAMIN D5000 UNI1 PO (13:54)
[2019-06-08] MEDS ORDERED: LISINOPRIL2.5 MG PO (13:54)
[2019-06-08] MEDS ORDERED: XARE20MG PO (13:54)
--- NOTE | 2019-06-08 15:40 | NUR ---
Discharge instructions reviewed with patient/family. Patient receptive and verbalizes understanding. Follow-up care arranged. Written instructions given to patient/family. [place] GARVIN
== END 2019-06-08 16:13 | disposition home or self-care (01) | DRG 392 ==
LOC: ED 09:48 → EDHOLD 14:09 → 4E 14:09
PROVIDERS: Emergency Medicine; Internal Medicine; ADMIT Internal Medicine
DX: K21.9 Gastro-esophageal reflux disease without esophagitis (principal); I50.22 Chronic systolic (congestive) heart failure; I42.0 Dilated cardiomyopathy; I25.10 Atherosclerotic heart disease of native coronary artery without angina pectoris; I25.5 Ischemic cardiomyopathy; J44.9 Chronic obstructive pulmonary disease, unspecified; L40.9 Psoriasis, unspecified; E53.8 Deficiency of other specified B group vitamins; R91.1 Solitary pulmonary nodule; E83.41 Hypermagnesemia; F32.9 Major depressive disorder, single episode, unspecified; I11.0 Hypertensive heart disease with heart failure; I08.3 Combined rheumatic disorders of mitral, aortic and tricuspid valves; I48.91 Unspecified atrial fibrillation; Z87.891 Personal history of nicotine dependence; Z95.810 Presence of automatic (implantable) cardiac defibrillator; Z90.710 Acquired absence of both cervix and uterus; Z80.3 Family history of malignant neoplasm of breast; Z82.3 Family history of stroke; Z79.899 Other long term (current) drug therapy

== ENCOUNTER 2019-06-26 16:42 | Inpatient (IN) | payer MEDICARE, MEDICAID ==
[~2019-06-26] VITALS: Ht 175.3 cm; Wt 76.2 kg
[~2019-06-26 16:42] MED LIST changes: +VITAMIN D5000 UNI1 PO
[2019-06-26 16:54] VITALS: BP 131/82
[2019-06-26 17:54] LABS: BASO # 0.1 10*3/uL (0.0-0.1); EOS # 0.3 10*3/uL (0.0-0.4); EOS % 4.3 % (1.0-4.0); HEMATOCRIT 38.8 % (37.0-47.0); HEMOGLOBIN 12.9 g/dl (12.0-16.0); LYMPH # 1.2 10*3/uL (1.3-4.4); LYMPH % 17.3 % (27.0-41.0); MEAN CELL VOLUME 95.3 fl (81.0-99.0); MEAN CORPUSCULAR HGB 31.7 pg (27.0-31.0); MEAN CORPUSCULAR HGB CONC 33.2 g/dl (33.0-37.0); MEAN PLATELET VOLUME 11.6 fl (9.6-12.3); MONO # 0.6 10*3/uL (0.1-1.0); MONO % 7.8 % (3.0-9.0); NEUT # 4.9 10*3/uL (2.3-7.9); NEUT % 69.2 % (47.0-73.0); PLATELET COUNT AUTOMATED 151 10*3/uL (130-400); RED BLOOD COUNT 4.07 10*6/uL (4.10-5.10); RED CELL DISTRI WIDTH 12.2 % (0-14.5); WHITE BLOOD COUNT 7.1 10*3/uL (4.8-10.8)
[2019-06-26 18:03] LABS: ACT PARTIAL THROMBO TIME 29.7 SECONDS (20.0-32.1); INTERNATIONAL NORM RATIO 1.1 (2.0-3.5)
[2019-06-26 18:10] LABS: BUN 9 mg/dl (7-24); CHLORIDE 108 mmol/L (98-107); CREATININE 0.75 mg/dL (0.55-1.02); POTASSIUM 3.8 mmol/L (3.5-5.1); SODIUM 143 mmol/L (136-145)
[2019-06-26 18:12] LABS: TROPONIN I < 0.015 ng/ml (<0.045)
[2019-06-26 18:16] VITALS: BP 154/90
[2019-06-26 20:35] VITALS: BP 148/88
[2019-06-26 20:45] VITALS: BP 144/66
--- NOTE | 2019-06-26 20:45 | NUR ---
A 74, admitted to 4E, under the services of RUBEN Arriola MD with a diagnosis of DIZZINESS, CHEST PAIN R/O ACUTE MYOCARDIAL INFARCT. Chief complaint is SYNCOPE. Patient arrived via CART FROM ER Monitor applied #[id number]. Initial assessment completed. Vital signs taken and recorded. DR. MELLISA ESPINOSA,RUBEN notified of admission to the unit. Orders received. See assessment for past medical history, medications and allergies. Patient and/or family oriented to unit. [address] visitation policy reviewed. Clothing/patient valuable form completed. INITIAL ASSESSMENT COMPLETED. NO WOUNDS PRESENT ON ADMISSION. PT HAS MEDI-PORT NOT ACCESSED IN RT UPPER CHEST AND PACER/DEFIB IN THE LT UPPER CHEST. PT DENIES ANY PAIN AT THIS TIME. CALL LIGHT IS IN REACH OF PT AND ROOM ORIENTATION WAS APPLIED. ALL QUESTIONS WERE ANSWERED AT THIS TIME. CARTER THOMPSON
--- NOTE | 2019-06-26 22:45 | NUR ---
CALLED DR. DSOUZA, CONSULT COMPLETED. STATED THEY WOULD SEE HER TOMORROW IN THE MORNING.
[2019-06-27] VITALS: BP 117/71
--- NOTE | 2019-06-27 02:31 | NUR ---
24 HR chart check completed.
[2019-06-27 05:34] LABS: BASO # 0.1 10*3/uL (0.0-0.1); BASO % 1.1 % (0.0-1.0); EOS # 0.3 10*3/uL (0.0-0.4); EOS % 4.7 % (1.0-4.0); HEMATOCRIT 40.9 % (37.0-47.0); HEMOGLOBIN 13.4 g/dl (12.0-16.0); LYMPH # 1.1 10*3/uL (1.3-4.4); LYMPH % 20.4 % (27.0-41.0); MEAN CELL VOLUME 94.7 fl (81.0-99.0); MEAN CORPUSCULAR HGB CONC 32.8 g/dl (33.0-37.0); MEAN PLATELET VOLUME 11.5 fl (9.6-12.3); MONO # 0.4 10*3/uL (0.1-1.0); MONO % 7.9 % (3.0-9.0); NEUT # 3.5 10*3/uL (2.3-7.9); NEUT % 65.7 % (47.0-73.0); PLATELET COUNT AUTOMATED 153 10*3/uL (130-400); RED BLOOD COUNT 4.32 10*6/uL (4.10-5.10); RED CELL DISTRI WIDTH 12.2 % (0-14.5); WHITE BLOOD COUNT 5.3 10*3/uL (4.8-10.8)
[2019-06-27 06:37] LABS: BUN 7 mg/dl (7-24); CHLORIDE 112 mmol/L (98-107); CHOLESTEROL 160 mg/dL (<200); FREE T4 0.91 ng/dl (0.76-1.46); HDL CHOLESTEROL 65 mg/dl (40-60); LDL CHOLESTEROL 73 mg/dL (9-159); POTASSIUM 3.8 mmol/L (3.5-5.1); SODIUM 145 mmol/L (136-145); TRIGLYCERIDES 111 mg/dl (<150); VLDL CHOLESTEROL 22 mg/dL (6-40)
[2019-06-27 07:08] LABS: VITAMIN D, 25-HYDROXY 31.8 ng/mL (30-100)
[2019-06-27 08:00] VITALS: BP 129/73
--- NOTE | 2019-06-27 09:28 | NUR ---
SUPERVISOR OF INSTRUCTION IZAIAH WAS ASKED BY PT TO STOP THE ECHO. IZAIAH STATED HE WAS ABOUT HALF WAY DONE WHEN PT COMPLAINED PAIN FROM HUB WHILE DOING ECHO.
--- NOTE | 2019-06-27 10:30 | NUR ---
Hand Packer/Packager in to talk to patient. Patient states lives at home alone in [facility] apartments with family checking in on her. There are 0 steps in the home. Physician: Dr. Jeremías Sigala [facility] Home health services: none Patient's level of ADLs: INDEPENDENT Patient has working utilities: yes DME: nebulizer, O2 @ 2L nc prn, portable O2 tanks, O2 supplier [employer]MS Follow-up physician's appointment after d/c: she prefers to make her own follow up appt after discharge Does patient want to access PORTAL?: no Discharge plan discussed with patient. She lives at home alone with family checking in on her. She is independent in her ADLs and ambulation. Discussed home health care services and she denies any home needs at this time. When medically stable she will be discharged to home. She will take a cab or walk home on discharge. ARIADNE PATTERSON
--- NOTE | 2019-06-27 10:49 | NUR ---
MADE AWARE THAT ECHO WAS NOT COMPLETED AND STOPPED BY PT. SAID OK. NO NEW ORDERS RECD.
--- NOTE | 2019-06-27 11:28 | NUR ---
AMERICAN PET RESORT TECH IN TO INTERROGATE PACER/DEFIB. SAID IT DID NOT FIRE AND IT WAS OK. NO MALFUNCTIONS NOTED.
--- NOTE | 2019-06-27 12:50 | NUR ---
LAYING IN BED. NO COMPLAINTS VOICED.
[2019-06-27 13:27] VITALS: BP 121/98
[2019-06-27 16:00] VITALS: BP 129/79
[2019-06-27 20:00] VITALS: BP 136/73
--- NOTE | 2019-06-27 20:00 | NUR ---
AAOX3 RESTING IN BED. VOICES NO C/O; NO DISTRESS NOTED.
--- NOTE | 2019-06-27 22:00 | NUR ---
TOOK PO MEDICATIONS WITHOUT DIFFICULTY. VOICES NO C/O AT THIS TIME. CALL LIGHT WITHIN REACH.
[2019-06-28] VITALS: BP 111/64
--- NOTE | 2019-06-28 06:00 | NUR ---
AROUSES EASILY UPON GOING INTO ROOM. PT. VOICES NO C/O AT THIS TIME. CALL LIGHT WITHIN REACH.
[2019-06-28 06:05] LABS: BUN 13 mg/dl (7-24); CHLORIDE 108 mmol/L (98-107); CREATININE 0.71 mg/dL (0.55-1.02); POTASSIUM 4.2 mmol/L (3.5-5.1); SODIUM 140 mmol/L (136-145)
--- NOTE | 2019-06-28 07:04 | NUR ---
DR. DSOUZA HERE TO SEE PT. PT. HAS NO IV ACCESS BUT DOES HAVE A MEDIPORT. RECEIVED ORDER TO ACCESS MEDIPORT. DR. DSOUZA STATES THAT PATIENT NEEDS TO BE ON AN ANTIDEPRESSANT.
[2019-06-28 07:46] VITALS: BP 130/76
--- NOTE | 2019-06-28 08:00 | NUR ---
Patient resting quietly with no c/o discomfort. Respirations easy and regular. Vital signs stable. No overt distress. MELODY HONG
--- NOTE | 2019-06-28 08:00 | NUR ---
PT. IS ALERT AND ORIENTATED DENIES ANY PAIN AT THIS TIME. LAILA PLAZA [facility]
--- NOTE | 2019-06-28 08:00 | NUR ---
Patient resting quietly with no c/o discomfort. Respirations easy and regular. Vital signs stable. No overt distress. MELODY HONG
--- NOTE | 2019-06-28 08:56 | NUR ---
24 HR chart check completed.
--- NOTE | 2019-06-28 09:00 | NUR ---
JARET ACCESSED PER ORDER, FLUSHES EASILY BUT NO BLOOD RETURN NOTED, PT STATES THAT THEY HAVE NOT BEEN ABLE TO GET A BLOOD RETURN FOR A LONG TIME [facility]
--- NOTE | 2019-06-28 09:00 | NUR ---
Drywall Hanger Helper in to see patient. No new needs or request at this time. She denies any home needs. When medically stable she will be discharged to home.
--- NOTE | 2019-06-28 10:41 | NUR ---
IN TO SEE PT, WANTS TO DISCHARGE PT, PT UPSET ABOUT DISCHARGE, DOES NOT FEEL LIKE SHE IS WELL ENOUGH TO GO HOME LAILA PLAZA SP[facility]
--- NOTE | 2019-06-28 10:59 | NUR ---
PT. IS SITTING UP IN BED DENIES ANY PAIN OR SOB, PT HAS NO COMPLAINTS AT THIS TIME LAILA BRAR
[2019-06-28 12:00] VITALS: BP 147/82
--- NOTE | 2019-06-28 12:47 | NUR ---
PT IS EATING LUNCH, NO COMPLAINTS AT THIS TIME, PT DENIES ANY PAIN LAILA PLAZA SPNRCC
--- NOTE | 2019-06-28 13:05 | NUR ---
MEDIPORT FLUSHED WITH HEPARIN TO SWELL AND NEEDLE REMOVED, SITE ASYMPTOMATIC LAILA BRAR
--- NOTE | 2019-06-28 13:09 | NUR ---
Discharge instructions reviewed with patient, Patient receptive and verbalizes understanding. Follow-up care arranged. Written instructions given to patient, DISCHARGED VIA AMBULATION, STUDENT ACCOMPANIED PT TO DOOR, CONDITION STABLE LAILA [facility]
== END 2019-06-28 13:09 | disposition home or self-care (01) | DRG 312 ==
LOC: ED 16:42 → EDHOLD 18:16 → 4E 18:16
PROVIDERS: Emergency Medicine; Hospitalist; Internal Medicine; ADMIT Internal Medicine
DX: R55 Syncope and collapse (principal); D68.59 Other primary thrombophilia; R07.89 Other chest pain; I10 Essential (primary) hypertension; E53.8 Deficiency of other specified B group vitamins; I25.118 Atherosclerotic heart disease of native coronary artery with other forms of angina pectoris; E86.0 Dehydration; J44.9 Chronic obstructive pulmonary disease, unspecified; E78.5 Hyperlipidemia, unspecified; I48.91 Unspecified atrial fibrillation; F32.9 Major depressive disorder, single episode, unspecified; F41.9 Anxiety disorder, unspecified; E55.9 Vitamin D deficiency, unspecified; Z53.20 Procedure and treatment not carried out because of patient's decision for unspecified reasons; E78.00 Pure hypercholesterolemia, unspecified; Z95.810 Presence of automatic (implantable) cardiac defibrillator; Z90.710 Acquired absence of both cervix and uterus; Z87.891 Personal history of nicotine dependence; Z80.3 Family history of malignant neoplasm of breast; Z79.899 Other long term (current) drug therapy; Z79.01 Long term (current) use of anticoagulants

== ENCOUNTER 2019-07-10 14:06 | Emergency (ER) | payer MEDICARE ==
[~2019-07-10] VITALS: Ht 175.2 cm; Wt 73.5 kg
[2019-07-10 14:42] LABS: BASO # 0.1 10*3/uL (0.0-0.1); BASO % 1.5 % (0.0-1.0); EOS # 0.3 10*3/uL (0.0-0.4); EOS % 5.5 % (1.0-4.0); HEMATOCRIT 40.8 % (37.0-47.0); HEMOGLOBIN 13.5 g/dl (12.0-16.0); LYMPH # 1.3 10*3/uL (1.3-4.4); LYMPH % 20.7 % (27.0-41.0); MEAN CELL VOLUME 95.3 fl (81.0-99.0); MEAN CORPUSCULAR HGB 31.5 pg (27.0-31.0); MEAN CORPUSCULAR HGB CONC 33.1 g/dl (33.0-37.0); MEAN PLATELET VOLUME 10.7 fl (9.6-12.3); MONO # 0.4 10*3/uL (0.1-1.0); PLATELET COUNT AUTOMATED 192 10*3/uL (130-400); RED BLOOD COUNT 4.28 10*6/uL (4.10-5.10); RED CELL DISTRI WIDTH 12.2 % (0-14.5); WHITE BLOOD COUNT 6.2 10*3/uL (4.8-10.8)
[2019-07-10 14:52] LABS: ACT PARTIAL THROMBO TIME 32.2 SECONDS (20.0-32.1); INTERNATIONAL NORM RATIO 1.1 (2.0-3.5)
[2019-07-10 14:57] LABS: ALBUMIN 3.3 gm/dl (3.1-4.5); ALKALINE PHOSPHATASE 70 U/L (45-117); BUN 7 mg/dl (7-24); CHLORIDE 109 mmol/L (98-107); CREATININE 0.84 mg/dL (0.55-1.02); POTASSIUM 3.7 mmol/L (3.5-5.1); SGOT/AST 5 IU/L (3-35); SGPT/ALT 15 U/L (12-78); SODIUM 142 mmol/L (136-145); TOTAL PROTEIN 6.2 gm/dL (6.4-8.2)
[2019-07-10 14:59] LABS: TROPONIN I < 0.015 ng/ml (<0.045)
[2019-07-10 18:41] VITALS: BP 129/77
== END 2019-07-10 18:24 | disposition home or self-care (01) ==
LOC: ED 14:06
PROVIDERS: Emergency Medicine
DX: R00.2 Palpitations (principal); R57.9 Shock, unspecified; I25.10 Atherosclerotic heart disease of native coronary artery without angina pectoris; I11.0 Hypertensive heart disease with heart failure; I50.9 Heart failure, unspecified; I48.91 Unspecified atrial fibrillation; J44.9 Chronic obstructive pulmonary disease, unspecified; E78.5 Hyperlipidemia, unspecified; Z79.899 Other long term (current) drug therapy; Z90.710 Acquired absence of both cervix and uterus; Z90.49 Acquired absence of other specified parts of digestive tract; Z87.891 Personal history of nicotine dependence; Z95.0 Presence of cardiac pacemaker

== ENCOUNTER 2019-07-18 11:54 | Inpatient (IN) | payer MEDICARE ==
[~2019-07-18] VITALS: Ht 175.2 cm; Wt 71.0 kg
[~2019-07-18 11:54] MED LIST changes: -VITAMIN D3125 MCG PO
[2019-07-18 11:58] VITALS: BP 141/60
[2019-07-18 13:39] LABS: BASO # 0.1 10*3/uL (0.0-0.1); BASO % 1.3 % (0.0-1.0); EOS # 0.2 10*3/uL (0.0-0.4); EOS % 3.4 % (1.0-4.0); HEMATOCRIT 41.3 % (37.0-47.0); HEMOGLOBIN 13.6 g/dl (12.0-16.0); LYMPH # 1.3 10*3/uL (1.3-4.4); LYMPH % 19.2 % (27.0-41.0); MEAN CELL VOLUME 95.4 fl (81.0-99.0); MEAN CORPUSCULAR HGB 31.4 pg (27.0-31.0); MEAN CORPUSCULAR HGB CONC 32.9 g/dl (33.0-37.0); MEAN PLATELET VOLUME 10.7 fl (9.6-12.3); MONO # 0.5 10*3/uL (0.1-1.0); MONO % 6.7 % (3.0-9.0); NEUT # 4.8 10*3/uL (2.3-7.9); NEUT % 69.3 % (47.0-73.0); PLATELET COUNT AUTOMATED 170 10*3/uL (130-400); RED BLOOD COUNT 4.33 10*6/uL (4.10-5.10); RED CELL DISTRI WIDTH 12.4 % (0-14.5); WHITE BLOOD COUNT 6.9 10*3/uL (4.8-10.8)
[2019-07-18 13:57] LABS: ALBUMIN 3.5 gm/dl (3.1-4.5); ALKALINE PHOSPHATASE 68 U/L (45-117); BUN 7 mg/dl (7-24); CHLORIDE 107 mmol/L (98-107); POTASSIUM 3.8 mmol/L (3.5-5.1); SGOT/AST 9 IU/L (3-35); SGPT/ALT 14 U/L (12-78); SODIUM 141 mmol/L (136-145); TOTAL PROTEIN 6.5 gm/dL (6.4-8.2); TROPONIN I < 0.015 ng/ml (<0.045)
[2019-07-18 16:10] VITALS: BP 148/72
[2019-07-18 20:30] VITALS: BP 123/73
[2019-07-18] MEDS ORDERED: VITAMIN D3125 MCG PO (21:58)
[2019-07-19] VITALS: BP 146/92
[2019-07-19 08:00] VITALS: BP 138/86
[2019-07-19 12:00] VITALS: BP 112/63
[2019-07-19 16:00] VITALS: BP 100/75
[2019-07-19 18:15] LABS: BILIRUBIN 1+ (NEGATIVE); CLARITY CLEAR (CLEAR); COLOR YELLOW (YELLOW); GLUCOSE NEGATIVE (NEGATIVE); KETONE NEGATIVE (NEGATIVE)
[2019-07-19 18:16] LABS: BACTERIA 1+; BLOOD NEGATIVE (NEGATIVE); EPITHELIAL CELLS 16-20; LEUKO ESTERASE TRACE (NEGATIVE); NITRITE NEGATIVE (NEGATIVE); PH 6.5 (5.0-9.0); SPECIFIC GRAVITY 1.015 (1.005-1.030); UROBILINOGEN 0.2 E.U./dl (0.2-1.0)
[2019-07-19 20:00] VITALS: BP 106/74
[2019-07-20] VITALS: BP 130/82
[2019-07-20 07:55] VITALS: BP 132/80
[2019-07-20 12:00] VITALS: BP 126/69
== END 2019-07-20 13:19 | disposition home or self-care (01) | DRG 392 ==
LOC: ED 11:54 → 4E 16:44 → EDHOLD 16:44 → 4E 17:49
PROVIDERS: Emergency Medicine; Internal Medicine Nephrology; ADMIT Internal Medicine
DX: K21.9 Gastro-esophageal reflux disease without esophagitis (principal); I48.11 Longstanding persistent atrial fibrillation; I50.20 Unspecified systolic (congestive) heart failure; I42.0 Dilated cardiomyopathy; I25.10 Atherosclerotic heart disease of native coronary artery without angina pectoris; E78.5 Hyperlipidemia, unspecified; J44.9 Chronic obstructive pulmonary disease, unspecified; E78.2 Mixed hyperlipidemia; E86.0 Dehydration; I25.5 Ischemic cardiomyopathy; F32.9 Major depressive disorder, single episode, unspecified; E55.9 Vitamin D deficiency, unspecified; I11.0 Hypertensive heart disease with heart failure; Z90.710 Acquired absence of both cervix and uterus; Z82.3 Family history of stroke; Z95.810 Presence of automatic (implantable) cardiac defibrillator; Z83.3 Family history of diabetes mellitus; Z82.49 Family history of ischemic heart disease and other diseases of the circulatory system; Z80.9 Family history of malignant neoplasm, unspecified

== ENCOUNTER → 2019-07-18 | Outpatient (CLI) | payer MEDICARE ==
[~2019-07-18] MED LIST changes: +VITAMIN D3125 MCG PO
== END | disposition home or self-care (01) ==
LOC: RESCLI 02:01
DX: J43.9 Emphysema, unspecified (principal); I34.1 Nonrheumatic mitral (valve) prolapse; Z95.0 Presence of cardiac pacemaker; D64.9 Anemia, unspecified; I48.0 Paroxysmal atrial fibrillation; I10 Essential (primary) hypertension; G89.29 Other chronic pain; E55.9 Vitamin D deficiency, unspecified; R42 Dizziness and giddiness; Z79.899 Other long term (current) drug therapy; Z88.8 Allergy status to other drugs, medicaments and biological substances

== ENCOUNTER 2019-08-15 16:00 | Emergency (ER) | payer MEDICARE ==
[~2019-08-15] VITALS: Ht 175.2 cm; Wt 73.5 kg
[~2019-08-15 16:00] MED LIST changes: +VITAMIN D3125 MCG PO
[2019-08-15 16:43] LABS: BASO # 0.1 10*3/uL (0.0-0.1); BASO % 1.2 % (0.0-1.0); EOS # 0.2 10*3/uL (0.0-0.4); EOS % 3.4 % (1.0-4.0); HEMATOCRIT 39.3 % (37.0-47.0); LYMPH # 1.2 10*3/uL (1.3-4.4); LYMPH % 21.4 % (27.0-41.0); MEAN CELL VOLUME 95.2 fl (81.0-99.0); MEAN CORPUSCULAR HGB 31.5 pg (27.0-31.0); MEAN CORPUSCULAR HGB CONC 33.1 g/dl (33.0-37.0); MEAN PLATELET VOLUME 11.2 fl (9.6-12.3); MONO # 0.5 10*3/uL (0.1-1.0); MONO % 8.8 % (3.0-9.0); NEUT # 3.7 10*3/uL (2.3-7.9); PLATELET COUNT AUTOMATED 158 10*3/uL (130-400); RED BLOOD COUNT 4.13 10*6/uL (4.10-5.10); RED CELL DISTRI WIDTH 12.5 % (0-14.5); WHITE BLOOD COUNT 5.7 10*3/uL (4.8-10.8)
[2019-08-15 16:55] LABS: ACT PARTIAL THROMBO TIME 32.5 SECONDS (20.0-32.1); INTERNATIONAL NORM RATIO 1.2 (2.0-3.5)
[2019-08-15 17:00] LABS: ALBUMIN 3.5 gm/dl (3.1-4.5); ALKALINE PHOSPHATASE 62 U/L (45-117); BUN 9 mg/dl (7-24); CHLORIDE 105 mmol/L (98-107); CREATININE 0.77 mg/dL (0.55-1.02); POTASSIUM 3.8 mmol/L (3.5-5.1); SGOT/AST 9 IU/L (3-35); SGPT/ALT 15 U/L (12-78); SODIUM 139 mmol/L (136-145); TOTAL PROTEIN 6.3 gm/dL (6.4-8.2)
[2019-08-15 17:02] LABS: TROPONIN I < 0.015 ng/ml (<0.045)
[2019-08-15 18:52] VITALS: BP 159/91
== END 2019-08-15 19:34 | disposition home or self-care (01) ==
LOC: ED 16:00
PROVIDERS: Emergency Medicine
DX: R07.89 Other chest pain (principal); I25.10 Atherosclerotic heart disease of native coronary artery without angina pectoris; J44.9 Chronic obstructive pulmonary disease, unspecified; I11.0 Hypertensive heart disease with heart failure; I50.9 Heart failure, unspecified; I48.91 Unspecified atrial fibrillation; E78.5 Hyperlipidemia, unspecified; Z90.710 Acquired absence of both cervix and uterus; Z79.899 Other long term (current) drug therapy; Z95.0 Presence of cardiac pacemaker

== ENCOUNTER 2019-09-14 16:14 | Inpatient (IN) | payer MEDICARE ==
[~2019-09-14] VITALS: Ht 175.2 cm; Wt 74.6 kg
[2019-09-14 16:17] VITALS: BP 140/86
[2019-09-14 16:38] LABS: BASO # 0.1 10*3/uL (0.0-0.1); BASO % 1.3 % (0.0-1.0); EOS # 0.3 10*3/uL (0.0-0.4); EOS % 5.1 % (1.0-4.0); HEMATOCRIT 38.8 % (37.0-47.0); LYMPH # 1.3 10*3/uL (1.3-4.4); LYMPH % 20.2 % (27.0-41.0); MEAN CELL VOLUME 96.5 fl (81.0-99.0); MEAN CORPUSCULAR HGB 31.8 pg (27.0-31.0); MEAN PLATELET VOLUME 10.9 fl (9.6-12.3); MONO # 0.5 10*3/uL (0.1-1.0); MONO % 7.4 % (3.0-9.0); NEUT # 4.1 10*3/uL (2.3-7.9); NEUT % 65.7 % (47.0-73.0); PLATELET COUNT AUTOMATED 159 10*3/uL (130-400); RED BLOOD COUNT 4.02 10*6/uL (4.10-5.10); RED CELL DISTRI WIDTH 12.9 % (0-14.5); WHITE BLOOD COUNT 6.2 10*3/uL (4.8-10.8)
[2019-09-14 16:48] LABS: ACT PARTIAL THROMBO TIME 30.2 SECONDS (20.0-32.1)
[2019-09-14 16:55] LABS: ALBUMIN 3.2 gm/dl (3.1-4.5); ALKALINE PHOSPHATASE 61 U/L (45-117); BUN 8 mg/dl (7-24); CHLORIDE 109 mmol/L (98-107); CREATININE 0.69 mg/dL (0.55-1.02); POTASSIUM 3.8 mmol/L (3.5-5.1); SGOT/AST 13 IU/L (3-35); SGPT/ALT 13 U/L (12-78); SODIUM 141 mmol/L (136-145); TOTAL PROTEIN 6.3 gm/dL (6.4-8.2)
[2019-09-14 16:57] LABS: TROPONIN I < 0.015 ng/ml (<0.045)
[2019-09-14 19:45] VITALS: BP 154/87
--- NOTE | 2019-09-14 19:45 | NUR ---
A 74, admitted to , under the services of RUBEN Cole MD with a diagnosis of CHEST PAIN. Chief complaint is CHEST PAIN. Patient arrived via ambulatory from [place]. Monitor applied. Initial assessment completed. Vital signs taken and recorded. RUBEN COLE MD notified of admission to the unit. Orders received. See assessment for past medical history, medications and allergies. Patient and/or family oriented to unit. visitation policy reviewed. Clothing/patient valuable form completed. MEGHAN WINSTON
[2019-09-14 20:00] VITALS: BP 92/53
--- NOTE | 2019-09-14 21:36 | NUR ---
DR. DSOUZA NOTIFIED OF CONSULT FOR CHEST PAIN AND HISTORY OF AICD. SAID HE WILL SEE HER TOMORROW.
[2019-09-15] VITALS: BP 139/76
[2019-09-15 06:04] LABS: BASO # 0.1 10*3/uL (0.0-0.1); BASO % 0.9 % (0.0-1.0); EOS # 0.2 10*3/uL (0.0-0.4); EOS % 4.3 % (1.0-4.0); HEMATOCRIT 37.8 % (37.0-47.0); LYMPH # 1.1 10*3/uL (1.3-4.4); LYMPH % 20.5 % (27.0-41.0); MEAN CELL VOLUME 96.4 fl (81.0-99.0); MEAN CORPUSCULAR HGB 31.4 pg (27.0-31.0); MEAN CORPUSCULAR HGB CONC 32.5 g/dl (33.0-37.0); MEAN PLATELET VOLUME 11.6 fl (9.6-12.3); MONO # 0.4 10*3/uL (0.1-1.0); MONO % 8.2 % (3.0-9.0); NEUT # 3.5 10*3/uL (2.3-7.9); NEUT % 65.9 % (47.0-73.0); PLATELET COUNT AUTOMATED 155 10*3/uL (130-400); RED BLOOD COUNT 3.92 10*6/uL (4.10-5.10); WHITE BLOOD COUNT 5.4 10*3/uL (4.8-10.8)
[2019-09-15 06:29] LABS: ALBUMIN 2.9 gm/dl (3.1-4.5); BUN 9 mg/dl (7-24); CHLORIDE 111 mmol/L (98-107); CHOLESTEROL 153 mg/dL (<200); FREE T4 0.74 ng/dl (0.76-1.46); HDL CHOLESTEROL 66 mg/dl (40-60); POTASSIUM 3.9 mmol/L (3.5-5.1); SODIUM 141 mmol/L (136-145); TOTAL PROTEIN 5.7 gm/dL (6.4-8.2)
[2019-09-15 06:35] LABS: ALKALINE PHOSPHATASE 51 U/L (45-117); LDL CHOLESTEROL 61 mg/dL (9-159); PHOSPHOROUS 3.8 mg/dL (2.5-4.9); SGOT/AST 9 IU/L (3-35); SGPT/ALT 14 U/L (12-78); TRIGLYCERIDES 128 mg/dl (<150); VLDL CHOLESTEROL 26 mg/dL (6-40)
[2019-09-15 06:42] LABS: ACT PARTIAL THROMBO TIME 27.8 SECONDS (20.0-32.1)
[2019-09-15 08:00] VITALS: BP 122/84
[2019-09-15 08:02] LABS: VITAMIN D, 25-HYDROXY 22.6 ng/mL (30-100)
--- NOTE | 2019-09-15 08:30 | NUR ---
Motor Equipment Sergeant spoke to patient via phone. Patient states lives at home alone in [facility] apartments with her family checking in on her. There are 0 steps in the home. Physician: Dr. Jeremías Sigala, resident clinic [facility] Home health services: none Patient's level of ADLs: INDEPENDENT Patient has working utilities: yes DME: nebulizer, O2 @ 2L nc prn, portable O2 tanks, O2 supplier [employer] Follow-up physician's appointment after d/c: she prefers to make her own follow up appt after discharge Does patient want to access PORTAL?: no Discharge plan discussed with patient. She lives at home alone with family checking in on her. She is independent in her ADLs and ambulation. Discussed home health care services and she denies any home needs at this time. When medically stable she will be discharged to home. She will take a cab or walk home on discharge. ARIADNE PATTERSON
[2019-09-15 12:00] VITALS: BP 121/82
--- NOTE | 2019-09-15 14:49 | NUR ---
IN TO SEE.
--- NOTE | 2019-09-15 14:53 | NUR ---
RECOMMENDS TO DISCHARGE PT. NO NEW ORDERS REC'D. RESIDENT NOTIFIED. SAID THEY ARE PLANNING FOR DISCHARGE TOMORROW.
[2019-09-15 16:00] VITALS: BP 134/70
[2019-09-15 20:00] VITALS: BP 127/80
[2019-09-16] VITALS: BP 115/67
--- NOTE | 2019-09-16 05:02 | NUR ---
24 HR chart check completed.
--- NOTE | 2019-09-16 08:00 | NUR ---
IN TO ROOM. PATIENT AWAKE, ALERT AND ORIENTED. NO STATED COMPLAINTS AT THIS TIME. RESPIRATIONS ARE EASY AND REGULAR ON ROOM AIR. NO SOB NOTED. BED IN LOWEST LOCKED POSITION AND CALL LIGHT WITHIN REACH.
[2019-09-16 12:00] VITALS: BP 122/76
[2019-09-16 16:00] VITALS: BP 154/93
[2019-09-16 20:00] VITALS: BP 116/71
[2019-09-17] VITALS: BP 119/69
--- NOTE | 2019-09-17 05:19 | NUR ---
24HR CHART CHECK COMPLETED
[2019-09-17 06:09] LABS: BUN 13 mg/dl (7-24); CHLORIDE 110 mmol/L (98-107); CREATININE 0.77 mg/dL (0.55-1.02); SODIUM 143 mmol/L (136-145)
--- NOTE | 2019-09-17 10:42 | NUR ---
NATU NOTIFIED OF DR. RAJNI CALLES.
--- NOTE | 2019-09-17 12:30 | NUR ---
PATUIRAKEL LEFT AMA. DR. PAK NOTIFIED
== END 2019-09-17 12:30 | disposition left against medical advice (07) | DRG 313 ==
LOC: ED 16:14 → EDHOLD 18:35 → 4E 18:35
PROVIDERS: Emergency Medicine; Family Medicine; ADMIT Internal Medicine
DX: R07.89 Other chest pain (principal); I48.11 Longstanding persistent atrial fibrillation; I50.20 Unspecified systolic (congestive) heart failure; I42.8 Other cardiomyopathies; E44.0 Moderate protein-calorie malnutrition; E83.41 Hypermagnesemia; I34.1 Nonrheumatic mitral (valve) prolapse; I25.10 Atherosclerotic heart disease of native coronary artery without angina pectoris; J43.9 Emphysema, unspecified; I11.0 Hypertensive heart disease with heart failure; E78.5 Hyperlipidemia, unspecified; F41.9 Anxiety disorder, unspecified; D72.810 Lymphocytopenia; Z53.29 Procedure and treatment not carried out because of patient's decision for other reasons; Z79.899 Other long term (current) drug therapy; Z45.02 Encounter for adjustment and management of automatic implantable cardiac defibrillator; Z95.810 Presence of automatic (implantable) cardiac defibrillator; Z90.710 Acquired absence of both cervix and uterus; Z82.3 Family history of stroke; Z80.3 Family history of malignant neoplasm of breast; Z68.23 Body mass index [BMI] 23.0-23.9, adult; Z87.891 Personal history of nicotine dependence

== ENCOUNTER 2019-10-04 12:44 | Emergency (ER) | payer MEDICARE ==
[~2019-10-04] VITALS: Ht 175.2 cm; Wt 77.1 kg
[2019-10-04 13:14] LABS: BASO # 0.1 10*3/uL (0.0-0.1); BASO % 1.4 % (0.0-1.0); EOS # 0.5 10*3/uL (0.0-0.4); EOS % 6.5 % (1.0-4.0); HEMATOCRIT 38.5 % (37.0-47.0); LYMPH # 1.5 10*3/uL (1.3-4.4); LYMPH % 19.9 % (27.0-41.0); MEAN CELL VOLUME 97.2 fl (81.0-99.0); MEAN CORPUSCULAR HGB 31.8 pg (27.0-31.0); MEAN CORPUSCULAR HGB CONC 32.7 g/dl (33.0-37.0); MEAN PLATELET VOLUME 11.3 fl (9.6-12.3); MONO # 0.5 10*3/uL (0.1-1.0); MONO % 7.3 % (3.0-9.0); NEUT # 4.7 10*3/uL (2.3-7.9); NEUT % 64.6 % (47.0-73.0); PLATELET COUNT AUTOMATED 161 10*3/uL (130-400); RED BLOOD COUNT 3.96 10*6/uL (4.10-5.10); RED CELL DISTRI WIDTH 13.2 % (0-14.5); WHITE BLOOD COUNT 7.3 10*3/uL (4.8-10.8)
[2019-10-04 13:25] LABS: ACT PARTIAL THROMBO TIME 33.7 SECONDS (20.0-32.1); INTERNATIONAL NORM RATIO 1.2 (2.0-3.5)
[2019-10-04 13:27] LABS: ALBUMIN 3.3 gm/dl (3.1-4.5); ALKALINE PHOSPHATASE 56 U/L (45-117); BUN 10 mg/dl (7-24); CHLORIDE 110 mmol/L (98-107); CREATININE 0.75 mg/dL (0.55-1.02); POTASSIUM 3.8 mmol/L (3.5-5.1); SGOT/AST 17 IU/L (3-35); SGPT/ALT 20 U/L (12-78); SODIUM 141 mmol/L (136-145); TOTAL PROTEIN 6.3 gm/dL (6.4-8.2)
[2019-10-04 13:28] LABS: TROPONIN I < 0.015 ng/ml (<0.045)
[2019-10-04 15:14] VITALS: BP 153/92
== END 2019-10-04 16:15 | disposition home or self-care (01) ==
LOC: ED 12:44
PROVIDERS: Emergency Medicine
DX: J44.1 Chronic obstructive pulmonary disease with (acute) exacerbation (principal); I50.9 Heart failure, unspecified; I48.91 Unspecified atrial fibrillation; Z79.899 Other long term (current) drug therapy

== ENCOUNTER 2019-10-15 17:25 | Inpatient (IN) | payer MEDICARE ==
[~2019-10-15] VITALS: Ht 175.3 cm; Wt 74.6 kg
[2019-10-15 17:41] VITALS: BP 143/96
[2019-10-15 18:17] LABS: BASO # 0.1 10*3/uL (0.0-0.1); BASO % 1.1 % (0.0-1.0); EOS # 0.4 10*3/uL (0.0-0.4); EOS % 6.9 % (1.0-4.0); HEMATOCRIT 38.8 % (37.0-47.0); LYMPH # 1.4 10*3/uL (1.3-4.4); LYMPH % 22.7 % (27.0-41.0); MEAN CELL VOLUME 95.1 fl (81.0-99.0); MEAN CORPUSCULAR HGB 31.4 pg (27.0-31.0); MONO # 0.5 10*3/uL (0.1-1.0); MONO % 7.6 % (3.0-9.0); NEUT # 3.9 10*3/uL (2.3-7.9); NEUT % 61.4 % (47.0-73.0); PLATELET COUNT AUTOMATED 159 10*3/uL (130-400); RED BLOOD COUNT 4.08 10*6/uL (4.10-5.10); WHITE BLOOD COUNT 6.4 10*3/uL (4.8-10.8)
[2019-10-15 18:28] LABS: ACT PARTIAL THROMBO TIME 28.8 SECONDS (20.0-32.1)
[2019-10-15 18:32] LABS: ALBUMIN 3.5 gm/dl (3.1-4.5); ALKALINE PHOSPHATASE 58 U/L (45-117); BUN 10 mg/dl (7-24); CHLORIDE 109 mmol/L (98-107); CREATININE 0.79 mg/dL (0.55-1.02); POTASSIUM 3.4 mmol/L (3.5-5.1); SGOT/AST 11 IU/L (3-35); SGPT/ALT 15 U/L (12-78); SODIUM 141 mmol/L (136-145); TOTAL PROTEIN 6.5 gm/dL (6.4-8.2)
[2019-10-15 18:34] LABS: TROPONIN I < 0.015 ng/ml (<0.045)
[2019-10-15 21:43] VITALS: BP 146/92
[2019-10-15 22:10] VITALS: BP 157/94
[2019-10-16 06:55] LABS: BASO # 0.1 10*3/uL (0.0-0.1); BASO % 0.9 % (0.0-1.0); EOS # 0.4 10*3/uL (0.0-0.4); EOS % 6.3 % (1.0-4.0); HEMATOCRIT 37.9 % (37.0-47.0); LYMPH % 17.3 % (27.0-41.0); MEAN CELL VOLUME 95.9 fl (81.0-99.0); MEAN CORPUSCULAR HGB 31.1 pg (27.0-31.0); MEAN CORPUSCULAR HGB CONC 32.5 g/dl (33.0-37.0); MEAN PLATELET VOLUME 11.4 fl (9.6-12.3); MONO # 0.4 10*3/uL (0.1-1.0); MONO % 7.4 % (3.0-9.0); NEUT % 67.9 % (47.0-73.0); PLATELET COUNT AUTOMATED 150 10*3/uL (130-400); RED BLOOD COUNT 3.95 10*6/uL (4.10-5.10); RED CELL DISTRI WIDTH 12.9 % (0-14.5); WHITE BLOOD COUNT 5.9 10*3/uL (4.8-10.8)
[2019-10-16 07:25] LABS: CHLORIDE 111 mmol/L (98-107); POTASSIUM 3.7 mmol/L (3.5-5.1); SODIUM 143 mmol/L (136-145)
[2019-10-16 07:33] LABS: BUN 12 mg/dl (7-24); CREATININE 0.66 mg/dL (0.55-1.02)
[2019-10-16 12:00] VITALS: BP 123/85
[2019-10-16 16:00] VITALS: BP 123/72
[2019-10-16 20:00] VITALS: BP 124/81
[2019-10-16 20:50] VITALS: BP 125/80
[2019-10-17] VITALS: BP 102/60
[2019-10-17 02:18] LABS: BILIRUBIN NEGATIVE (NEGATIVE); CLARITY SL CLOUDY (CLEAR); COLOR YELLOW (YELLOW); GLUCOSE NEGATIVE (NEGATIVE); KETONE NEGATIVE (NEGATIVE); SPECIFIC GRAVITY 1.025 (1.005-1.030)
[2019-10-17 02:19] LABS: BLOOD 1+ (NEGATIVE); EPITHELIAL CELLS 41-50; LEUKO ESTERASE TRACE (NEGATIVE); NITRITE NEGATIVE (NEGATIVE); UROBILINOGEN 0.2 E.U./dl (0.2-1.0)
[2019-10-17 02:20] LABS: BACTERIA 1+; MUCOUS TRACE; WBC 0-2 wbc/hpf (0-5); YEAST 2+
[2019-10-17 08:00] VITALS: BP 132/70
[2019-10-17 12:00] VITALS: BP 122/70; BP 132/72; BP 136/77
[2019-10-17 16:00] VITALS: BP 114/90
[2019-10-17 20:00] VITALS: BP 133/71
[2019-10-18] VITALS (8 sets, daily range): BP systolic 133–173; BP diastolic 69–89
[2019-10-19] VITALS: BP 128/63
[2019-10-19 08:46] LABS: HEMATOCRIT 39.4 % (37.0-47.0); MEAN CELL VOLUME 93.8 fl (81.0-99.0); MEAN CORPUSCULAR HGB 31.7 pg (27.0-31.0); MEAN CORPUSCULAR HGB CONC 33.8 g/dl (33.0-37.0); MEAN PLATELET VOLUME 11.6 fl (9.6-12.3); PLATELET COUNT AUTOMATED 165 10*3/uL (130-400); RED CELL DISTRI WIDTH 12.9 % (0-14.5); WHITE BLOOD COUNT 16.5 10*3/uL (4.8-10.8)
[2019-10-19 08:52] LABS: BUN 11 mg/dl (7-24); CHLORIDE 108 mmol/L (98-107); CREATININE 0.67 mg/dL (0.55-1.02); SODIUM 141 mmol/L (136-145)
[2019-10-19 09:05] LABS: TOTAL CELLS COUNTED 100 #CELLS
[2019-10-19 09:06] LABS: PLATELET SUFFICIENCY NORMAL (NORMAL)
[2019-10-19 10:13] VITALS: BP 144/84
[2019-10-19 12:00] VITALS: BP 154/88
[2019-10-19 12:08] LABS: ACID FAST SPEC PROCESSING Concentration (.)
[2019-10-19 16:00] VITALS: BP 130/86
[2019-10-19 20:00] VITALS: BP 156/85
[2019-10-20] VITALS: BP 151/76; BP 84/52
[2019-10-20 06:22] LABS: BASO % 0.1 % (0.0-1.0); HEMATOCRIT 37.5 % (37.0-47.0); LYMPH % 7.2 % (27.0-41.0); MEAN CORPUSCULAR HGB 32.1 pg (27.0-31.0); MEAN CORPUSCULAR HGB CONC 34.1 g/dl (33.0-37.0); MEAN PLATELET VOLUME 11.4 fl (9.6-12.3); MONO # 0.8 10*3/uL (0.1-1.0); MONO % 5.9 % (3.0-9.0); NEUT # 11.7 10*3/uL (2.3-7.9); NEUT % 85.8 % (47.0-73.0); PLATELET COUNT AUTOMATED 176 10*3/uL (130-400); RED BLOOD COUNT 3.99 10*6/uL (4.10-5.10); RED CELL DISTRI WIDTH 12.9 % (0-14.5); WHITE BLOOD COUNT 13.7 10*3/uL (4.8-10.8)
[2019-10-20 06:39] LABS: BUN 17 mg/dl (7-24); CHLORIDE 107 mmol/L (98-107); CREATININE 0.67 mg/dL (0.55-1.02); POTASSIUM 3.7 mmol/L (3.5-5.1); SODIUM 141 mmol/L (136-145)
[2019-10-20 08:00] VITALS: BP 158/88; BP 164/96
[2019-10-20 12:00] VITALS: BP 162/83
[2019-10-20] MEDS ORDERED: DOXYCYCLINE MO100 M1 PO (12:10)
[2019-10-20] MEDS ORDERED: VITAMIN B121000 MC1 PO (12:12)
== END 2019-10-20 12:38 | disposition home or self-care (01) | DRG 191 ==
LOC: ED 17:25 → 4E 21:34 → EDHOLD 21:34 → 4E 21:50
PROVIDERS: Emergency Medicine; Internal Medicine; Internal Medicine Critical Care Medicine; Internal Medicine Nephrology; ADMIT Internal Medicine
PROC: 0BC28ZZ Extirpation of Matter from Carina, Via Natural or Artificial Opening Endoscopic (ICD-10-PCS; principal; 2019-10-18)
PROC: 0BCB8ZZ Extirpation of Matter from Left Lower Lobe Bronchus, Via Natural or Artificial Opening Endoscopic (ICD-10-PCS; principal; 2019-10-18)
PROC: 0BC88ZZ Extirpation of Matter from Left Upper Lobe Bronchus, Via Natural or Artificial Opening Endoscopic (ICD-10-PCS; principal; 2019-10-18)
PROC: 0BC48ZZ Extirpation of Matter from Right Upper Lobe Bronchus, Via Natural or Artificial Opening Endoscopic (ICD-10-PCS; principal; 2019-10-18)
PROC: 0BC38ZZ Extirpation of Matter from Right Main Bronchus, Via Natural or Artificial Opening Endoscopic (ICD-10-PCS; principal; 2019-10-18)
PROC: 0BC98ZZ Extirpation of Matter from Lingula Bronchus, Via Natural or Artificial Opening Endoscopic (ICD-10-PCS; principal; 2019-10-18)
PROC: 0BC58ZZ Extirpation of Matter from Right Middle Lobe Bronchus, Via Natural or Artificial Opening Endoscopic (ICD-10-PCS; principal; 2019-10-18)
PROC: 0BC68ZZ Extirpation of Matter from Right Lower Lobe Bronchus, Via Natural or Artificial Opening Endoscopic (ICD-10-PCS; principal; 2019-10-18)
PROC: 0BC78ZZ Extirpation of Matter from Left Main Bronchus, Via Natural or Artificial Opening Endoscopic (ICD-10-PCS; principal; 2019-10-18)
DX: J44.0 Chronic obstructive pulmonary disease with (acute) lower respiratory infection (principal); I50.22 Chronic systolic (congestive) heart failure; J20.9 Acute bronchitis, unspecified; J44.1 Chronic obstructive pulmonary disease with (acute) exacerbation; I11.0 Hypertensive heart disease with heart failure; E53.8 Deficiency of other specified B group vitamins; F41.9 Anxiety disorder, unspecified; R07.89 Other chest pain; I25.10 Atherosclerotic heart disease of native coronary artery without angina pectoris; I48.91 Unspecified atrial fibrillation; E78.5 Hyperlipidemia, unspecified; I25.5 Ischemic cardiomyopathy; Z90.710 Acquired absence of both cervix and uterus; Z95.810 Presence of automatic (implantable) cardiac defibrillator; Z87.891 Personal history of nicotine dependence; Z80.3 Family history of malignant neoplasm of breast; Z82.3 Family history of stroke; Z79.899 Other long term (current) drug therapy; Z79.01 Long term (current) use of anticoagulants

== ENCOUNTER 2019-12-04 18:17 | Emergency (ER) | payer MEDICARE ==
[~2019-12-04] VITALS: Ht 175.2 cm; Wt 78.9 kg
[~2019-12-04 18:17] MED LIST changes: +VITAMIN B121000 MC1 PO
[2019-12-04 18:20] VITALS: BP 126/89
[2019-12-04 19:04] LABS: BASO # 0.1 10*3/uL (0.0-0.1); BASO % 0.8 % (0.0-1.0); EOS # 0.3 10*3/uL (0.0-0.4); EOS % 4.9 % (1.0-4.0); HEMATOCRIT 36.7 % (37.0-47.0); LYMPH # 1.3 10*3/uL (1.3-4.4); LYMPH % 21.2 % (27.0-41.0); MEAN CELL VOLUME 96.3 fl (81.0-99.0); MEAN CORPUSCULAR HGB 31.8 pg (27.0-31.0); MEAN PLATELET VOLUME 11.6 fl (9.6-12.3); MONO # 0.5 10*3/uL (0.1-1.0); MONO % 8.3 % (3.0-9.0); NEUT # 3.8 10*3/uL (2.3-7.9); NEUT % 64.6 % (47.0-73.0); PLATELET COUNT AUTOMATED 142 10*3/uL (130-400); RED BLOOD COUNT 3.81 10*6/uL (4.10-5.10); RED CELL DISTRI WIDTH 12.9 % (0-14.5); WHITE BLOOD COUNT 5.9 10*3/uL (4.8-10.8)
[2019-12-04 19:15] LABS: ACT PARTIAL THROMBO TIME 30.5 SECONDS (20.0-32.1); INTERNATIONAL NORM RATIO 1.1 (2.0-3.5)
[2019-12-04 19:18] LABS: ALBUMIN 3.3 gm/dl (3.1-4.5); ALKALINE PHOSPHATASE 52 U/L (45-117); BUN 7 mg/dl (7-24); CHLORIDE 111 mmol/L (98-107); LIPASE 84 U/L (73-393); POTASSIUM 3.5 mmol/L (3.5-5.1); SGOT/AST 11 IU/L (3-35); SGPT/ALT 11 U/L (12-78); SODIUM 142 mmol/L (136-145)
[2019-12-04 19:19] LABS: TROPONIN I < 0.015 ng/ml (<0.045)
== END 2019-12-04 23:29 | disposition home or self-care (01) ==
LOC: ED 18:17
PROVIDERS: Emergency Medicine
DX: R11.0 Nausea (principal); J44.9 Chronic obstructive pulmonary disease, unspecified; I48.91 Unspecified atrial fibrillation; I50.9 Heart failure, unspecified; Z79.899 Other long term (current) drug therapy; Z90.49 Acquired absence of other specified parts of digestive tract

== ENCOUNTER 2019-12-25 14:17 | Inpatient (IN) | payer MEDICARE ==
[~2019-12-25] VITALS: Ht 175.2 cm; Wt 74.9 kg
[2019-12-25 14:23] VITALS: BP 135/81
[2019-12-25 14:37] VITALS: BP 135/82
[2019-12-25 14:59] LABS: BASO # 0.1 10*3/uL (0.0-0.1); EOS # 0.3 10*3/uL (0.0-0.4); EOS % 4.2 % (1.0-4.0); HEMATOCRIT 37.7 % (37.0-47.0); LYMPH # 1.2 10*3/uL (1.3-4.4); LYMPH % 18.6 % (27.0-41.0); MEAN CELL VOLUME 93.8 fl (81.0-99.0); MEAN CORPUSCULAR HGB 31.3 pg (27.0-31.0); MEAN CORPUSCULAR HGB CONC 33.4 g/dl (33.0-37.0); MEAN PLATELET VOLUME 11.7 fl (9.6-12.3); MONO # 0.5 10*3/uL (0.1-1.0); MONO % 7.4 % (3.0-9.0); NEUT # 4.2 10*3/uL (2.3-7.9); NEUT % 68.6 % (47.0-73.0); PLATELET COUNT AUTOMATED 159 10*3/uL (130-400); RED BLOOD COUNT 4.02 10*6/uL (4.10-5.10); RED CELL DISTRI WIDTH 12.3 % (0-14.5); WHITE BLOOD COUNT 6.2 10*3/uL (4.8-10.8)
[2019-12-25 15:09] LABS: ACT PARTIAL THROMBO TIME 35.3 SECONDS (20.0-32.1); INTERNATIONAL NORM RATIO 1.2 (2.0-3.5)
[2019-12-25 15:14] LABS: ALBUMIN 3.3 gm/dl (3.1-4.5); ALKALINE PHOSPHATASE 64 U/L (45-117); BUN 6 mg/dl (7-24); CHLORIDE 111 mmol/L (98-107); CREATININE 0.69 mg/dL (0.55-1.02); POTASSIUM 3.6 mmol/L (3.5-5.1); SGOT/AST 8 IU/L (3-35); SGPT/ALT 13 U/L (12-78); SODIUM 143 mmol/L (136-145); TOTAL PROTEIN 6.3 gm/dL (6.4-8.2)
[2019-12-25 15:31] LABS: TROPONIN I < 0.015 ng/ml (<0.045)
[2019-12-25 16:50] VITALS: BP 166/84
--- NOTE | 2019-12-25 17:36 | NUR ---
PT DENIES ANY WOUNDS AT THIS TIME. NO WOUNDS NOTED UPON ASSESSMENT.
--- NOTE | 2019-12-25 18:06 | NUR ---
A 74, admitted to , under the services of RUBEN Cole MD with a diagnosis of COPD EXACERBATION. Chief complaint is SHORTNESS OF BREATH,CHEST PAIN. Patient arrived via stretcher from ER. Monitor applied. Initial assessment completed. Vital signs taken and recorded. RUBEN COLE MD notified of admission to the unit. Orders received. See assessment for past medical history, medications and allergies. Patient and/or family oriented to unit. [facility] visitation policy reviewed. Clothing/patient valuable form completed. POLO OSWALD
--- NOTE | 2019-12-25 18:15 | NUR ---
DR. NAVARRO AWARE PATIENT IS ON FLOOR.
[2019-12-25 18:16] VITALS: BP 162/98
[2019-12-25 20:00] VITALS: BP 147/78
--- NOTE | 2019-12-25 20:03 | NUR ---
24 HR chart check completed.
[2019-12-26] VITALS: BP 139/74
[2019-12-26 05:45] LABS: BASO # 0.1 10*3/uL (0.0-0.1); BASO % 1.2 % (0.0-1.0); EOS # 0.3 10*3/uL (0.0-0.4); EOS % 5.2 % (1.0-4.0); LYMPH # 1.1 10*3/uL (1.3-4.4); LYMPH % 17.5 % (27.0-41.0); MEAN CELL VOLUME 95.5 fl (81.0-99.0); MEAN CORPUSCULAR HGB 31.7 pg (27.0-31.0); MEAN CORPUSCULAR HGB CONC 33.3 g/dl (33.0-37.0); MEAN PLATELET VOLUME 11.5 fl (9.6-12.3); MONO # 0.5 10*3/uL (0.1-1.0); MONO % 8.2 % (3.0-9.0); NEUT # 4.1 10*3/uL (2.3-7.9); NEUT % 67.6 % (47.0-73.0); PLATELET COUNT AUTOMATED 149 10*3/uL (130-400); RED BLOOD COUNT 4.19 10*6/uL (4.10-5.10); RED CELL DISTRI WIDTH 12.6 % (0-14.5)
[2019-12-26 05:51] LABS: ALBUMIN 3.4 gm/dl (3.1-4.5); ALKALINE PHOSPHATASE 61 U/L (45-117); BUN 8 mg/dl (7-24); CHLORIDE 109 mmol/L (98-107); CREATININE 0.62 mg/dL (0.55-1.02); POTASSIUM 3.9 mmol/L (3.5-5.1); SGOT/AST 11 IU/L (3-35); SGPT/ALT 15 U/L (12-78); SODIUM 141 mmol/L (136-145)
[2019-12-26 08:00] VITALS: BP 142/80
[2019-12-26 08:37] LABS: VITAMIN D, 25-HYDROXY 25.8 ng/mL (30-100)
--- NOTE | 2019-12-26 09:00 | NUR ---
Bread Pan Greaser in to speak with patient. Patient states lives at home alone in [facility] apartments with her family checking in on her. There are 0 steps in the home. Physician: Dr. Jeremías Sigala, resident clinic [facility] Home health services: none Patient's level of ADLs: INDEPENDENT Patient has working utilities: yes DME: nebulizer, O2 @ 2L nc prn, portable O2 tanks, O2 supplier [employer]MS Follow-up physician's appointment after d/c: she prefers to make her own follow up appt after discharge Does patient want to access PORTAL?: no Discharge plan discussed with patient. She lives at home alone with family checking in on her. She is independent in her ADLs and ambulation. Discussed home health care services and she declines. She would like a consult with Dr. Moore for cough and chest congestion. Dr. Sigala notified. She states she heard a buzzing going off the other night over her pacemaker but then the following day there was not a buzzing sound. When medically stable she will be discharged to home. She states she will take a cab or walk home on discharge. ARIADNE PATTERSON
--- NOTE | 2019-12-26 09:09 | NUR ---
Spoke to Dr. Sigala. New order received for Dr. Moore consult.
--- NOTE | 2019-12-26 09:31 | NUR ---
DR QUIROGA NOTIFIED OF CONSULT.
[2019-12-26 12:00] VITALS: BP 129/68
[2019-12-26 16:00] VITALS: BP 120/80
[2019-12-26 20:00] VITALS: BP 120/63
--- NOTE | 2019-12-26 20:00 | NUR ---
AAOX3. PT. VOICES NO C/O AT THIS TIME. PULSE OX 94% ON ROOM AIR. CALL LIGHT WITHIN REACH.
--- NOTE | 2019-12-26 22:00 | NUR ---
RESTING IN BED WITH EYES CLOSED; CALL LIGHT WITHIN REACH.
[2019-12-27] VITALS: BP 132/74
--- NOTE | 2019-12-27 05:26 | NUR ---
AROUSES EASILY TO TAKE PROTONIX. VOICES NO C/O AT THIS TIME. CALL LIGHT WITHIN REACH.
[2019-12-27 07:34] LABS: MEAN CELL VOLUME 94.1 fl (81.0-99.0); MEAN CORPUSCULAR HGB 31.1 pg (27.0-31.0); PLATELET COUNT AUTOMATED 170 10*3/uL (130-400); RED BLOOD COUNT 4.25 10*6/uL (4.10-5.10); RED CELL DISTRI WIDTH 12.2 % (0-14.5); WHITE BLOOD COUNT 15.7 10*3/uL (4.8-10.8)
[2019-12-27 08:03] LABS: BURR CELLS FEW; OVALOCYTES FEW; PLATELET SUFFICIENCY NORMAL (NORMAL); TOTAL CELLS COUNTED 100 #CELLS
[2019-12-27 08:10] LABS: ALBUMIN 3.4 gm/dl (3.1-4.5); BUN 13 mg/dl (7-24); CHLORIDE 109 mmol/L (98-107); CREATININE 0.64 mg/dL (0.55-1.02); POTASSIUM 4.3 mmol/L (3.5-5.1); SGOT/AST 9 IU/L (3-35); SGPT/ALT 12 U/L (12-78); SODIUM 141 mmol/L (136-145)
[2019-12-27 08:12] LABS: ALKALINE PHOSPHATASE 66 U/L (45-117); TOTAL PROTEIN 6.6 gm/dL (6.4-8.2)
--- NOTE | 2019-12-27 09:00 | NUR ---
Promotions Assistant in to see patient. No new needs or request at this time. Discussed home health care services and she declines at this time. Promotions Assistant will continue to follow for any discharge planning needs. When medically stable she will be discharged to home.
[2019-12-27 12:00] VITALS: BP 145/86
[2019-12-27 16:00] VITALS: BP 148/79
[2019-12-27 20:00] VITALS: BP 120/75
--- NOTE | 2019-12-27 20:00 | NUR ---
Patient sitting up in bed, denies any pain, states she is coughing and gets short of breath. Patient aware of npo status at midnight for bronch in the am. Patient left with call light in reach.
[2019-12-28] VITALS (8 sets, daily range): BP systolic 117–147; BP diastolic 60–83
--- NOTE | 2019-12-28 00:24 | NUR ---
24 HR chart check completed.
[2019-12-28 06:36] LABS: HEMATOCRIT 37.9 % (37.0-47.0); MEAN CELL VOLUME 94.8 fl (81.0-99.0); MEAN CORPUSCULAR HGB CONC 33.8 g/dl (33.0-37.0); MEAN PLATELET VOLUME 11.9 fl (9.6-12.3); PLATELET COUNT AUTOMATED 169 10*3/uL (130-400); RED CELL DISTRI WIDTH 12.4 % (0-14.5); WHITE BLOOD COUNT 17.5 10*3/uL (4.8-10.8)
[2019-12-28 06:52] LABS: TOTAL CELLS COUNTED 100 #CELLS
[2019-12-28 06:53] LABS: BURR CELLS FEW; OVALOCYTES FEW; PLATELET SUFFICIENCY NORMAL (NORMAL)
--- NOTE | 2019-12-28 09:30 | NUR ---
Bender Machine Operator in to see patient. She is currently not in her room. She is in surgery having a bronchoscopy. Will follow up at a later time.
--- NOTE | 2019-12-28 19:00 | NUR ---
ASSUMED CARE FOR THIS PT AT THIS TIME. PT CONTINUES TO C/O DYSPNEA AT REST. RHONCHI/WHEEZING NOTED T/O. MOIST PLASTIC PRESS OPERATOR COUGH NOTED. PT ON RA. CALL LIGHT IN REACH.
--- NOTE | 2019-12-28 20:26 | NUR ---
PT C/O MID STERNAL CHEST PAIN FROM COUGHING. MEDICATED W/NORCO. CALL LIGHT IN REACH.
--- NOTE | 2019-12-28 21:26 | NUR ---
PT RESTING QUEITLY IN BED. PRN PAIN MED EFFECTIVE. CALL LIGHT IN REACH.
[2019-12-29] VITALS: BP 111/66
--- NOTE | 2019-12-29 05:14 | NUR ---
PT MEDICATED W/NORCO FOR C/O BLE PAIN. PT SITTING ON SIDE OF BED AT THIS TIME. WILL MONITOR. CALL LIGHT IN REACH.
--- NOTE | 2019-12-29 05:58 | NUR ---
24 HR chart check completed.
[2019-12-29 06:37] LABS: BASO % 0.3 % (0.0-1.0); EOS % 0.3 % (1.0-4.0); HEMATOCRIT 41.2 % (37.0-47.0); LYMPH # 1.7 10*3/uL (1.3-4.4); MEAN CELL VOLUME 97.6 fl (81.0-99.0); MEAN CORPUSCULAR HGB 31.5 pg (27.0-31.0); MEAN CORPUSCULAR HGB CONC 32.3 g/dl (33.0-37.0); MEAN PLATELET VOLUME 12.3 fl (9.6-12.3); MONO # 1.2 10*3/uL (0.1-1.0); MONO % 8.8 % (3.0-9.0); NEUT # 10.2 10*3/uL (2.3-7.9); NEUT % 77.1 % (47.0-73.0); PLATELET COUNT AUTOMATED 158 10*3/uL (130-400); RED BLOOD COUNT 4.22 10*6/uL (4.10-5.10); RED CELL DISTRI WIDTH 12.4 % (0-14.5); WHITE BLOOD COUNT 13.2 10*3/uL (4.8-10.8)
--- NOTE | 2019-12-29 07:30 | NUR ---
PATIENT RESTING IN BED AND STATES SHE HAS SO MUCH PAIN IN HER RIGHT LEG AND IS VERY NAUSEOUS. ASSESSMENT COMPLETE. RESPS EASY AND REGULAR. CALL LIGHT IN REACH.
--- NOTE | 2019-12-29 07:51 | NUR ---
PATIENT MEDICATED WITH PRN NORCO FOR CO RIGHT LEG PAIN RATED A 10/10. WILL ASSESS EFFECTIVENESS.
[2019-12-29 08:00] VITALS: BP 140/90
--- NOTE | 2019-12-29 08:02 | NUR ---
MEDICATED WITH PRN ZOFRAN FO CO NAUSEA. WILL ASSESS EFFECTIVENESS.
--- NOTE | 2019-12-29 08:51 | NUR ---
PER PATIENT NORCO NOT EFFECTIVE AT ALL.
--- NOTE | 2019-12-29 09:02 | NUR ---
PATIENT STATES SHE IS STILL FEELING A LITTLE NAUSEOUS BUT HASN'T THROWN UP. ZOFRAN SOMEWHAT EFFECTIVE.
--- NOTE | 2019-12-29 09:32 | NUR ---
NOTIFIED PATIENT JUST GIVEN ZOFRAN AT 0802 PER GO AHEAD AND CANCEL THE ONE TIME DOSE THAT HE PUT IN.
[2019-12-29 11:07] LABS: ACID FAST SPEC PROCESSING Concentration (.)
--- NOTE | 2019-12-29 11:48 | NUR ---
MEDICATED WITH PRN MORPHINE FOR CO 10/10 RIGHT LEG PAIN. WILL ASSESS EFFECTIVENESS. CALL LIGHT IN REACH.
[2019-12-29 12:00] VITALS: BP 149/80
--- NOTE | 2019-12-29 12:48 | NUR ---
PER PATIENT MORPHINE NOT EFFECTIVE FOR PAIN. TOLD PATIENT I COULD CALL THE DOCTOR AND TRY TO GET HER SOMETHING ELSE. PER PATIENT DO NOT CALL THE DOCTOR FOR ANYTHING ELSE NOTHING IS WORKING FOR HER AND SHE WOULD NOT LIKE ANY OTHER MEDS.
--- NOTE | 2019-12-29 15:13 | NUR ---
MEDICATED WITH ONE TIME DILAUDID PER ORDER. ONCOMING NURSE TO ASSESS EFFCTIVENESS. CALL LIGHT IN REACH.
--- NOTE | 2019-12-29 15:17 | NUR ---
SPOKE W DR NAVARRO REGARDING BREAST US. US STATES THAT PT MUST HAVE MAMMOGRAM DONE FIRST. STATES HE WILL BE UP TO THE FLOOR
--- NOTE | 2019-12-29 15:30 | NUR ---
PT RESTING IN BED. RESPS EASY AND NON LABORED. VSS. WHITE BOARD UPDATED. POC DISCUSSED W PT. CALL LIGHT WITHIN REACH. PT STATES HER RIGHT HIP IS HURTING-SCANS ORDERED TO ASSESS. DILAUDID ORDERED FOR PAIN. PT ENCOURAGED TO DRINK REDICAT FOR CT. WILL CONTINUE TO MONITOR. NO SOB NOTED.A/O X3.
--- NOTE | 2019-12-29 15:32 | NUR ---
PT STATES SHE IS STARTING TO BECOME NAUSEOUS FROM REDICAT. DOES NOT WANT ANYTHING FOR NAUSEA AND STATES SHE WILL TRY TO DRINK IT ALL. WILL CONTINUE TO MONITOR
[2019-12-29 16:00] VITALS: BP 140/73
--- NOTE | 2019-12-29 16:00 | NUR ---
DILAUDID SLIGHTLY EFFECTIVE PER PT. STATES NOTHING REALLY HELPS. ENCOURAGING PT TO DRINK REDICAT
--- NOTE | 2019-12-29 17:31 | NUR ---
PT MOANING/GROANING STATING SHE IS NOT DRINKING ANYMORE REDICAT. WILL CALL RADILOGY
--- NOTE | 2019-12-29 18:00 | NUR ---
PT TAKEN OFF FLOOR TO CT
--- NOTE | 2019-12-29 18:12 | NUR ---
PT BACK FROM CT. RESTING IN BED. RESPS EASY AND NON LABORED. CALL LIGHT WITHIN REACH.
--- NOTE | 2019-12-29 19:00 | NUR ---
ASSUMED CARE FOR THIS PT AT THIS TIME. PT AWAKE IN BED. PT C/O INABILITY TO AMBULATE AND RLE PAIN. ROM WNL PER COMMAND. WILL CONTINUE TO MONITOR. BED ALARM ON W/CALL LIGHT IN REACH.
[2019-12-29 20:00] VITALS: BP 155/60
--- NOTE | 2019-12-29 22:31 | NUR ---
IV started left antecubital with #20 angiocath after 1 attempts. The IV site was prepped with Chloraprep. Heparin lock attached. IV solution NORMAL SALINE infusing at 60 mL/hr. Sterile dressing applied. Patient tolerated precedure well. Procedure performed according to [facility] policy & procedure. IV IN LEFT WRIST D/C'S SITE EDEMATOUS. CHRISTEN BANKS
[2019-12-30] VITALS: BP 144/70
--- NOTE | 2019-12-30 00:55 | NUR ---
PT RESTING QUIETLY IN BED. NO S/S OF DISTRESS NOTED.
--- NOTE | 2019-12-30 00:57 | NUR ---
24 HR chart check completed.
--- NOTE | 2019-12-30 03:22 | NUR ---
PT C/O INABILITY TO WALK. PT THINKS SHE HAD A STROKE. PT ABLE TO MOVE ALL LIMBS ON COMMAND. HAND GASPS EQUAL. SPEECH CLEAR PUPILS 3MM EQUAL AND REACTIVE. BED ALARM ON W/CALL LIGHT IN REACH.
--- NOTE | 2019-12-30 05:43 | NUR ---
PT MEDICATED W/NORCO FOR C/O RT HIP PAIN 11/07.
[2019-12-30 05:58] LABS: BASO % 0.1 % (0.0-1.0); HEMATOCRIT 36.8 % (37.0-47.0); LYMPH # 0.6 10*3/uL (1.3-4.4); LYMPH % 3.3 % (27.0-41.0); MEAN CORPUSCULAR HGB 31.1 pg (27.0-31.0); MEAN CORPUSCULAR HGB CONC 33.2 g/dl (33.0-37.0); MONO # 1.7 10*3/uL (0.1-1.0); MONO % 9.4 % (3.0-9.0); NEUT # 15.2 10*3/uL (2.3-7.9); NEUT % 85.1 % (47.0-73.0); PLATELET COUNT AUTOMATED 140 10*3/uL (130-400); RED BLOOD COUNT 3.92 10*6/uL (4.10-5.10); RED CELL DISTRI WIDTH 12.3 % (0-14.5); WHITE BLOOD COUNT 17.8 10*3/uL (4.8-10.8)
[2019-12-30 05:59] LABS: MEAN CELL VOLUME 93.9 fl (81.0-99.0)
[2019-12-30 06:13] LABS: BUN 13 mg/dl (7-24); CHLORIDE 105 mmol/L (98-107); POTASSIUM 3.4 mmol/L (3.5-5.1); SODIUM 138 mmol/L (136-145)
[2019-12-30 06:16] LABS: ALKALINE PHOSPHATASE 61 U/L (45-117); CREATININE 0.69 mg/dL (0.55-1.02); SGOT/AST 8 IU/L (3-35); SGPT/ALT 10 U/L (12-78); TOTAL PROTEIN 6.3 gm/dL (6.4-8.2)
[2019-12-30 06:46] LABS: PLATELET SUFFICIENCY NORMAL (NORMAL); TOTAL CELLS COUNTED 100 #CELLS
[2019-12-30 08:00] VITALS: BP 134/78
--- NOTE | 2019-12-30 09:35 | NUR ---
PT MEDICATED WITH NORCO AT THIS TIME FOR 7/10 PAIN IN RIGHT HIP/R LEG. WILL MONITOR FOR EFFECTIVENESS.
--- NOTE | 2019-12-30 10:35 | NUR ---
PER PATIENT, MEDICATION HAS BEEN EFFECTIVE. RESTING AT THIS TIME.
[2019-12-30 12:00] VITALS: BP 145/69
[2019-12-30 16:00] VITALS: BP 134/82
--- NOTE | 2019-12-30 17:44 | NUR ---
1716 [place] 5/325mg po given for 7 out of 10 pain. Pain in right hip and thigh. Repositioned patient. Jessica TORRE OVCT
--- NOTE | 2019-12-30 17:56 | NUR ---
Patient's pain reassessed, now rating 6 out of 10 pain. Jessica TORRE, OVCT
[2019-12-30 20:00] VITALS: BP 117/71
[2019-12-31] VITALS: BP 115/75
--- NOTE | 2019-12-31 00:43 | NUR ---
NORCO GIVEN PER PATIENT REQUEST FOR COMPLAINTS OF RIGHT SIDE/HIP PAIN RATED 7/10. WILL ASSESS EFFECTIVENESS.
--- NOTE | 2019-12-31 01:40 | NUR ---
NORCO EFFECTIVE PER PATIENT. WILL CONTINUE TO MONITOR.
--- NOTE | 2019-12-31 07:49 | NUR ---
Shift chart check completed.
[2019-12-31 08:00] VITALS: BP 168/84
--- NOTE | 2019-12-31 08:20 | NUR ---
pt complain of right hip pain, 03/09. norco given. will monitor for effectiveness
--- NOTE | 2019-12-31 09:22 | NUR ---
PT RESTING WITH EYES CLOSED, NO NEEDS AT THIS TIME
--- NOTE | 2019-12-31 10:21 | NUR ---
PT CONTINUES TO COMPLAIN OF RIGHT HIP PAIN, 01/07. MORPHINE GIVEN. WILL MONITOR FOR EFFECTIVENESS
--- NOTE | 2019-12-31 11:00 | NUR ---
PT STATES MORPHINE EFFECTIVE FOR PAIN. NO NEEDS STATED AT THIS TIME
[2019-12-31 12:00] VITALS: BP 166/88
--- NOTE | 2019-12-31 12:27 | NUR ---
PT STATES PAIN RIGHT HIP AND DOWN LEG 10/10, NORCO GIVEN. WILL MONITOR FOR EFFECTIVENESS
--- NOTE | 2019-12-31 13:30 | NUR ---
PT STATES NORCO "HELPED SOME". NO NEEDS STATED AT THIS TIME
--- NOTE | 2019-12-31 14:10 | NUR ---
PT INSTRUCTED ON FLUTTER, PT TOLERATED WELL. PT CAN DO ON HER OWN
--- NOTE | 2019-12-31 14:49 | NUR ---
PT STATES RIGHT HIP PAIN 02/07. MORPHINE GIVEN. WILL MONITOR FOR EFFECTIVENESS
--- NOTE | 2019-12-31 15:25 | NUR ---
PT SLEEPING, NO DISTRESS NOTED
[2019-12-31 16:00] VITALS: BP 125/72
--- NOTE | 2019-12-31 17:37 | NUR ---
PT COMPLAIN OF PAIN RIGHT HIP 02/07, NORCO GIVEN. WILL MONITOR FOR EFFECTIVENESS.
--- NOTE | 2019-12-31 18:30 | NUR ---
norco effective for pain, pt awake, alert, talkative. pt states no other needs at this time
[2019-12-31 20:00] VITALS: BP 123/63
--- NOTE | 2019-12-31 23:51 | NUR ---
NORCO GIVEN PER PATIENT REQUEST FOR COMPAINTS OF RIGHT HIP/LEG PAIN RATED 7/10. WILL ASSESS EFFECTIVENESS.
[2020-01-01] VITALS: BP 151/76
--- NOTE | 2020-01-01 00:50 | NUR ---
NORCO EFFECTIVE PER PATIENT. PAIN RATED 3/10. WILL CONTINUE TO MONITOR.
[2020-01-01 06:15] LABS: HEMATOCRIT 36.5 % (37.0-47.0); MEAN CELL VOLUME 95.1 fl (81.0-99.0); MEAN CORPUSCULAR HGB 31.3 pg (27.0-31.0); MEAN CORPUSCULAR HGB CONC 32.9 g/dl (33.0-37.0); MEAN PLATELET VOLUME 12.1 fl (9.6-12.3); PLATELET COUNT AUTOMATED 143 10*3/uL (130-400); RED BLOOD COUNT 3.84 10*6/uL (4.10-5.10); RED CELL DISTRI WIDTH 12.5 % (0-14.5)
[2020-01-01 06:22] LABS: BUN 19 mg/dl (7-24); CHLORIDE 106 mmol/L (98-107); CREATININE 0.62 mg/dL (0.55-1.02); POTASSIUM 3.8 mmol/L (3.5-5.1); SODIUM 139 mmol/L (136-145)
[2020-01-01 06:56] LABS: PLATELET SUFFICIENCY NORMAL (NORMAL); TOTAL CELLS COUNTED 100 #CELLS
--- NOTE | 2020-01-01 07:44 | NUR ---
Machine Mover called to speak to patient. Discussed short term rehab and she refuses. She states Dr. Moore gave her a cream to put on her leg and it feels much better now. She states she is able to get up and move her right leg around better today. Discussed home health care services and she declines at this time. CM to follow for any discharge planning needs. When medically stable she will be discharged to home.
[2020-01-01 08:00] VITALS: BP 142/88
--- NOTE | 2020-01-01 09:00 | NUR ---
CM in to see patient. She is complaining about her right leg hurting. Asked about her stating the cream from this morning was working. She picked up a flutter valve and said it was working. Asked again about her cream for her leg and she states she doesn't have any cream. She states she just wants to walk out of here. Explained that would not be a good option for her. She agreed to stay. Discussed if her right leg is hurting her that bad she should consider a short term rehab. She is agreeable to rehab. When provided with a list of facilities she chose [facility]. event planner notified.
--- NOTE | 2020-01-01 09:51 | NUR ---
COVID SWAB SENT FOR SKILLED NURSING PLACEMENT
--- NOTE | 2020-01-01 09:53 | NUR ---
PRESTON FOR RIGHT LEG PAIN
--- NOTE | 2020-01-01 10:00 | NUR ---
MODERATE RELIEF OF PAIN
--- NOTE | 2020-01-01 10:49 | NUR ---
Patient requesting a referral to [facility]. Contacted Felicita and faxed initial referral. Waiting on review/acceptance. Will require PT/OT evals with precert and Covid 19 test results.
--- NOTE | 2020-01-01 11:10 | NUR ---
Occupational Therapy evaluation completed on four with full evaluation to follow. Recommend occupational therapy per plan of care and SNF upon discharge. Thank you for this referral. Celina Manley OTR/L
--- NOTE | 2020-01-01 11:39 | NUR ---
MORPHONE AFTER PT/OT PT CRYING IN PAIN FROM RIGHT HIP/KNEE
--- NOTE | 2020-01-01 11:45 | NUR ---
MORPHINE EFFECTIVE VERY QUICKLY PT POSITIONED ON LEFT SIDE PILLOW UNDER RIGHT KNEE
[2020-01-01 12:00] VITALS: BP 130/90
--- NOTE | 2020-01-01 12:53 | NUR ---
PHYSICAL THERAPY Physical Therapy evaluation completed on 4th floor with full evaluation to follow. Recommend physical therapy per plan of care and SNF upon discharge. Thank you for this referral. Aye Nickerson PT
--- NOTE | 2020-01-01 14:45 | NUR ---
DR NAVARRO UPDATED ON CONTINUED RIGHT HIP PAIN
--- NOTE | 2020-01-01 15:00 | NUR ---
If patient is accepted to [facility], she must have a negative covid test result as [facility] is no longer accepting pending test results
--- NOTE | 2020-01-01 15:02 | NUR ---
DILUADID FOR RIGHT HIP PAIN
--- NOTE | 2020-01-01 15:52 | NUR ---
RAHAT EFFECTIVE DR MARTE IN TO SEE PT CT ORDERED
[2020-01-01 16:00] VITALS: BP 120/84
--- NOTE | 2020-01-01 19:55 | NUR ---
PRN MORPHINE GIVEN FOR PT COMPLAINTS OF RIGHT HIP PAIN RATING IT 10/10. STATES IT RADIATES ALL THE WAY DOWN HER LEG. CALL LIGHT WITHIN REACH, WILL MONITOR
[2020-01-01 20:00] VITALS: BP 108/80
--- NOTE | 2020-01-01 20:15 | NUR ---
MORPHINE EFFECTIVE PER PT
[2020-01-02] VITALS: BP 165/85
--- NOTE | 2020-01-02 00:59 | NUR ---
OK FROM DR. REID TO PUT MORPHINE ORDER BACK IN IF PATIENT NEEDS IT IT DROPPED OFF BECAUSE SHE'S BEEN HERE A WEEK
--- NOTE | 2020-01-02 01:43 | NUR ---
PATIENT SLEEPING, NO DISTRESS NOTED. BREATHING IS EASY AND REGULAR ON ROOM AIR. CALL LIGHT WITHIN REACH, WILL MONITOR
--- NOTE | 2020-01-02 03:15 | NUR ---
PATIENT ASSISTED UP TO BEDSIDE COMMODE. NO COMPLAINTS OF PAIN AT THIS TIME. STATED SHE'S JUST STIFF. CALL LIGHT WITHIN REACH WILL MONITOR
--- NOTE | 2020-01-02 04:18 | NUR ---
24 HR chart check completed.
[2020-01-02 06:38] LABS: ALBUMIN 2.2 gm/dl (3.1-4.5); ALKALINE PHOSPHATASE 82 U/L (45-117); BUN 15 mg/dl (7-24); CHLORIDE 104 mmol/L (98-107); CREATININE 0.65 mg/dL (0.55-1.02); POTASSIUM 3.4 mmol/L (3.5-5.1); SGOT/AST 17 IU/L (3-35); SGPT/ALT 21 U/L (12-78); SODIUM 138 mmol/L (136-145); TOTAL PROTEIN 6.1 gm/dL (6.4-8.2)
[2020-01-02 08:00] VITALS: BP 161/90
--- NOTE | 2020-01-02 08:00 | NUR ---
OT NOTE Pt was seen this A.M. 1:1 for 15 minute OT session. Upon arrival pt was supine in bed. Pt identified by name and and had complaints of pain all over however was unable to rate on 0-10 pain scale. Pt transferred supine to sit EOB with modA X 2. Sit to stand completed from bed level with Josephine X 2. Attempted to have pt use w/w for UE support and pt declined multiple attempts. Challenged pt's static standing tolerance needed for increased I and enhanced endurance, pt was able to tolerate aprox 2 minutes before sitting due to fatigue. Standing pivot then completed from the EOB to the bedside commode with Josephine [employer]EN[employer]SEL [employer]. There she transferred on to the bedside commode with Josephine and off with Josephine X 2 followed by standing pivot back to the EOB with Josephine. Pt declined any other tasks at this time due to pain. Pt transferred back into bed sit to supine with modA X 2. There she was left with call light in hand, tray table in place, and bed alarm activated for safety. Throughout entire session pt was yelling/crying out in pain. Continue with rec D/C plan to SNF. MARISA Taylor/Janna
--- NOTE | 2020-01-02 08:05 | NUR ---
PHYSICAL THERAPY Patient seen this am 1;1 for therapy visit and was supine in bed upon therapist arrival. Patient identified by name / and reports increased generalized pain initially, then more specifically, R hip pain, however unable to rate on 0-10 pain scale. Patient also presented with bouts of confusion throughout entire treatment, requiring multiple v/c's to complete all task. OT study assistant was present this session for observation only as patient transfers supine to sit EOB with MOD A x 2. Patient needed a few minutes static EOB sit to collect herself, CGA, then completed sit to stand transfer, MIN/MATERIALS HANDLING EQUIPMENT OPERATOR x 2. Patient repeatedly stated " I can't do this" and was a little shaky with her standing balance. Patient refused use of wh walker to improve standing balance and completed SPT to BSC, demonstrating very unsteady step sequence. Patient unable to ambulate secondary to increased R hip pain and patient very nervous while standing up. Patient returned to supine in bed, MAX A x 2, needing therapist assist to pick her feet up. Patient remained in bed with call light, tray table, bed alarm and bed side rails raised for safety. Will continue per POC as tolerated, total treatment time 14 minutes. Robert Liriano, REFLOW OPERATOR
--- NOTE | 2020-01-02 08:18 | NUR ---
PATIENT COMPLAINING OF PAIN "EVERYWHERE" 03/09 AND MEDICATED WITH PO NORCO AT THIS TIME PER ORDER. WILL MONITOR FOR EFFECTIVENESS.
--- NOTE | 2020-01-02 09:00 | NUR ---
CM in to see patient. No new needs or request at this time. When medically stable, COVID results are back, and precert is obtained she will be discharged to [facility]. wedding planner following.
--- NOTE | 2020-01-02 09:06 | NUR ---
Patient has been accepted to [facility] and asked to please start precert. Faxed updated clinicals and therapy notes. waiting for auth.
--- NOTE | 2020-01-02 09:18 | NUR ---
PATIENT IS NOW RESTING, EYES CLOSED. NORCO APPEARS TO HAVE BEEN EFFECTIVE.
--- NOTE | 2020-01-02 11:57 | NUR ---
PT C/O PAIN 02/07 TO RIGHT R HIP/R LEG AND MEDICATED WITH PO NORCO AT THIS TIME PER ORDER. WILL MONITOR FOR EFFECTIVENESS.
[2020-01-02 12:00] VITALS: BP 136/90
--- NOTE | 2020-01-02 14:00 | NUR ---
patient has received auth for [facility] and can go if medically stable. Ok for Covid test to be pending.
--- NOTE | 2020-01-02 14:08 | NUR ---
Spoke to Dr. Sigala. Plan is transfer patient to [facility] for orthopedics for her right hip pain. Back up plan is [facility] with outpatient orthopedics. Awaiting acceptance to [facility].
--- NOTE | 2020-01-02 14:09 | NUR ---
Nofified Ashley from , after patient has been accepted, that Dr. Sigala just called stating patient will be transferred to [facility], notified award machine operator of patients discharge plan and asked her to put Sunita contact info on the transfer paperwork for discharge from [facility]
[2020-01-02 16:00] VITALS: BP 119/78
--- NOTE | 2020-01-02 18:45 | NUR ---
PATIENT TAKEN BY [facility] TO [facility] AT THIS TIME. IV REMAINS IN PLACE TO LEFT AC. REPORT GIVEN TO RECEIVING NURSE. INSTRUCTIONS GIVEN AND REPORT GIVEN TO AMBULANCE.
--- NOTE | 2020-01-03 07:40 | NUR ---
PHYSICAL THERAPY CO-SIGN I approve of the Physical Therapy notes written above. Aye Nickerson PT
--- NOTE | 2020-01-03 07:41 | NUR ---
OCCUPATIONAL THERAPY CO-SIGN I approve of the Occupational Therapy notes written above. KEITH MARROQUIN, OTR/L
== END 2020-01-02 18:45 | disposition short-term general hospital (02) | DRG 189 ==
LOC: ED 14:17 → EDHOLD 16:28 → 4E 16:28
PROVIDERS: Emergency Medicine; Internal Medicine; Internal Medicine Critical Care Medicine; Internal Medicine Nephrology; Student in an Organized Health Care Education/Training Program; ADMIT Internal Medicine
PROC: 0BC78ZZ Extirpation of Matter from Left Main Bronchus, Via Natural or Artificial Opening Endoscopic (ICD-10-PCS; principal; 2019-12-28)
PROC: 0BC18ZZ Extirpation of Matter from Trachea, Via Natural or Artificial Opening Endoscopic (ICD-10-PCS; principal; 2019-12-28)
PROC: 0BC98ZZ Extirpation of Matter from Lingula Bronchus, Via Natural or Artificial Opening Endoscopic (ICD-10-PCS; principal; 2019-12-28)
PROC: 0BC58ZZ Extirpation of Matter from Right Middle Lobe Bronchus, Via Natural or Artificial Opening Endoscopic (ICD-10-PCS; principal; 2019-12-28)
PROC: 0BCB8ZZ Extirpation of Matter from Left Lower Lobe Bronchus, Via Natural or Artificial Opening Endoscopic (ICD-10-PCS; principal; 2019-12-28)
PROC: 0BC68ZZ Extirpation of Matter from Right Lower Lobe Bronchus, Via Natural or Artificial Opening Endoscopic (ICD-10-PCS; principal; 2019-12-28)
PROC: 0BC88ZZ Extirpation of Matter from Left Upper Lobe Bronchus, Via Natural or Artificial Opening Endoscopic (ICD-10-PCS; principal; 2019-12-28)
PROC: 0BC38ZZ Extirpation of Matter from Right Main Bronchus, Via Natural or Artificial Opening Endoscopic (ICD-10-PCS; principal; 2019-12-28)
PROC: 0BC48ZZ Extirpation of Matter from Right Upper Lobe Bronchus, Via Natural or Artificial Opening Endoscopic (ICD-10-PCS; principal; 2019-12-28)
DX: J96.21 Acute and chronic respiratory failure with hypoxia (principal); I50.23 Acute on chronic systolic (congestive) heart failure; J98.11 Atelectasis; J43.9 Emphysema, unspecified; I11.0 Hypertensive heart disease with heart failure; I48.91 Unspecified atrial fibrillation; E87.8 Other disorders of electrolyte and fluid balance, not elsewhere classified; R73.9 Hyperglycemia, unspecified; E83.41 Hypermagnesemia; R91.1 Solitary pulmonary nodule; I25.10 Atherosclerotic heart disease of native coronary artery without angina pectoris; L40.9 Psoriasis, unspecified; E78.5 Hyperlipidemia, unspecified; I25.5 Ischemic cardiomyopathy; F41.9 Anxiety disorder, unspecified; M25.851 Other specified joint disorders, right hip; E87.6 Hypokalemia; Z20.828 Contact with and (suspected) exposure to other viral communicable diseases; J20.9 Acute bronchitis, unspecified; D72.829 Elevated white blood cell count, unspecified; T38.0X5A Adverse effect of glucocorticoids and synthetic analogues, initial encounter; Y92.238 Other place in hospital as the place of occurrence of the external cause; I08.3 Combined rheumatic disorders of mitral, aortic and tricuspid valves; Z79.01 Long term (current) use of anticoagulants; Z95.810 Presence of automatic (implantable) cardiac defibrillator; Z90.49 Acquired absence of other specified parts of digestive tract; Z90.710 Acquired absence of both cervix and uterus; Z87.891 Personal history of nicotine dependence; Z80.3 Family history of malignant neoplasm of breast; Z82.3 Family history of stroke; Z82.49 Family history of ischemic heart disease and other diseases of the circulatory system; Z84.89 Family history of other specified conditions; Z83.3 Family history of diabetes mellitus; Z79.899 Other long term (current) drug therapy; Z86.73 Personal history of transient ischemic attack (TIA), and cerebral infarction without residual deficits